=== PATIENT | male | born 1935 | race Caucasian/White ===

== ENCOUNTER 2019-10-22 15:21 | Outpatient (RCR) | payer MEDICARE, SELFPAY | END 2019-10-22 18:00 | disposition home or self-care (01) | LOC: HHLAB 15:21 | PROVIDERS: Referring Provider Nurse Practitioner Primary Care; Visit Provider Nurse Practitioner Primary Care | DX: E87.8 Other disorders of electrolyte and fluid balance, not elsewhere classified (principal) ==

== ENCOUNTER 2019-10-24 15:14 | Outpatient (RCR) | payer MEDICARE, SELFPAY ==
[2019-10-24 16:17] LABS: Anion Gap 12 (5-15); BUN 23 mg/dL (7-18); BUN/Creat Ratio 22.3 RATIO (10-20); Calcium,Total 6.4 mg/dL (8.5-10.1); Chloride 105 mmol/L (98-107); Creatinine, Serum 1.03 mg/dL (0.70-1.30); EST Glomerular Filtration Rate 73 mL/min (>60); Est Glom Filt Rate - Afr Amer 89 mL/min (>60); Glucose 95 mg/dL (74-106); Potassium 3.2 mmol/L (3.5-5.1); Sodium Level 140 mmol/L (136-145)
== END 2019-10-24 18:00 | disposition home or self-care (01) ==
LOC: HHLAB 15:14
PROVIDERS: Referring Provider Nurse Practitioner Primary Care; Visit Provider Nurse Practitioner Primary Care
DX: S22.41XD Multiple fractures of ribs, right side, subsequent encounter for fracture with routine healing (principal); S20.01XD Contusion of right breast, subsequent encounter; I25.10 Atherosclerotic heart disease of native coronary artery without angina pectoris
CPT/HCPCS: 80048

== ENCOUNTER 2021-12-30 14:55 | Inpatient (IN) | payer MEDICARE, OTHER, SELFPAY ==
[2021-12-30 15:20] VITALS: BP 100/65; PULSE 77; RESP 16; TEMP 36.1; O2SAT 99; BMI 19.0
[2021-12-30] MEDS: Pantoprazole Sodium 40 MG Tablet PO (19:19)
[2021-12-30] MEDS: Midodrine HCl 5 MG Tablet PO (19:19)
--- NOTE | 2021-12-30 21:34 | HP.PCM_ITS ---
HPI - General General Date of Admission: 12/30/21 Date of Service: 12/30/21 Chief Complaint: Here for rehabilitation. HPI Narrative 12/26/2021 MAC HARVEY, is a 86 Male who presents to [facility] with weakness. Covid19 3 weeks prior, recent discharge from [facility] TCU 12/18/2021. [facility], [facility]. Device lead positioning cancelled due to illness. Hemoglobin 8.9, Urinalysis negative, BUN 44, Creatinine 2.09, BNP 20,860. Chest X-ray moderate left pleural effusion, adjacent airspace disease, small right pleural effusion. AST 392, ALT 315. PT/OT for debility. 12/27/2021 Bumex 2mg iv twice daily. Chronic cholecystitis, no abdominal pain. 12/28/2021 Fatigue. BUN 30, Creatinine 1.77. Chronic cholecystitis. Hospice considered. 12/29/2021 Creatinine 1.44. AST 244, ALT 423. Bumex 2mg bid for acute on chronic systolic congestive heart failure (EF 22%), 3 liters diuresis. Potassium chloride 40meq for hypokalemia. PT/OT for residential facility placement. Mexiletine 200mg tid for ventricular tachycardia. 12/30/2021 Admit to TCU with debility, here for rehabilitation, strengthening, prior to discharge home with . [facility] Medical History (Updated 12/30/21 @ 21:[address] Momo Blevins MD) Acute kidney injury Acute on chronic systolic congestive heart failure Anemia Atrial fibrillation Coronary artery disease COVID-19 Debility Elevated liver enzymes Hyperlipidemia Hypertension Hypothyroidism Weakness Home Medications L.acidophil,salivari-Bifido bifidum-Strep thermoph 175 mg capsule 1 cap PO DAILY probiotic 12/30/21 [History Last Taken Unknown] aspirin 81 mg tablet,delayed release 81 mg PO DAILY Heart Health 12/30/21 [History Last Taken Unknown] bumetanide 1 mg tablet 2 mg PO DAILY Heart 12/30/21 [History Last Taken Unknown] levothyroxine 25 mcg tablet 25 mcg PO DAILY Thyroid 12/30/21 [History Last Taken Unknown] metoprolol succinate 25 mg tablet,extended release 24 hr 25 mg PO DAILY BP 12/30/21 [History Last Taken Unknown] mexiletine 200 mg capsule 200 mg PO Q12H PRN Heart Rhythm 12/30/21 [History Last Taken Unknown] midodrine 5 mg tablet 5 mg PO TID BP 12/30/21 [History Last Taken Unknown] pantoprazole 40 mg tablet,delayed release 40 mg PO BIDAC GERD 12/30/21 [History Last Taken Unknown] potassium chloride 20 mEq tablet,extended release 20 meq PO DAILY Supplement 12/30/21 [History Last Taken Unknown] Allergy/AdvReac Type Severity Reaction Status Date / Time apixaban [From Eliquis] AdvReac Unknown Bleeding Verified 12/30/21 15:34 Family History (Updated 12/30/21 @ 21:[address] Momo Blevins MD) Father Alzheimer disease Sister Alzheimer disease Sister Breast cancer Brother Cancer Brother Esophageal cancer Surgical History (Updated 12/30/21 @ 21:[address] Momo Blevins MD) H/O rectal polypectomy History of implantable cardiac defibrillator (ICD) History of thoracotomy Hx of tonsillectomy S/P mitral valve clip implantation Social History (Updated 12/30/21 @ 21:[address] Momo Blevins MD) household members: spouse Smoking Status: Never smoker alcohol intake: never substance use type: does not use ROS Constitutional Constitutional: Reports fatigue; Denies chills, fever(s) or weight gain ENT HEENT: Denies headache(s), nasal congestion or nasal discharge Cardiovascular Cardiovascular: Denies chest pain or palpitations Respiratory/Chest Respiratory/Chest: Denies cough, excessive phlegm production or shortness of breath with exertion Gastrointestinal Gastrointestinal: Denies abdominal pain, nausea or vomiting Genitourinary Genitourinary: Denies dysuria Musculoskeletal Musculoskeletal: Denies joint pain or joint swelling Integumentary Integumentary: Denies rash or wounds Neurologic Neurologic: Denies focal weakness, numbness or tingling Psychiatric Psychiatric: Denies anxiety, auditory hallucinations, depression, homicidal ideation or suicidal ideation Vital Signs Vital Signs Vital Signs: 12/30/21 15:20 12/30/21 15:20 Temperature 97 F L Temperature Source Tympanic Pulse Rate 77 77 Pulse Rhythm Regular Pulse Strength Normal (2+) Respiratory Rate 16 Respiratory Effort Short of Breath Labored Respiratory Depth Normal Respiratory Pattern Normal Blood Pressure 100/65 Blood Pressure Mean 76 Blood Pressure Source Monitor Blood Pressure Position Sitting Blood Pressure Location Left Arm Pulse Ox 99 Oxygen Delivery Method Room Air Room Air Weight Weight: 56.699 kg Body Mass Index (BMI) 19.0 Physical Exam Const alert General Appearance: cooperative HEENT normocephalic Eyes PERRL and EOMs intact bilaterally Neck supple, no JVD and no carotid bruits Resp normal respiratory effort, normal air movement and clear to auscultation bilaterally Cardio regular rate and regular rhythm GI normal to inspection, nondistended, normoactive bowel sounds, non-tender and non-distended Extremity normal capillary refill General Extremity: Negative for edema Skin no rashes or lesions noted General Skin Exam: no breakdown Psych affect normal Appearance: appropriate Results Lab / Micro Data Micro: Microbiology 12/30/21 19:25 Nasal Secretion SARS-CoV-2 Antigen (Rapid) - Final Assessment & Plan Assessment/Plan (1) Debility: (2) Weakness: (3) Acute kidney injury: (4) Elevated liver enzymes: (5) Acute on chronic systolic congestive heart failure: (6) Hypertension: (7) Hyperlipidemia: (8) Coronary artery disease: (9) Atrial fibrillation: (10) Anemia: (11) Hypothyroidism: PLAN: Plan 86 year old male with below past medical history hospitalized for weakness secondary to acute on chronic systolic congestive heart failure, complicated by chronic cholecystitis, acute kidney injury, admitted to TCU with debility, here for rehabilitation, strengthening, prior to discharge home with . * Debility - PT/OT. * Pain - Tylenol 1000mg q6h prn pain (1-10). * Bowel - senna/colace 1 tablet bid prn, Dulcolax 10mg daily prn. * Adult immunization - Administer pneumonia vaccine, covid19 vaccine, flu vaccine as appropriate. * DVT prophylaxis - Hold, pending morning labs. * Coronary artery disease - Metoprolol succinate 25mg daily, aspirin 81mg daily. * Chronic systolic congestive heart failure (EF 22%) - Metoprolol succinate 25mg daily, Bumex 1mg bid, consider Entresto but resident hypotensive. * GI prophylaxis - Lactobacillus 1 tablet daily. * Hypothyroidism - Levothyroxine 25mcg daily. * Ventricular tachycardia - Mexiletine 200mg q12h, s/p defibrillator. * Orthostatic hypotension - Midodrine 5mg tidcm. * GERD - Pantoprazole 40mg bidac. * Hypokalemia - KCL 20meq daily.
[2021-12-31 05:31] LABS: Hematocrit 26.3 % (40-54); Hemoglobin 8.7 g/dL (13.0-16.5); Mean Corp Hgb Conc 33.1 g/dL (32-36); Mean Corpuscular Hgb 33.5 pg (27.0-32.0); Mean Corpuscular Volume 101.2 fL (80-94); POSITIVE COUNT YES; POSITIVE MORPHOLOGY YES; Platelet Count 157 K/mm3 (150-450); RBC Distribution Width CV 29.6 % (11.6-14.6)
[2021-12-31] MEDS: Levothyroxine 25 MCG TABLET PO (05:31)
[2021-12-31 05:32] VITALS: BP 110/68; PULSE 78
[2021-12-31 05:32] LABS: RBC Distribution Width SD 104.7 fl (35.1-43.9)
[2021-12-31] MEDS: Metoprolol(XL)Succ 25 MG Tablet PO (05:32)
[2021-12-31 05:33] LABS: Differential Indicated MANUAL DIFF
[2021-12-31] MEDS: Bumetanide 0.5 MG Tablet 1 MG PO ×2 (05:33→17:11)
[2021-12-31 05:54] LABS: Anisocytosis 4+; Macrocytosis 1+
[2021-12-31 06:02] LABS: Absolute Neutrophil Count 4.7 X10^3/uL (2.0-7.7)
[2021-12-31 06:03] LABS: Absolute Lymphocyte Count 1.85 X10^3/uL (0.83-4.51); Atypical Lymphocyte 1+ %; Lymphocyte 23 % (19-41); Monocyte 14 % (0-10); Myelocyte 4 % (0-0); Neutrophil-Segmented 59 % (47-70); Platelet Estimate ADEQUATE (ADEQ); Polychromasia RARE; Total Cells Counted 100 (MANUAL DIFF)
[2021-12-31 06:04] LABS: Hypochromasia 1+; Other RBC Morphology 1+; Target Cells 1+
[2021-12-31 06:07] LABS: AST(SGOT) 65 U/L (15-37); Alanine Aminotransfer ALT/SGPT 202 U/L (16-61); Albumin, Serum 2.8 g/dL (3.2-5.0); Alkaline Phosphatase 136 U/L (45-117); Anion Gap 7 (5-15); BUN 28 mg/dL (7-18); BUN/Creat Ratio 21.9 RATIO (10-20); Bilirubin, Direct 1.05 mg/dL (0.00-0.30); Calcium,Total 8.6 mg/dL (8.5-10.1); Chloride 106 mmol/L (98-107); Creatinine, Serum 1.28 mg/dL (0.70-1.30); EST Glomerular Filtration Rate 57 mL/min (>60); Est Glom Filt Rate - Afr Amer 69 mL/min (>60); Estimated Creatinine Clearance 33.84 ml/min; Globulin 4.2 g/dL (2.2-4.2); Glucose 110 mg/dL (74-106); Potassium 3.6 mmol/L (3.5-5.1); Sodium Level 140 mmol/L (136-145)
[2021-12-31 07:10] VITALS: O2SAT 99
[2021-12-31 07:39] LABS: BNP,B-Type NATRIURETIC PEPTIDE 1430.9 pg/mL (0-100)
[2021-12-31] MEDS: Potassium Chloride Oral Tablet 20 MEQ PO (08:22)
[2021-12-31] MEDS: Aspirin E.C. 81 MG Tablet PO (08:22)
[2021-12-31] MEDS: Pantoprazole Sodium 40 MG Tablet PO ×2 (08:22→17:09)
[2021-12-31] MEDS: Midodrine HCl 5 MG Tablet PO ×3 (08:22→17:10)
[2021-12-31 09:00] VITALS: O2SAT 100
[2021-12-31 09:32] LABS: Pathologist Review Reviewed
[2021-12-31] MEDS: Tuberculin,Purif.prot.deriv. 50 TU/ML Vial 0.1 ML ID (09:46)
[2021-12-31 15:44] VITALS: BP 110/65; PULSE 71; RESP 16; TEMP 36.6; O2SAT 100
[2021-12-31] MEDS: Bisacodyl 5 MG Tablet 10 MG PO (17:09)
[2021-12-31] MEDS: Mexiletine HCl 200 MG Capsule PO (18:36)
[2021-12-31 23:33] VITALS: PULSE 68; RESP 18
[2022-01-01] MEDS: Bumetanide 0.5 MG Tablet 1 MG PO ×2 (05:31→17:44)
[2022-01-01] MEDS: Mexiletine HCl 200 MG Capsule PO ×2 (05:32→17:45)
[2022-01-01] MEDS: Levothyroxine 25 MCG TABLET PO (05:32)
[2022-01-01 05:33] VITALS: PULSE 69
[2022-01-01] MEDS: Metoprolol(XL)Succ 25 MG Tablet PO (05:33)
[2022-01-01] MEDS: Pantoprazole Sodium 40 MG Tablet PO ×2 (05:35→17:44)
[2022-01-01] MEDS: Midodrine HCl 5 MG Tablet PO ×3 (08:35→17:44)
[2022-01-01] MEDS: Potassium Chloride Oral Tablet 20 MEQ PO (08:36)
[2022-01-01] MEDS: Aspirin E.C. 81 MG Tablet PO (08:36)
[2022-01-01] MEDS: Senna/Docusate Sodium 1 Tablet PO ×2 (09:11→17:46)
--- NOTE | 2022-01-01 10:48 | CASEMGMT ---
Social Work Met with patient for initial assessment. Introduced self and role. Verified/updated contacts. Discussed code status and MOLST form. Pt wishes to be DNR-CC. DNR form signed by pt. Nursing aware. MOLST completed, placed in Dr folder. Educated to Medicare benefit. However, unsure pt comprehended the coverage. SW to ensure to explain to family. Pt is on day and encouraged to contact secondary insurance to ensure copay coverage. Pt stated he lives at home with his ; his dtr is secondary contact - does not work, is on disability for Lupus; son works long hours. Pts goal is to return home at prior level of independence, but if he cannot, pt stated the plan is to be LTC at [facility]. SW praised for insight to a safe DC plan. Inquired about financial liability for SNF. Pt stated he thought insurance paid for SNF. Educated to private pay or Medicaid, not insurance. Attempted to get information on fiances as pt stated he manages his own finances, but couldn't provide any details to this worker. Pt provided this worker permission to speak with or dtr about finances and if [facility] is aware of wish to admit. Pt scored 10/15 on BIMS as well. SW entered ST order. requested palliative consult. Order entered and sent referral via email to [facility]. SW to continue to follow for DC planning. Sarai Palma, NATHANIEL BIGGSW
[2022-01-01 15:25] VITALS: BP 120/76; PULSE 89; RESP 14; TEMP 36.8; O2SAT 100
--- NOTE | 2022-01-01 15:30 | PHA.CONS_ITS ---
TCU RX Drug Regimen Review Subjective: TCU Admission. 86 YOM presented to outside ER with weakness. Hospitalized for weakness secondary to acute on chronic systolic congestive heart failure, complicated by chronic cholecystitis and acute kidney injury. Admitted to TCU with debility for strengthening and rehabilitation. Objective: Allergies apixaban [From EliWantster] Adverse Reaction (Unknown, Verified 12/30/21 15:34) Bleeding Excessive Bleeding Current Medications Generic Name Dose Route Start Last Admin Trade Name Freq PRN Reason Stop Dose Admin Acetaminophen 1,000 mg 12/30/21 21:54 Acetaminophen 500 Mg Tablet PO Q6H PRN PRN Pain Score 1-10 Aspirin 81 mg 12/31/21 08:00 01/01/22 08:36 Aspirin E.C. 81 Mg Tablet PO 81 mg DAILYCM HARJINDER Administration Bisacodyl 10 mg 12/30/21 21:54 12/31/21 17:09 Bisacodyl 5 Mg Tablet PO 10 mg DAILY PRN Administration CONSTIPATION Bumetanide 1 mg 12/31/21 06:00 01/01/22 05:31 Bumetanide 0.5 Mg Tablet PO 1 mg BID HARJINDER Administration Lactobacillus Acidophilus 1 tablet 12/31/21 06:00 01/01/22 05:31 Lactobacillus Acidophilus PO 1 tablet DAILY HARJINDER Administration Levothyroxine Sodium 25 mcg 12/31/21 06:00 01/01/22 05:32 Levothyroxine 25 Mcg Tablet PO 25 mcg DAILY HARJINDER Administration Metoprolol Succinate 25 mg 12/31/21 06:00 01/01/22 05:33 Metoprolol(Xl)Succ 25 Mg Tablet PO 25 mg DAILY HARJINDER Administration Mexiletine HCl 200 mg 12/31/21 18:30 01/01/22 05:32 Mexiletine Hcl 200 Mg Capsule PO 200 mg Q12 HARJINDER Administration Midodrine 5 mg 12/30/21 17:45 01/01/22 14:14 Midodrine Hcl 5 Mg Tablet PO 5 mg TIDCM HARJINDER Administration Pantoprazole Sodium 40 mg 12/30/21 16:00 01/01/22 05:35 Pantoprazole Sodium 40 Mg Tablet PO 40 mg BIDAC HARJINDER Administration Potassium Chloride 20 meq 12/31/21 08:00 01/01/22 08:36 Potassium Chloride Oral Tablet 20 Meq PO 20 meq DAILYCM HARJINDER Administration Senna/Docusate Sodium 1 tablet 12/30/21 21:54 Senna/Docusate Sodium 1 Tablet PO BID PRN PRN Constipation Senna/Docusate Sodium 1 tablet 01/01/22 08:00 01/01/22 09:11 Senna/Docusate Sodium 1 Tablet PO 1 tablet BID HARJINDER Administration Sodium Chloride 10 - 40 ml 12/30/21 17:15 0.9% Saline Lock 10 Ml Syringe IV UD PRN SALINE FLUSH Tuberculin PPD 0.1 ml 01/07/22 10:00 Tuberculin,Purif.Prot.Deriv. 50 Tu/Ml Vial ID 01/07/22 10:01 X1 ONE Problem List (Last Updated 12/30/21 @ 21:[address] Momo Blevins MD) Hypothyroidism (Acute) Anemia (Acute) Atrial fibrillation (Acute) Coronary artery disease (Acute) Hyperlipidemia (Acute) Hypertension (Chronic) Acute on chronic systolic congestive heart failure (Chronic) Elevated liver enzymes (Acute) Acute kidney injury (Acute) Weakness (Acute) Debility (Acute) Vital Signs Temp Pulse Resp BP Pulse Ox O2 Del Method 98.2 F 89 14 120/76 100 Room Air 01/01/22 15:25 01/01/22 15:25 01/01/22 15:25 01/01/22 15:25 01/01/22 15:25 01/01/22 15:25 Oxygen Delivery Method Room Air Weight: 56.699 kg Body Mass Index (BMI) 19.0 Sodium 140 mmol/L (136-145) 12/31/21 05:16 Potassium 3.6 mmol/L (3.5-5.1) 12/31/21 05:16 Chloride 106 mmol/L (98-107) 12/31/21 05:16 Carbon Dioxide 27.0 mmol/L (21.0-32.0) 12/31/21 05:16 Anion Gap 7 (5-15) 12/31/21 05:16 BUN 28 mg/dL (7-18) H 12/31/21 05:16 Creatinine 1.28 mg/dL (0.70-1.30) 12/31/21 05:16 Est GFR (MDRD) Af Amer 69 mL/min (>60) 12/31/21 05:16 Est GFR (MDRD) Non-Af 57 mL/min (>60) L 12/31/21 05:16 BUN/Creatinine Ratio 21.9 RATIO (10-20) H 12/31/21 05:16 Glucose 110 mg/dL (74-106) H 12/31/21 05:16 Assessment/Plan: 1. Pain: acetaminophen 1000mg PO Q6H PRN pain 1-10. Please continue to monitor for increased pain and PRN usage. Resident has not used any doses so far. 2. Bowel: senna/docusate 1T PO BID and BID PRN constipation, bisacodyl 10mg PO daily PRN constipation. Please continue to monitor for constipation and PRN usage. Resident has had 1 dose of bisacodyl and 1 bowel movement (12/31). 3. CAD/CHF: metoprolol succinate 25mg PO daily, aspirin 81mg PO DAILYCM and bumetanide 1mg PO BID. Please continue to monitor BP (last 120/76), HR (last 89), hemoglobin (last 8.7g/dL), S/S of bleeding, sodium (last 140mmol/L), potassium (last 6.3mmol/L), swelling and renal function. 4. Hypothyroidism: levothyroxine 25mcg PO daily. Please consider ordering a TSH (none in the chart) if clinically appropriate. Thanks. Please continue to monitor for S/S of hypo/hyperthyroidism. 5. Ventricular tachycardia: mexiletine 200mg PO Q12. Please continue to monitor LFTs (last 12/31/21) and HR. 6. Orthostatic hypotension: midodrine 5mg PO TIDCM. Please continue to monitor BP (last 120/76) and dizziness. 7. GERD: pantoprazole 40mg PO BIDAC. Please continue to monitor for S/S of GERD and diarrhea. 8. Hypokalemia: potassium chloride 20Meq PO DAILYCM. Please continue to monitor potassium levels (last 3.6mmol/L). 9. GI prophylaxis: lactobacillus 1T PO daily. Please continue to monitor. Assessment/Plan for indications treated with psychotropic medications: None Medical chart and medication regimen reviewed. The following medication irregularities or issues were identified: *1. Levothyroxine 25mcg PO daily. Please consider ordering a TSH (none in the chart) if clinically appropriate. Thanks. Date of Note:: 01/01/22
--- NOTE | 2022-01-01 21:21 | NURSING ---
This Nurse received in report that patient was ordered a SSE for no bowel movement since 12/27/2021. Previous nurse reported that patient had a medium and said he felt fine. SSE was not given. This Nurse attempted to give enema, but patient refused. Patient did have an XL BM.
[2022-01-02] VITALS (9 sets, daily range): BP systolic 97–119; BP diastolic 53–66; PULSE 68–87; RESP 16; TEMP 36.2; O2SAT 92–96
[2022-01-02] MEDS: Senna/Docusate Sodium 1 Tablet PO ×2 (05:28→18:47)
[2022-01-02] MEDS: Levothyroxine 25 MCG TABLET PO (05:28)
[2022-01-02] MEDS: Pantoprazole Sodium 40 MG Tablet PO ×2 (05:29→15:50)
[2022-01-02] MEDS: Mexiletine HCl 200 MG Capsule PO ×2 (05:30→18:47)
--- NOTE | 2022-01-02 06:18 | NURSING ---
Patient's blood pressure 97/55 with manual blood pressure cuff. Bumex and Metoprolol held at this time.
[2022-01-02] MEDS: Bumetanide 0.5 MG Tablet 1 MG PO ×2 (06:23→18:46)
[2022-01-02] MEDS: Menthol/Lanolin/Calamine/Znox 113 GM Tube 1 APPLIC TOPICAL ×2 (06:26→18:46)
[2022-01-02] MEDS: Midodrine HCl 5 MG Tablet PO ×3 (07:57→18:45)
[2022-01-02] MEDS: Metoprolol(XL)Succ 25 MG Tablet PO (07:57)
[2022-01-02] MEDS: Aspirin E.C. 81 MG Tablet PO (07:57)
[2022-01-02] MEDS: Potassium Chloride Oral Tablet 20 MEQ PO (07:57)
[2022-01-03] MEDS: Mexiletine HCl 200 MG Capsule PO (04:51)
[2022-01-03] MEDS: Bumetanide 0.5 MG Tablet 1 MG PO (04:52)
[2022-01-03] MEDS: Levothyroxine 25 MCG TABLET PO (04:53)
[2022-01-03] MEDS: Senna/Docusate Sodium 1 Tablet PO (04:53)
[2022-01-03] MEDS: Menthol/Lanolin/Calamine/Znox 113 GM Tube 1 APPLIC TOPICAL (04:54)
--- NOTE | 2022-01-03 06:25 | NURSING ---
Addendum entered by Sydnee Nielsen 01/03/22 07:48: Updated daughter Audra about situation and that patient taken to ER. Addendum entered by Shandra Estrada 01/03/22 07:22: Dr. Blevins notified. Order to send pt to the ED. RN aware. Report called to Birdie in the ED. Original Note: This morning, pt told nurse his defibrillator had activated 4 times throughout the shift. Vital signs assessed and documented. Pt denies any other symptoms other than feeling the defibrillator shock him. Pt has history of the implant not working properly and was scheduled to get it repositioned but developed PNA and Covid and procedure had to be cancelled. Procedure has been rescheduled for 01/11 at 0830. RN aware and note left for Dr. Blevins.
[2022-01-03] MEDS: Pantoprazole Sodium 40 MG Tablet PO (06:57)
--- NOTE | 2022-01-03 11:42 | NURSING ---
SPOKE WITH TR LORENZO ON PHONE. DGTR AWARE PT BEING TX TO [place]. 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 [place], PTS HOME MED, SENT HOME WITH FAMILY. PTS SHOES, GLASSES AND ONE CHANGE OF CLOTHING SENT TO ED FOR PT TO TAKE TO [facility].
--- NOTE | 2022-01-04 07:44 | PCM.DC.SUM ---
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 01/01/22 10:55 Consult: Hospice / Palliative Care Routine Consulting Provider: [facility] Reason for Consult: PALLIATIVE - early Dementia, CHF EMERGENT Consult: No MD Notified: Yes Date Notified: 01/01/22 Time Notified: 10:55 Method of Notification: Verbal Reason For Visit: GENERALIZED WEAKNESS Diagnosis Discharge Diagnosis (1) Debility: Status: Acute Code(s): R53.81 - Other malaise (2) Weakness: Status: Acute Code(s): R53.1 - Weakness (3) Acute kidney injury: Status: Acute Code(s): N17.9 - Acute kidney failure, unspecified (4) Elevated liver enzymes: Status: Acute Code(s): R74.8 - Abnormal levels of other serum enzymes (5) Acute on chronic systolic congestive heart failure: Status: Chronic Code(s): I50.23 - Acute on chronic systolic (congestive) heart failure (6) Hypertension: Status: Chronic Code(s): I10 - Essential (primary) hypertension (7) Hyperlipidemia: Status: Acute Code(s): E78.5 - Hyperlipidemia, unspecified (8) Coronary artery disease: Status: Acute Code(s): I25.10 - Atherosclerotic heart disease of [place] coronary artery without angina pectoris (9) Atrial fibrillation: Status: Acute Code(s): I48.91 - Unspecified atrial fibrillation (10) Anemia: Status: Acute Code(s): D64.9 - Anemia, unspecified (11) Hypothyroidism: Status: Acute Code(s): E03.9 - Hypothyroidism, unspecified Plan 86 year old male with below past medical history hospitalized for weakness secondary to acute on chronic systolic congestive heart failure, complicated by chronic cholecystitis, acute kidney injury, admitted to TCU with debility, here for rehabilitation, strengthening, prior to discharge home with . Debility - PT/OT. Pain - Tylenol 1000mg q6h prn pain (1-10). Bowel - senna/colace 1 tablet bid prn, Dulcolax 10mg daily prn. Adult immunization - Administer pneumonia vaccine, covid19 vaccine, flu vaccine as appropriate. DVT prophylaxis - Hold, pending morning labs. Coronary artery disease - Metoprolol succinate 25mg daily, aspirin 81mg daily. Chronic systolic congestive heart failure (EF 22%) - Metoprolol succinate 25mg daily, Bumex 1mg bid, consider Entresto but resident hypotensive. GI prophylaxis - Lactobacillus 1 tablet daily. Hypothyroidism - Levothyroxine 25mcg daily. Ventricular tachycardia - Mexiletine 200mg q12h, s/p defibrillator. Orthostatic hypotension - Midodrine 5mg tidcm. GERD - Pantoprazole 40mg bidac. Hypokalemia - KCL 20meq daily. Medications at Discharge Home Medications L.acidophil,salivari-Bifido bifidum-Strep thermoph 175 mg capsule 1 cap PO DAILY probiotic 12/30/21 aspirin 81 mg tablet,delayed release 81 mg PO DAILY Heart Health 12/30/21 bumetanide 1 mg tablet 2 mg PO DAILY Heart 12/30/21 levothyroxine 25 mcg tablet 25 mcg PO DAILY Thyroid 12/30/21 metoprolol succinate 25 mg tablet,extended release 24 hr 25 mg PO DAILY BP 12/30/21 mexiletine 200 mg capsule 200 mg PO Q12H PRN Heart Rhythm 12/30/21 midodrine 5 mg tablet 5 mg PO TID BP 12/30/21 pantoprazole 40 mg tablet,delayed release 40 mg PO BIDAC GERD 12/30/21 potassium chloride 20 mEq tablet,extended release 20 meq PO DAILY Supplement 12/30/21 Hospital Course Operations None Procedures None Summary of Care Provided Minutes Spent on Discharge: 30 Hospital Course: 86 year old male with below past medical history hospitalized for weakness secondary to acute on chronic systolic congestive heart failure, complicated by chronic cholecystitis, acute kidney injury, admitted to TCU with debility, here for rehabilitation, strengthening, prior to discharge home with . 01/03/2022 Defibrillator fired 4 times in the night. Discharge to [facility] Emergency Department for evaluation, admission to hospital. Weight / BMI Weight Weight: 56.699 kg Body Mass Index (BMI) 19.0 ABG / Lab / Microbiology Data Result Diagrams: 12/31/21 05:16 12/31/21 05:16 Microbiology: Microbiology 01/03/22 07:00 Nasal Secretion SARS-CoV-2 Antigen (Rapid) - Final 01/01/22 06:12 Nasal Secretion SARS-CoV-2 Antigen (Rapid) - Final 12/30/21 19:25 Nasal Secretion SARS-CoV-2 Antigen (Rapid) - Final D/C Instructions Discharge Diet: No restrictions Discharge Activity: Return to Normal Activity, May Shower and Use Walker Weight Bearing Status: Weight bearing as tolerated Call your doctor if you observe: Fever of 101 or Higher, Inability to urinate, Inability to have a bowel movement, Shortness of breath, Dizziness, Fainting spells, Swelling in the ankles and Chest pain Additional Instructions: Discharge to [facility] Emergency Department for evaluation, admission to hospital. Meaningful Use Info Meaningful Use Diagnoses (Choose all that apply): None applicable Discharge Plan Admission Admit Date/Time: 12/30/21 14:55 Primary Reason for Your Visit: Debility. Attending Provider: Momo Blevins Chi Consulting Providers: Indira Will ; Kelvin Gonzalez ; Kisha Lake ; Suma Schwartz ; Aurora Glynn GLASSWARE VERIFIER Instructions Additional Instructions / Restrictions: Discharge to [facility] Emergency Department for evaluation, admission to hospital. Discharge Orders/Prescriptions Prescriptions: No Action midodrine 5 mg tablet 5 mg PO TID Label Comments: TAKE 1 TABLET BY MOUTH THREE TIMES A DAY aspirin 81 mg tablet,delayed release (DR/EC) 81 mg PO DAILY Label Comments: TAKE 1 TABLET BY MOUTH EVERY DAY WITH A MEAL levothyroxine 25 mcg tablet 25 mcg PO DAILY Label Comments: TAKE 1 TABLET BY MOUTH EVERY DAY AND TAKE 2 TABS (50MCG) ON TUESDAY pantoprazole 40 mg tablet,delayed release (DR/EC) 40 mg PO BIDAC Label Comments: TAKE 1 TABLET BY MOUTH TWICE A DAY BEFORE MEALS bumetanide 1 mg tablet 2 mg PO DAILY Label Comments: TAKE 1 TABLET BY MOUTH TWICE A DAY mexiletine 200 mg capsule 200 mg PO Q12H PRN Label Comments: TAKE 1 CAPSULE BY MOUTH EVERY 8 HOURS metoprolol succinate 25 mg tablet extended release 24 hr 25 mg PO DAILY Label Comments: TAKE 1 TABLET BY MOUTH EVERY DAY Annaacidtricia,saliva-B.bif-S.therm 175 mg capsule 1 cap PO DAILY Label Comments: TAKE 1 CAPSULE BY MOUTH EVERY DAY potassium chloride 20 mEq tablet extended release 20 meq PO DAILY Label Comments: TAKE 1 TABLET BY MOUTH EVERY MORNING Disposition Disposition (needs filled in before D/C Order can be placed): Acute Care Hospital
--- NOTE | 2022-01-12 07:04 | MDS.RN ---
Information for the mds was obtained from review of the clinical record, interview of resident, staff, and direct observation of resident's care. PDPM codes did not generate with completion of MDS assessment, error report sent to [facility] information systems.
== END 2022-01-03 07:15 | disposition short-term general hospital (02) | DRG 292 ==
PROVIDERS: Admitting Provider Family Medicine Geriatric Medicine; Visit Provider Family Medicine Geriatric Medicine
DX: I11.0 Hypertensive heart disease with heart failure (principal); I47.20 Ventricular tachycardia, unspecified; I50.22 Chronic systolic (congestive) heart failure; I48.91 Unspecified atrial fibrillation; L89.152 Pressure ulcer of sacral region, stage 2; E78.5 Hyperlipidemia, unspecified; I25.10 Atherosclerotic heart disease of native coronary artery without angina pectoris; E03.9 Hypothyroidism, unspecified; I95.1 Orthostatic hypotension; K21.9 Gastro-esophageal reflux disease without esophagitis; Z79.82 Long term (current) use of aspirin; Z86.16 Personal history of COVID-19; Z79.899 Other long term (current) drug therapy; Z79.890 Hormone replacement therapy; Z95.810 Presence of automatic (implantable) cardiac defibrillator
CPT/HCPCS: 36415; 80048; 80076; 83880; 85025; 87426; 87811; 92507; 92523; 97110; 97162; 97166; 97530; 97535; 97802

== ENCOUNTER 2022-01-03 07:34 | Emergency (ER) | payer MEDICARE, OTHER, SELFPAY ==
[2022-01-03 07:36] VITALS: BP 106/66; PULSE 70; RESP 15; TEMP 36.5; O2SAT 95
--- NOTE | 2022-01-03 07:41 | EKG12_ITS ---
Test Reason : DEFIB Blood Pressure : / mmHG Vent. Rate : 070 BPM Atrial Rate : 070 BPM P-R Int : 146 ms QRS Dur : 176 ms QT Int : 474 ms P-R-T Axes : 085 203 095 degrees QTc Int : 511 ms AV dual-paced rhythm Biventricular pacemaker detected Abnormal ECG Confirmed by ARACELI SOSA, ASHLEY ([id number]), magazine editor MANGO THOMAS ([id number]) on 01/04/2022 9:34:30 AM Referred By: Confirmed By:ASHLEY CHARLES MD
--- NOTE | 2022-01-03 07:42 | RAD_ITS ---
STUDY: X-RAY CHEST REASON FOR EXAM: Male, 86 years old. CAD needs defibrillator leads replaced. TECHNIQUE: Single frontal view of the chest. COMPARISON: None. FINDINGS: There is a hazy opacity within the left lower lung. There are prominent interstitial markings within the lower lungs. There is cardiomegaly. There is a cardiac pacer device in place. Normal mediastinum and ashwin. Normal visualized pulmonary arteries. There is atherosclerotic calcification of the aortic arch with tortuosity. Normal visualized thoracic spine. Normal visualized ribs, clavicles, and shoulders. There is no demonstrated abnormality of the visualized soft tissue structures of the upper abdomen. RAD/Chest 1 View (Portable) IMPRESSION: Hazy opacity within the left lower lung, may reflect an effusion, cannot exclude left basilar consolidation. Prominent interstitial markings within the lower lungs, a nonspecific finding may be secondary to edema and/or an infectious process. Cardiomegaly. Electronically Signed: Nilsa Francisco MD at 8:51 EDT ,
--- NOTE | 2022-01-03 07:43 | EDS_ITS ---
HPI History of Present Illness Chief Complaint: General Illness Narrative Narrative: History and physical call mildly limited secondary to patient age. Patient presents from the TCU with defibrillator firing all night. He reports that it last fired 3 hours ago, and he may be fired 4 times in the evening. Of note, his technical sales support specialist is Dr. Diaz in [place], and he was recently sent to the TCU 4 days ago because he requires defibrillator lead placement/readjustment but this was reportedly delayed secondary to patient being COVID-positive. He states that he has had this defibrillator for approximately 3 years but it has not gone off for a long time. However, on his admission note to the TCU, his defibrillator had already been firing. He was sent there for generalized weakness and debility. Patient denies any weakness and states that he feels fine. [facility] Medical History Acute kidney injury Acute on chronic systolic congestive heart failure Anemia Atrial fibrillation Coronary artery disease COVID-19 Debility Elevated liver enzymes Hyperlipidemia Hypertension Hypothyroidism Weakness Home Medications L.acidophil,salivari-Bifido bifidum-Strep thermoph 175 mg capsule 1 cap PO DAILY probiotic 12/30/21 [History Last Taken Unknown] aspirin 81 mg tablet,delayed release 81 mg PO DAILY Heart Health 12/30/21 [History Last Taken Unknown] bumetanide 1 mg tablet 2 mg PO DAILY Heart 12/30/21 [History Last Taken Unknown] levothyroxine 25 mcg tablet 25 mcg PO DAILY Thyroid 12/30/21 [History Last Taken Unknown] metoprolol succinate 25 mg tablet,extended release 24 hr 25 mg PO DAILY BP 12/30/21 [History Last Taken Unknown] mexiletine 200 mg capsule 200 mg PO Q12H PRN Heart Rhythm 12/30/21 [History Last Taken Unknown] midodrine 5 mg tablet 5 mg PO TID BP 12/30/21 [History Last Taken Unknown] pantoprazole 40 mg tablet,delayed release 40 mg PO BIDAC GERD 12/30/21 [History Last Taken Unknown] potassium chloride 20 mEq tablet,extended release 20 meq PO DAILY Supplement 12/30/21 [History Last Taken Unknown] Allergy/AdvReac Type Severity Reaction Status Date / Time apixaban [From Eliquis] AdvReac Unknown Bleeding Verified 01/03/22 07:36 Family History Father Alzheimer disease Sister Alzheimer disease Sister Breast cancer Brother Cancer Brother Esophageal cancer Surgical History H/O rectal polypectomy History of implantable cardiac defibrillator (ICD) History of thoracotomy Hx of tonsillectomy S/P mitral valve clip implantation Social History household members: spouse Smoking Status: Never smoker alcohol intake: never substance use type: does not use ROS ROS ED ROS Narrative Constitutional: No fever, no chills. HEENT: No sore throat. No neck pain. No loss of vision. No rhinorrhea. Cardiovascular: No chest pain. No palpitations. No pedal edema. Defibrillator fired 4 times overnight. Respiratory: No cough, no shortness of breath. Abdominal: No abdominal pain. No nausea. No vomiting. Genitourinary: No dysuria. No hematuria. Musculoskeletal: No myalgias. No arthralgias. Neurologic: No headaches. No dizziness. No lightheadedness. Skin: No rash. No change in color. Psychiatric: No depression. No anxiety. EXAM Physical Exam Narrative Exam Narrative: Afebrile. Vital signs noted. HEENT: Normocephalic. Atraumatic. PERRL, EOMI. Neck soft and supple. No point tenderness or step off. Cardiovascular: Regular rate and rhythm. No murmurs, rubs, or gallops appreciated. Respiratory: No tachypnea. Lungs clear to auscultation bilaterally. Gastrointestinal: Abdomen soft, nontender, with normoactive bowel sounds. No rebound or guarding. Neurological: Awake. Alert. Oriented to person. Nonfocal, nonlateralizing. Skin: No rash. Normal color. No pallor. Musculoskeletal: No pedal edema. Full range of motion extremities. Const Vital Signs: 01/03/22 07:36 01/03/22 08:12 01/03/22 08:14 Temperature 97.7 F L Temperature Source Temporal Pulse Rate 70 72 Respiratory Rate 15 15 Respiratory Effort Normal Non-Labored Blood Pressure 106/66 106/66 Blood Pressure Mean 79 79 Pulse Ox 95 96 Oxygen Delivery Method Room Air Room Air MDM MDM MDM Narrative Medical decision making narrative: I will obtain an EKG and a chest x-ray. Patient does not know what type of device he has so interrogation is not possible at this point. He was placed on a cardiac specialist. I will obtain basic laboratory work and a COVID test. EKG obtained and interpreted by myself shows a paced rhythm at [address] changes, no ectopy, no STEMI. CBC shows white count of 9.5 with hemoglobin stable at 8.4. Platelet count of 175. CMP shows a BUN of 25 with a creatinine of 1.25. AST elevated at 40 with an ALT of 81. High-sensitivity troponin 26. Chest x-ray interpreted by myself shows no acute process. Radiology does read possible left lower lobe infiltrate. Patient is not showing any signs of active pneumonia. Given that he reportedly had 4 firings of his pacemaker, although I am unable to interrogate the device, I discussed the patient with [facility], Dr. Buchanan, who has accepted him in transfer. They will interrogate his device and see if they need to readjust his leadless pacemaker. Patient will be transferred in stable condition. Lab Data Attestation: I reviewed the patient's lab results. Labs: Laboratory Results - last 24 hr 01/03/22 01/03/22 08:25 08:25 WBC PLANNING CONSULTANT Corrected WBC 9.5 RBC 2.44 L Hgb 8.4 L Hct 24.9 L MCV 102.0 H MCH 34.4 H MCHC 33.7 RDW Std Deviation 106.7 H RDW Coeff of Charly 30.0 H Plt Count 175 Neut % (Auto) Not Reportable Absolute Neuts (auto) 5.6 Absolute Lymphs (auto) 2.00 Total Counted 100 Neutrophils % (Manual) 59 Lymphocytes % (Manual) 21 Monocytes % (Manual) 11 H Myelocytes % 9 H Nucleated RBCs/100 WBC 10 H Diff Path Review May foll Platelet Estimate ADEQUATE Plt Morphology Comment LARGE Polychromasia 1+ Hypochromasia 1+ Anisocytosis 2+ Microcytosis 1+ Macrocytosis 1+ Target Cells 1+ Acanthocytes (Spur) 1+ Sodium 141 Potassium 3.6 Chloride 105 Carbon Dioxide 28.0 Anion Gap 8 BUN 25 H Creatinine 1.25 Estim Creat Clear Calc 36.61 Est GFR (MDRD) Af Amer 71 Est GFR (MDRD) Non-Af 58 L BUN/Creatinine Ratio 20.0 Glucose 110 H Calcium 8.5 Total Bilirubin 1.10 H AST 40 H ALT 81 H Alkaline Phosphatase 133 H Troponin I High Sens 26 Total Protein 7.0 Albumin 2.7 L Globulin 4.3 H Albumin/Globulin Ratio 0.6 L Radiography Diagnostic Testing: Clinical Impression(s) from Imaging Studies Chest X-Ray 01/03/22 07:42 IMPRESSION: Hazy opacity within the left lower lung, may reflect an effusion, cannot exclude left basilar consolidation. Prominent interstitial markings within the lower lungs, a nonspecific finding may be secondary to edema and/or an infectious process. Cardiomegaly. Electronically Signed: Nilsa Francisco MD at 8:51 EDT , Discharge Plan Triage Chief Complaint: General Illness ED Provider: Darci Miller Dx/Rx/DC Orders Clinical Impression: Defibrillator discharge, Weakness, Anemia Prescriptions: No Action midodrine 5 mg tablet 5 mg PO TID Label Comments: TAKE 1 TABLET BY MOUTH THREE TIMES A DAY aspirin 81 mg tablet,delayed release (DR/EC) 81 mg PO DAILY Label Comments: TAKE 1 TABLET BY MOUTH EVERY DAY WITH A MEAL levothyroxine 25 mcg tablet 25 mcg PO DAILY Label Comments: TAKE 1 TABLET BY MOUTH EVERY DAY AND TAKE 2 TABS (50MCG) ON TUESDAY pantoprazole 40 mg tablet,delayed release (DR/EC) 40 mg PO BIDAC Label Comments: TAKE 1 TABLET BY MOUTH TWICE A DAY BEFORE MEALS bumetanide 1 mg tablet 2 mg PO DAILY Label Comments: TAKE 1 TABLET BY MOUTH TWICE A DAY mexiletine 200 mg capsule 200 mg PO Q12H PRN Label Comments: TAKE 1 CAPSULE BY MOUTH EVERY 8 HOURS metoprolol succinate 25 mg tablet extended release 24 hr 25 mg PO DAILY Label Comments: TAKE 1 TABLET BY MOUTH EVERY DAY L.acidoph,saliva-B.bif-S.therm 175 mg capsule 1 cap PO DAILY Label Comments: TAKE 1 CAPSULE BY MOUTH EVERY DAY potassium chloride 20 mEq tablet extended release 20 meq PO DAILY Label Comments: TAKE 1 TABLET BY MOUTH EVERY MORNING Primary Care Provider: Care Physician,No Primary Referrals: Care Physician,No Primary [Primary Care Provider] - Disposition Disposition: Acute Care Hospital Discharge Location: [facility]
[2022-01-03 08:14] VITALS: BP 106/66; PULSE 72; RESP 15; O2SAT 96
[2022-01-03 08:40] LABS: Hematocrit 24.9 % (40-54); Hemoglobin 8.4 g/dL (13.0-16.5); Mean Corp Hgb Conc 33.7 g/dL (32-36); Mean Corpuscular Hgb 34.4 pg (27.0-32.0); POSITIVE COUNT YES; POSITIVE MORPHOLOGY YES; Platelet Count 175 K/mm3 (150-450); Red Blood Count 2.44 M/mm3 (4.6-6.2)
[2022-01-03 08:41] LABS: RBC Distribution Width SD 106.7 fl (35.1-43.9)
[2022-01-03 08:42] LABS: Differential Indicated MANUAL DIFF
[2022-01-03 08:59] LABS: ALB/GLOB Ratio 0.6 RATIO (0.9-2.4); AST(SGOT) 40 U/L (15-37); Alanine Aminotransfer ALT/SGPT 81 U/L (16-61); Albumin, Serum 2.7 g/dL (3.2-5.0); Alkaline Phosphatase 133 U/L (45-117); Anion Gap 8 (5-15); BUN 25 mg/dL (7-18); Calcium,Total 8.5 mg/dL (8.5-10.1); Chloride 105 mmol/L (98-107); Creatinine, Serum 1.25 mg/dL (0.70-1.30); EST Glomerular Filtration Rate 58 mL/min (>60); Est Glom Filt Rate - Afr Amer 71 mL/min (>60); Estimated Creatinine Clearance 36.61 ml/min; Globulin 4.3 g/dL (2.2-4.2); Glucose 110 mg/dL (74-106); Potassium 3.6 mmol/L (3.5-5.1); Sodium Level 141 mmol/L (136-145); Troponin-I HS 26 pg/mL (3.0-78.0)
[2022-01-03 09:35] LABS: Corrected WBC 9.5 K/mm3 (4.4-11.0); Lymphocyte 21 % (19-41); Monocyte 11 % (0-10); Myelocyte 9 % (0-0); Neutrophil-Segmented 59 % (47-70); Nucleated Red Bld Cells,Manual 10 % (0-5); Platelet Estimate ADEQUATE (ADEQ); Platelet Morphology LARGE; Total Cells Counted 100 (MANUAL DIFF)
[2022-01-03 09:36] LABS: Acanthocytes 1+; Anisocytosis 2+; Hypochromasia 1+; Macrocytosis 1+; Microcytosis 1+; Polychromasia 1+; Target Cells 1+
[2022-01-03 09:39] LABS: Absolute Neutrophil Count 5.6 X10^3/uL (2.0-7.7)
--- NOTE | 2022-01-03 11:54 | ED.RN ---
male heatherck applied.
[2022-01-03 13:39] VITALS: BP 109/66; PULSE 70; RESP 14; O2SAT 95
--- NOTE | 2022-01-03 14:07 | ED.RN ---
called [facility] and was told they do have discharges for today and will be able to receive the pt once a discharge has occurred. they do feel confident it will happen today
[2022-01-03 14:10] LABS: Mucous, Urine 0 SEEN /hpf (<or=2+); Red Blood Cells-Urine 0 SEEN /hpf (0-5); Squamous Epithelial Cells - UA 0 SEEN /hpf (0-5)
[2022-01-03 14:14] LABS: Color, Urine Yellow (Yellow); Glucose, Dipstick Normal (Normal); Ketone-Dipstick Negative (Negative); Leukocyte Esterase-Dipstick 100 /ul (Negative); Nitrite-Dipstick Positive (Negative); Occult Blood-Urine 50 /ul (Negative); Protein-Dipstick 15 mg/dl (Negative); Urine Bilirubin Dipstick Negative (Negative); Urine Clarity Clear (Clear); Urine Urobilinogen 4 mg/dl (Normal)
[2022-01-03 14:29] LABS: Bacteria 2+ /hpf (None Seen); White Blood Cells 5-10 SEEN /hpf (0-5)
[2022-01-03 15:00] VITALS: BP 112/70; PULSE 70; RESP 16; TEMP 36.4; O2SAT 96
[2022-01-03] MEDS: Ceftriaxone 1 GM/50 ML BAG IV (15:29)
[2022-01-04 13:58] LABS: Pathologist Review Reviewed
== END 2022-01-03 16:37 | disposition short-term general hospital (02) ==
PROVIDERS: Emergency Provider Emergency Medicine; Visit Provider Emergency Medicine
DX: T82.9XXA Unspecified complication of cardiac and vascular prosthetic device, implant and graft, initial encounter (principal); I11.0 Hypertensive heart disease with heart failure; I50.22 Chronic systolic (congestive) heart failure; D64.9 Anemia, unspecified; I25.10 Atherosclerotic heart disease of native coronary artery without angina pectoris; E78.5 Hyperlipidemia, unspecified; R53.81 Other malaise; E03.9 Hypothyroidism, unspecified; Z79.899 Other long term (current) drug therapy; Z79.82 Long term (current) use of aspirin; Z20.822 Contact with and (suspected) exposure to COVID-19; Z86.16 Personal history of COVID-19
CPT/HCPCS: 71045; 80053; 81001; 84484; 85025; 87811; 93005; 99285; A4216

== ENCOUNTER 2022-01-18 19:07 | Inpatient (IN) | payer MEDICARE, OTHER, SELFPAY ==
[2022-01-18 19:41] VITALS: BP 145/66; PULSE 69; RESP 16; TEMP 36.3; O2SAT 94; O2SAT 98; BMI 19.1
--- NOTE | 2022-01-18 20:06 | NURSING ---
Patient wishes to be DNRCC. DNR form signed by patient.
--- NOTE | 2022-01-18 20:26 | NURSING ---
Dr. Blevins notified of patient admit and drug conflict warning between spironolactone and k-dur (pharmacy to resolve).
--- NOTE | 2022-01-18 20:57 | HP.PCM_ITS ---
HPI - General General Date of Admission: 01/18/22 Date of Service: 01/19/22 Chief Complaint: Here for rehab. HPI Narrative MAC HARVEY, is a 86 Male who presents with followin01/03/2022 ICD fired 4 times. 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 Transfer to [facility] for potential ablation. 01/10/[address] [facility] CICU. Amiodarone, Lidocaine drips. VT overnight, ICD shock delivery. Off Eliquis secondary to recurrent bleeds. Consult EP to consider ablation. Hospice was considered. 01/12/2022 Left Heart catheterization showed non obstructive coronary artery disease. 01/12/2022 Sustained VT x 2, Shocks x 2. Central line placed, Amiodarone, Lidocaine drips continued. 01/13/2022 Successful VT ablation. 01/14/2022 Extubated. Foul urine, UA consistent with urinary tract infection, treated with Ceftriaxone. Thoracentesis showed transudate. EP recommended loading with Amiodarone 10gm, then 400mg daily. Bumex, low dose Aldactone for acute on chronic systolic congestive heart fa ilure. UTI treated with 5 day course of Ceftriaxone. Munguia removed, patient able to urinate on his own. 01/18/2022 Admit to TCU with debility, here for rehabilitation, strengthening, prior to discharge home with spouse. [facility] Medical History Acute kidney injury Acute on chronic systolic congestive heart failure Anemia Atrial fibrillation Coronary artery disease COVID-19 Debility Elevated liver enzymes Hyperlipidemia Hypertension Hypothyroidism Weakness Home Medications L.acidophil,salivari-Bifido bifidum-Strep thermoph 175 mg capsule 1 cap PO DAILY probiotic 12/30/21 [History Last Taken Unknown] aspirin 81 mg tablet,delayed release 81 mg PO DAILY Heart Health 12/30/21 [History Last Taken Unknown] bumetanide 1 mg tablet 2 mg PO DAILY Heart 12/30/21 [History Last Taken Unknown] levothyroxine 25 mcg tablet 25 mcg PO MOTUWETHFRSA Thyroid 12/30/21 [History Last Taken Unknown] metoprolol succinate 25 mg tablet,extended release 24 hr 25 mg PO DAILY BP 12/30/21 [History Last Taken Unknown] mexiletine 200 mg capsule 200 mg PO Q12H PRN Heart Rhythm 12/30/21 [History Last Taken Unknown] midodrine 5 mg tablet 5 mg PO TID BP 12/30/21 [History Last Taken Unknown] pantoprazole 40 mg tablet,delayed release 40 mg PO BID GERD 12/30/21 [History Last Taken Unknown] potassium chloride 20 mEq tablet,extended release 20 meq PO DAILY Supplement 12/30/21 [History Last Taken Unknown] Allergy/AdvReac Type Severity Reaction Status Date / Time apixaban [From Eliquis] AdvReac Unknown Bleeding Verified 01/03/22 07:36 Family History Father Alzheimer disease Sister Alzheimer disease Sister Breast cancer Brother Cancer Brother Esophageal cancer Surgical History H/O rectal polypectomy History of implantable cardiac defibrillator (ICD) History of thoracotomy Hx of tonsillectomy S/P mitral valve clip implantation Social History (Updated 01/19/22 @ 00:36 by Debbie Rollins) household members: spouse number of children: 2 Smoking Status: Never smoker alcohol intake: never substance use type: does not use ROS Constitutional Constitutional: Denies chills, fever(s) or weight gain ENT HEENT: Denies headache(s), nasal congestion or nasal discharge Cardiovascular Cardiovascular: Denies chest pain or palpitations Respiratory/Chest Respiratory/Chest: Denies cough, excessive phlegm production or shortness of breath with exertion Gastrointestinal Gastrointestinal: Denies abdominal pain, nausea or vomiting Genitourinary Genitourinary: Denies dysuria Musculoskeletal Musculoskeletal: Denies joint pain or joint swelling Integumentary Integumentary: Denies rash or wounds Neurologic Neurologic: Denies focal weakness, numbness or tingling Psychiatric Psychiatric: Denies anxiety, auditory hallucinations, depression, homicidal ideation or suicidal ideation Vital Signs Vital Signs Vital Signs: 01/18/22 19:41 Temperature 97.3 F L Temperature Source Temporal Pulse Rate 69 Respiratory Rate 16 Blood Pressure 145/66 H Blood Pressure Mean 92 Blood Pressure Source Monitor Pulse Ox 94 Oxygen Delivery Method Room Air Weight Weight: 56.869 kg Body Mass Index (BMI) 19.1 Physical Exam Const alert General Appearance: cooperative HEENT normocephalic Eyes PERRL and EOMs intact bilaterally Neck supple, no JVD and no carotid bruits Resp normal respiratory effort, normal air movement and clear to auscultation bilaterally Cardio regular rate and regular rhythm GI normal to inspection, nondistended, normoactive bowel sounds, non-tender and non-distended Extremity normal capillary refill General Extremity: Negative for edema Skin no rashes or lesions noted General Skin Exam: no breakdown Psych affect normal Appearance: appropriate Results Lab / Micro Data Result Diagrams: 01/19/22 05:19 01/19/22 05:19 Assessment & Plan Assessment/Plan (1) Debility: (2) Ventricular tachycardia: (3) Acute on chronic systolic congestive heart failure: (4) Hypertension: (5) Hyperlipidemia: (6) Coronary artery disease: (7) Atrial fibrillation: (8) Hypothyroidism: (9) Anemia: PLAN: Plan 86 year old male with below past medical history hospitalized for defibrillator firing secondary to Ventricular tachycardia, status post VT ablation, admitted to TCU with debility, here for rehabilitation, strengthening, prior to discharge home with . * Debility - PT/OT. * Pain - Tylenol 1000mg q6h prn pain (1-10). * Bowel - Miralax 17gm daily prn. * Adult immunization - Administer pneumonia vaccine, covid19 vaccine, flu vaccine as appropriate. * DVT prophylaxis - Hold, recurrent bleeds. * Atrial fibrillation - Metoprolol succinate 12.5mg daily, Amiodarone 400mg daily, aspirin 81mg daily. * Coronary artery disease - Metoprolol 12.5mg daily, Aspirin 81mg daily. * Hyperlipidemia - Atorvastatin 40mg qhs. * Chronic systolic congestive heart failure - Metoprolol succinate 12.5mg daily, Aldactone 12.5mg daily, Bumex 2mg daily. * Hypothyroidism - Levothyroxine 25mcg 6 days/week, 50mcg 1 day/week. * GERD - Pantoprazole 40mg bid. * Hypokalemia - K 3.2, increase KCL 20meq twice daily, monitor.
[2022-01-18] MEDS: Pantoprazole Sodium 40 MG Tablet PO (22:54)
[2022-01-18] MEDS: Atorvastatin Calcium 40 MG Tablet PO (22:55)
--- NOTE | 2022-01-19 05:46 | NURSING ---
Patient has refused to receive all vaccines offered. (Pneumonia, Flu, COVID)
[2022-01-19 05:51] LABS: Hematocrit 29.7 % (40-54); Hemoglobin 9.8 g/dL (13.0-16.5); Mean Corpuscular Hgb 32.3 pg (27.0-32.0); POSITIVE COUNT YES; POSITIVE MORPHOLOGY YES; Platelet Count 108 K/mm3 (150-450); RBC Distribution Width CV 25.3 % (11.6-14.6); RBC Distribution Width SD 90.2 fl (35.1-43.9); Red Blood Count 3.03 M/mm3 (4.6-6.2); White Blood Count 7.9 K/mm3 (4.4-11.0)
[2022-01-19 05:53] LABS: Differential Indicated MANUAL DIFF
[2022-01-19 06:04] LABS: Anisocytosis 2+; Macrocytosis 1+; Platelet Estimate SLT DEC (ADEQ)
[2022-01-19 06:07] LABS: Absolute Lymphocyte Count 1.27 X10^3/uL (0.83-4.51); Absolute Neutrophil Count 5.5 X10^3/uL (2.0-7.7); Atypical Lymphocyte 2+ %; Lymphocyte 16 % (19-41); Monocyte 13 % (0-10); Myelocyte 2 % (0-0); Neutrophil-Segmented 69 % (47-70); Total Cells Counted 100 (MANUAL DIFF)
[2022-01-19 06:13] LABS: Anion Gap 7 (5-15); BUN 22 mg/dL (7-18); BUN/Creat Ratio 21.8 RATIO (10-20); Calcium,Total 7.8 mg/dL (8.5-10.1); Chloride 102 mmol/L (98-107); Creatinine, Serum 1.01 mg/dL (0.70-1.30); EST Glomerular Filtration Rate 75 mL/min (>60); Est Glom Filt Rate - Afr Amer 90 mL/min (>60); Estimated Creatinine Clearance 43.01 ml/min; Glucose 105 mg/dL (74-106); Potassium 3.2 mmol/L (3.5-5.1); Sodium Level 138 mmol/L (136-145)
[2022-01-19] MEDS: Pantoprazole Sodium 40 MG Tablet PO ×2 (07:04→17:58)
[2022-01-19] MEDS: Levothyroxine 25 MCG TABLET PO (07:04)
--- NOTE | 2022-01-19 07:09 | NURSING ---
Addendum entered by Haley Burnham 01/19/22 07:11: Pts heart rate was also 69 BPM. Original Note: Pts BP this AM was 94/54, this nurse did not administer Bumex 2mg, Amiodarone 400mg, and Toprol XL. Left a note for Dr. Blevins.
--- NOTE | 2022-01-19 07:20 | NURSING ---
Pts BP was 90/50, HR 69 this am. This nurse held Aldactone 12.5 mg, Bumex 2mg, Cordanone 400mg, Toprol XL 12.5 mg. Note left for Dr. Blevins.
[2022-01-19] MEDS: Potassium Chloride Oral Tablet 20 MEQ PO ×2 (08:58→17:57)
[2022-01-19] MEDS: Aspirin E.C. 81 MG Tablet PO (08:59)
[2022-01-19] MEDS: Amiodarone 200 MG Tablet 400 MG PO (09:10)
[2022-01-19 09:11] VITALS: BP 107/57; PULSE 70
[2022-01-19] MEDS: Metoprolol(XL)Succ 25 MG Tablet 12.5 MG PO (09:11)
[2022-01-19 09:19] VITALS: BP 107/57; PULSE 70
[2022-01-19] MEDS: Tuberculin,Purif.prot.deriv. 50 TU/ML Vial 0.1 ML ID (12:38)
--- NOTE | 2022-01-19 13:39 | WOUNDNOTE ---
wound photo: sacrum/buttocks
--- NOTE | 2022-01-19 13:39 | WOUNDNOTE ---
wound photo: right groin
--- NOTE | 2022-01-19 13:40 | WOUNDNOTE ---
wound photo: left heel
--- NOTE | 2022-01-19 13:40 | WOUNDNOTE ---
wound photo: right heel
[2022-01-19 13:53] VITALS: BP 94/59; PULSE 70; RESP 16; TEMP 36.2; O2SAT 97
--- NOTE | 2022-01-19 15:00 | CASEMGMT ---
Addendum entered by Sarai Palma 01/19/22 15:03: Notified [facility] Palliative of admission. Original Note: Social Work Patient readmitted. No changes to initial assessment. No changes to code status or MOLST form. Educated to admitting on day of Medicare benefit, which are copay days. Pts goal is to return home with . Plan B remains [facility]. NATHANIEL HaleW
[2022-01-19 15:16] LABS: Pathologist Review Reviewed
--- NOTE | 2022-01-19 15:49 | NURSING ---
Patients daughter came to nurses station and stated that pt had a DNRCC bracelet on and that is not what he wants. This nurse went and spoke with pt and he stated he wants everything to be done. DNRCC bracelet removed and code status updated.
[2022-01-19] MEDS: Juven (unflavored) Packet 1 PACKET PO (17:56)
[2022-01-19 21:30] VITALS: PULSE 74; RESP 16; O2SAT 96
[2022-01-19] MEDS: Atorvastatin Calcium 40 MG Tablet PO (21:32)
[2022-01-20 05:17] VITALS: BP 91/51; PULSE 70
[2022-01-20 05:28] VITALS: BP 100/53; PULSE 69
[2022-01-20] MEDS: Levothyroxine 25 MCG TABLET PO (05:28)
[2022-01-20] MEDS: Pantoprazole Sodium 40 MG Tablet PO ×2 (05:28→18:00)
[2022-01-20] MEDS: Metoprolol(XL)Succ 25 MG Tablet 12.5 MG PO (05:28)
[2022-01-20] MEDS: Aspirin E.C. 81 MG Tablet PO (08:17)
[2022-01-20] MEDS: Juven (unflavored) Packet 1 PACKET PO ×2 (08:17→17:59)
[2022-01-20] MEDS: Amiodarone 200 MG Tablet 400 MG PO (08:17)
[2022-01-20] MEDS: Nystatin Powder 15gm Bottle 1 APPLIC TOPICAL (08:17)
[2022-01-20] MEDS: Potassium Chloride Oral Tablet 20 MEQ PO ×2 (08:17→18:00)
[2022-01-20 13:35] VITALS: BP 89/61; PULSE 69; RESP 16; TEMP 36.7; O2SAT 95
--- NOTE | 2022-01-20 13:50 | NURSING ---
Cnc Maintenance Mechanic Note; Activity Asst Complete
--- NOTE | 2022-01-20 15:49 | PHA.CONS_ITS ---
TCU RX Drug Regimen Review Subjective: [] Objective: Allergies apixaban [From EliVirool] Adverse Reaction (Unknown, Verified 01/03/22 07:36) Bleeding Excessive Bleeding Current Medications Generic Name Dose Route Start Last Admin Trade Name Freq PRN Reason Stop Dose Admin Acetaminophen 1,000 mg 01/18/22 21:16 Acetaminophen 500 Mg Tablet PO Q6H PRN PRN Pain Score 1-10 Amiodarone HCl 400 mg 01/19/22 08:00 01/20/22 08:17 Amiodarone 200 Mg Tablet PO 400 mg DAILYCM HARJINDER Administration Aspirin 81 mg 01/19/22 08:00 01/20/22 08:17 Aspirin E.C. 81 Mg Tablet PO 81 mg DAILYCM HARJINDER Administration Atorvastatin Calcium 40 mg 01/18/22 22:00 01/19/22 21:32 Atorvastatin Calcium 40 Mg Tablet PO 40 mg QHS HARJINDER Administration L-Arginine/L-Glutamine/Calcium HMB 1 packet 01/19/22 17:00 01/20/22 08:17 Ahmet (Unflavored) Packet PO 1 packet BIDCM [facility] Administration Levothyroxine Sodium 50 mcg 01/24/22 06:00 Levothyroxine 50 Mcg Tablet PO Mckeon@0600 HARJINDER Levothyroxine Sodium 25 mcg 01/19/22 06:00 01/20/22 05:28 Levothyroxine 25 Mcg Tablet PO 25 mcg MoTuWeThFrSa@0600 [facility] Administration Metoprolol Succinate 12.5 mg 01/19/22 06:00 01/20/22 05:28 Metoprolol(Xl)Succ 25 Mg Tablet PO 12.5 mg DAILY [facility] Administration Nystatin 1 applic 01/20/22 10:00 01/20/22 08:17 Nystatin Powder 15gm Bottle TOPICAL 1 applic BID@1000 [facility] Administration Protocol Pantoprazole Sodium 40 mg 01/18/22 22:00 01/20/22 05:28 Pantoprazole Sodium 40 Mg Tablet PO 40 mg BID HARJINDER Administration Polyethylene Glycol 17 gm 01/18/22 20:07 Polyethylene Glycol 3350 17 Gm Packet PO DAILY PRN PRN Constipation Potassium Chloride 20 meq 01/19/22 08:00 01/20/22 08:17 Potassium Chloride Oral Tablet 20 Meq PO 20 meq BIDCM HARJINDER Administration Tuberculin PPD 0.1 ml 01/26/22 10:00 Tuberculin,Purif.Prot.Deriv. 50 Tu/Ml Vial ID 11/01/22 10:01 X1 ONE Problem List (Last Reviewed 01/19/22 @ 00:35 by Debbie Rollins) Anemia (Acute) Hypothyroidism (Acute) Atrial fibrillation (Acute) Coronary artery disease (Acute) Hyperlipidemia (Acute) Hypertension (Chronic) Ventricular tachycardia (Acute) Debility (Acute) Acute on chronic systolic congestive heart failure (Chronic) Vital Signs Temp Pulse Resp BP Pulse Ox O2 Del Method 98.0 F 69 16 89/61 L 95 Room Air 01/20/22 13:35 01/20/22 13:35 01/20/22 13:35 01/20/22 13:35 01/20/22 13:35 01/20/22 13:35 Oxygen Delivery Method Room Air Weight: 57.153 kg Body Mass Index (BMI) 19.1 Sodium 138 mmol/L (136-145) 01/19/22 05:19 Potassium 3.2 mmol/L (3.5-5.1) L 01/19/22 05:19 Chloride 102 mmol/L (98-107) 01/19/22 05:19 Carbon Dioxide 29.0 mmol/L (21.0-32.0) 01/19/22 05:19 Anion Gap 7 (5-15) 01/19/22 05:19 BUN 22 mg/dL (7-18) H 01/19/22 05:19 Creatinine 1.01 mg/dL (0.70-1.30) 01/19/22 05:19 Est GFR (MDRD) Af Amer 90 mL/min (>60) 01/19/22 05:19 Est GFR (MDRD) Non-Af 75 mL/min (>60) 01/19/22 05:19 BUN/Creatinine Ratio 21.8 RATIO (10-20) H 01/19/22 05:19 Glucose 105 mg/dL (74-106) 01/19/22 05:19 Assessment/Plan: 1) Pain: Acetaminophen 1000mg po q6h prn for pain 1-10. Please continue to monitor prn usage and for signs/symptoms of increased pain. --Prn note: There havebeen zero Acetaminophen administrations to date 2) Bowel: Miralax 17gm 1 patch po daily prn for constipation. Please continue to monitor prn usage and for signs/symptoms of diarrhea/constipation. --Prn note: There have been zero Miralax administrations to date 3) Hyperlipidemia: Atorvastatin 40mg po qhs. Pts last recorded LFTs from 01/03/22 are above normal limits at 40 (AST) and 81 (ALT). Please continue to monitor pts LFTs. I could not find a recent Lipid panel in the pts chart. Please consider a yearly lipid panel while the pt is taking a statin. Thanks 4) Hypothyroidism: Levothyroxine 25mcg po on , and Levothyroxine 50mcg po on Sundays. I could not find a recent TSH in the pts chart. Please consider monitoring the pts Thyroid level while the pt is taking Levothyroxine. 5) GERD: Pantoprazole 40mg po bid. Please continue to monitor pt for signs/symptoms of GERD. Proton Pump Inhibitors have the ability to cause hypomagnesemia. I could not find a recent magnesium level in the pts chart. Please consider monitoring pts magnesium while they are taking Pantoprazole. 6) Hypokalemia: Potassium 20meq po bid with food. Pts last recorded K+ on 01/19/22 was below normal limits at 3.2. Please continue to monitor pts K+ --Note: Potassium increased to bid dosing after lab resulted. 7) CAD, Afib: Metoprolol Succinate 12.5mg po daily, Amiodarone 400mg po daily, Aspirin 81mg po daily. Pts average BP over the last 7 readings is 104.7/57.7. Please continue to monitor pts BP. Pts average pulse rate over the last 9 readings is 78. Please continue to monitor pts pulse rate. Pts pulse strength is normal (2+), and pulse rhythm is regular x1 reading and irregular x1 reading. Please continue to monitor pts pulse strength and rhythm. Assessment/Plan for indications treated with psychotropic medications: none Medical chart and medication regimen reviewed. The following medication irregularities or issues were identified: 3) Hyperlipidemia: Atorvastatin 40mg po qhs. Pts last recorded LFTs from 01/03/22 are above normal limits at 40 (AST) and 81 (ALT). Please continue to monitor pts LFTs. I could not find a recent Lipid panel in the pts chart. Please consider a yearly lipid panel while the pt is taking a statin. Thanks 4) Hypothyroidism: Levothyroxine 25mcg po on , and Levothyroxine 50mcg po on Sundays. I could not find a recent TSH in the pts chart. Please consider monitoring the pts Thyroid level while the pt is taking Levothyroxine. 5) GERD: Pantoprazole 40mg po bid. Please continue to monitor pt for signs/symptoms of GERD. Proton Pump Inhibitors have the ability to cause hypomagnesemia. I could not find a recent magnesium level in the pts chart. Please consider monitoring pts magnesium while they are taking Pantoprazole. Date of Note:: 01/20/22
[2022-01-20] MEDS: Atorvastatin Calcium 40 MG Tablet PO (20:15)
[2022-01-20 20:27] VITALS: O2SAT 96
[2022-01-21] MEDS: Pantoprazole Sodium 40 MG Tablet PO ×2 (04:56→17:47)
[2022-01-21] MEDS: Levothyroxine 25 MCG TABLET PO (04:56)
[2022-01-21 04:57] VITALS: BP 108/64; PULSE 69
[2022-01-21] MEDS: Metoprolol(XL)Succ 25 MG Tablet 12.5 MG PO (04:57)
[2022-01-21 06:24] LABS: Anion Gap 5 (5-15); BUN 33 mg/dL (7-18); BUN/Creat Ratio 31.4 RATIO (10-20); Calcium,Total 8.4 mg/dL (8.5-10.1); Chloride 106 mmol/L (98-107); Creatinine, Serum 1.05 mg/dL (0.70-1.30); EST Glomerular Filtration Rate 71 mL/min (>60); Est Glom Filt Rate - Afr Amer 86 mL/min (>60); Estimated Creatinine Clearance 41.58 ml/min; Glucose 116 mg/dL (74-106); Potassium 3.6 mmol/L (3.5-5.1); Sodium Level 139 mmol/L (136-145)
[2022-01-21] MEDS: Amiodarone 200 MG Tablet 400 MG PO (08:33)
[2022-01-21] MEDS: Aspirin E.C. 81 MG Tablet PO (08:33)
[2022-01-21] MEDS: Juven (unflavored) Packet 1 PACKET PO (08:34)
[2022-01-21] MEDS: Potassium Chloride Oral Tablet 20 MEQ PO ×2 (08:35→17:46)
[2022-01-21 08:43] VITALS: BP 102/56; PULSE 70
[2022-01-21] MEDS: Nystatin Powder 15gm Bottle 1 APPLIC TOPICAL (11:23)
--- NOTE | 2022-01-21 14:36 | NURSING ---
PT ASKED THIS NURSE WHEN HE STARTED THE PIPO. THIS NURSE STATED ON THE Dec. PT STATED HE HAS BEEN FEELING NAUSEATED AFTER DRINKING IT. THIS NURSE STATED HE COULD PASS ON IT TOMORROW AND SEE HOW HE FEELS AND GO FROM THERE. PT STATED THAT SOUNDS OK.
[2022-01-21 16:00] VITALS: BP 82/52; PULSE 69; RESP 14; TEMP 36.6; O2SAT 97
[2022-01-21 20:21] VITALS: PULSE 71; RESP 16; O2SAT 97
[2022-01-21] MEDS: Atorvastatin Calcium 40 MG Tablet PO (20:22)
[2022-01-22 06:09] VITALS: BP 103/59; PULSE 70
[2022-01-22] MEDS: Metoprolol(XL)Succ 25 MG Tablet 12.5 MG PO (06:09)
[2022-01-22] MEDS: Levothyroxine 25 MCG TABLET PO (06:09)
[2022-01-22] MEDS: Pantoprazole Sodium 40 MG Tablet PO ×2 (06:09→16:45)
[2022-01-22] MEDS: Aspirin E.C. 81 MG Tablet PO (08:08)
[2022-01-22] MEDS: Amiodarone 200 MG Tablet 400 MG PO (08:08)
[2022-01-22] MEDS: Potassium Chloride Oral Tablet 20 MEQ PO ×2 (08:09→16:44)
[2022-01-22] MEDS: Nystatin Powder 15gm Bottle 1 APPLIC TOPICAL (08:09)
--- NOTE | 2022-01-22 09:55 | NURSING ---
Addendum entered by Kaye Montilla 01/22/22 15:40: dr diaz updated, new order to start bumex 2mg now and daily Addendum entered by Bhavani García 01/22/22 15:35: Kn[facility] B[facility] Dr. Diaz stated that he would like if the house doctor would make the med adjustments as necessary. Original Note: I called and notified cardiology staff of the patient's weight gain. They stated that they would let Dr. Diaz know and would call me back if he had updated orders
[2022-01-22 16:00] VITALS: BP 103/51; PULSE 71; RESP 12; TEMP 36.4; O2SAT 98
[2022-01-22] MEDS: Bumetanide 2 MG Tablet PO (16:44)
[2022-01-22] MEDS: Atorvastatin Calcium 40 MG Tablet PO (19:33)
[2022-01-23] MEDS: Levothyroxine 25 MCG TABLET PO (06:02)
[2022-01-23] MEDS: Pantoprazole Sodium 40 MG Tablet PO ×2 (06:02→17:23)
[2022-01-23 06:10] VITALS: BP 86/44; PULSE 68
[2022-01-23 06:15] VITALS: BP 95/56; PULSE 68
[2022-01-23] MEDS: Aspirin E.C. 81 MG Tablet PO (08:06)
[2022-01-23] MEDS: Amiodarone 200 MG Tablet 400 MG PO (08:07)
[2022-01-23] MEDS: Potassium Chloride Oral Tablet 20 MEQ PO ×2 (08:07→17:23)
[2022-01-23 08:09] VITALS: BP 109/54; PULSE 70
[2022-01-23] MEDS: Metoprolol(XL)Succ 25 MG Tablet 12.5 MG PO (08:09)
[2022-01-23] MEDS: Bumetanide 2 MG Tablet PO (08:09)
[2022-01-23] MEDS: Nystatin Powder 15gm Bottle 1 APPLIC TOPICAL (08:12)
[2022-01-23 14:00] VITALS: BP 97/58; PULSE 70; RESP 16; TEMP 36.5; O2SAT 96
[2022-01-23] MEDS: Atorvastatin Calcium 40 MG Tablet PO (20:09)
[2022-01-24] MEDS: Bumetanide 2 MG Tablet PO (06:02)
[2022-01-24] MEDS: Levothyroxine 50 MCG Tablet PO (06:03)
[2022-01-24] MEDS: Pantoprazole Sodium 40 MG Tablet PO ×2 (06:03→17:40)
[2022-01-24 06:04] VITALS: BP 104/66; PULSE 69
[2022-01-24] MEDS: Metoprolol(XL)Succ 25 MG Tablet 12.5 MG PO (06:04)
--- NOTE | 2022-01-24 06:17 | NURSING ---
Pt complaining of increased incontinency d/t urgency and frequency of urination. Denies burning or discomfort when urinating. Bumex was recently increased. Note left for Dr. Blevins asking for an order for a PrimoFit for HS.
[2022-01-24] MEDS: Potassium Chloride Oral Tablet 20 MEQ PO ×2 (08:06→17:40)
[2022-01-24] MEDS: Nystatin Powder 15gm Bottle 1 APPLIC TOPICAL (08:06)
[2022-01-24] MEDS: Aspirin E.C. 81 MG Tablet PO (08:07)
[2022-01-24] MEDS: Amiodarone 200 MG Tablet 400 MG PO (08:07)
[2022-01-24 15:13] VITALS: BP 98/58; PULSE 70; RESP 14; TEMP 36.8; O2SAT 99
--- NOTE | 2022-01-24 20:03 | NURSING ---
Dtr Audra was concerned about amount of synthyroid pt is receiving on sundays, she states HOST/HOSTESS GROUND Kim from [facility] verbally told family to only take one tab (25mcg) on Sundays after script was written for 2 tabs, Dtr is concerned since pt's hospitalizing medication was not updated to clarify the change of 2 tabs to 1 tab on Sundays as script was written incorrectly. Msg was passed on to next shift to call pts PCP Dr Jose Angel Gomes from [place] to clarify.
[2022-01-24] MEDS: Atorvastatin Calcium 40 MG Tablet PO (20:52)
[2022-01-24 22:00] VITALS: PULSE 69; RESP 18; O2SAT 93
[2022-01-25] MEDS: Pantoprazole Sodium 40 MG Tablet PO ×2 (06:02→17:36)
[2022-01-25] MEDS: Levothyroxine 25 MCG TABLET PO (06:02)
[2022-01-25] MEDS: Bumetanide 2 MG Tablet PO (06:02)
[2022-01-25 06:05] VITALS: BP 129/66; PULSE 71
[2022-01-25] MEDS: Metoprolol(XL)Succ 25 MG Tablet 12.5 MG PO (06:05)
[2022-01-25] MEDS: Potassium Chloride Oral Tablet 20 MEQ PO ×2 (08:35→17:36)
[2022-01-25] MEDS: Aspirin E.C. 81 MG Tablet PO (08:35)
[2022-01-25] MEDS: Amiodarone 200 MG Tablet 400 MG PO (08:35)
[2022-01-25 08:38] VITALS: BP 105/53; PULSE 70
--- NOTE | 2022-01-25 09:25 | NURSING ---
CALLED [facility] ABOUT PT SYNTHROID. TALKED TO A NURSE TO A DR.JOEY MONTES AND N.P. . THE NURSE STATED THEY HAVE NOT SEEN PT SINCE August DUE TO APPOINTMENTS BEING CANCELED AND DID NOT HAVE ANY DOCUMENTATION ON SYNTHROID LEVEL TESTS ETC. ONLY THING THEY HAVE IS PT SEEN A NIKOLE SPAULDING WHO THEY DON'T KNOW WHO SHE IS AND HAD PRESCRIBED SYNTHROID 25 MCG TUE-TUESDAY ON . GOGGLED AND COULD NOT FIND THIS PERSON. RN AWARE, WILL ASK FAMILY.
--- NOTE | 2022-01-25 09:30 | CASEMGMT ---
Social Work BIMS () and PHQ-9 (05/24) completed for MDS assessment. Sarai Palma MSW [employer]INEER SYSTEMS
--- NOTE | 2022-01-25 09:39 | NURSING ---
General Internal Medicine Doctor Note; MDS complete
[2022-01-25 09:45] VITALS: PULSE 69; RESP 18; O2SAT 98
[2022-01-25] MEDS: Nystatin Powder 15gm Bottle 1 APPLIC TOPICAL (09:51)
--- NOTE | 2022-01-25 10:33 | WOUNDNOTE ---
In to reassess the pressure injuries to the sacrum, buttocks and heels. patient states the dressings had just been changed this am. pt is currently sitting up in the chair. will assess wounds in the next couple days since patient does not want the dressing removed at this time. will monitor.
--- NOTE | 2022-01-25 11:13 | NURSING ---
CALLED PT DAUGHTER ABOUT PT MEDS FOR THYROID. DAUGHTER STATED THE PRESCRIPTION WAS WRONG AFTER PT CAME BACK FROM [place] IN [place] AND NEVER GOT CHANGED BACK. DAUGHTER ALSO STATED SHE DID NOT KNOW WHO A NIKOLE SPAULDING WAS. STATED TO DAUGHTER I WOULD LET KNOW. DAUGHTER THANKED THIS NURSE. LEFT NOTE FOR TO HAVE THYROID LEVELS CHECKED. RN AWARE
[2022-01-25 13:44] VITALS: BP 111/56; PULSE 69; RESP 18; TEMP 36.2; O2SAT 99
[2022-01-25 19:20] LABS: Free T3 1.6 pg/mL (2.18-3.98); T4 Free Direct 1.34 ng/dL (0.76-1.46); Thyroid Stim Hormone (TSH) 6.67 uIU/mL (0.358-3.74)
[2022-01-25] MEDS: Atorvastatin Calcium 40 MG Tablet PO (21:22)
[2022-01-26 05:39] LABS: Absolute Lymphocyte Count 1.56 X10^3/uL (0.83-4.51); Absolute Neutrophil Count 2.4 X10^3/uL (2.0-7.7); Basophil# 0.02 X10^3/uL; Basophil% 0.4 % (0-1); Hematocrit 26.2 % (40-54); Hemoglobin 8.7 g/dL (13.0-16.5); Lymphocyte # 1.56 X10^3/ul (0.83-4.51); Lymphocyte % 31.3 % (19-41); Mean Corp Hgb Conc 33.2 g/dL (32-36); Mean Corpuscular Hgb 32.8 pg (27.0-32.0); Mean Corpuscular Volume 98.9 fL (80-94); Monocyte# 0.75 X10^3/uL; NRBC Flagged by Analyzer 0.6 % (0-5); Neutrophil # 2.42 X10^3/uL (2.7-7.7); Neutrophil % 48.5 % (47-70); POSITIVE MORPHOLOGY YES; Platelet Count 142 K/mm3 (150-450); RBC Distribution Width CV 25.1 % (11.6-14.6); RBC Distribution Width SD 86.2 fl (35.1-43.9); Red Blood Count 2.65 M/mm3 (4.6-6.2)
[2022-01-26 06:00] LABS: Differential Indicated SCAN CRITERIA MET
[2022-01-26] MEDS: Pantoprazole Sodium 40 MG Tablet PO ×2 (06:01→18:04)
[2022-01-26] MEDS: Bumetanide 2 MG Tablet PO (06:01)
[2022-01-26 06:09] LABS: Anion Gap 4 (5-15); BUN 31 mg/dL (7-18); BUN/Creat Ratio 27.4 RATIO (10-20); Chloride 109 mmol/L (98-107); Creatinine, Serum 1.13 mg/dL (0.70-1.30); EST Glomerular Filtration Rate 65 mL/min (>60); Est Glom Filt Rate - Afr Amer 79 mL/min (>60); Estimated Creatinine Clearance 41.06 ml/min; Glucose 93 mg/dL (74-106); Sodium Level 141 mmol/L (136-145)
[2022-01-26 06:10] VITALS: BP 104/54; PULSE 67
[2022-01-26] MEDS: Metoprolol(XL)Succ 25 MG Tablet 12.5 MG PO (06:10)
[2022-01-26 06:29] LABS: Anisocytosis 3+; Macrocytosis 1+; Platelet Estimate SLT DEC (ADEQ)
[2022-01-26 06:31] LABS: Ovalocyte RARE; Tear Drop Cell RARE
[2022-01-26 06:32] LABS: Burr Cells RARE; Target Cells RARE
[2022-01-26] MEDS: Aspirin E.C. 81 MG Tablet PO (08:16)
[2022-01-26] MEDS: Amiodarone 200 MG Tablet 400 MG PO (08:16)
[2022-01-26] MEDS: Potassium Chloride Oral Tablet 20 MEQ PO ×2 (08:19→18:03)
[2022-01-26 08:24] VITALS: BP 126/66; PULSE 70
[2022-01-26] MEDS: Tuberculin,Purif.prot.deriv. 50 TU/ML Vial 0.1 ML ID (09:26)
[2022-01-26] MEDS: Nystatin Powder 15gm Bottle 1 APPLIC TOPICAL (09:29)
--- NOTE | 2022-01-26 14:14 | CASEMGMT ---
Social Work IDT met with patient, and dtr for care plan meeting. Discussed patient's progress in PT/OT/SN. Educated to Medicare benefit. Admitted on day . Encouraged to contact secondary insurance to ensure copay coverage. Pts goal is to return home. IDT realistic pt can return home. Pt is becoming more independent with ADLs. Offered therapy training. SW to facilitate order for continued therapy and nursing care and/or DME. Pt to possibly have cardiac rehab after [facility]. SW to continue to follow. Sarai Palma, TRIAGE REGISTER NURSE SPORTS LAWYER
[2022-01-26 15:00] VITALS: BP 94/58; PULSE 68; RESP 20; TEMP 36.7; O2SAT 97
--- NOTE | 2022-01-26 18:54 | NURSING ---
UPDATED FAMILY ON SYNTHROID MED CHANGE.
[2022-01-26] MEDS: Atorvastatin Calcium 40 MG Tablet PO (20:53)
[2022-01-26] MEDS: Menthol/Lanolin/Calamine/Znox 113 GM Tube 1 APPLIC TOPICAL (20:53)
[2022-01-26 21:10] VITALS: BP 108/68; PULSE 69
[2022-01-26 21:12] VITALS: PULSE 69; RESP 18
[2022-01-27 06:18] VITALS: BP 97/63; PULSE 69
[2022-01-27 06:28] VITALS: BP 97/63; PULSE 69
[2022-01-27] MEDS: Pantoprazole Sodium 40 MG Tablet PO ×2 (06:28→17:55)
[2022-01-27] MEDS: Metoprolol(XL)Succ 25 MG Tablet 12.5 MG PO (06:28)
[2022-01-27] MEDS: Bumetanide 2 MG Tablet PO (06:28)
[2022-01-27] MEDS: Levothyroxine 50 MCG Tablet PO (06:29)
[2022-01-27] MEDS: Menthol/Lanolin/Calamine/Znox 113 GM Tube 1 APPLIC TOPICAL ×2 (06:29→17:55)
[2022-01-27] MEDS: Potassium Chloride Oral Tablet 20 MEQ PO ×2 (08:33→17:55)
[2022-01-27] MEDS: Aspirin E.C. 81 MG Tablet PO (08:33)
[2022-01-27] MEDS: Amiodarone 200 MG Tablet 400 MG PO (08:33)
[2022-01-27] MEDS: Nystatin Powder 15gm Bottle 1 APPLIC TOPICAL (08:33)
--- NOTE | 2022-01-27 11:03 | WOUNDNOTE ---
wound photo: sacrum
[2022-01-27 15:31] VITALS: BP 109/55; PULSE 70; RESP 16; TEMP 35.9; O2SAT 99
[2022-01-27] MEDS: Atorvastatin Calcium 40 MG Tablet PO (20:35)
[2022-01-27 22:52] VITALS: O2SAT 96
[2022-01-28 05:40] VITALS: BP 108/60; PULSE 70
[2022-01-28] MEDS: Metoprolol(XL)Succ 25 MG Tablet 12.5 MG PO (05:40)
[2022-01-28] MEDS: Bumetanide 2 MG Tablet PO (05:40)
[2022-01-28] MEDS: Pantoprazole Sodium 40 MG Tablet PO ×2 (05:41→17:46)
[2022-01-28] MEDS: Levothyroxine 50 MCG Tablet PO (05:41)
[2022-01-28] MEDS: Menthol/Lanolin/Calamine/Znox 113 GM Tube 1 APPLIC TOPICAL ×2 (05:42→17:47)
[2022-01-28 05:50] LABS: Hematocrit 25.6 % (40-54); Hemoglobin 8.3 g/dL (13.0-16.5)
[2022-01-28] MEDS: Potassium Chloride Oral Tablet 20 MEQ PO ×2 (08:25→17:46)
[2022-01-28] MEDS: Aspirin E.C. 81 MG Tablet PO (08:25)
[2022-01-28] MEDS: Amiodarone 200 MG Tablet 400 MG PO (08:26)
[2022-01-28] MEDS: Nystatin Powder 15gm Bottle 1 APPLIC TOPICAL (09:51)
[2022-01-28 16:00] VITALS: BP 99/57; PULSE 70; RESP 14; TEMP 36.6; O2SAT 100
[2022-01-28 20:35] VITALS: O2SAT 95
[2022-01-28] MEDS: Atorvastatin Calcium 40 MG Tablet PO (20:57)
[2022-01-29 05:44] VITALS: BP 100/65; PULSE 69
[2022-01-29] MEDS: Metoprolol(XL)Succ 25 MG Tablet 12.5 MG PO (05:44)
[2022-01-29] MEDS: Levothyroxine 50 MCG Tablet PO (05:45)
[2022-01-29] MEDS: Pantoprazole Sodium 40 MG Tablet PO ×2 (05:45→17:58)
[2022-01-29] MEDS: Bumetanide 2 MG Tablet PO (05:45)
[2022-01-29] MEDS: Menthol/Lanolin/Calamine/Znox 113 GM Tube 1 APPLIC TOPICAL ×2 (05:46→17:59)
[2022-01-29] MEDS: Amiodarone 200 MG Tablet 400 MG PO (08:45)
[2022-01-29] MEDS: Nystatin Powder 15gm Bottle 1 APPLIC TOPICAL (08:46)
[2022-01-29] MEDS: Potassium Chloride Oral Tablet 20 MEQ PO ×2 (08:46→17:58)
[2022-01-29] MEDS: Aspirin E.C. 81 MG Tablet PO (08:46)
--- NOTE | 2022-01-29 13:24 | MDS.RN ---
Information for the MDS was obtained from review of the clinical record, interview of resident, staff, and direct observation of resident's care.
[2022-01-29 15:23] VITALS: BP 101/52; PULSE 69; RESP 16; TEMP 36.4; O2SAT 100
[2022-01-29] MEDS: Atorvastatin Calcium 40 MG Tablet PO (21:16)
[2022-01-30 05:37] VITALS: BP 107/58; PULSE 69; RESP 16; TEMP 36.8; O2SAT 95
[2022-01-30 05:41] VITALS: BP 107/58; PULSE 69
[2022-01-30] MEDS: Bumetanide 2 MG Tablet PO (05:41)
[2022-01-30] MEDS: Pantoprazole Sodium 40 MG Tablet PO ×2 (05:41→17:40)
[2022-01-30] MEDS: Metoprolol(XL)Succ 25 MG Tablet 12.5 MG PO (05:41)
[2022-01-30] MEDS: Levothyroxine 50 MCG Tablet PO (05:41)
[2022-01-30 08:00] LABS: Hematocrit 25.2 % (40-54); Hemoglobin 8.2 g/dL (13.0-16.5)
[2022-01-30] MEDS: Menthol/Lanolin/Calamine/Znox 113 GM Tube 1 APPLIC TOPICAL ×2 (08:45→17:45)
[2022-01-30] MEDS: Aspirin E.C. 81 MG Tablet PO (08:46)
[2022-01-30] MEDS: Potassium Chloride Oral Tablet 20 MEQ PO ×2 (08:46→17:40)
[2022-01-30] MEDS: Amiodarone 200 MG Tablet 400 MG PO (08:47)
[2022-01-30 08:50] VITALS: BP 107/56; PULSE 71
[2022-01-30] MEDS: Nystatin Powder 15gm Bottle 1 APPLIC TOPICAL (09:53)
[2022-01-30 14:43] VITALS: BP 94/50; PULSE 68; RESP 18; TEMP 36.9; O2SAT 97
[2022-01-30 17:10] VITALS: BP 119/67; PULSE 68
[2022-01-30] MEDS: Atorvastatin Calcium 40 MG Tablet PO (20:54)
[2022-01-30 21:10] VITALS: O2SAT 96
[2022-01-31] MEDS: Levothyroxine 50 MCG Tablet PO (05:35)
[2022-01-31] MEDS: Pantoprazole Sodium 40 MG Tablet PO ×2 (05:36→17:06)
[2022-01-31] MEDS: Menthol/Lanolin/Calamine/Znox 113 GM Tube 1 APPLIC TOPICAL ×2 (05:36→17:06)
[2022-01-31 05:38] VITALS: BP 92/55; PULSE 69
[2022-01-31] MEDS: Metoprolol(XL)Succ 25 MG Tablet 12.5 MG PO (05:38)
--- NOTE | 2022-01-31 07:51 | NURSING ---
Bumex held during am med pass d/t low blood pressure. Pt is asymptomatic. Informed dayshift nurse. Will continue to monitor.
[2022-01-31] MEDS: Amiodarone 200 MG Tablet 400 MG PO (07:52)
[2022-01-31] MEDS: Aspirin E.C. 81 MG Tablet PO (07:52)
[2022-01-31] MEDS: Potassium Chloride Oral Tablet 20 MEQ PO ×2 (07:52→17:05)
[2022-01-31] MEDS: Bumetanide 2 MG Tablet PO (07:53)
[2022-01-31 07:57] VITALS: BP 98/63; PULSE 72
[2022-01-31 09:00] VITALS: PULSE 70; RESP 18; O2SAT 96
--- NOTE | 2022-01-31 10:34 | NURSING ---
AID CAME TO THIS NURSE AND STATED THAT PT HIT HIS RIGHT ARM ON THE RECLINER ARM AND HAS A SKIN TEAR. THIS NURSE TO ROOM AND ASKED PT WHAT HAPPENED AND PT STATED HE HIT HIS ARM ON THE RECLINER. WOUND CLEANED AND DRESSING APPLIED. RN AWARE
[2022-01-31] MEDS: Nystatin Powder 15gm Bottle 1 APPLIC TOPICAL (14:16)
[2022-01-31 15:12] VITALS: BP 101/53; PULSE 72; RESP 12; TEMP 36.3; O2SAT 99
[2022-01-31] MEDS: Atorvastatin Calcium 40 MG Tablet PO (21:36)
[2022-02-01 05:32] VITALS: BP 92/54; PULSE 70
[2022-02-01] MEDS: Metoprolol(XL)Succ 25 MG Tablet 12.5 MG PO (05:32)
[2022-02-01] MEDS: Bumetanide 2 MG Tablet PO (05:32)
[2022-02-01] MEDS: Levothyroxine 50 MCG Tablet PO (05:32)
[2022-02-01] MEDS: Pantoprazole Sodium 40 MG Tablet PO ×2 (05:32→17:38)
[2022-02-01] MEDS: Menthol/Lanolin/Calamine/Znox 113 GM Tube 1 APPLIC TOPICAL (05:36)
[2022-02-01] MEDS: Potassium Chloride Oral Tablet 20 MEQ PO ×2 (08:33→17:38)
[2022-02-01] MEDS: Nystatin Powder 15gm Bottle 1 APPLIC TOPICAL (08:34)
[2022-02-01] MEDS: Aspirin E.C. 81 MG Tablet PO (08:34)
[2022-02-01] MEDS: Amiodarone 200 MG Tablet 400 MG PO (08:36)
[2022-02-01 14:38] VITALS: BP 104/54; PULSE 71; RESP 16; TEMP 36.6; O2SAT 99
[2022-02-01] MEDS: Atorvastatin Calcium 40 MG Tablet PO (21:09)
[2022-02-01 21:17] VITALS: PULSE 78; RESP 16; O2SAT 97
[2022-02-02 05:33] LABS: Hemoglobin 8.1 g/dL (13.0-16.5); Mean Corp Hgb Conc 32.4 g/dL (32-36); Mean Corpuscular Hgb 31.9 pg (27.0-32.0); Mean Corpuscular Volume 98.4 fL (80-94); POSITIVE COUNT YES; POSITIVE MORPHOLOGY YES; Platelet Count 168 K/mm3 (150-450); RBC Distribution Width CV 25.4 % (11.6-14.6); RBC Distribution Width SD 88.2 fl (35.1-43.9); Red Blood Count 2.54 M/mm3 (4.6-6.2); White Blood Count 6.7 K/mm3 (4.4-11.0)
[2022-02-02 05:35] LABS: Differential Indicated MANUAL DIFF
[2022-02-02 05:45] VITALS: BP 102/58; PULSE 70
[2022-02-02] MEDS: Levothyroxine 50 MCG Tablet PO (05:45)
[2022-02-02] MEDS: Bumetanide 2 MG Tablet PO (05:45)
[2022-02-02] MEDS: Metoprolol(XL)Succ 25 MG Tablet 12.5 MG PO (05:45)
[2022-02-02] MEDS: Pantoprazole Sodium 40 MG Tablet PO ×2 (05:46→17:07)
[2022-02-02 05:48] LABS: Lymphocyte 32 % (19-41); Monocyte 10 % (0-10); Myelocyte 3 % (0-0); Neutrophil-Band 6 % (0-5); Neutrophil-Segmented 49 % (47-70); Nucleated Red Bld Cells,Manual 3 % (0-5); Total Cells Counted 100 (MANUAL DIFF)
[2022-02-02 05:49] LABS: Platelet Estimate ADEQUATE (ADEQ)
[2022-02-02 05:50] LABS: Absolute Neutrophil Count 3.7 X10^3/uL (2.0-7.7); Anisocytosis 2+; Hypochromasia 2+; Lymphocyte # 3.68 X10^3/ul (0.83-4.51); Macrocytosis 2+; Microcytosis RARE
[2022-02-02 05:51] LABS: Absolute Lymphocyte Count 2.14 X10^3/uL (0.83-4.51); Monocyte# 2.14 X10^3/uL
--- NOTE | 2022-02-02 05:54 | NURSING ---
Patient complaining of right wrist pain. Asked this Nurse if he could have sprained it during his sleep. Assessed area. Wrist swollen and red. Patient able to squeeze fingers and make fist, but does cause some pain. Ice applied to area. Note left for Dr. Blevins.
[2022-02-02 05:58] LABS: Anion Gap 8 (5-15); BUN 40 mg/dL (7-18); BUN/Creat Ratio 24.7 RATIO (10-20); Calcium,Total 8.3 mg/dL (8.5-10.1); Chloride 107 mmol/L (98-107); Creatinine, Serum 1.62 mg/dL (0.70-1.30); EST Glomerular Filtration Rate 43 mL/min (>60); Est Glom Filt Rate - Afr Amer 52 mL/min (>60); Estimated Creatinine Clearance 28.89 ml/min; Glucose 106 mg/dL (74-106); Potassium 3.6 mmol/L (3.5-5.1); Sodium Level 142 mmol/L (136-145)
[2022-02-02] MEDS: Potassium Chloride Oral Tablet 20 MEQ PO ×2 (08:03→17:07)
[2022-02-02] MEDS: Aspirin E.C. 81 MG Tablet PO (08:03)
[2022-02-02] MEDS: Amiodarone 200 MG Tablet 400 MG PO (08:03)
[2022-02-02] MEDS: MethylPREDNISolone DosePak 4 MG BOX 8 MG PO ×4 (09:17→21:12)
--- NOTE | 2022-02-02 10:00 | RAD_ITS ---
STUDY: X-RAY - RIGHT WRIST REASON FOR EXAM: Male, 86 years old. Right wrist pain. No known injury. TECHNIQUE: 2 view(s) of the wrist were obtained. COMPARISON: None. FINDINGS: Normal visualized distal radius and ulna. Normal radiocarpal articulation. Normal distal radioulnar articulation. Avulsion fracture of the triquetrum. Normal carpal articulations. Normal carpometacarpal articulation of the thumb. Normal second through fifth carpometacarpal articulations. Normal visualized metacarpal bones. Dorsal soft tissue swelling. RAD/Wrist 2 Views IMPRESSION: Avulsion fracture of the triquetrum. Dorsal soft tissue swelling. Electronically Signed: Devon Cabrera MD at 13:34 EST ,
[2022-02-02] MEDS: Nystatin Powder 15gm Bottle 1 APPLIC TOPICAL (11:52)
[2022-02-02 13:39] LABS: Pathologist Review Reviewed
[2022-02-02 14:33] VITALS: BP 94/54; PULSE 69; RESP 16; TEMP 36.2; O2SAT 99
[2022-02-02] MEDS: Menthol/Lanolin/Calamine/Znox 113 GM Tube 1 APPLIC TOPICAL (17:07)
--- NOTE | 2022-02-02 20:11 | NURSING ---
Addendum entered by Debbie Rollins 02/03/22 01:59: Right wrist spica applied. Patient tolerated well. Addendum entered by Debbie Rollins 02/02/22 20:19: Called ED. Ray will send splint up. Original Note: Dr. Blevins sent message and requested to have wrist splint placed on patient tonight.
[2022-02-02] MEDS: Atorvastatin Calcium 40 MG Tablet PO (21:12)
[2022-02-03 05:40] LABS: Hematocrit 24.8 % (40-54); Hemoglobin 8.1 g/dL (13.0-16.5)
[2022-02-03] MEDS: Levothyroxine 50 MCG Tablet PO (05:49)
[2022-02-03] MEDS: Pantoprazole Sodium 40 MG Tablet PO ×2 (05:49→17:36)
[2022-02-03 05:54] VITALS: BP 91/58; PULSE 69
[2022-02-03] MEDS: Metoprolol(XL)Succ 25 MG Tablet 12.5 MG PO (05:54)
[2022-02-03 06:02] LABS: Anion Gap 7 (5-15); BUN 40 mg/dL (7-18); BUN/Creat Ratio 31.7 RATIO (10-20); Calcium,Total 8.4 mg/dL (8.5-10.1); Chloride 108 mmol/L (98-107); Creatinine, Serum 1.26 mg/dL (0.70-1.30); EST Glomerular Filtration Rate 58 mL/min (>60); Est Glom Filt Rate - Afr Amer 70 mL/min (>60); Estimated Creatinine Clearance 36.94 ml/min; Glucose 116 mg/dL (74-106); Potassium 3.9 mmol/L (3.5-5.1); Sodium Level 141 mmol/L (136-145)
[2022-02-03 08:10] VITALS: BP 96/56; PULSE 70
[2022-02-03] MEDS: Potassium Chloride Oral Tablet 20 MEQ PO ×2 (08:12→17:36)
[2022-02-03] MEDS: Amiodarone 200 MG Tablet 400 MG PO (08:13)
[2022-02-03] MEDS: Aspirin E.C. 81 MG Tablet PO (08:13)
--- NOTE | 2022-02-03 09:58 | NURSING ---
Spoke with resident regarding right wrist. Resident denies any mishandling by staff, fall. States he does remember hitting it on the chair arm and also hitting it on the siderail. Denies pain today. Asked him if he had any concerns regarding his care, he stated no, everyone had been taking good care of him. Showed me gutierrez brought to him by his niece and talked of his continued progress and looking forward to discharging home once his rehab is complete. asked him to please let me know if he had any issues or concerns that arise during his stay. He thanked me for stopping by.
[2022-02-03] MEDS: Ascorbic Acid 500 MG Tablet PO (10:15)
[2022-02-03] MEDS: Iron Polysaccharide Complex 150 MG CAPSULE PO (10:15)
[2022-02-03] MEDS: Nystatin Powder 15gm Bottle 1 APPLIC TOPICAL (10:27)
[2022-02-03 13:41] VITALS: BP 102/56; PULSE 72; RESP 16; TEMP 36.2; O2SAT 99
--- NOTE | 2022-02-03 14:08 | WOUNDNOTE ---
wound photo: sacrum
--- NOTE | 2022-02-03 15:47 | NURSING ---
Called and spoke w/ staff at Dr. Hutson's office, they message him and he returned page to TCU. He looked at xray, recommended seeing patient in the office. Visit scheduled for tomorrow 02/04 @ 1530, patient to be there at 1515. Updated daughter Audra who will transport patient.
[2022-02-03] MEDS: Atorvastatin Calcium 40 MG Tablet PO (21:27)
[2022-02-03 21:30] VITALS: PULSE 70; RESP 16; O2SAT 97
[2022-02-04 04:48] VITALS: BP 113/57; PULSE 68
[2022-02-04] MEDS: Metoprolol(XL)Succ 25 MG Tablet 12.5 MG PO (04:48)
[2022-02-04] MEDS: Levothyroxine 50 MCG Tablet PO (04:48)
[2022-02-04] MEDS: Pantoprazole Sodium 40 MG Tablet PO ×2 (04:50→17:20)
[2022-02-04] MEDS: Potassium Chloride Oral Tablet 20 MEQ PO ×2 (08:24→17:20)
[2022-02-04] MEDS: Aspirin E.C. 81 MG Tablet PO (08:24)
[2022-02-04] MEDS: Amiodarone 200 MG Tablet 400 MG PO (08:24)
[2022-02-04] MEDS: Iron Polysaccharide Complex 150 MG CAPSULE PO (08:24)
[2022-02-04] MEDS: Menthol/Lanolin/Calamine/Znox 113 GM Tube 1 APPLIC TOPICAL ×2 (08:25→19:31)
[2022-02-04] MEDS: Ascorbic Acid 500 MG Tablet PO (08:25)
[2022-02-04] MEDS: Nystatin Powder 15gm Bottle 1 APPLIC TOPICAL (11:08)
[2022-02-04 15:39] VITALS: BP 115/59; PULSE 69; RESP 16; TEMP 36.9; O2SAT 99
[2022-02-04] MEDS: 0.9% Saline Lock 10 ML Syringe IV (17:24)
[2022-02-04] MEDS: Atorvastatin Calcium 40 MG Tablet PO (19:29)
[2022-02-04 22:04] VITALS: O2SAT 94
[2022-02-05 05:29] VITALS: BP 108/65; PULSE 71
[2022-02-05] MEDS: Levothyroxine 50 MCG Tablet PO (05:29)
[2022-02-05] MEDS: Pantoprazole Sodium 40 MG Tablet PO ×2 (05:29→17:19)
[2022-02-05] MEDS: Metoprolol(XL)Succ 25 MG Tablet 12.5 MG PO (05:29)
[2022-02-05] MEDS: Potassium Chloride Oral Tablet 20 MEQ PO ×2 (08:29→17:18)
[2022-02-05] MEDS: Aspirin E.C. 81 MG Tablet PO (08:29)
[2022-02-05] MEDS: Iron Polysaccharide Complex 150 MG CAPSULE PO (08:29)
[2022-02-05] MEDS: Amiodarone 200 MG Tablet 400 MG PO (08:30)
[2022-02-05] MEDS: Ascorbic Acid 500 MG Tablet PO (08:30)
[2022-02-05] MEDS: Nystatin Powder 15gm Bottle 1 APPLIC TOPICAL (08:31)
[2022-02-05] MEDS: Menthol/Lanolin/Calamine/Znox 113 GM Tube 1 APPLIC TOPICAL ×2 (08:32→21:13)
[2022-02-05 08:33] VITALS: BP 111/66; PULSE 71
--- NOTE | 2022-02-05 09:00 | NURSING ---
PT HAS 5 LB WEIGHT GAIN SINCE TUESDAY. BP GOOD, PT ASYSTEMATIC. NOTE LEFT FOR . RN AWARE
[2022-02-05] MEDS: 0.9% Saline Lock 10 ML Syringe IV (09:54)
[2022-02-05 09:55] VITALS: PULSE 92; RESP 18; O2SAT 92
[2022-02-05 14:52] VITALS: BP 109/60; PULSE 71; RESP 14; TEMP 36.6; O2SAT 99
[2022-02-05] MEDS: Bumetanide 2 MG Tablet PO (15:07)
[2022-02-05] MEDS: Atorvastatin Calcium 40 MG Tablet PO (21:12)
[2022-02-06 06:10] VITALS: BP 101/55; PULSE 69
[2022-02-06] MEDS: Metoprolol(XL)Succ 25 MG Tablet 12.5 MG PO (06:10)
[2022-02-06] MEDS: Bumetanide 2 MG Tablet PO (06:10)
[2022-02-06] MEDS: Levothyroxine 50 MCG Tablet PO (06:10)
[2022-02-06] MEDS: Pantoprazole Sodium 40 MG Tablet PO ×2 (06:10→17:18)
[2022-02-06] MEDS: 0.9% Saline Lock 10 ML Syringe IV (06:11)
[2022-02-06] MEDS: Iron Polysaccharide Complex 150 MG CAPSULE PO (08:10)
[2022-02-06] MEDS: Amiodarone 200 MG Tablet 400 MG PO (08:10)
[2022-02-06] MEDS: Aspirin E.C. 81 MG Tablet PO (08:10)
[2022-02-06] MEDS: Potassium Chloride Oral Tablet 20 MEQ PO ×2 (08:11→17:18)
[2022-02-06] MEDS: Ascorbic Acid 500 MG Tablet PO (08:11)
[2022-02-06] MEDS: Menthol/Lanolin/Calamine/Znox 113 GM Tube 1 APPLIC TOPICAL ×2 (10:04→21:37)
[2022-02-06] MEDS: Nystatin Powder 15gm Bottle 1 APPLIC TOPICAL (10:07)
[2022-02-06 14:48] VITALS: BP 110/59; PULSE 71; RESP 14; TEMP 36; O2SAT 100
[2022-02-06 21:21] VITALS: PULSE 70; RESP 16
[2022-02-06] MEDS: Atorvastatin Calcium 40 MG Tablet PO (21:30)
[2022-02-07 06:26] VITALS: BP 106/58; PULSE 69
[2022-02-07] MEDS: Metoprolol(XL)Succ 25 MG Tablet 12.5 MG PO (06:26)
[2022-02-07] MEDS: Pantoprazole Sodium 40 MG Tablet PO ×2 (06:27→16:52)
[2022-02-07] MEDS: Bumetanide 2 MG Tablet PO (06:27)
[2022-02-07] MEDS: Levothyroxine 50 MCG Tablet PO (06:27)
--- NOTE | 2022-02-07 06:35 | NURSING ---
22G IV removed from left wrist, catheter intact. 2x2 placed over area and wrapped with kerlix d/t fragile skin. Patient tolerated well.
[2022-02-07 07:31] LABS: Anion Gap 8 (5-15); BUN 41 mg/dL (7-18); BUN/Creat Ratio 37.3 RATIO (10-20); Calcium,Total 8.3 mg/dL (8.5-10.1); Chloride 109 mmol/L (98-107); EST Glomerular Filtration Rate 68 mL/min (>60); Est Glom Filt Rate - Afr Amer 82 mL/min (>60); Glucose 100 mg/dL (74-106); Potassium 4.1 mmol/L (3.5-5.1); Sodium Level 143 mmol/L (136-145)
[2022-02-07] MEDS: Amiodarone 200 MG Tablet 400 MG PO (08:19)
[2022-02-07] MEDS: Potassium Chloride Oral Tablet 20 MEQ PO ×2 (08:20→16:52)
[2022-02-07] MEDS: Aspirin E.C. 81 MG Tablet PO (08:20)
[2022-02-07] MEDS: Iron Polysaccharide Complex 150 MG CAPSULE PO (08:20)
[2022-02-07] MEDS: Ascorbic Acid 500 MG Tablet PO (08:20)
[2022-02-07] MEDS: Nystatin Powder 15gm Bottle 1 APPLIC TOPICAL (10:19)
[2022-02-07] MEDS: Menthol/Lanolin/Calamine/Znox 113 GM Tube 1 APPLIC TOPICAL ×2 (10:19→21:43)
[2022-02-07 16:00] VITALS: BP 94/57; PULSE 71; RESP 16; TEMP 36.5; O2SAT 99
[2022-02-07] MEDS: Atorvastatin Calcium 40 MG Tablet PO (21:43)
[2022-02-08 06:01] VITALS: BP 109/64; PULSE 68
[2022-02-08] MEDS: Metoprolol(XL)Succ 25 MG Tablet 12.5 MG PO (06:01)
[2022-02-08] MEDS: Bumetanide 2 MG Tablet PO (06:01)
[2022-02-08] MEDS: Levothyroxine 50 MCG Tablet PO (06:01)
[2022-02-08] MEDS: Pantoprazole Sodium 40 MG Tablet PO ×2 (06:01→17:06)
--- NOTE | 2022-02-08 06:04 | NURSING ---
RATE EXAMINER's found dried blood on patient's pillow case. Patient found to have a 2.0 cm x 1.5 cm skin tear noted to right arm. Cleaned with normal saline, applied adaptic, 4x4 folded and secured with kerlix and tape. Patient tolerated well.
[2022-02-08 08:30] VITALS: BP 107/57; PULSE 71
[2022-02-08] MEDS: Ascorbic Acid 500 MG Tablet PO (08:31)
[2022-02-08] MEDS: Iron Polysaccharide Complex 150 MG CAPSULE PO (08:31)
[2022-02-08] MEDS: Potassium Chloride Oral Tablet 20 MEQ PO ×2 (08:31→17:06)
[2022-02-08] MEDS: Aspirin E.C. 81 MG Tablet PO (08:31)
[2022-02-08] MEDS: Amiodarone 200 MG Tablet 400 MG PO (08:31)
[2022-02-08] MEDS: Nystatin Powder 15gm Bottle 1 APPLIC TOPICAL (11:00)
[2022-02-08] MEDS: Menthol/Lanolin/Calamine/Znox 113 GM Tube 1 APPLIC TOPICAL ×2 (11:00→19:55)
--- NOTE | 2022-02-08 11:33 | NURSING ---
SPOKE TO PT DAUGHTER ABOUT PT SEEING DENTIST AND BEING A HEART PT. DAUGHTER STATED THAT THE LAST TIME PT SEEN DENTIST PUT PT ON A ANTIBIOTIC BEFORE PT WENT. THIS NURSE CALLED AND LEFT MESSAGE FOR THEM TO CALL BACK.
[2022-02-08 16:00] VITALS: BP 112/63; PULSE 69; RESP 16; TEMP 36.5; O2SAT 100
[2022-02-08] MEDS: Atorvastatin Calcium 40 MG Tablet PO (19:52)
[2022-02-08 21:00] VITALS: O2SAT 98
[2022-02-09] MEDS: Pantoprazole Sodium 40 MG Tablet PO ×2 (05:14→17:30)
[2022-02-09 05:15] VITALS: BP 107/57; PULSE 61
[2022-02-09] MEDS: Bumetanide 2 MG Tablet PO (05:15)
[2022-02-09] MEDS: Metoprolol(XL)Succ 25 MG Tablet 12.5 MG PO (05:15)
[2022-02-09] MEDS: Levothyroxine 50 MCG Tablet PO (05:15)
[2022-02-09 05:43] LABS: Hematocrit 24.8 % (40-54); Hemoglobin 8.2 g/dL (13.0-16.5); Mean Corp Hgb Conc 33.1 g/dL (32-36); Mean Corpuscular Hgb 33.1 pg (27.0-32.0); POSITIVE COUNT YES; POSITIVE MORPHOLOGY YES; Platelet Count 155 K/mm3 (150-450); RBC Distribution Width CV 26.2 % (11.6-14.6); Red Blood Count 2.48 M/mm3 (4.6-6.2); White Blood Count 5.9 K/mm3 (4.4-11.0)
[2022-02-09 05:48] LABS: Differential Indicated MANUAL DIFF
[2022-02-09 06:05] LABS: Anion Gap 8 (5-15); BUN 43 mg/dL (7-18); BUN/Creat Ratio 40.2 RATIO (10-20); Calcium,Total 8.4 mg/dL (8.5-10.1); Chloride 108 mmol/L (98-107); Creatinine, Serum 1.07 mg/dL (0.70-1.30); EST Glomerular Filtration Rate 70 mL/min (>60); Est Glom Filt Rate - Afr Amer 84 mL/min (>60); Estimated Creatinine Clearance 43.58 ml/min; Glucose 101 mg/dL (74-106); Potassium 4.1 mmol/L (3.5-5.1); Sodium Level 141 mmol/L (136-145)
[2022-02-09 06:12] LABS: Anisocytosis 2+
[2022-02-09 06:15] LABS: Absolute Lymphocyte Count 1.84 X10^3/uL (0.83-4.51)
[2022-02-09 06:16] LABS: Acanthocytes RARE; Atypical Lymphocyte 1+ %; Eosinophil 2 % (0-5); Hypochromasia 1+; Lymphocyte 31 % (19-41); Macrocytosis 1+; Monocyte 9 % (0-10); Myelocyte 4 % (0-0); Neutrophil-Segmented 49 % (47-70); Nucleated Red Bld Cells,Manual 1 % (0-5); Total Cells Counted 101 (MANUAL DIFF)
[2022-02-09 06:17] LABS: Ovalocyte RARE; Platelet Estimate ADEQUATE (ADEQ); Target Cells RARE
[2022-02-09 06:20] LABS: Absolute Neutrophil Count 3.2 X10^3/uL (2.0-7.7); Neutrophil-Band 5 % (0-5)
[2022-02-09] MEDS: Amiodarone 200 MG Tablet 400 MG PO (08:14)
[2022-02-09] MEDS: Potassium Chloride Oral Tablet 20 MEQ PO ×2 (08:15→17:30)
[2022-02-09] MEDS: Aspirin E.C. 81 MG Tablet PO (08:15)
[2022-02-09] MEDS: Ascorbic Acid 500 MG Tablet PO (08:15)
[2022-02-09] MEDS: Iron Polysaccharide Complex 150 MG CAPSULE PO (08:15)
[2022-02-09 08:19] VITALS: BP 102/60; PULSE 70
[2022-02-09] MEDS: Menthol/Lanolin/Calamine/Znox 113 GM Tube 1 APPLIC TOPICAL ×2 (08:41→20:05)
[2022-02-09] MEDS: Nystatin Powder 15gm Bottle 1 APPLIC TOPICAL (08:42)
[2022-02-09 10:20] VITALS: PULSE 70; RESP 18; O2SAT 96
--- NOTE | 2022-02-09 11:44 | NURSING ---
PER THERAPY PT CAN BE AB JENNIFER IN ROOM AFTER ADLS. PT STATED HE MAY NEED HELP ON SOME THINGS OR AT NIGHT. STATED TO PT TO JUST CALL AND STAFF WILL HELP.
--- NOTE | 2022-02-09 13:22 | CASEMGMT ---
Social Work Left voicemail with to discuss setting DC date for pt. Will continue to follow. Sarai Palma, MEDICAL SOCIAL WORKER REFINERY OPERATOR COKING
--- NOTE | 2022-02-09 13:59 | NURSING ---
Addendum entered by Rell Palacio 02/09/22 15:15: PT RETURNED FROM DR. JACKSON. DR. PALAK STATED TO FAMILY THAT FX COULD BE FROM YEARS AGO AND THATS WHY U MAY SEE A LITTLE GAP. Original Note: TOOK PT OUT AT 1350 BY WHEEL CHAIR FOR . DAUGHTER IS TAKING.
[2022-02-09 14:17] VITALS: BP 115/56; PULSE 69; RESP 16; TEMP 35.8; O2SAT 100
[2022-02-09 15:10] LABS: Pathologist Review Reviewed
[2022-02-09] MEDS: Atorvastatin Calcium 40 MG Tablet PO (20:04)
[2022-02-10] MEDS: Pantoprazole Sodium 40 MG Tablet PO ×2 (06:26→21:25)
[2022-02-10] MEDS: Levothyroxine 50 MCG Tablet PO (06:26)
[2022-02-10 06:29] VITALS: BP 109/67; PULSE 70
[2022-02-10] MEDS: Bumetanide 2 MG Tablet PO (06:29)
[2022-02-10] MEDS: Metoprolol(XL)Succ 25 MG Tablet 12.5 MG PO (06:29)
--- NOTE | 2022-02-10 08:43 | NURSING ---
pt got up to get dressed this am and got nose bleed. unable to stop for 15min at sink. staff in and holding nose clipped and head forward. er called for clamps. will monitor. pt only on baby asa. denies any forceful blowing or picking of.
[2022-02-10] MEDS: Potassium Chloride Oral Tablet 20 MEQ PO ×2 (09:38→21:25)
[2022-02-10] MEDS: Menthol/Lanolin/Calamine/Znox 113 GM Tube 1 APPLIC TOPICAL ×2 (09:39→21:26)
[2022-02-10] MEDS: Ascorbic Acid 500 MG Tablet PO (09:39)
[2022-02-10] MEDS: Nystatin Powder 15gm Bottle 1 APPLIC TOPICAL (09:39)
[2022-02-10] MEDS: Iron Polysaccharide Complex 150 MG CAPSULE PO (09:39)
[2022-02-10] MEDS: Amiodarone 200 MG Tablet 400 MG PO (09:44)
--- NOTE | 2022-02-10 13:44 | NURSING ---
1130 pt still wiping at nose some. on rt side. refused lunch at this time and therapy. afraid if get up will bleed more. will monitor.
--- NOTE | 2022-02-10 13:45 | NURSING ---
pt sat up at bedside and rt nares immediately started to drip constantly again. dr. diaz called. nasal clamp applied and pt sent to ed for nose bleed. per pt had to have packing before d/t this happening while was on blood thinner. told me i couldnt be on a blood thinner except for aspirin pt denies nurse to call anyone to let them know that is going to ed to be checked out.
--- NOTE | 2022-02-10 15:00 | WOUNDNOTE ---
Was planning to reassess the sacral wound, but patient was taken down to the ED for a nosebleed. will check in with patient tomorrow.
--- NOTE | 2022-02-10 19:30 | NURSING ---
Patient returned to unit at 19:15. To follow up with Dr. Bassem Mathews in 2-3 days for re-evaluation and packing removal.
[2022-02-10] MEDS: Atorvastatin Calcium 40 MG Tablet PO (21:25)
[2022-02-10 21:27] VITALS: PULSE 54; RESP 16; O2SAT 100
[2022-02-11 05:04] LABS: Hematocrit 22.1 % (40-54); Hemoglobin 6.9 g/dL (13.0-16.5)
--- NOTE | 2022-02-11 05:59 | NURSING ---
Patient's HBG 6.9. Gen Marroquin notified. New order for 2 units of PRBC's with 40 mg IV Lasix in between units. Consent signed by patient. Daughter Audra notified.
[2022-02-11] MEDS: Levothyroxine 50 MCG Tablet PO (06:28)
[2022-02-11] MEDS: Pantoprazole Sodium 40 MG Tablet PO ×2 (06:28→16:59)
[2022-02-11 06:29] VITALS: BP 95/54; PULSE 71
--- NOTE | 2022-02-11 06:29 | NURSING ---
Blood pressure 95/54 at this time. Did not administer Bumex or Lopressor. Will ask oncoming nurse to recheck blood pressure.
--- NOTE | 2022-02-11 08:07 | NURSING ---
HGB 6.9 notified infusion center, they will administer blood tomorrow AM @ 0830.
--- NOTE | 2022-02-11 08:48 | CASEMGMT ---
Addendum entered by Sarai Palma 02/11/22 13:35: Dtr and this worker spoke several more times. After discussions with nursing, dtr and IDT agreeable for pt to remain until 02/17. This will allow time for pt to recover. Dtr appreciative. Updated HHC and IDT. Plan: DC 02/17, [facility] PT/OT/SN Addendum entered by Sarai Palma 02/11/22 09:22: Dtr called back and is requesting [facility] to have continuity of care. SW made referral via [employer]. Original Note: Social Work Contacted again to set DC. requested this worker contact dtr to set DC date. Contacted dtr and spoke about DC plans. Dtr stated pt is getting blood transfusion today and has nose block r/t nose bleed. SW confirmed with IDT that as long as pt responds well to blood transfusion, pt can still DC. Assured dtr that if pt is not stable at time of DC, it can be postponed. Dtr requesting DC 02/14 with either [facility] or [facility]. SW to ask pt his preference. SW to order PT/OT/SN. No DME needs. Dtr to transport. Plan: DC home with 02/14, [facility] PT/OT/SN NATHANIEL Hale
[2022-02-11] MEDS: Nystatin Powder 15gm Bottle 1 APPLIC TOPICAL (08:56)
[2022-02-11] MEDS: Menthol/Lanolin/Calamine/Znox 113 GM Tube 1 APPLIC TOPICAL ×2 (08:56→21:35)
[2022-02-11 09:06] VITALS: BP 106/56; PULSE 69
[2022-02-11] MEDS: Amiodarone 200 MG Tablet 400 MG PO (09:07)
[2022-02-11] MEDS: Potassium Chloride Oral Tablet 20 MEQ PO ×2 (09:07→16:53)
[2022-02-11] MEDS: Iron Polysaccharide Complex 150 MG CAPSULE PO (09:07)
[2022-02-11] MEDS: Bumetanide 2 MG Tablet PO (09:08)
[2022-02-11] MEDS: Ascorbic Acid 500 MG Tablet PO (09:08)
[2022-02-11 09:13] VITALS: BP 106/56; PULSE 69
--- NOTE | 2022-02-11 11:49 | NURSING ---
MADE APPOINTMENT WITH OFFICE FOR RHINOROCKET TO BE REMOVED ON TUESDAY WAS THE NEXT OPENING THEY HAD AND EXPLAINED IT TO THE DAUGHTER. DAUGHTER UPSET STATING HE HAS A DENTIST APPOINTMENT THAT SAME DAY AND SO DOES MY MOM. THIS NURSE STATED WE WERE AWARE OF THAT AND PT WOULD LIKE IT OUT BEFORE DENTIST APPOINTMENT. DAUGHTER STATED WELL HE IS GOING HOME TUESDAY AND WONDERING IF HE COULD STAY LONGER. THIS NURSE STATED SHE NEEDS TO CALL THE SUPERVISOR SEWER SYSTEM AND DISCUSS THAT AND FOR THE DAUGHTER TO THINK ABOUT WHAT SHE WANTS TO DO ABOUT APPOINTMENTS WITH DENTIST AND ENT AND LET US KNOW FELICIANO SO WE CAN CHANGE THEM IF NEEDED OR SHE CAN CHANGE THEM. RN AND SUPERVISOR SEWER SYSTEM AWARE.
--- NOTE | 2022-02-11 13:57 | NURSING ---
DAUGHTER CALLED BACK AND STATED SHE CANCELED THE DENTIST APPOINTMENT FOR 02/15/22 AND HER BROTHER WILL BE COMING TO TAKE PT TO HIS APPOINTMENT AT 1345 ON 02/15/22. RN AWARE
[2022-02-11 14:03] VITALS: BP 98/61; PULSE 71; RESP 16; TEMP 36.5; O2SAT 95
--- NOTE | 2022-02-11 15:03 | WOUNDNOTE ---
wound photo: sacrum
--- NOTE | 2022-02-11 15:04 | WOUNDNOTE ---
wound photo: bilateral heels
--- NOTE | 2022-02-11 15:32 | NURSING ---
PT HAS BEEN SLEEPING MOST OF DAY DUE TO NOT FEELING WELL AND HGB BEING LOW. DID REFUSE THERAPY. HAS BEEN EATING AND DRINKING AND ASKING TO USE BATHROOM. WILL CONTINUE TO MONITOR.
[2022-02-11 16:33] VITALS: BP 114/57; PULSE 69
--- NOTE | 2022-02-11 19:12 | DS.PCM_ITS ---
Providers Date of Admission: 01/18/22 Primary Care Physician: Marlyn Primary Care Phys Consultations 01/19/22 00:38 Consult: Onc/Wound/mix mill tender Routine Comment: Reason for Consult:: Multiple pressure areas Reason For Visit: VENTRICULAR TACHYCARDIA Diagnosis Discharge Diagnosis (1) Debility: Status: Acute Code(s): R53.81 - Other malaise (2) Ventricular tachycardia: Status: Acute Code(s): I47.20 - Ventricular tachycardia, unspecified (3) Acute on chronic systolic congestive heart failure: Status: Chronic Code(s): I50.23 - Acute on chronic systolic (congestive) heart failure (4) Hypertension: Status: Chronic Code(s): I10 - Essential (primary) hypertension (5) Hyperlipidemia: Status: Acute Code(s): E78.5 - Hyperlipidemia, unspecified (6) Coronary artery disease: Status: Acute Code(s): I25.10 - Atherosclerotic heart disease of tribe coronary artery without angina pectoris (7) Atrial fibrillation: Status: Acute Code(s): I48.91 - Unspecified atrial fibrillation (8) Hypothyroidism: Status: Acute Code(s): E03.9 - Hypothyroidism, unspecified (9) Anemia: Status: Acute Code(s): D64.9 - Anemia, unspecified Plan 86 year old male with below past medical history hospitalized for defibrillator firing secondary to Ventricular tachycardia, status post VT ablation, admitted to TCU with debility, here for rehabilitation, strengthening, prior to discharge home with . * Debility - PT/OT. * Pain - Tylenol 1000mg q6h prn pain (1-10). * Bowel - Miralax 17gm daily prn. * Adult immunization - Administer pneumonia vaccine, covid19 vaccine, flu vaccine as appropriate. * DVT prophylaxis - Hold, recurrent bleeds. * Atrial fibrillation - Metoprolol succinate 12.5mg daily, Amiodarone 400mg daily, aspirin 81mg daily. * Coronary artery disease - Metoprolol 12.5mg daily, Aspirin 81mg daily. * Hyperlipidemia - Atorvastatin 40mg qhs. * Chronic systolic congestive heart failure - Metoprolol succinate 12.5mg daily, Aldactone 12.5mg daily, Bumex 2mg daily. * Hypothyroidism - Levothyroxine 25mcg 6 days/week, 50mcg 1 day/week. * GERD - Pantoprazole 40mg bid. * Hypokalemia - K 3.2, increase KCL 20meq twice daily, monitor. Medications at Discharge Home Medications aspirin 81 mg tablet,delayed release 81 mg PO DAILY [facility] 12/30/21 amiodarone 200 mg tablet 400 mg PO DAILYCM 30 days #60 tabs 02/11/22 ascorbic acid (vitamin C) 500 mg tablet 500 mg PO BREAKFAST 30 days #30 tabs 02/11/22 atorvastatin 40 mg tablet 40 mg PO QHS 30 days #30 tabs 02/11/22 bumetanide 2 mg tablet 2 mg PO DAILY 30 days #30 tabs 02/11/22 levothyroxine 50 mcg tablet 50 mcg PO DAILY@0600 30 days #30 tabs 02/11/22 metoprolol succinate 25 mg tablet,extended release 24 hr 12.5 mg PO DAILY 30 days #15 tabs 02/11/22 pantoprazole 40 mg tablet,delayed release 40 mg PO BID 30 days #60 tabs 02/11/22 polysaccharide iron complex 150 mg iron capsule (Ferrex) 150 mg PO BREAKFAST 30 days #30 caps 02/11/22 potassium chloride 20 mEq tablet,extended release(part/cryst) (Klor-Con M) 20 meq PO BIDCM 30 days #60 tabs 02/11/22 Hospital Course Operations None Procedures None Summary of Care Provided Minutes Spent on Discharge: 35 Hospital Course: 86 year old male with below past medical history hospitalized for defibrillator firing secondary to Ventricular tachycardia, status post VT ablation, admitted to TCU with debility, here for rehabilitation, strengthening, prior to discharge home with . 02/10/2022 Epistaxis requiring rhino rocket placement in ED. 02/11/2022 Hemoglobin 6.9. 02/12/2022 Transfuse 2 units PRBC. 02/15/2022 Dr. Mathews appointment for rhino rocket removal. Discharge home with 02/17/2022, [facility] PT/OT/SN. Physical Exam Const alert General Appearance: cooperative HEENT normocephalic Eyes PERRL and EOMs intact bilaterally Neck supple, no JVD and no carotid bruits Resp normal respiratory effort, normal air movement and clear to auscultation bilaterally Cardio regular rate and regular rhythm GI normal to inspection, nondistended, normoactive bowel sounds, non-tender and non-distended Extremity normal capillary refill General Extremity: Negative for edema Skin no rashes or lesions noted General Skin Exam: no breakdown Psych affect normal Appearance: appropriate Medical Records Data Medical Nutrition Assessment Dietitian: Malnutrition Criteria Met Start: 01/19/22 15:20 Freq: Status: Active Protocol: Document 02/10/22 12:18 [facility] (Rec: 02/10/22 12:18 SLA [id number]) Nutrition Malnutrition Evidence of Malnutrition Exists Yes Malnutrition (moderate): Acute Illness/Injury Evidenced By Weight Loss (Moderate), Physical Changes (Moderate) Clinical Problem Acute Disease or Injury Related Malnutrition Etiology moderate, acute malnutrition related to inadequate energy intake d/t acute hospitalizations Signs/Symptoms as evidenced by estimated PO intake meeting <75% of estimated energy needs > 1 month banquet captain; unintentional wt loss of 11.6#/8% <2 months banquet captain ; mild muscle wasting/fat loss evident per physical exam in orbital, temporal, clavicle, and acromion areas Res nutritional status improving since adm to TCU Status Active Problem Recommendation Dietitian Recommendations/Changes continue regular diet as tolerated; will continue 240mL ensure plus high protein w/ lunch (vanilla) and 120 mL w/ breakfast and dinner Weight / BMI Weight Weight: 60.47 kg Body Mass Index (BMI) 19.1 ABG / Lab / Microbiology Data Result Diagrams: 02/11/22 04:00 02/09/22 05:05 Laboratory: Laboratory Results - last 24 hr 02/11/22 04:00: Hgb 6.9 L, Hct 22.1 L 02/11/22 06:45: Blood Type A POSITIVE, Antibody Screen NEGATIVE, Crossmatch See Detail Microbiology: Microbiology 01/18/22 21:53 Nasal Secretion SARS-CoV-2 Antigen (Rapid) - Final D/C Instructions Discharge Diet: No restrictions Discharge Activity: Return to Normal Activity, May Shower and Use Walker Weight Bearing Status: Weight bearing as tolerated Call your doctor if you observe: Fever of 101 or Higher, Inability to urinate, Inability to have a bowel movement, Shortness of breath, Dizziness, Fainting spells, Swelling in the ankles, Chest pain and Uncontrolled pain Additional Instructions: Discharge home with 02/17/2022, [facility] PT/OT/SN. Please Follow Up With: Kofi Diaz MD When: As scheduled. Meaningful Use Info Meaningful Use Diagnoses (Choose all that apply): None applicable Discharge Plan Admission Admit Date/Time: 01/18/22 19:07 Primary Reason for Your Visit: Debility. Attending Provider: Momo Blevins Chi Primary Care Provider: Care Physician,No Primary Instructions Additional Instructions / Restrictions: Discharge home with 02/17/2022, [facility] PT/OT/SN. Discharge Orders/Prescriptions Prescriptions: New atorvastatin 40 mg Tablet 40 mg PO QHS 30 Days Qty: 30 0RF bumetanide 2 mg Tablet 2 mg PO DAILY 30 Days Qty: 30 0RF amiodarone 200 mg Tablet 400 mg PO DAILYCM 30 Days Qty: 60 0RF polysaccharide iron complex [Ferrex 150] 150 mg iron Capsule 150 mg PO BREAKFAST 30 Days Qty: 30 0RF potassium chloride [Klor-Con M20] 20 mEq Tablet,Er Particles/Crystals 20 meq PO BIDCM 30 Days Qty: 60 0RF ascorbic acid (vitamin C) 500 mg Tablet 500 mg PO BREAKFAST 30 Days Qty: 30 0RF levothyroxine 50 mcg Tablet 50 mcg PO DAILY@0600 30 Days Qty: 30 0RF pantoprazole 40 mg Tablet,Delayed Release (Dr/Ec) 40 mg PO BID 30 Days Qty: 60 0RF metoprolol succinate 25 mg Tablet Extended Release 24 Hr 12.5 mg PO DAILY 30 Days Qty: 15 0RF Continued aspirin 81 mg tablet,delayed release (DR/EC) 81 mg PO DAILY Label Comments: TAKE 1 TABLET BY MOUTH EVERY DAY WITH A MEAL Discontinued midodrine 5 mg tablet 5 mg PO TID Label Comments: TAKE 1 TABLET BY MOUTH THREE TIMES A DAY levothyroxine 25 mcg tablet 25 mcg PO MOTUWETHFRSA Label Comments: TAKE 1 TABLET BY MOUTH tuesday through tuesday AND TAKE 2 TABS (50MCG) ON TUESDAY pantoprazole 40 mg tablet,delayed release (DR/EC) 40 mg PO BID Label Comments: TAKE 1 TABLET BY MOUTH TWICE A DAY bumetanide 1 mg tablet 2 mg PO DAILY Label Comments: TAKE 1 TABLET BY MOUTH TWICE A DAY mexiletine 200 mg capsule 200 mg PO Q12H PRN Label Comments: TAKE 1 CAPSULE BY MOUTH EVERY 8 HOURS metoprolol succinate 25 mg tablet extended release 24 hr 25 mg PO DAILY Label Comments: TAKE 1 TABLET BY MOUTH EVERY DAY Shayy,saliva-B.bif-S.therm 175 mg capsule 1 cap PO DAILY Label Comments: TAKE 1 CAPSULE BY MOUTH EVERY DAY potassium chloride 20 mEq tablet extended release 20 meq PO DAILY Label Comments: TAKE 1 TABLET BY MOUTH EVERY MORNING Referrals / Follow Up: Jose Angel Gomes DO [Non-Staff] - (PCP) Disposition Disposition (needs filled in before D/C Order can be placed): Home Health Service
[2022-02-11 20:00] VITALS: PULSE 69; RESP 16; O2SAT 99
[2022-02-11] MEDS: Atorvastatin Calcium 40 MG Tablet PO ×2 (21:34→21:35)
[2022-02-12 05:40] VITALS: BP 109/58; PULSE 71
[2022-02-12] MEDS: Metoprolol(XL)Succ 25 MG Tablet 12.5 MG PO (05:40)
[2022-02-12] MEDS: Bumetanide 2 MG Tablet PO (05:41)
[2022-02-12] MEDS: Levothyroxine 50 MCG Tablet PO (05:41)
[2022-02-12] MEDS: Pantoprazole Sodium 40 MG Tablet PO ×2 (05:41→17:59)
--- NOTE | 2022-02-12 06:02 | NURSING ---
Per Dr. Blevins notified patient that ENT will remove rhino rocket, he has bled enough to require a transfusion, we do not need to cause more problems. Patient understood and stated he was thankful for Dr. Blevins's care.
[2022-02-12] MEDS: Iron Polysaccharide Complex 150 MG CAPSULE PO (08:05)
[2022-02-12] MEDS: Potassium Chloride Oral Tablet 20 MEQ PO ×2 (08:06→17:59)
[2022-02-12] MEDS: Ascorbic Acid 500 MG Tablet PO (08:06)
[2022-02-12] MEDS: Amiodarone 200 MG Tablet 400 MG PO (08:06)
[2022-02-12] MEDS: Menthol/Lanolin/Calamine/Znox 113 GM Tube 1 APPLIC TOPICAL ×2 (08:10→22:05)
[2022-02-12] MEDS: Nystatin Powder 15gm Bottle 1 APPLIC TOPICAL (08:11)
--- NOTE | 2022-02-12 08:53 | CASEMGMT ---
Social Work Send [facility]iative [place] paperwork. Sarai Palma ,PATIENT ACCOUNT LIAISON FREIGHT CONDUCTOR
--- NOTE | 2022-02-12 10:07 | NURSING ---
pt off unit for blood transfusion at 0830
--- NOTE | 2022-02-12 16:15 | NURSING ---
Pt returned from blood transfusion at this time and tolerated it well. VS WNL and infusion center request keep IV in left upper arm for possible future use. Dressing to IV is clean, dry and intact and line is patent.
[2022-02-13 05:27] VITALS: PULSE 72
[2022-02-13] MEDS: Levothyroxine 50 MCG Tablet PO (05:27)
[2022-02-13] MEDS: Bumetanide 2 MG Tablet PO (05:27)
[2022-02-13] MEDS: Metoprolol(XL)Succ 25 MG Tablet 12.5 MG PO (05:27)
[2022-02-13] MEDS: Pantoprazole Sodium 40 MG Tablet PO ×2 (05:27→17:59)
[2022-02-13] MEDS: 0.9% Saline Lock 10 ML Syringe IV (06:13)
[2022-02-13] MEDS: Potassium Chloride Oral Tablet 20 MEQ PO ×2 (07:45→17:25)
[2022-02-13] MEDS: Amiodarone 200 MG Tablet 400 MG PO (07:45)
[2022-02-13] MEDS: Iron Polysaccharide Complex 150 MG CAPSULE PO (07:45)
[2022-02-13] MEDS: Ascorbic Acid 500 MG Tablet PO (07:46)
[2022-02-13] MEDS: Menthol/Lanolin/Calamine/Znox 113 GM Tube 1 APPLIC TOPICAL ×2 (07:47→20:54)
[2022-02-13] MEDS: Nystatin Powder 15gm Bottle 1 APPLIC TOPICAL (07:47)
[2022-02-13 14:19] VITALS: BP 101/54; PULSE 78; RESP 14; TEMP 36.6; O2SAT 98
[2022-02-13 15:00] LABS: Hematocrit 24.4 % (40-54); Hemoglobin 7.9 g/dL (13.0-16.5)
[2022-02-13] MEDS: Atorvastatin Calcium 40 MG Tablet PO (20:52)
[2022-02-13 21:06] VITALS: O2SAT 95
[2022-02-14 05:20] VITALS: BP 100/58; PULSE 68
[2022-02-14] MEDS: Pantoprazole Sodium 40 MG Tablet PO ×2 (05:20→17:32)
[2022-02-14] MEDS: Levothyroxine 50 MCG Tablet PO (05:20)
[2022-02-14] MEDS: Bumetanide 2 MG Tablet PO (05:20)
[2022-02-14] MEDS: Metoprolol(XL)Succ 25 MG Tablet 12.5 MG PO (05:20)
[2022-02-14] MEDS: Ascorbic Acid 500 MG Tablet PO (08:20)
[2022-02-14] MEDS: Potassium Chloride Oral Tablet 20 MEQ PO ×2 (08:20→17:32)
[2022-02-14] MEDS: Nystatin Powder 15gm Bottle 1 APPLIC TOPICAL (08:21)
[2022-02-14] MEDS: Amiodarone 200 MG Tablet 400 MG PO (08:21)
[2022-02-14] MEDS: Menthol/Lanolin/Calamine/Znox 113 GM Tube 1 APPLIC TOPICAL ×2 (08:21→19:43)
[2022-02-14] MEDS: Iron Polysaccharide Complex 150 MG CAPSULE PO (08:21)
[2022-02-14 14:40] VITALS: BP 104/57; PULSE 70; RESP 16; TEMP 36.1; O2SAT 100
[2022-02-14] MEDS: 0.9% Saline Lock 10 ML Syringe IV (18:33)
[2022-02-14] MEDS: Atorvastatin Calcium 40 MG Tablet PO (19:42)
[2022-02-15] MEDS: Pantoprazole Sodium 40 MG Tablet PO ×2 (05:08→17:37)
[2022-02-15 05:09] VITALS: BP 103/57; PULSE 77
[2022-02-15] MEDS: Metoprolol(XL)Succ 25 MG Tablet 12.5 MG PO (05:09)
[2022-02-15] MEDS: Levothyroxine 50 MCG Tablet PO (05:09)
[2022-02-15] MEDS: Bumetanide 2 MG Tablet PO (05:09)
[2022-02-15] MEDS: Potassium Chloride Oral Tablet 20 MEQ PO ×2 (07:54→17:37)
[2022-02-15] MEDS: Amiodarone 200 MG Tablet 400 MG PO (07:54)
[2022-02-15] MEDS: Iron Polysaccharide Complex 150 MG CAPSULE PO (07:54)
[2022-02-15] MEDS: Ascorbic Acid 500 MG Tablet PO (07:54)
[2022-02-15 08:07] VITALS: BP 125/69; PULSE 69
[2022-02-15] MEDS: Nystatin Powder 15gm Bottle 1 APPLIC TOPICAL (11:20)
[2022-02-15] MEDS: Menthol/Lanolin/Calamine/Znox 113 GM Tube 1 APPLIC TOPICAL ×2 (11:20→21:10)
[2022-02-15 13:51] VITALS: BP 96/54; PULSE 71; RESP 14; TEMP 36.4; O2SAT 99
--- NOTE | 2022-02-15 14:29 | NUR.TO.PHY ---
Addendum entered by Rell Palacio 02/15/22 16:26: PT RETURNED FROM APPOINTMENT AT 1545. STATED TO PT AND SON,PER SON, NO BLOWING NOSE FOR A WEEK. NO OTHER ORDERS. Original Note: PT LEFT AT 1330 BY WHEEL CHAIR FOR APPOINTMENT AT [facility]. SON IS TRANSPORTING.
[2022-02-15] MEDS: Atorvastatin Calcium 40 MG Tablet PO (21:09)
[2022-02-15 21:11] VITALS: PULSE 67; RESP 16; O2SAT 98
[2022-02-16] MEDS: Bumetanide 2 MG Tablet PO (05:24)
[2022-02-16] MEDS: Levothyroxine 50 MCG Tablet PO (05:24)
[2022-02-16] MEDS: Pantoprazole Sodium 40 MG Tablet PO ×2 (05:24→16:56)
[2022-02-16 05:25] VITALS: BP 100/58; PULSE 69
[2022-02-16] MEDS: Metoprolol(XL)Succ 25 MG Tablet 12.5 MG PO (05:25)
[2022-02-16 05:57] LABS: Hematocrit 23.6 % (40-54); Hemoglobin 7.6 g/dL (13.0-16.5); Mean Corp Hgb Conc 32.2 g/dL (32-36); Mean Corpuscular Hgb 29.6 pg (27.0-32.0); Mean Corpuscular Volume 91.8 fL (80-94); POSITIVE COUNT YES; POSITIVE MORPHOLOGY YES; Platelet Count 128 K/mm3 (150-450); RBC Distribution Width CV 24.8 % (11.6-14.6); RBC Distribution Width SD 78.2 fl (35.1-43.9); Red Blood Count 2.57 M/mm3 (4.6-6.2); White Blood Count 7.6 K/mm3 (4.4-11.0)
[2022-02-16 06:12] LABS: Differential Indicated MANUAL DIFF; Myelocyte 1 % (0-0); Neutrophil-Band 7 % (0-5); Neutrophil-Segmented 60 % (47-70); Total Cells Counted 100 (MANUAL DIFF)
[2022-02-16 06:13] LABS: Lymphocyte 21 % (19-41); Monocyte 11 % (0-10); Platelet Estimate ADEQUATE (ADEQ)
[2022-02-16 06:14] LABS: Acanthocytes RARE; Anisocytosis 2+; Hypochromasia 2+; Microcytosis 2+
[2022-02-16 06:15] LABS: Absolute Lymphocyte Count 1.59 X10^3/uL (0.83-4.51); Absolute Neutrophil Count 5.1 X10^3/uL (2.0-7.7); Lymphocyte # 1.59 X10^3/ul (0.83-4.51); Neutrophil # 5.07 X10^3/uL (2.7-7.7)
[2022-02-16 06:23] LABS: Anion Gap 5 (5-15); BUN 39 mg/dL (7-18); BUN/Creat Ratio 35.1 RATIO (10-20); Calcium,Total 8.5 mg/dL (8.5-10.1); Chloride 109 mmol/L (98-107); Creatinine, Serum 1.11 mg/dL (0.70-1.30); EST Glomerular Filtration Rate 67 mL/min (>60); Est Glom Filt Rate - Afr Amer 81 mL/min (>60); Estimated Creatinine Clearance 41.98 ml/min; Glucose 101 mg/dL (74-106); Potassium 3.6 mmol/L (3.5-5.1); Sodium Level 141 mmol/L (136-145)
[2022-02-16] MEDS: Iron Polysaccharide Complex 150 MG CAPSULE PO (08:09)
[2022-02-16] MEDS: Amiodarone 200 MG Tablet 400 MG PO (08:09)
[2022-02-16] MEDS: Potassium Chloride Oral Tablet 20 MEQ PO ×2 (08:11→16:57)
[2022-02-16] MEDS: Menthol/Lanolin/Calamine/Znox 113 GM Tube 1 APPLIC TOPICAL ×2 (10:16→20:02)
[2022-02-16] MEDS: Ascorbic Acid 500 MG Tablet PO (10:16)
[2022-02-16] MEDS: Nystatin Powder 15gm Bottle 1 APPLIC TOPICAL (10:17)
--- NOTE | 2022-02-16 11:07 | NURSING ---
pt to get blood transfusion tomorrow 0930 in transfusion center after DC from TCU. dr diaz aware.
[2022-02-16] MEDS: 0.9% Saline Lock 10 ML Syringe IV (13:07)
--- NOTE | 2022-02-16 14:17 | CASEMGMT ---
Social Work Patient receiving blood transfusion 02/17 and DC is postponed. Updated IDT, [facility]. Sarai Palma, 7TH GRADE SOCIAL STUDIES TEACHER RECORD CHANGER TESTER
[2022-02-16 14:55] VITALS: BP 103/56; PULSE 66; RESP 16; TEMP 37.2; O2SAT 96
--- NOTE | 2022-02-16 17:50 | RAD_ITS ---
STUDY: X-RAY CHEST REASON FOR EXAM: Male, 86 years old. Rhonchi/crackles. TECHNIQUE: PA and lateral views of the chest. COMPARISON: January 03, 2022 FINDINGS: There is stable pacemaker device on the left. There are mild interstitial increased opacities of the lungs. There is left lower lung airspace consolidation. There is moderate left pleural effusion. There is moderate cardiac enlargement. Normal mediastinum and ashwin. Normal visualized pulmonary arteries. There is atherosclerotic calcification of the aortic arch with tortuosity. There is demineralization of the osseous structures. There are diffuse degenerative changes of the visualized thoracic spine. Normal visualized ribs, clavicles, and shoulders. There is no demonstrated abnormality of the visualized soft tissue structures of the upper abdomen. RAD/Chest PA and Lateral IMPRESSION: Left lower lung infiltrate or edema and pleural effusion. Electronically Signed: Valentin Goldman MD at 18:23 EST ,
--- NOTE | 2022-02-16 19:38 | NURSING ---
Dr. Blevins updated on chest x-ray results. No new orders. Also clarified Jardiance order. Dr. Blevins okay with new order from Resource Room Special Education Teacher.
[2022-02-16] MEDS: Atorvastatin Calcium 40 MG Tablet PO (20:00)
[2022-02-16] MEDS: Empagliflozin 10 MG Tablet PO (20:00)
--- NOTE | 2022-02-16 20:05 | NURSING ---
Encouraged patient to use incentive spirometer more frequently. Educated on improving lung function, helps the lungs epand so you can take deep, full breaths instead of short, shallow breaths. Patient verbalized understanding.
[2022-02-17 05:22] VITALS: BP 96/52; PULSE 72
[2022-02-17] MEDS: Levothyroxine 50 MCG Tablet PO (05:22)
[2022-02-17] MEDS: Metoprolol(XL)Succ 25 MG Tablet 12.5 MG PO (05:22)
[2022-02-17] MEDS: Bumetanide 2 MG Tablet PO (05:22)
[2022-02-17] MEDS: Pantoprazole Sodium 40 MG Tablet PO ×2 (05:22→17:17)
[2022-02-17 05:28] VITALS: O2SAT 94
[2022-02-17] MEDS: 0.9% Saline Lock 10 ML Syringe IV ×2 (06:06→17:17)
[2022-02-17] MEDS: Aspirin E.C. 81 MG Tablet PO (08:30)
[2022-02-17] MEDS: Ascorbic Acid 500 MG Tablet PO (08:30)
[2022-02-17] MEDS: Iron Polysaccharide Complex 150 MG CAPSULE PO (08:30)
[2022-02-17] MEDS: Potassium Chloride Oral Tablet 20 MEQ PO ×2 (08:30→17:17)
[2022-02-17] MEDS: Empagliflozin 10 MG Tablet PO (08:31)
[2022-02-17] MEDS: Amiodarone 200 MG Tablet 400 MG PO (08:31)
[2022-02-17 09:37] LABS: Pathologist Review Reviewed
--- NOTE | 2022-02-17 11:23 | NURSING ---
0930 PT OFF UNIT FOR BLOOD TX
[2022-02-17 15:03] VITALS: BP 107/59; PULSE 69; RESP 16; TEMP 36.8; O2SAT 97
[2022-02-17 20:54] VITALS: PULSE 71; RESP 16; O2SAT 96
[2022-02-17] MEDS: Atorvastatin Calcium 40 MG Tablet PO (20:56)
[2022-02-17] MEDS: Menthol/Lanolin/Calamine/Znox 113 GM Tube 1 APPLIC TOPICAL (20:56)
[2022-02-18 06:13] LABS: Hematocrit 25.8 % (40-54); Hemoglobin 8.3 g/dL (13.0-16.5)
[2022-02-18 06:26] VITALS: BP 117/56; PULSE 70
[2022-02-18] MEDS: Levothyroxine 50 MCG Tablet PO (06:26)
[2022-02-18] MEDS: Metoprolol(XL)Succ 25 MG Tablet 12.5 MG PO (06:26)
[2022-02-18] MEDS: Bumetanide 2 MG Tablet PO (06:26)
[2022-02-18] MEDS: Pantoprazole Sodium 40 MG Tablet PO ×2 (06:26→17:42)
[2022-02-18] MEDS: 0.9% Saline Lock 10 ML Syringe IV ×3 (06:27→21:29)
[2022-02-18] MEDS: Aspirin E.C. 81 MG Tablet PO (08:11)
[2022-02-18] MEDS: Amiodarone 200 MG Tablet 400 MG PO (08:11)
[2022-02-18] MEDS: Iron Polysaccharide Complex 150 MG CAPSULE PO (08:11)
[2022-02-18] MEDS: Ascorbic Acid 500 MG Tablet PO (08:12)
[2022-02-18] MEDS: Potassium Chloride Oral Tablet 20 MEQ PO ×2 (08:12→17:42)
[2022-02-18 08:14] VITALS: BP 126/68; PULSE 68
[2022-02-18 09:45] VITALS: PULSE 55; RESP 18; O2SAT 96
[2022-02-18] MEDS: Menthol/Lanolin/Calamine/Znox 113 GM Tube 1 APPLIC TOPICAL ×2 (09:46→21:22)
[2022-02-18] MEDS: Nystatin Powder 15gm Bottle 1 APPLIC TOPICAL (09:46)
[2022-02-18] MEDS: Empagliflozin 10 MG Tablet PO (09:48)
--- NOTE | 2022-02-18 14:47 | NURSING ---
FINE CRACKLES TO RIGHT LOWER LUNG. ENCOURAGED I.S. CRACKLES WENT AWAY. RN AWARE
[2022-02-18 15:21] VITALS: BP 94/59; PULSE 70; RESP 16; TEMP 36.5; O2SAT 97
[2022-02-18] MEDS: Atorvastatin Calcium 40 MG Tablet PO (21:22)
[2022-02-19 05:53] VITALS: BP 95/52; PULSE 68
[2022-02-19] MEDS: Pantoprazole Sodium 40 MG Tablet PO (05:53)
[2022-02-19] MEDS: Levothyroxine 50 MCG Tablet PO (05:53)
[2022-02-19] MEDS: Metoprolol(XL)Succ 25 MG Tablet 12.5 MG PO (05:53)
[2022-02-19] MEDS: Bumetanide 2 MG Tablet PO (05:54)
[2022-02-19] MEDS: Potassium Chloride Oral Tablet 20 MEQ PO (08:01)
[2022-02-19] MEDS: Ascorbic Acid 500 MG Tablet PO (08:01)
[2022-02-19] MEDS: Amiodarone 200 MG Tablet 400 MG PO (08:01)
[2022-02-19] MEDS: Iron Polysaccharide Complex 150 MG CAPSULE PO (08:01)
[2022-02-19] MEDS: Aspirin E.C. 81 MG Tablet PO (08:01)
--- NOTE | 2022-02-19 08:41 | CASEMGMT ---
Social Work Spoke with on clearance for DC since blood transfusion. agreeable to DC at any time. BASIL contacted dtr and offered DC at any time. Dtr requesting DC today. IDT agreeable. BASIL notified [facility] and [facility] Palliative of DC. Plan: DC home 02/19 Sarai Palma, DRY PLACER MACHINE OPERATOR BASEBALL GLOVE STUFFER
--- NOTE | 2022-02-19 09:47 | CASEMGMT ---
Social Work BIMS and PHQ-9 completed for MDS assessment. Sarai Palma, GLOBAL MARKETING COORDINATOR CUSTOMER SUPPLY CHAIN ANALYST
[2022-02-19] MEDS: Empagliflozin 10 MG Tablet PO (09:56)
[2022-02-19] MEDS: Nystatin Powder 15gm Bottle 1 APPLIC TOPICAL (09:56)
[2022-02-19] MEDS: Menthol/Lanolin/Calamine/Znox 113 GM Tube 1 APPLIC TOPICAL (09:56)
[2022-02-19 10:00] VITALS: PULSE 66; RESP 16; O2SAT 99
== END 2022-02-19 11:42 | disposition home health service (06) | DRG 949 ==
PROVIDERS: Admitting Provider Family Medicine Geriatric Medicine; Visit Provider Family Medicine Geriatric Medicine
DX: Z48.812 Encounter for surgical aftercare following surgery on the circulatory system (principal); I47.20 Ventricular tachycardia, unspecified; I50.22 Chronic systolic (congestive) heart failure; I11.0 Hypertensive heart disease with heart failure; I48.91 Unspecified atrial fibrillation; E03.9 Hypothyroidism, unspecified; I25.10 Atherosclerotic heart disease of native coronary artery without angina pectoris; E78.5 Hyperlipidemia, unspecified; E87.6 Hypokalemia; Z79.82 Long term (current) use of aspirin; Z95.810 Presence of automatic (implantable) cardiac defibrillator; Z86.16 Personal history of COVID-19; Z79.899 Other long term (current) drug therapy; Z79.890 Hormone replacement therapy
CPT/HCPCS: 36415; 36430; 71046; 73100; 80048; 84439; 84443; 84481; 85014; 85018; 85025; 86850; 86900; 86901; 86920; 86922; 87811; 97110; 97116; 97162; 97166; 97530; 97535; 97802; J7040; P9016; P9040; A4216; J1940

== ENCOUNTER 2022-02-10 13:48 | Emergency (ER) | payer MEDICARE, OTHER, SELFPAY ==
[2022-02-10 13:49] VITALS: BP 106/59; PULSE 71; RESP 18; TEMP 36.6; O2SAT 100; BMI 20.5
--- NOTE | 2022-02-10 15:14 | EX.ED.DYSGE1 ---
HPI History of Present Illness Chief Complaint: Nosebleed Informant: patient Onset/Context/Timing Onset: Today Context: Sudden Onset (bent over) Timing: Intermittent Quality: brisk oozing Location: R side Current Severity: Gone Maximum Severity: Moderate Worsened by: sitting up/getting up Relieved by: lying down, holding pressure Associated Symptoms Associated Symptoms: none Narrative Narrative: Patient had spontaneous nosebleed this morning on TCU, bleeding has been off and on from the right side for the past 4 to 5 hours or more. States it is doing well now that he is resting and holding pressure on his nose with a clamp given to him in triage. He denies taking any anticoagulants. He is on a baby aspirin per day, no other antiplatelet medications. Compliant with his other prescriptions. Blood pressure well controlled today. No recent URI or injury. [facility] Medical History Acute kidney injury Acute on chronic systolic congestive heart failure Anemia Atrial fibrillation Coronary artery disease COVID-19 Debility Elevated liver enzymes Hyperlipidemia Hypertension Hypothyroidism Right wrist pain Weakness Home Medications L.acidophil,salivari-Bifido bifidum-Strep thermoph 175 mg capsule 1 cap PO DAILY probiotic 12/30/21 [History Last Taken Unknown] aspirin 81 mg tablet,delayed release 81 mg PO DAILY Heart Health 12/30/21 [History Last Taken Unknown] bumetanide 1 mg tablet 2 mg PO DAILY Heart 12/30/21 [History Last Taken Unknown] levothyroxine 25 mcg tablet 25 mcg PO MOTUWETHFRSA Thyroid 12/30/21 [History Last Taken Unknown] metoprolol succinate 25 mg tablet,extended release 24 hr 25 mg PO DAILY BP 12/30/21 [History Last Taken Unknown] mexiletine 200 mg capsule 200 mg PO Q12H PRN Heart Rhythm 12/30/21 [History Last Taken Unknown] midodrine 5 mg tablet 5 mg PO TID BP 12/30/21 [History Last Taken Unknown] pantoprazole 40 mg tablet,delayed release 40 mg PO BID GERD 12/30/21 [History Last Taken Unknown] potassium chloride 20 mEq tablet,extended release 20 meq PO DAILY Supplement 12/30/21 [History Last Taken Unknown] Allergy/AdvReac Type Severity Reaction Status Date / Time apixaban [From Eliquis] AdvReac Unknown Bleeding Verified 02/09/22 14:38 Family History Father Alzheimer disease Sister Alzheimer disease Sister Breast cancer Brother Cancer Brother Esophageal cancer Surgical History H/O rectal polypectomy History of implantable cardiac defibrillator (ICD) History of thoracotomy Hx of tonsillectomy S/P mitral valve clip implantation Social History household members: spouse number of children: 2 Smoking Status: Never smoker alcohol intake: never substance use type: does not use ROS ROS ED Constitutional Constitutional ED: Denies chills or fever(s) ENT ENT ED: Reports epistaxis; Denies ear pain, rhinorrhea, sore throat or throat swelling Cardiovascular Cardiovascular: Denies chest pain or palpitations Respiratory/Chest Respiratory/Chest: Denies cough or dyspnea Gastrointestinal Gastrointestinal: Denies nausea or vomiting Genitourinary Genitourinary ED: Denies dysuria or hematuria Musculoskeletal Musculoskeletal: Denies back pain or neck pain Integumentary Denies abscess or rash Neurologic Neurologic: Denies headache(s) or weakness EXAM Physical Exam Const Vital Signs: 02/10/22 13:49 Temperature 97.8 F Temperature Source Temporal Pulse Rate 71 Respiratory Rate 18 Blood Pressure 106/59 L Blood Pressure Mean 74 Pulse Ox 100 Oxygen Delivery Method Room Air Positive well nourished and well developed General Appearance ED: well developed and NAD HEENT Reports moist mucous membranes HEENT Narrative: Blood and clots present both nares, no active bleeding. No posterior oropharyngeal blood/bleeding. Breathing well, speaking normally no stridor. Eyes PERRL and EOMs intact bilaterally Neck no lymphadenopathy and supple Extremity normal to inspection Neuro oriented x3, CN's II-XII intact bilaterally and no sensory deficits noted Sensorium / Orientation: alert Motor Exam: strength 5/5 throughout Psych mental status grossly normal Skin no rashes or lesions noted, no wounds and skin turgor normal MDM MDM MDM Narrative Medical decision making narrative: Patient has normal blood pressure which does not need to be acutely addressed here, and is unlikely the cause of his bleeding, and he is not on any anticoagulants or medications that need to be stopped or reversed. I had the patient evacuate contents of his nose by blowing it with tissues, and subsequently it appears that the source of the bleeding is at the septum on the right but a little further back, may be 3 cm from the naris. I had him inhale some aerosolized Taras mix 2 cc, in addition to a soaked nasal pledget which controlled his bleeding very well. On checking after 20 minutes or so, I remove the pledget, and he has active bleeding from that same area. It is mild. I really soaked a new pledget and placed it as deep as I could within the naris, which controlled the bleeding well, but on recheck again actively bleeding and I removed a large clot. At this time we decided to do an anterior not inflatable rapid Rhino packing. This controls bleeding well and he should follow-up with ENT in 2-3 days for reevaluation and removal. Will discharge back to TCU with appropriate instructions, I would continue the aspirin at this time. Procedures Other Procedures Procedure(s): Epistaxis care with packing placement: See above for details, with regards to the packing a small anterior knot inflatable rapid Rhino was soaked in sterile water for 45 seconds and inserted along the base of the right nose without any difficulty, tolerated well no complications or bleeding. Good hemostasis obtained. Discharge Plan Triage Chief Complaint: Nosebleed ED Provider: Valentin Han Dx/Rx/DC Orders Clinical Impression: Acute anterior epistaxis Instructions: ED Epistaxis (Adult) Prescriptions: No Action midodrine 5 mg tablet 5 mg PO TID Label Comments: TAKE 1 TABLET BY MOUTH THREE TIMES A DAY aspirin 81 mg tablet,delayed release (DR/EC) 81 mg PO DAILY Label Comments: TAKE 1 TABLET BY MOUTH EVERY DAY WITH A MEAL levothyroxine 25 mcg tablet 25 mcg PO MOTUWETHFRSA Label Comments: TAKE 1 TABLET BY MOUTH tuesday through tuesday AND TAKE 2 TABS (50MCG) ON TUESDAY pantoprazole 40 mg tablet,delayed release (DR/EC) 40 mg PO BID Label Comments: TAKE 1 TABLET BY MOUTH TWICE A DAY bumetanide 1 mg tablet 2 mg PO DAILY Label Comments: TAKE 1 TABLET BY MOUTH TWICE A DAY mexiletine 200 mg capsule 200 mg PO Q12H PRN Label Comments: TAKE 1 CAPSULE BY MOUTH EVERY 8 HOURS metoprolol succinate 25 mg tablet extended release 24 hr 25 mg PO DAILY Label Comments: TAKE 1 TABLET BY MOUTH EVERY DAY Shayy,saliva-B.bif-S.therm 175 mg capsule 1 cap PO DAILY Label Comments: TAKE 1 CAPSULE BY MOUTH EVERY DAY potassium chloride 20 mEq tablet extended release 20 meq PO DAILY Label Comments: TAKE 1 TABLET BY MOUTH EVERY MORNING Primary Care Provider: Care Physician,No Primary Referrals: Bassem Mathews MD [Med Staff - Active Staff] - (2-3 days for reevaluation and packing removal - call for appt) Care Physician,No Primary [Primary Care Provider] - Disposition Disposition: Home, Self Care
[2022-02-10] MEDS: Mixture 30 ML Bottle 5 ML TOPICAL (17:21)
[2022-02-10] MEDS: Silver Nitrate (BKC) 1 EACH TOPICAL (18:24)
[2022-02-10 19:05] VITALS: BP 110/78; PULSE 87; RESP 14; O2SAT 96
== END 2022-02-10 19:05 | disposition home or self-care (01) ==
PROVIDERS: Emergency Provider Emergency Medicine; Visit Provider Emergency Medicine
DX: R04.0 Epistaxis (principal); Z79.82 Long term (current) use of aspirin; Z79.02 Long term (current) use of antithrombotics/antiplatelets; E78.5 Hyperlipidemia, unspecified; I10 Essential (primary) hypertension; I25.10 Atherosclerotic heart disease of native coronary artery without angina pectoris; Z86.16 Personal history of COVID-19; E03.9 Hypothyroidism, unspecified
CPT/HCPCS: 30901; 99282

== ENCOUNTER → 2022-02-12 | Outpatient (CLI) | payer MEDICARE, OTHER, SELFPAY ==
[2022-02-12] VITALS (7 sets, daily range): BP systolic 89–109; BP diastolic 48–73; PULSE 67–70; RESP 16; TEMP 36.1–36.5; O2SAT 96–100
[2022-02-12] MEDS: 0.9% NaCl Peripheral Flush Adult/Peds IV ×2 (08:58→16:26)
[2022-02-12] MEDS: Furosemide 40 MG/4 ML Vial IV (12:46)
== END | disposition home or self-care (01) ==
PROVIDERS: Referring Provider Family Medicine Geriatric Medicine; Visit Provider Family Medicine Geriatric Medicine
DX: D64.9 Anemia, unspecified (principal)
CPT/HCPCS: 36430; 86850; 86900; 86901; 86920; 86922; J7040; P9016; A4216; J1940

== ENCOUNTER → 2022-02-17 | Outpatient (CLI) | payer MEDICARE, OTHER, SELFPAY ==
[2022-02-17 09:36] VITALS: RESP 16; TEMP 36.7
[2022-02-17] MEDS: 0.9% NaCl Peripheral Flush Adult/Peds IV (09:42)
[2022-02-17 10:38] VITALS: BP 100/54; PULSE 71; RESP 16; TEMP 36.7; O2SAT 100
[2022-02-17 11:38] VITALS: BP 110/53; PULSE 71; RESP 16; TEMP 36.6; O2SAT 100
[2022-02-17 12:19] VITALS: BP 104/52; PULSE 70; RESP 16; TEMP 36.4; O2SAT 100
[2022-02-17] MEDS: Furosemide 20 MG/2 ML VIAL IV (12:20)
== END | disposition home or self-care (01) ==
LOC: MEDOUTP 09:26
PROVIDERS: Referring Provider Family Medicine Geriatric Medicine; Visit Provider Family Medicine Geriatric Medicine
DX: D62 Acute posthemorrhagic anemia (principal); R04.0 Epistaxis
CPT/HCPCS: 36415; 36430; 86850; 86900; 86901; 86920; 86922; J7040; P9040; A4216; J1940

== ENCOUNTER → 2022-04-12 | Outpatient (CLI) | payer MEDICARE, OTHER, SELFPAY ==
--- NOTE | 2022-04-12 14:50 | RAD_ITS ---
STUDY: X-RAY CHEST REASON FOR EXAM: Male, 87 years old. Pleural Effusion TECHNIQUE: PA and lateral views of the chest. COMPARISON: 02/16/2022 FINDINGS: Left subclavian AICD which is unchanged. Reticular opacities within the lungs consistent with interstitial pulmonary edema. Large left pleural effusion which is unchanged. There is moderate cardiac enlargement. Normal mediastinum and ashwin. There is prominence of the pulmonary hilar arteries and peripheral pulmonary arteries, consistent with congestive heart failure (CHF). Normal visualized aortic arch and descending thoracic aorta. Normal visualized thoracic spine. Normal visualized ribs, clavicles, and shoulders. There is no demonstrated abnormality of the visualized soft tissue structures of the upper abdomen. RAD/Chest PA and Lateral IMPRESSION: Moderate congestive heart failure with no change in the large left pleural effusion. Electronically Signed: Maximo Jara MD at 15:22 EST ,
== END | disposition home or self-care (01) ==
LOC: RAD 14:28
PROVIDERS: Visit Provider Internal Medicine Critical Care Medicine
DX: Z95.810 Presence of automatic (implantable) cardiac defibrillator (principal); I50.9 Heart failure, unspecified; R91.8 Other nonspecific abnormal finding of lung field; J90 Pleural effusion, not elsewhere classified
CPT/HCPCS: 71046

== ENCOUNTER → 2022-04-19 | Outpatient (CLI) | payer MEDICARE, OTHER, SELFPAY ==
[2022-04-19 17:02] LABS: Platelet Count 169 K/mm3 (150-450)
[2022-04-19 17:22] LABS: International Normalized Ratio 1.4; Prothrombin Time (Protime)PT. 16.4 SECONDS (11.7-14.9)
[2022-04-19 17:31] LABS: ALB/GLOB Ratio 0.7 RATIO (0.9-2.4); Globulin 4.8 g/dL (2.2-4.2); LDH 258 U/L (87-241); Protein, Total 8.3 g/dL (6.4-8.2)
== END | disposition home or self-care (01) ==
LOC: LAB 16:04
PROVIDERS: Referring Provider Internal Medicine Critical Care Medicine; Visit Provider Internal Medicine Critical Care Medicine
DX: J90 Pleural effusion, not elsewhere classified (principal); I48.91 Unspecified atrial fibrillation
CPT/HCPCS: 36415; 83615; 84156; 85049; 85610

== ENCOUNTER → 2022-04-22 | Outpatient (CLI) | payer MEDICARE, OTHER, SELFPAY ==
--- NOTE | 2022-04-22 | IMM_PTH ---
PATIENT: MAC HARVEY LOC: U#:[id number] AGE/SX: 87/M ROOM: RE04/22/[address]: Dr. Marcelino Ho DO : 1935 BED: DIS: 04/22/2022 SPEC #: [id number] RECD: 04/26/22 12:13 STATUS: SOULindsey REQ #: [id number] JULIAN: 04/22/22 00:[address]: Marcelino Ho DEPT: IMMUNOHISTOCHEMISTRY RECD BY: Nathalia Smith ENTERED: 04/26/22 12:14 SP TYPE: IMMUNO OTHR DR: Dr. Jose Angel Gomes DO Tissues: THORACIC FLUID Procedures: Jaspreet Ret (add) CK20 (add) CK5-6 (add) CK7 (add) KI-67 (add) MACRO (add) Pankeratin (initial) P40 (add) PHYSICIAN & INSTITUTION [place] [id number] SPECIMEN INFORMATION: Tissue Source: Thoracentesis fluid Clinical Info: Pleural effusion Specimen Number: [id number] CPT code: 41878, 19901 x7 METHODOLOGY: Deparaffinized sections of prefer/formalin-fixed tissue or PAP/DQ stained slides are incubated with monoclonal/polyclonal antibodies/oligonucleotide probes. Localization is made via biotin free immunoperoxidase method. Appropriate controls are performed and reacted as expected. Results on target cell population are indicated in the following table: RESULTS: ANTIBODY / CLONE RESULT AE1-3 (AE1/AE3/PCK26) positive CK7 (OV-TL12/30) positive CK20 (KS20.8) negative Macro (HAM-56) positive CALRET (polyclonal) positive CK5-6 (D5 & 1684) positive P40 (BC28) negative Ki-67 (30-9) negative These tests were developed and their performance characteristics determined by [facility]. They may not have been cleared or approved by the U.S. Food and Drug Administration. The FDA has determined that such clearance or approval is not necessary. The above immunohistochemical/dualISH markers are ordered and reviewed by the Pathologist. INTERPRETATION: Thoracentesis fluid (cell block): No evidence of malignancy. AM:dulce 04/27/2022
--- NOTE | 2022-04-22 12:59 | US_ITS ---
PROCEDURE: ULTRASOUND GUIDED THORACENTESIS. DATE: 04/22/2022. INDICATION: Male, 87 years old. Left pleural effusion PHYSICIAN: Devon Cabrera M.D. PROCEDURE: The risks, benefits, and alternatives to the procedure were explained to the patient. The specific risks of bleeding, infection, and pneumothorax requiring chest tube insertion were discussed and accepted. Written informed consent was obtained. Ultrasonographic evaluation of the left lower pleural space was carried out. An adequate pocket was identified. The patient was placed in the sitting, upright position. The overlying skin was prepped and draped in sterile fashion. 1% lidocaine was administered subcutaneously for local anesthesia. Under ultrasound guidance, a 5 Albanian thoracentesis needle/catheter system was advanced into the left posterior lower pleural fluid collection. Approximately 1450 mL of dark rodolfo fluid was drained. The catheter was removed, and a sterile dressing was applied. A specimen was collected and sent to the laboratory for analysis, as requested by the referring clinician. The patient tolerated the procedure well. A chest x-ray was ordered. US/Thoracentesis W US IMPRESSION: Ultrasound-guided left thoracentesis. Electronically Signed: Devon Cabrera MD at 14:00 EST ,
[2022-04-22 13:25] VITALS: BP 106/62; BP 107/54; BP 109/49; BP 121/62; PULSE 51; PULSE 65; PULSE 68; PULSE 69; RESP 18; TEMP 36.3; O2SAT 100; O2SAT 92; O2SAT 97
[2022-04-22] MEDS: Lidocaine 2% (20 ml mdv) 20 ML Vial INFILT (13:28)
--- NOTE | 2022-04-22 13:30 | FLU_PTH ---
PATIENT: MAC HARVEY LOC: U#:[id number] AGE/SX: 87/M ROOM: RE04/22/[address]: Dr. Marcelino Ho DO : 1935 BED: DIS: 04/22/2022 SPEC #: [id number] RECD: 04/22/22 14:01 STATUS: SOLO APRILGeorge #: [id number] JULIAN: 04/22/22 13:[address]: Marcelino Ho DEPT: CYTOLOGY RECD BY: Jessica Norwood ENTERED: 04/23/22 09:05 SP TYPE: Fluid OTHR DR: Dr. Jose Angel Gomes DO Tissues: Pleural fluid, NOS Procedures: Special Stain Group II Surgery Specimen Level IV Cytospin Fluid HEADER OPERATION: Thoracentesis PRE-OP DIAGNOSIS: Pleural effusion TISSUE SUBMITTED: Thoracentesis fluid for cytology DIAGNOSIS CYTOLOGY Thoracentesis fluid for cytology (cytospin and cell block): Negative for malignant cells. See comment. AM:dulce 04/26/2022 COMMENT Immunohistochemistry ([id number]) supports the above diagnosis. CYTOLOGY STUDY Slides are reviewed. CYTOLOGY GROSS Received is 80 ml of rodolfo cloudy fluid labeled with the patient's name and and designated per the requisition as thoracentesis. Submitted for cytology preparation including cell block. / dulce 04/23/2022 TC:5 CPT: 00302, 67605
--- NOTE | 2022-04-22 13:38 | RAD_ITS ---
STUDY: X-RAY CHEST REASON FOR EXAM: Male, 87 years old. POST THORA TECHNIQUE: AP inspiration and expiration view following left thoracentesis. COMPARISON: Comparison is made with prior study dated 04/12/2022. FINDINGS: Mild residual pleural-parenchymal changes at the left lung base. No evidence of pneumothorax. RAD/Chest Insp/Exp 2 View IMPRESSION: Mild degree of residual pleural parenchymal changes at the left lung base. No evidence of pneumothorax. Electronically Signed: Devon Cabrera MD at 14:01 EST ,
[2022-04-22 14:45] LABS: Body Fluid Mononuclear WBC # 0.589 10^3/uL; Body Fluid Mononuclear WBC % 98.5 %; Body Fluid Polynuclear WBC # 0.009 10^3/uL; Body Fluid Polynuclear WBC % 1.5 %; Body Fluid Total Cells Counted 0.669 10^3/ul; Red Cell Count/Body Fluid 0.008 10^6/ul; White Blood Count/Body Fluid 0.598 10^3/uL
[2022-04-22 15:09] LABS: Glucose, Body Fluid 123 mg/dL (40-70); LDH,Body Fluid 141 Units/l (Not Establ.); Protein, Body Fluid 4.4 g/dL (Not Establ.)
[2022-04-22 15:12] LABS: Appearance/Body Fluid SL CLDY; Auto B Fluid Analyzer BKGD Ct COUNTS W/IN LIMITS (W/IN LIMITS); Color/Body Fluid YELLOW; Source- Body Fluid THORACENTESIS
[2022-04-22 15:13] LABS: Body Fluid QC Type(s) BFQ1
[2022-04-22 15:39] LABS: Lymphocytes 32 %; Macrophages 57 %; Mesothelial Cells 8 %; Monocytes 2 %; Neutrophil (Segs) 1 %
[2022-04-23 15:28] LABS: Pathologist Comment/Body Fluid Reviewed
[2022-04-27 13:27] LABS: Cytology, Body Fluid / CSF SEE PATHOLOGY REPORT
== END | disposition home or self-care (01) ==
LOC: US 12:58
PROVIDERS: PCP Student in an Organized Health Care Education/Training Program; Referring Provider Internal Medicine Critical Care Medicine; Visit Provider Internal Medicine Critical Care Medicine
DX: J90 Pleural effusion, not elsewhere classified (principal)
CPT/HCPCS: 32555; 71046; 82945; 83615; 84157; 87070; 87075; 87205; 88108; 88305; 88313; 88341; 88342; 89050

== ENCOUNTER 2022-09-10 13:20 | Emergency (ER) | payer MEDICARE, OTHER, SELFPAY ==
[2022-09-10 13:22] VITALS: BP 113/68; PULSE 76; RESP 12; TEMP 36.1; O2SAT 97; BMI 20.2
--- NOTE | 2022-09-10 14:04 | EX.ED.UPPERE ---
HPI History of Present Illness Chief Complaint: Wound Narrative Narrative: 87-year-old male past medical history of atrial fibrillation, coronary artery disease, hypertension, takes baby aspirin presents from his pattern room attendant office with continued bleeding from his wound on his left forearm. He and his daughter relate history that yesterday they had a skin cancer removed. The area was sutured shut. He has had continued bleeding from the surgical site in between the sutures. He went and saw his pattern room attendant today and they state that she applied pressure and tried 3 different methods to get the bleeding to stop but could not. He presents for evaluation because she is unsure if he has low platelets, and his daughter is also concerned because Tuesday he had his blood work drawn and his hemoglobin was 9 and in the past he has had issues with needing blood transfusion because his hemoglobin dropped to 7.1 after surgery. He denies any chest pain or shortness of breath, no generalized weakness but just complains that his left forearm surgical site is still bleeding even though it is wrapped in a pressure dressing currently. They present mainly to [place] emergency department because they want to make sure that he has not lost a large amount of blood and to see what his platelet level is, he denies thrombocytopenia in the past. [facility] Medical History Acute kidney injury Acute on chronic systolic congestive heart failure Anemia Atrial fibrillation Coronary artery disease COVID-19 Debility Elevated liver enzymes Hyperlipidemia Hypertension Hypothyroidism Right wrist pain Weakness Home Medications aspirin 81 mg tablet,delayed release 81 mg PO DAILY Heart Health 12/30/21 [History Last Taken Unknown] ascorbic acid (vitamin C) 500 mg tablet 500 mg PO BREAKFAST 30 days #30 tabs 02/11/22 [Rx Last Taken Unknown] atorvastatin 40 mg tablet 40 mg PO QHS 30 days #30 tabs 02/11/22 [Rx Last Taken Unknown] bumetanide 2 mg tablet 2 mg PO DAILY 30 days #30 tabs 02/11/22 [Rx Last Taken Unknown] metoprolol succinate 25 mg tablet,extended release 24 hr 12.5 mg PO DAILY 30 days #15 tabs 02/11/22 [Rx Last Taken Unknown] polysaccharide iron complex 150 mg iron capsule (Ferrex) 150 mg PO BREAKFAST 30 days #30 caps 02/11/22 [Rx Last Taken Unknown] potassium chloride 20 mEq tablet,extended release(part/cryst) (Klor-Con M) 20 meq PO BIDCM 30 days #60 tabs 02/11/22 [Rx Last Taken Unknown] amiodarone 200 mg tablet 200 mg PO DAILYCM 05/13/22 [History Last Taken Unknown] Allergy/AdvReac Type Severity Reaction Status Date / Time apixaban [From Eliquis] AdvReac Unknown Bleeding Verified 09/10/22 13:25 Family History Father Alzheimer disease Sister Alzheimer disease Sister Breast cancer Brother Cancer Brother Esophageal cancer Surgical History H/O rectal polypectomy History of implantable cardiac defibrillator (ICD) History of thoracotomy Hx of tonsillectomy S/P mitral valve clip implantation Social History household members: spouse number of children: 2 Smoking Status: Never smoker alcohol intake: never substance use type: does not use ROS ROS ED ROS Narrative Constitutional: No fever, no chills. HEENT: No sore throat. No neck pain. No loss of vision. No rhinorrhea. Cardiovascular: No chest pain. No palpitations. No pedal edema. Respiratory: No cough, no shortness of breath. Abdominal: No abdominal pain. No nausea. No vomiting. No dark stool. Genitourinary: No dysuria. No hematuria. Musculoskeletal: No myalgias. No arthralgias. Neurologic: No headaches. No dizziness. No lightheadedness. Skin: No rash. No change in color. Positive bleeding from left forearm surgical wound. Denies other bleeding diathesis. Psychiatric: No depression. No anxiety. EXAM Physical Exam Narrative Exam Narrative: Afebrile. Vital signs noted. HEENT: Normocephalic. Atraumatic. PERRL, EOMI. Neck soft and supple. No point tenderness or step off. Cardiovascular: Regular rate and rhythm. No murmurs, rubs, or gallops appreciated. Respiratory: No tachypnea. Lungs clear to auscultation bilaterally. Gastrointestinal: Abdomen soft, nontender, with normoactive bowel sounds. No rebound or guarding. Neurological: Awake. Alert. Nonfocal, nonlateralizing. Skin: No rash. Normal color. No pallor. Left forearm dressed with pressure dressing, no brisk bleeding through bandage currently. Musculoskeletal: No pedal edema. Full range of motion extremities. Const Vital Signs: 09/10/22 13:22 Temperature 97 F L Temperature Source Temporal Pulse Rate 76 Respiratory Rate 12 Blood Pressure 113/68 Blood Pressure Mean 83 Pulse Ox 97 Oxygen Delivery Method Room Air MDM MDM MDM Narrative Medical decision making narrative: I will unwrap his pressure dressing after evaluation with laboratory work. I will obtain a CBC to check his platelet count to make sure that he is not profoundly anemic requiring transfusion. Daughter states the patient is already taken his aspirin today. He had his laboratory work, his hemoglobin is 9.6 today, 0.1 better than his reported value from his daughter. He does have low platelets of 137, but he has had thrombocytopenia in the past. I do not feel that he requires a platelet transfusion. I did unwrap the pressure dressing, but there was no noted blood saturation on the ABD pad. In discussion with his family, I did not want to disturb any clot by removing the dry dressing. There is no active bleeding noted. I lightly rewrapped the dressing to remain in place. I feel he can be discharged safely home to follow-up with hematology, and his pattern room attendant. Return instructions to the emergency department were reviewed. Disposition is discharged home in stable condition. History & Record Review Discussion w/independent historian: Patient and Family Additional record(s) reviewed:: Prior ED visit Lab Data Attestation: I reviewed the patient's lab results. Discharge Plan Triage Chief Complaint: Wound ED Provider: Darci Miller Dx/Rx/DC Orders Clinical Impression: Post-op bleeding, Anemia, Thrombocytopenia Instructions: Thrombocytopenia, ED Anemia, Type Not Specified (Adult), ED Post Op Wound Check, Bleeding Prescriptions: No Action amiodarone 200 mg tablet 200 mg PO DAILYCM aspirin 81 mg tablet,delayed release (DR/EC) 81 mg PO DAILY Label Comments: TAKE 1 TABLET BY MOUTH EVERY DAY WITH A MEAL atorvastatin 40 mg Tablet 40 mg PO QHS 30 Days Qty: 30 0RF bumetanide 2 mg Tablet 2 mg PO DAILY 30 Days Qty: 30 0RF polysaccharide iron complex [Ferrex 150] 150 mg iron Capsule 150 mg PO BREAKFAST 30 Days Qty: 30 0RF potassium chloride [Klor-Con M20] 20 mEq Tablet,Er Particles/Crystals 20 meq PO BIDCM 30 Days Qty: 60 0RF ascorbic acid (vitamin C) 500 mg Tablet 500 mg PO BREAKFAST 30 Days Qty: 30 0RF metoprolol succinate 25 mg Tablet Extended Release 24 Hr 12.5 mg PO DAILY 30 Days Qty: 15 0RF Primary Care Provider: Ray Ceron NP Referrals: Sd Barros MD [Med Staff - Active Staff] - As Needed Jose Angel Gomes DO [Non-Staff] - Disposition Disposition: Home, Self Care
[2022-09-10 14:56] LABS: Absolute Neutrophil Count 5.9 X10^3/uL (2.0-7.7); Basophil# 0.03 X10^3/uL; Basophil% 0.3 % (0-1); Hematocrit 30.6 % (40-54); Hemoglobin 9.6 g/dL (13.0-16.5); Lymphocyte % 12.1 % (19-41); Mean Corp Hgb Conc 31.4 g/dL (32-36); Mean Corpuscular Hgb 31.9 pg (27.0-32.0); Mean Corpuscular Volume 101.7 fL (80-94); Mean Platelet Vol. 12.1 fl (6.2-12.0); Monocyte# 1.84 X10^3/uL; Monocyte% 20.2 % (0-10); NRBC Flagged by Analyzer 0.5 % (0-5); Neutrophil % 64.8 % (47-70); POSITIVE DIFFERENTIAL YES; POSITIVE MORPHOLOGY YES; Platelet Count 137 K/mm3 (150-450); RBC Distribution Width CV 26.8 % (11.6-14.6); RBC Distribution Width SD 98.3 fl (35.1-43.9); Red Blood Count 3.01 M/mm3 (4.6-6.2); White Blood Count 9.1 K/mm3 (4.4-11.0)
[2022-09-10 15:15] LABS: Differential Indicated SCAN CRITERIA MET
[2022-09-10 15:28] LABS: Anisocytosis 1+; Platelet Estimate ADEQUATE (ADEQ); Red Cell Morphology N CHROM NORMAL (NORM C&C)
[2022-09-10 15:29] LABS: Macrocytosis 1+
[2022-09-10 16:08] VITALS: PULSE 70; RESP 16; O2SAT 97
== END 2022-09-10 16:09 | disposition home or self-care (01) ==
PROVIDERS: Emergency Provider Emergency Medicine; PCP Nurse Practitioner Primary Care; Visit Provider Emergency Medicine
DX: L76.21 Postprocedural hemorrhage of skin and subcutaneous tissue following a dermatologic procedure (principal); I48.91 Unspecified atrial fibrillation; D69.6 Thrombocytopenia, unspecified; D64.9 Anemia, unspecified; I25.10 Atherosclerotic heart disease of native coronary artery without angina pectoris; I10 Essential (primary) hypertension; E78.5 Hyperlipidemia, unspecified; Y83.2 Surgical operation with anastomosis, bypass or graft as the cause of abnormal reaction of the patient, or of later complication, without mention of misadventure at the time of the procedure; Y92.531 Health care provider office as the place of occurrence of the external cause; Z79.82 Long term (current) use of aspirin; Z79.899 Other long term (current) drug therapy; Z95.810 Presence of automatic (implantable) cardiac defibrillator
CPT/HCPCS: 36415; 85025; 99282

== ENCOUNTER 2023-05-24 18:33 | Inpatient (IN) | payer MEDICARE, OTHER, SELFPAY ==
[2023-05-24 18:47] VITALS: PULSE 86; RESP 16; O2SAT 97
--- NOTE | 2023-05-24 19:12 | HP.PCM_ITS ---
HPI - General General Date of Admission: 05/24/23 Date of Service: 05/25/23 Chief Complaint: Here for rehabilitation. HPI Narrative MAC HARVEY, is a 88 Male who presents with followin01/05/2022 LBB pacing lead placement post procedure multiple episodes of VT with ICD shocks. [facility] transfer. 01/12/2022 Heart cath showed nonobstructive coronary artery disease. Lidocaine drip, Amiodarone drip. 01/13/2022 Successful ablation of VT, atrial fibrillation, anticoagulation contraindicated, patient declined Watchman procedure. November 2022 Amiodarone stopped due to elevated LFTs. 05/05/2023 [place] funny, shock from ICD. VT required DC cardioversion from VFib, amiodarone drip. Tali HEATHER thought multiple areas of VT, ablation unlikely to be successful. 05/09/2023 Admit to [facility]. Transferred from [facility]. Recurrent VT episodes with ICD discharges. Amiodarone drip. Amiodarone transitioned to Mexiletine. Proximal lower extremity weakness x 2 days, 2/2 amiodarone toxicity. Start B12 for B12 deficiency. 05/20/2023 Plan EMG. EMG to assess myopathy versus neuropathy. MRI C/T spine unable 2/2 abandoned lead. Neurology following bilateral lower extremity weakness. Statin myopathy versus deconditioning. No further workup needed. 05/23/2023 EMG showed severe polyneuropathy, no myopathy. Decrease Atorvastatin to 40mg daily. PT/OT debility. Metoprolol succinate 12.5mg daily, Mexiletine 200mg q8, no ablation for VT. Bumex 2mg bid, Losartan 6.25mg, Metoprolol succinate 12.5mg for HFrEF. Iron for anemia of chronic disease. Right foot cellulitis resolved with IV Ceftriaxone. 05/24/2023 Admit to TCU with debility, here for rehabilitation, strengthening, prior to discharge home with . [facility] Medical History Acute kidney injury Acute on chronic systolic congestive heart failure Anemia Atrial fibrillation Coronary artery disease COVID-19 Debility Elevated liver enzymes Hyperlipidemia Hypertension Hypothyroidism Right wrist pain Weakness Home Medications ascorbic acid (vitamin C) 500 mg tablet 500 mg PO BREAKFAST Supplement 30 days #30 tabs 02/11/22 [Rx Last Taken Unknown] atorvastatin 40 mg tablet 40 mg PO QHS Cholesterol 30 days #30 tabs 02/11/22 [Rx Last Taken Unknown] metoprolol succinate 25 mg tablet,extended release 24 hr 12.5 mg (1/2 x 25 mg) PO DAILY Blood pressure 30 days #15 tabs 02/11/22 [Rx Last Taken Unknown] potassium chloride 20 mEq tablet,extended release(part/cryst) (Klor-Con M) 20 meq PO BIDCM Supplement 30 days #60 tabs 02/11/22 [Rx Last Taken Unknown] bumetanide 2 mg tablet 2 mg PO DAILY Diuretic 09/14/22 [History Last Taken Unknown] losartan 25 mg tablet 12.5 mg PO DAILY Blood pressure 09/29/22 [History Last Taken Unknown] niacinamide 500 mg tablet 500 mg PO BID 10/12/22 [History Last Taken Unknown] polysaccharide iron complex 150 mg iron capsule 150 mg PO DAILY Supplement 10/12/22 [History Last Taken Unknown] aspirin 81 mg chewable tablet 1 tab PO DAILY Heart health 05/24/23 [History Last Taken Unknown] cyanocobalamin (vitamin B-12) 1,000 mcg capsule 1,000 mcg PO DAILY Supplement 05/24/23 [History Last Taken Unknown] guaifenesin 600 mg tablet, extended release 12 hr 600 mg PO BID PRN cough 05/24/23 [History Last Taken Unknown] mexiletine 200 mg capsule 200 mg PO Q8H Arrhythmia 05/24/23 [History Last Taken 05/24/23 06:45] Allergy/AdvReac Type Severity Reaction Status Date / Time apixaban [From Eliquis] AdvReac Unknown Bleeding Verified 01/25/23 14:02 Family History Father Alzheimer disease Sister Alzheimer disease Sister Breast cancer Brother Cancer Brother Esophageal cancer Surgical History H/O rectal polypectomy History of implantable cardiac defibrillator (ICD) History of thoracotomy Hx of tonsillectomy S/P mitral valve clip implantation Status post Mohs surgery for squamous cell carcinoma of skin Social History household members: spouse number of children: 2 Smoking Status: Never smoker alcohol intake: never substance use type: does not use ROS Constitutional Constitutional: Reports weakness; Denies chills, fever(s) or weight gain ENT HEENT: Denies headache(s), nasal congestion or nasal discharge Cardiovascular Cardiovascular: Denies chest pain or palpitations Respiratory/Chest Respiratory/Chest: Denies cough, excessive phlegm production or shortness of breath with exertion Gastrointestinal Gastrointestinal: Denies abdominal pain, nausea or vomiting Genitourinary Genitourinary: Denies dysuria Musculoskeletal Musculoskeletal: Denies joint pain or joint swelling Integumentary Integumentary: Denies rash or wounds Neurologic Neurologic: Denies focal weakness, numbness or tingling Psychiatric Psychiatric: Denies anxiety, auditory hallucinations, depression, homicidal ideation or suicidal ideation Vital Signs Vital Signs Vital Signs: 05/24/23 18:47 Pulse Rate 86 Pulse Strength Normal (2+) Respiratory Rate 16 Respiratory Effort Normal Non-Labored Respiratory Depth Normal Respiratory Pattern Normal Pulse Ox 97 Oxygen Delivery Method Nasal Cannula Oxygen Flow Rate (L/min) 2 Physical Exam Const alert General Appearance: cooperative HEENT normocephalic Eyes PERRL and EOMs intact bilaterally Neck supple, no JVD and no carotid bruits Resp normal respiratory effort, normal air movement and clear to auscultation bilaterally Cardio regular rate and regular rhythm GI normal to inspection, nondistended, normoactive bowel sounds, non-tender and non-distended Extremity normal capillary refill General Extremity: Negative for edema Skin no rashes or lesions noted General Skin Exam: no breakdown Neuro Neuro Narrative: Mild bilateral lower extremity weakness. Psych affect normal Appearance: appropriate Results Lab / Micro Data 05/25/23 06:58 05/25/23 06:58 Assessment & Plan Assessment/Plan (1) Debility: (2) Ventricular tachycardia: (3) Weakness of both legs: (4) Amiodarone toxicity: (5) Polyneuropathy: (6) Heart failure with reduced ejection fraction: (7) Anemia of chronic disease: (8) Cellulitis of right foot: (9) Atrial fibrillation: (10) Coronary artery disease: (11) Hyperlipidemia: (12) Hypothyroidism: (13) GERD (gastroesophageal reflux disease): (14) Hypokalemia: PLAN: Plan 88 year old male with below past medical history hospitalized for VT, bilateral lower extremity weakness, complicated by HFrEF, anemia, right foot cellulitis, admitted to TCU with debility, here for rehabilitation, strengthening, prior to discharge home with . * Debility - PT/OT. * Pain - Tylenol 1000mg q6 prn pain (1-10). * Bowel - senna/colace 1 tablet bid prn, Magnesium citrate 300ml daily prn * Adult immunization - Administer pneumonia vaccine, covid vaccine, flu vaccine as appropriate. * DVT prophylaxis - Hold, anemia. * Coronary artery disease - Metoprolol succinate 12.5mg daily, Losartan 12.5mg daily, Aspirin 81mg daily. * Hyperlipidemia - Atorvastatin 40mg qhs. * HFrEF - Metoprolol succinate 12.5mg daily, Losartan 12.5mg daily, Bumex 2mg bid. * B12 deficiency - B12 1000mcg daily. * VT- Metoprolol succinate 12.5mg daily, Mexiletine 200mg q8. * Hypokalemia - KCL 20meq bid.
[2023-05-24 19:52] VITALS: BP 92/58; PULSE 86; RESP 12; TEMP 35.9; O2SAT 98; BMI 19.3
[2023-05-24] MEDS: Atorvastatin Calcium 40 MG Tablet PO (22:37)
[2023-05-24] MEDS: Mexiletine 150 MG Capsule PO (22:37)
[2023-05-25 07:11] LABS: Hematocrit 30.2 % (40-54); Hemoglobin 9.5 g/dL (13.0-16.5); Mean Corp Hgb Conc 31.5 g/dL (32-36); Mean Corpuscular Hgb 31.1 pg (27.0-32.0); POSITIVE COUNT YES; POSITIVE MORPHOLOGY YES; Platelet Count 117 K/mm3 (150-450); RBC Distribution Width CV 26.7 % (11.6-14.6); RBC Distribution Width SD 96.8 fl (35.1-43.9); Red Blood Count 3.05 M/mm3 (4.6-6.2); White Blood Count 9.8 K/mm3 (4.4-11.0)
[2023-05-25 07:39] LABS: Anion Gap 4 (5-15); BUN 27 mg/dL (7-18); BUN/Creat Ratio 22.9 RATIO (10-20); Calcium,Total 8.5 mg/dL (8.5-10.1); Chloride 106 mmol/L (98-107); Creatinine, Serum 1.18 mg/dL (0.70-1.30); EST Glomerular Filtration Rate 62 mL/min (>60); Est Glom Filt Rate - Afr Amer 75 mL/min (>60); Estimated Creatinine Clearance 36.08 ml/min; Glucose 78 mg/dL (74-106); Potassium 4.2 mmol/L (3.5-5.1); Sodium Level 135 mmol/L (136-145)
[2023-05-25 08:31] LABS: Differential Indicated MANUAL DIFF
[2023-05-25 08:36] LABS: Eosinophil 1 % (0-5); Lymphocyte 32 % (19-41); Monocyte 4 % (0-10); Myelocyte 9 % (0-0); Neutrophil-Band 1 % (0-5); Neutrophil-Segmented 53 % (47-70); Nucleated Red Bld Cells,Manual 1 % (0-5); Total Cells Counted 100 (MANUAL DIFF)
[2023-05-25 08:37] LABS: Acanthocytes 1+; Anisocytosis 2+; Macrocytosis 1+; Microcytosis 1+; Platelet Estimate ADEQUATE (ADEQ)
[2023-05-25 08:38] LABS: Absolute Lymphocyte Count 3.14 X10^3/uL (0.83-4.51); Absolute Neutrophil Count 5.3 X10^3/uL (2.0-7.7)
[2023-05-25] MEDS: Cyanocobalamin 500 MCG Tablet 1000 MCG PO (08:52)
[2023-05-25] MEDS: Ascorbic Acid 500 MG Tablet PO (08:52)
[2023-05-25] MEDS: Aspirin 81 MG TAB.CHEW PO (08:52)
[2023-05-25] MEDS: Potassium Chloride Oral Tablet 20 MEQ PO ×2 (08:52→17:32)
[2023-05-25] MEDS: Losartan Potassium 25 MG Tablet 12.5 MG PO (08:52)
[2023-05-25 08:53] VITALS: BP 123/63; PULSE 78
[2023-05-25] MEDS: Iron Polysaccharide Complex 150 MG CAPSULE PO (08:53)
[2023-05-25] MEDS: Metoprolol(XL)Succ 25 MG Tablet 12.5 MG PO (08:53)
[2023-05-25] MEDS: Bumetanide 2 MG Tablet PO (08:53)
[2023-05-25 09:03] VITALS: BP 123/63; PULSE 78
--- NOTE | 2023-05-25 09:04 | NURSING ---
PT REFUSED FLU VACCINE
--- NOTE | 2023-05-25 09:23 | NURSING ---
Director Market Intelligence Note; Activity Asset: Day Crawfrod prefers to be called Trino. Trino is independent in his choice of daily activities. He has returned to TCU for continued therapy. Family will visit along w/restorationism family and bring him his restorationism newsletters. Trino prefers in room activities over group and will read, watch tv and welcomes visit from information security engineer and therapy dog when available. Staff will remind him of weekly activities and respect his right to say no.
--- NOTE | 2023-05-25 09:47 | PHA.CONS_ITS ---
Documented by User: Daniel Rivera 05/25/23 14:43 TCU RX Drug Regimen Review Subjective/Objective Subjective/Objective: Subjective: TCU ADMISSION - 88 year old male hospitalized for VT, bilateral lower extremity weakness, complicated by HFrEF, anemia, right foot cellulitis, admitted to TCU with debility, here for rehabilitation, strengthening, prior to discharge home with . Objective: Allergies apixaban [From EliquSunlot] Adverse Reaction (Unknown, Verified 01/25/23 14:02) Bleeding Excessive Bleeding Current Medications Generic Name Dose Route Start Last Admin Trade Name Freq PRN Reason Stop Dose Admin Acetaminophen 1,000 mg 05/24/23 19:32 Acetaminophen 500 Mg Tablet PO Q6H PRN PRN Pain Score 1-10 Ascorbic Acid 500 mg 05/25/23 08:00 05/25/23 08:52 Ascorbic Acid 500 Mg Tablet PO 500 mg BREAKFAST HARJINDER Administration Aspirin 81 mg 05/25/23 08:00 05/25/23 08:52 Aspirin 81 Mg Tab.Chew PO 81 mg DAILYCM HARJINDER Administration Atorvastatin Calcium 40 mg 05/24/23 22:00 05/24/23 22:37 Atorvastatin Calcium 40 Mg Tablet PO 40 mg QHS HARJINDER Administration Bumetanide 2 mg 05/25/23 10:00 05/25/23 08:53 Bumetanide 2 Mg Tablet PO 2 mg DAILY HARJINDER Administration Protocol Cyanocobalamin 1,000 mcg 05/25/23 08:00 05/25/23 08:52 Cyanocobalamin 500 Mcg Tablet PO 1,000 mcg DAILYCM HARJINDER Administration Guaifenesin 600 mg 05/24/23 19:57 Guaifenesin 600 Mg Tablet PO BID PRN cough Sodium Chloride 250 mls @ 15 mls/hr 05/24/23 23:21 IV .[id number] PRN Additional IVPB Infusion Sodium Chloride 250 mls @ 15 mls/hr 05/24/23 23:21 IV .[id number] PRN Saline Flush Losartan Potassium 12.5 mg 05/25/23 10:00 05/25/23 08:52 Losartan Potassium 25 Mg Tablet PO 12.5 mg DAILY HARJINDER Administration Protocol Magnesium Citrate 300 ml 05/24/23 19:32 Magnesium Citrate 300 Ml PO DAILY PRN Constipation Metoprolol Succinate 12.5 mg 05/25/23 10:00 05/25/23 08:53 Metoprolol(Xl)Succ 25 Mg Tablet PO 12.5 mg DAILY HARJINDER Administration Protocol Mexiletine HCl 200 mg 05/25/23 06:00 Mexiletine Hcl 200 Mg Capsule PO Q8 HARJINDER Polysaccharide Iron Complex 150 mg 05/25/23 10:00 05/25/23 08:53 Iron Polysaccharide Complex 150 Mg Capsule PO 150 mg DAILY HARJINDER Administration Potassium Chloride 20 meq 05/25/23 08:00 05/25/23 08:52 Potassium Chloride Oral Tablet 20 Meq PO 20 meq BIDCM HARJINDER Administration Senna/Docusate Sodium 1 tablet 05/24/23 19:32 Senna/Docusate Sodium 1 Tablet PO BID PRN Constipation Sodium Chloride 10 - 40 ml 05/24/23 23:21 0.9% Saline Lock 10 Ml Syringe IV UD PRN SALINE FLUSH Tuberculin PPD 0.1 ml 06/01/23 10:00 Tuberculin,Purif.Prot.Deriv. 50 Tu/Ml Vial ID 06/01/23 10:01 X1 ONE Tuberculin PPD 0.1 ml 05/25/23 10:00 Tuberculin,Purif.Prot.Deriv. 50 Tu/Ml Vial ID 05/25/23 10:01 X1 ONE Problem List (Updated 05/24/23 @ 19:[address] Momo Blevins MD) Hypokalemia (Acute) GERD (gastroesophageal reflux disease) (Acute) Cellulitis of right foot (Acute) Anemia of chronic disease (Chronic) Heart failure with reduced ejection fraction (Acute) Polyneuropathy (Acute) Amiodarone toxicity (Acute) Weakness of both legs (Acute) Hypothyroidism (Acute) Atrial fibrillation (Acute) Coronary artery disease (Acute) Hyperlipidemia (Acute) Debility (Acute) Vital Signs Temp Pulse Resp BP Pulse Ox O2 Del Method O2 Flow Rate 96.6 F L 78 12 123/63 H 98 Room Air 2 05/24/23 19:52 05/25/23 09:03 05/24/23 19:52 05/25/23 09:03 05/24/23 19:52 05/24/23 19:52 05/24/23 18:47 Oxygen Flow Rate (L/min) 2 Oxygen Delivery Method Room Air Weight: 57.833 kg Body Mass Index (BMI) 19.3 Sodium 135 mmol/L (136-145) L 05/25/23 06:58 Potassium 4.2 mmol/L (3.5-5.1) 05/25/23 06:58 Chloride 106 mmol/L (98-107) 05/25/23 06:58 Carbon Dioxide 25.0 mmol/L (21.0-32.0) 05/25/23 06:58 Anion Gap 4 (5-15) L 05/25/23 06:58 BUN 27 mg/dL (7-18) H 05/25/23 06:58 Creatinine 1.18 mg/dL (0.70-1.30) 05/25/23 06:58 Est GFR (MDRD) Af Amer 75 mL/min (>60) 05/25/23 06:58 Est GFR (MDRD) Non-Af 62 mL/min (>60) 05/25/23 06:58 BUN/Creatinine Ratio 22.9 RATIO (10-20) H 05/25/23 06:58 Glucose 78 mg/dL (74-106) 05/25/23 06:58 Assessment/Plan: 1) Pain: acetaminophen 1000mg po q6h prn for pain 1-10. Please continue to monitor prn usage and for signs/symptoms of increased pain. There have been zero acetaminophen administrations to date. 2) Bowel: senna/docusate 1 tab po bid prn constipation, magnesium citrate 300ml po daily prn constipation. Please continue to monitor prn usage and for signs/symptoms of diarrhea/constipation. There have been zero administrations to date of these two meds. The patient's last documented bowel movement was yesterday 05/24/23. 3) Hyperlipidemia: atorvastatin 40mg po qhs. The patient's last recorded LFTs from 01/25/23 were AST (13) and ALT (19). Please continue to monitor patient's LFTs. There is no recent lipid panel in the chart. Please consider a yearly lipid panel while the patient is taking a statin. 4) CAD/HFrEF/VT: metoprolol succinate 12.5mg po daily, losartan 12.5mg po daily, aspirin 81mg po daily, bumetanide 2mg po daily, mexiletine 200mg po q8h. Please continue to monitor BP (range 92-123/58-63 since admission yesterday), HR (range 78 to 86), hemoglobin (last 9.5), S/S of bleeding, platelet count (today 117 - Below normal limits), sodium (last 135), potassium (last 4.2), swelling, renal function (SCr 1.18 and Crcl 36). Also continue to monitor for fatigue/dizziness/drowsiness, orthostatic hypotension, LFTs as above, ataxia/tremor, blurred vision, n/v, GI distress. If any s/s of arrhythmia such as heart palpitations, shortness o f breath, chest pain, or dizziness/lightheadedness may want to consider obtaining ECG if clinically indicated. 5) Hypokalemia: KCl 20meq po bid with meals. Please continue to monitor potassium levels (today 4.2). 6) Vitamin B12 deficiency: cyanocobalamin 1000mcg po daily. Please continue to monitor B-12 level if clinically indicated (last was 733 on 09/29/22). 7) Cough: guaifenesin ER 600mg po bid prn cough. The patient has not had any doses this admission to date. Please continue to monitor for cough/chest congestion. 8) Anemia: Ferrex 150mg po daily and ascorbic acid 500mg po daily. Please continue to monitor hemoglobin (today 9.5), dark stools, and constipation. Assessment/Plan for indications treated with psychotropic medications: N/A Medical chart and medication regimen reviewed. The following medication irregularities or issues were identified: atorvastatin 40mg po qhs. There is no recent lipid panel in the chart. Please consider a yearly lipid panel while the patient is taking a statin. Thanks. Date Date of Note:: 05/25/23 Documented by User: Dr. Momo Blevins MD 05/25/23 15:52 TCU RX Drug Regimen Review Provider Comments Provider responsibility Provider Comments to Recommendations by Pharmacy: Agree
[2023-05-25 12:30] VITALS: BP 104/61; PULSE 80; TEMP 36.1; O2SAT 98
--- NOTE | 2023-05-25 13:52 | NURSING ---
THERAPY CAME TO THIS NURSE AND STATED THAT PT HAD A SKIN TEAR TO HIS LEFT HAND IN BETWEEN 3RD AND FORTH FINGER. THIS NURSE ASKED PT WHAT HAPPENED, PT STATED I DONT KNOW. WOUND CLEANED,STERI STRIP AND BANDAID. RN AWARE
[2023-05-25] MEDS: Mexiletine HCl 200 MG Capsule PO ×2 (14:07→20:34)
[2023-05-25] MEDS: Tuberculin,Purif.prot.deriv. 50 TU/ML Vial 0.1 ML ID (14:08)
[2023-05-25] MEDS: Atorvastatin Calcium 40 MG Tablet PO (20:33)
[2023-05-25] MEDS: Pantoprazole Sodium 40 MG Tablet PO (20:34)
[2023-05-25] MEDS: Sucralfate 1 GM Tablet PO (20:34)
[2023-05-26] MEDS: Mexiletine HCl 200 MG Capsule PO ×3 (06:42→21:13)
--- NOTE | 2023-05-26 07:01 | NURSING ---
Addendum entered by Rell Palacio 05/26/23 15:12: IN TO SEE PT Original Note: NOTIFIED ON CONSULT FOR PT.
[2023-05-26 07:09] LABS: Cholesterol 98 mg/dL (200); High Density Lipoprotein 39 mg/dL; Triglycerides 66 mg/dL; Very Low Density Lipoprotein 13 mg/dL (5-40)
[2023-05-26] MEDS: Aspirin 81 MG TAB.CHEW PO (09:21)
[2023-05-26] MEDS: Sucralfate 1 GM Tablet PO ×2 (09:21→21:13)
[2023-05-26] MEDS: Bumetanide 2 MG Tablet PO (09:22)
[2023-05-26] MEDS: Cyanocobalamin 500 MCG Tablet 1000 MCG PO (09:22)
[2023-05-26] MEDS: Potassium Chloride Oral Tablet 20 MEQ PO ×2 (09:22→18:11)
[2023-05-26] MEDS: Ascorbic Acid 500 MG Tablet PO (09:22)
[2023-05-26 09:23] VITALS: BP 99/58; PULSE 79
[2023-05-26] MEDS: Pantoprazole Sodium 40 MG Tablet PO ×2 (09:23→21:13)
[2023-05-26] MEDS: Losartan Potassium 25 MG Tablet 12.5 MG PO (09:23)
[2023-05-26] MEDS: Metoprolol(XL)Succ 25 MG Tablet 12.5 MG PO (09:23)
[2023-05-26 09:29] VITALS: BP 99/58; PULSE 79
[2023-05-26 10:45] VITALS: PULSE 80; RESP 18; O2SAT 95
[2023-05-26] MEDS: guaiFENesin 600 MG Tablet PO (10:47)
[2023-05-26] MEDS: Iron Polysaccharide Complex 150 MG CAPSULE PO (10:47)
--- NOTE | 2023-05-26 15:11 | CASEMGMT ---
Social Work Met with patient to complete initial assessment. Pt known to this worker from previous stay. Verified/updated contacts. Pt requesting to complete new HCPOA to name dtr as primary POA. SW to complete prior to DC. Pt confirmed code status as full code. Educated to Medicare benefit and copay coverage. Pt's goal is to return home at PLOF with . is unable to assist. Children are involved. SW will continue to follow for DC planning. NATHANIEL HaleW
[2023-05-26 15:20] VITALS: BP 92/57; PULSE 80; RESP 14; TEMP 36.2; O2SAT 98
[2023-05-26 18:14] VITALS: BP 100/52; PULSE 80
--- NOTE | 2023-05-26 19:20 | CON.PCM.GI_ITS ---
HPI Consult Data Date of Consult: 05/26/23 HPI Narrative Reason for Consultation: Esophageal dysphagia HPI Narrative: MAC HARVEY, is a 88 M who was recently admitted to TCU. He has a past medical history of cardiac arrhythmia and ischemic cardiomyopathy, atrial fibrillation status post Watchman procedure due to recurrent GI bleeding from anticoagulation who experienced multiple episodes of ventricular tachycardia. He was transferred for cardiac evaluation. He was placed on amnio drip and underwent ablation but it was thought to be unsuccessful. He while was being evaluated had multiple episodes of nausea and vomiting along with some esophageal dysphagia. A lot of history is obtained from the chart and the patient's son at the bedside. Yesterday he had another episode of nausea vomiting. He is mostly on liquid diet due to solid food dysphagia. I was consulted for esophageal dysphagia. [facility] Medical History Acute kidney injury Acute on chronic systolic congestive heart failure Anemia Atrial fibrillation Coronary artery disease COVID-19 Debility Elevated liver enzymes Hyperlipidemia Hypertension Hypothyroidism Right wrist pain Weakness Home Medications ascorbic acid (vitamin C) 500 mg tablet 500 mg PO BREAKFAST Supplement 30 days #30 tabs 02/11/22 [Rx Last Taken Unknown] atorvastatin 40 mg tablet 40 mg PO QHS Cholesterol 30 days #30 tabs 02/11/22 [Rx Last Taken Unknown] metoprolol succinate 25 mg tablet,extended release 24 hr 12.5 mg (1/2 x 25 mg) PO DAILY Blood pressure 30 days #15 tabs 02/11/22 [Rx Last Taken Unknown] potassium chloride 20 mEq tablet,extended release(part/cryst) (Klor-Con M) 20 meq PO BIDCM Supplement 30 days #60 tabs 02/11/22 [Rx Last Taken Unknown] bumetanide 2 mg tablet 2 mg PO DAILY Diuretic 09/14/22 [History Last Taken Unknown] losartan 25 mg tablet 12.5 mg PO DAILY Blood pressure 09/29/22 [History Last Taken Unknown] niacinamide 500 mg tablet 500 mg PO BID 10/12/22 [History Last Taken Unknown] polysaccharide iron complex 150 mg iron capsule 150 mg PO DAILY Supplement 10/12/22 [History Last Taken Unknown] aspirin 81 mg chewable tablet 1 tab PO DAILY Heart health 05/24/23 [History Last Taken Unknown] cyanocobalamin (vitamin B-12) 1,000 mcg capsule 1,000 mcg PO DAILY Supplement 05/24/23 [History Last Taken Unknown] guaifenesin 600 mg tablet, extended release 12 hr 600 mg PO BID PRN cough 05/24/23 [History Last Taken Unknown] mexiletine 200 mg capsule 200 mg PO Q8H Arrhythmia 05/24/23 [History Last Taken 05/24/23 06:45] Allergy/AdvReac Type Severity Reaction Status Date / Time apixaban [From Eliquis] AdvReac Unknown Bleeding Verified 01/25/23 14:02 Family History Father Alzheimer disease Sister Alzheimer disease Sister Breast cancer Brother Cancer Brother Esophageal cancer Surgical History H/O rectal polypectomy History of implantable cardiac defibrillator (ICD) History of thoracotomy Hx of tonsillectomy S/P mitral valve clip implantation Status post Mohs surgery for squamous cell carcinoma of skin Social History household members: spouse number of children: 2 Smoking Status: Never smoker alcohol intake: never substance use type: does not use ROS Constitutional Constitutional: Reports weakness; Denies chills, fever(s) or weight gain ENT HEENT: Denies headache(s), nasal congestion or nasal discharge Cardiovascular Cardiovascular: Denies chest pain or palpitations Respiratory/Chest Respiratory/Chest: Denies cough, excessive phlegm production or shortness of gerardo ath with exertion Gastrointestinal Gastrointestinal: Denies abdominal pain, nausea or vomiting Genitourinary Genitourinary: Denies dysuria Musculoskeletal Musculoskeletal: Denies joint pain or joint swelling Integumentary Integumentary: Denies rash or wounds Neurologic Neurologic: Denies focal weakness, numbness or tingling Psychiatric Psychiatric: Denies anxiety, auditory hallucinations, depression, homicidal ideation or suicidal ideation Physical Exam Const alert General Appearance: cooperative HEENT normocephalic Eyes PERRL and EOMs intact bilaterally Neck supple, no JVD and no carotid bruits Resp normal respiratory effort, normal air movement and clear to auscultation bilaterally Cardio regular rate and regular rhythm GI normal to inspection, nondistended, normoactive bowel sounds, non-tender and non-distended Extremity normal capillary refill General Extremity: Negative for edema Skin no rashes or lesions noted General Skin Exam: no breakdown Neuro Neuro Narrative: Mild bilateral lower extremity weakness. Psych affect normal Appearance: appropriate Lab / Micro Data 05/25/23 06:58 05/25/23 06:58 Labs: Laboratory Results - last 24 hr 05/25/23 06:58: Triglycerides 66, Cholesterol 98, LDL Cholesterol 46, VLDL Cholesterol 13, HDL Cholesterol 39 L Assessment & Plan Assessment/Plan (1) Dysphagia: PLAN: Differential diagnosis for esophageal dysphagia does include esophageal dysmotility disorder such as achalasia, pseudo achalasia secondary to neoplasia, esophageal stricture secondary to hiatal hernia and refractory reflux disease. Also due to patient's age she is at risk for scleroderma and subsequently ineffective esophageal dysmotility disorder. His son and the patient agreed to undergo an upper endoscopy with possible dilation and possible Botox injection into the distal esophagus for laxation of the lower esophageal sphincter. They were explained alternatives, risk, benefits including not withstanding bleeding, infection, sepsis, perforation, need for emergent urgent . He will have an ASA of 3. Charges/Coding Visit Charges Inpatient E&M: 96981 SNF Init L2
[2023-05-26] MEDS: Atorvastatin Calcium 40 MG Tablet PO (21:13)
[2023-05-26] MEDS: Menthol/Lanolin/Calamine/Znox 113 GM Tube 1 APPLIC TOPICAL (21:13)
[2023-05-27 06:03] LABS: Hematocrit 25.6 % (40-54); Hemoglobin 8.1 g/dL (13.0-16.5)
[2023-05-27 10:14] LABS: Pathologist Review Reviewed
[2023-05-27 13:32] VITALS: BP 100/56; PULSE 84; RESP 16; TEMP 36.4; O2SAT 99
[2023-05-27] MEDS: Cyanocobalamin 500 MCG Tablet 1000 MCG PO (14:21)
[2023-05-27] MEDS: Aspirin 81 MG TAB.CHEW PO (14:21)
[2023-05-27] MEDS: Pantoprazole Sodium 40 MG Tablet PO ×2 (14:21→20:47)
[2023-05-27] MEDS: Iron Polysaccharide Complex 150 MG CAPSULE PO (14:21)
[2023-05-27] MEDS: Potassium Chloride Oral Tablet 20 MEQ PO ×2 (14:21→18:14)
[2023-05-27] MEDS: Ascorbic Acid 500 MG Tablet PO (14:21)
[2023-05-27 14:22] VITALS: BP 100/56; PULSE 84
[2023-05-27] MEDS: Mexiletine HCl 200 MG Capsule PO ×2 (14:22→20:47)
[2023-05-27] MEDS: Metoprolol(XL)Succ 25 MG Tablet 12.5 MG PO (14:22)
[2023-05-27] MEDS: Bumetanide 2 MG Tablet PO (14:25)
[2023-05-27] MEDS: Menthol/Lanolin/Calamine/Znox 113 GM Tube 1 APPLIC TOPICAL ×2 (14:31→20:47)
[2023-05-27] MEDS: Metoclopramide 5 MG TABLET PO ×2 (16:44→20:47)
[2023-05-27] MEDS: 0.9% Saline Lock 10 ML Syringe IV (20:47)
[2023-05-27] MEDS: Sucralfate 1 GM Tablet PO (20:47)
[2023-05-27] MEDS: Atorvastatin Calcium 40 MG Tablet PO (20:47)
[2023-05-28] MEDS: Mexiletine HCl 200 MG Capsule PO ×3 (05:51→20:59)
[2023-05-28] MEDS: Metoclopramide 5 MG TABLET PO ×4 (05:51→20:59)
[2023-05-28] MEDS: Sucralfate 1 GM Tablet PO ×2 (05:51→20:58)
[2023-05-28 06:52] LABS: Hematocrit 25.1 % (40-54); Hemoglobin 7.9 g/dL (13.0-16.5)
[2023-05-28] MEDS: Menthol/Lanolin/Calamine/Znox 113 GM Tube 1 APPLIC TOPICAL ×2 (09:12→21:01)
[2023-05-28 09:20] VITALS: BP 90/52; PULSE 79
[2023-05-28] MEDS: Pantoprazole Sodium 40 MG Tablet PO ×2 (09:20→20:58)
[2023-05-28] MEDS: Iron Polysaccharide Complex 150 MG CAPSULE PO (09:20)
[2023-05-28] MEDS: Bumetanide 2 MG Tablet PO (09:20)
[2023-05-28] MEDS: Metoprolol(XL)Succ 25 MG Tablet 12.5 MG PO (09:20)
[2023-05-28] MEDS: Ascorbic Acid 500 MG Tablet PO (09:20)
[2023-05-28] MEDS: Cyanocobalamin 500 MCG Tablet 1000 MCG PO (09:21)
[2023-05-28] MEDS: Aspirin 81 MG TAB.CHEW PO (09:22)
[2023-05-28] MEDS: Potassium Chloride Oral Tablet 20 MEQ PO ×2 (09:22→17:33)
[2023-05-28 09:28] VITALS: BP 90/52; PULSE 79
[2023-05-28] MEDS: 0.9% Saline Lock 10 ML Syringe IV (13:00)
[2023-05-28] MEDS: 0.9% Normal Saline (500mL Bag) 500 ML 999 ML IV (13:04)
[2023-05-28 14:05] VITALS: PULSE 80; RESP 16; O2SAT 97
[2023-05-28 14:23] VITALS: BP 98/55; PULSE 80; RESP 17; TEMP 36.8; O2SAT 98
[2023-05-28 16:18] VITALS: BMI 19.3
[2023-05-28] MEDS: Senna/Docusate Sodium 1 Tablet PO (17:33)
--- NOTE | 2023-05-28 17:35 | NURSING ---
NO BM IN 3 DAYS. PRN SENNA GIVEN.
[2023-05-28] MEDS: Atorvastatin Calcium 40 MG Tablet PO (20:58)
[2023-05-29 05:08] LABS: Hematocrit 23.7 % (40-54); Hemoglobin 7.5 g/dL (13.0-16.5)
[2023-05-29] MEDS: Metoclopramide 5 MG TABLET PO ×4 (05:56→20:59)
[2023-05-29] MEDS: Mexiletine HCl 200 MG Capsule PO ×3 (05:57→20:59)
[2023-05-29] MEDS: Sucralfate 1 GM Tablet PO ×2 (05:57→20:59)
[2023-05-29 06:14] VITALS: BP 101/60
[2023-05-29] MEDS: Senna/Docusate Sodium 1 Tablet PO (08:10)
[2023-05-29] MEDS: Potassium Chloride Oral Tablet 20 MEQ PO ×2 (08:11→17:17)
[2023-05-29] MEDS: Aspirin 81 MG TAB.CHEW PO (08:11)
[2023-05-29] MEDS: Cyanocobalamin 500 MCG Tablet 1000 MCG PO (08:11)
[2023-05-29] MEDS: Ascorbic Acid 500 MG Tablet PO (08:13)
[2023-05-29] MEDS: Iron Polysaccharide Complex 150 MG CAPSULE PO (08:13)
[2023-05-29] MEDS: Pantoprazole Sodium 40 MG Tablet PO ×2 (08:13→20:59)
[2023-05-29 08:14] VITALS: BP 96/53; PULSE 79
[2023-05-29] MEDS: Metoprolol(XL)Succ 25 MG Tablet 12.5 MG PO (08:14)
[2023-05-29] MEDS: 0.9% Saline Lock 10 ML Syringe IV (08:17)
[2023-05-29] MEDS: Menthol/Lanolin/Calamine/Znox 113 GM Tube 1 APPLIC TOPICAL ×2 (08:21→21:01)
[2023-05-29 08:22] VITALS: BP 96/53; PULSE 79
[2023-05-29 10:05] VITALS: BMI 19.5
[2023-05-29 11:00] VITALS: PULSE 78; RESP 18; O2SAT 97
--- NOTE | 2023-05-29 13:50 | NURSING ---
PRN SENNA AND PRUNE JUICE GIVEN DUE TO NO BM IN 4 DAYS. WILL BE NOTIFIED.
[2023-05-29 13:52] VITALS: BP 90/50; PULSE 81; RESP 14; TEMP 36.7; O2SAT 98
[2023-05-29 14:12] VITALS: BP 98/58
[2023-05-29] MEDS: Atorvastatin Calcium 40 MG Tablet PO (20:59)
[2023-05-30] MEDS: Sucralfate 1 GM Tablet PO ×2 (05:46→21:22)
[2023-05-30] MEDS: Mexiletine HCl 200 MG Capsule PO ×3 (05:46→21:22)
[2023-05-30] MEDS: Metoclopramide 5 MG TABLET PO ×4 (05:46→21:22)
[2023-05-30 06:22] LABS: Hematocrit 23.7 % (40-54); Hemoglobin 7.5 g/dL (13.0-16.5)
[2023-05-30 08:37] VITALS: BP 93/54; PULSE 79; RESP 16
[2023-05-30 08:40] VITALS: PULSE 79
[2023-05-30] MEDS: Metoprolol(XL)Succ 25 MG Tablet 12.5 MG PO (08:40)
[2023-05-30] MEDS: Potassium Chloride Oral Tablet 20 MEQ PO ×2 (08:41→18:12)
[2023-05-30] MEDS: Pantoprazole Sodium 40 MG Tablet PO ×2 (08:41→21:22)
[2023-05-30] MEDS: Aspirin 81 MG TAB.CHEW PO (08:41)
[2023-05-30] MEDS: Iron Polysaccharide Complex 150 MG CAPSULE PO (08:41)
[2023-05-30] MEDS: Cyanocobalamin 500 MCG Tablet 1000 MCG PO (08:41)
[2023-05-30] MEDS: Ascorbic Acid 500 MG Tablet PO (08:41)
[2023-05-30] MEDS: Menthol/Lanolin/Calamine/Znox 113 GM Tube 1 APPLIC TOPICAL ×2 (08:45→21:22)
[2023-05-30] MEDS: Magnesium Citrate 300 ML PO (10:23)
[2023-05-30] MEDS: 0.9% Saline Lock 10 ML Syringe IV (10:25)
--- NOTE | 2023-05-30 10:27 | NURSING ---
Pt on day 5 with no bowel movement. HS shift reports soap suds enema given yesterday was ineffective. Bowel sounds hyperactive x4 quadrants. Abdomen soft, non-tender. Pt denies pain and discomfort. Accepted PRN Mag Citrate.
--- NOTE | 2023-05-30 10:45 | NURSING ---
Offered Covid vaccine VIS provided. Patient refuses at this time.
--- NOTE | 2023-05-30 12:06 | NURSING ---
Addendum entered by Meg Ortega 05/30/23 12:45: Called and updated Dr. Blevins on vomiting episode, and day 5 with no bowel movement. Received order for [facility]. Original Note: ST assessing pt, reports that pt began vomiting while eating lunch. Walked into room, pt vomiting onto food tray. Emesis is reddish, appears to be tomato/vegetable soup from lunch tray. Pt denies choking on food, states he does not know what caused episode. Denies nausea. Lung sounds clear to auscultation, no dyspnea at this time.
--- NOTE | 2023-05-30 13:00 | RAD_ITS ---
INDICATION: constipation, vomiting -- day 5 no bowel movement EXAMINATION/TECHNIQUE: X-RAY - XR Abdomen 1 View COMPARISON: No relevant prior comparison study available FINDINGS: BOWEL GAS PATTERN: Residual contrast in the colon and multiple diverticula throughout the colon from previous contrast study. No bowel or stomach distention. FREE AIR: Not assessed on a single supine view. ORGANOMEGALY: Not seen. CALCIFICATIONS: No abnormal calcifications observed. LOWER CHEST: Not entirely excluded on this exam. BONES AND SOFT TISSUES: No acute pathology. RAD/Abdomen Single View IMPRESSION: 1. Residual contrast in the colon from previous contrast study. 2. Diffuse diverticulosis. 3. Nonobstructive gas pattern. Electronically Signed: Tarik Gordon MD at 13:15 EST ,
[2023-05-30 15:55] VITALS: BP 103/60; PULSE 81; RESP 16; TEMP 36.7; O2SAT 97
--- NOTE | 2023-05-30 19:19 | NURSING ---
Pt's Hgb this mornin.5. Dr. Blevins ordered 2 units of blood; scheduled to receive at infusion center tomorrow ~0815. Pt's family present this evening, updated POA daughter, Audra on new orders received today and KUB. Pt and family in agreement with plan of care and thankful for updates.
[2023-05-30] MEDS: Atorvastatin Calcium 40 MG Tablet PO (21:22)
[2023-05-31 06:00] VITALS: BMI 19.5
[2023-05-31] MEDS: 0.9% Saline Lock 10 ML Syringe IV (06:06)
[2023-05-31] MEDS: Mexiletine HCl 200 MG Capsule PO ×3 (06:07→21:58)
[2023-05-31] MEDS: Sucralfate 1 GM Tablet PO ×2 (06:07→21:58)
[2023-05-31] MEDS: Metoclopramide 5 MG TABLET PO ×3 (06:07→21:58)
[2023-05-31] MEDS: Senna/Docusate Sodium 1 Tablet PO (06:11)
[2023-05-31 07:27] LABS: Hematocrit 22.7 % (40-54); Hemoglobin 7.3 g/dL (13.0-16.5)
[2023-05-31] MEDS: Aspirin 81 MG TAB.CHEW PO (07:49)
[2023-05-31] MEDS: Potassium Chloride Oral Tablet 20 MEQ PO ×2 (07:49→16:31)
[2023-05-31] MEDS: Ascorbic Acid 500 MG Tablet PO (07:49)
[2023-05-31] MEDS: Cyanocobalamin 500 MCG Tablet 1000 MCG PO (07:49)
[2023-05-31 07:50] VITALS: PULSE 72
[2023-05-31] MEDS: Pantoprazole Sodium 40 MG Tablet PO ×2 (07:50→21:58)
[2023-05-31] MEDS: Metoprolol(XL)Succ 25 MG Tablet 12.5 MG PO (07:50)
[2023-05-31] MEDS: Iron Polysaccharide Complex 150 MG CAPSULE PO (07:50)
[2023-05-31 12:12] VITALS: BMI 19.7
[2023-05-31 15:39] VITALS: BP 90/53; PULSE 73; RESP 14; TEMP 37; O2SAT 97
[2023-05-31 20:16] VITALS: PULSE 80; RESP 14; O2SAT 97
[2023-05-31] MEDS: Atorvastatin Calcium 40 MG Tablet PO (21:58)
[2023-05-31] MEDS: Menthol/Lanolin/Calamine/Znox 113 GM Tube 1 APPLIC TOPICAL (21:58)
[2023-06-01 05:53] LABS: Absolute Lymphocyte Count 2.11 X10^3/uL (0.83-4.51); Absolute Neutrophil Count 4.4 X10^3/uL (2.0-7.7); Basophil# 0.03 X10^3/uL; Basophil% 0.4 % (0-1); Hematocrit 28.5 % (40-54); Hemoglobin 9.6 g/dL (13.0-16.5); Lymphocyte # 2.11 X10^3/ul (0.83-4.51); Lymphocyte % 26.4 % (19-41); Mean Corp Hgb Conc 33.7 g/dL (32-36); Monocyte% 12.5 % (0-10); NRBC Flagged by Analyzer 0.6 % (0-5); Neutrophil # 4.41 X10^3/uL (2.7-7.7); Neutrophil % 55.1 % (47-70); POSITIVE COUNT YES; POSITIVE MORPHOLOGY YES; Platelet Count 154 K/mm3 (150-450); RBC Distribution Width SD 78.6 fl (35.1-43.9)
[2023-06-01 05:54] LABS: Differential Indicated SCAN CRITERIA MET
[2023-06-01 06:00] VITALS: BMI 19.8
[2023-06-01 06:08] LABS: Anion Gap 5 (5-15); BUN 27 mg/dL (7-18); BUN/Creat Ratio 28.6 RATIO (10-20); Calcium,Total 8.3 mg/dL (8.5-10.1); Chloride 108 mmol/L (98-107); Creatinine, Serum 0.94 mg/dL (0.70-1.30); EST Glomerular Filtration Rate 80 mL/min (>60); Est Glom Filt Rate - Afr Amer 97 mL/min (>60); Estimated Creatinine Clearance 46.25 ml/min; Glucose 85 mg/dL (74-106); Potassium 4.2 mmol/L (3.5-5.1); Sodium Level 138 mmol/L (136-145)
[2023-06-01 06:21] LABS: Differential Comment SCANNED
[2023-06-01] MEDS: Metoclopramide 5 MG TABLET PO ×4 (06:21→22:23)
[2023-06-01] MEDS: Sucralfate 1 GM Tablet PO ×2 (06:21→20:30)
[2023-06-01] MEDS: Mexiletine HCl 200 MG Capsule PO ×3 (06:21→22:23)
[2023-06-01 06:23] LABS: Anisocytosis 2+
[2023-06-01] MEDS: Aspirin 81 MG TAB.CHEW PO (09:17)
[2023-06-01 09:18] VITALS: BP 115/73; PULSE 79
[2023-06-01] MEDS: Metoprolol(XL)Succ 25 MG Tablet 12.5 MG PO (09:18)
[2023-06-01] MEDS: Pantoprazole Sodium 40 MG Tablet PO ×2 (09:18→22:23)
[2023-06-01] MEDS: Ascorbic Acid 500 MG Tablet PO (09:18)
[2023-06-01] MEDS: Cyanocobalamin 500 MCG Tablet 1000 MCG PO (09:18)
[2023-06-01] MEDS: Potassium Chloride Oral Tablet 20 MEQ PO ×2 (09:18→18:20)
[2023-06-01] MEDS: Iron Polysaccharide Complex 150 MG CAPSULE PO (09:18)
[2023-06-01] MEDS: Menthol/Lanolin/Calamine/Znox 113 GM Tube 1 APPLIC TOPICAL ×2 (09:19→22:28)
[2023-06-01] MEDS: 0.9% Saline Lock 10 ML Syringe IV (09:24)
[2023-06-01 09:28] VITALS: BP 115/73; PULSE 79
[2023-06-01 10:47] VITALS: BMI 19.8
--- NOTE | 2023-06-01 11:42 | NURSING ---
Furniture Mechanic Note; MDS for 05/31/2023 Complete
[2023-06-01] MEDS: Tuberculin,Purif.prot.deriv. 50 TU/ML Vial 0.1 ML ID (11:55)
--- NOTE | 2023-06-01 13:13 | CASEMGMT ---
Social Work IDT met with patient, and family members for care plan meeting. Discussed patient's progress in PT/OT/ST/SN. Educated to Medicare benefit and copay coverage. IDT noted pt functional decline this week, but pt did receive blood transfusion yesterday. Pt's goal is to return to PLOF and be safe caring for self and occasionally at home. Discussed options for home with AFTER SCHOOL PROGRAM COORDINATOR or SNF depending on progress. Dtr noted pt has been on the waitlist for two years at [facility]. SW will continue to follow for DC planning. Sarai Palma, ELECTRO TECH STEAM PRESS OPERATOR
--- NOTE | 2023-06-01 13:26 | CASEMGMT ---
Social Work BIMS () and PHQ-2 () completed for MDS assessment. Sarai Palma MSW FOAM MOLDER
[2023-06-01] MEDS: guaiFENesin 600 MG Tablet PO (13:49)
[2023-06-01 13:50] VITALS: PULSE 78; RESP 18; O2SAT 97
--- NOTE | 2023-06-01 14:28 | WOUNDNOTE ---
wound photo: left heel
--- NOTE | 2023-06-01 15:19 | NURSING ---
PT HAS HORSE/RASPY VOICE. ASKED PT IF HE HAD A SORE THROAT,PT STATED NO BUT HAD A STUFFY NOSE AND COUGH. PT COUGH IS MOIST BUT DOES NOT BRING ANY THING UP. LUNGS CLEAR BUT DIMINISHED. PRN MUCINEX GIVEN. WILL CONTINUE TO MONITOR. RN AWARE
[2023-06-01 15:20] VITALS: BP 100/65; PULSE 80; RESP 16; TEMP 36.6; O2SAT 97
[2023-06-01] MEDS: Ensure Clear 120 ML Liquid PO (18:18)
[2023-06-01] MEDS: Atorvastatin Calcium 40 MG Tablet PO (22:23)
[2023-06-02 06:00] VITALS: BMI 19.6
[2023-06-02] MEDS: Mexiletine HCl 200 MG Capsule PO ×3 (06:47→21:18)
[2023-06-02] MEDS: Sucralfate 1 GM Tablet PO ×2 (06:47→21:17)
[2023-06-02] MEDS: Metoclopramide 5 MG TABLET PO ×4 (07:34→21:18)
--- NOTE | 2023-06-02 08:38 | MDS.RN ---
Information for the mds was obtained from review of the clinical record, interview of resident, staff, and direct observation of resident's care.
[2023-06-02 09:17] VITALS: BP 109/66; PULSE 79; RESP 16; O2SAT 96
[2023-06-02] MEDS: Cyanocobalamin 500 MCG Tablet 1000 MCG PO (09:18)
[2023-06-02 09:19] VITALS: PULSE 79
[2023-06-02] MEDS: Ascorbic Acid 500 MG Tablet PO (09:19)
[2023-06-02] MEDS: Aspirin 81 MG TAB.CHEW PO (09:19)
[2023-06-02] MEDS: Iron Polysaccharide Complex 150 MG CAPSULE PO (09:19)
[2023-06-02] MEDS: Metoprolol(XL)Succ 25 MG Tablet 12.5 MG PO (09:19)
[2023-06-02] MEDS: Pantoprazole Sodium 40 MG Tablet PO ×2 (09:19→21:18)
[2023-06-02] MEDS: Menthol/Lanolin/Calamine/Znox 113 GM Tube 1 APPLIC TOPICAL ×2 (09:20→21:25)
[2023-06-02] MEDS: Potassium Chloride Oral Tablet 20 MEQ PO ×2 (09:20→18:05)
[2023-06-02] MEDS: 0.9% Saline Lock 10 ML Syringe IV (09:22)
[2023-06-02 09:56] VITALS: TEMP 36.1
--- NOTE | 2023-06-02 10:20 | NURSING ---
Addendum entered by Meg Ortega 06/02/23 11:37: Pt's daughter, Audra called requesting update. Updated on general condition today and emesis episode, as well as MD instructions. Daughter in pleasant mood and thankful for update. No further comments/concerns at this time. Addendum entered by Kaye Montilla 06/02/23 11:14: dr diaz updated on emesis, continue to monitor at this time. pt on reglan, protonix and carafate. had EGD 05/27/23 Original Note: ST notifies that pt began vomiting while in room. Walked into room, pt vomiting brown, red-tinged mucous emesis; raised HOB. After a couple minutes, episode resolves. Pt states he woke up and began vomiting, denies eating anything recently. Lung sounds clear. Vitals: bp-121/78, p-81, t-97, r-18, sp02-95% on room air. Assisted pt with bed and clothing change, personal hygiene. Denies further nausea at this time. Currently resting with HOB elevated, no complaints. RN notified.
[2023-06-02] MEDS: Ensure Clear 120 ML Liquid PO ×2 (13:16→18:06)
--- NOTE | 2023-06-02 13:24 | NURSING ---
Pt states that he has never had a pneumonia vaccine before, and does not want to receive one. Refuses further info/education.
[2023-06-02] MEDS: Atorvastatin Calcium 40 MG Tablet PO (21:18)
[2023-06-03] MEDS: Sucralfate 1 GM Tablet PO ×2 (05:39→21:27)
[2023-06-03] MEDS: Mexiletine HCl 200 MG Capsule PO ×3 (05:39→21:26)
[2023-06-03] MEDS: Metoclopramide 5 MG TABLET PO ×4 (05:39→21:27)
[2023-06-03 06:00] VITALS: BMI 19.6
[2023-06-03] MEDS: Ensure Clear 120 ML Liquid PO ×2 (08:22→14:00)
[2023-06-03] MEDS: Aspirin 81 MG TAB.CHEW PO (08:23)
[2023-06-03] MEDS: Potassium Chloride Oral Tablet 20 MEQ PO ×2 (08:23→17:53)
[2023-06-03] MEDS: Iron Polysaccharide Complex 150 MG CAPSULE PO (08:24)
[2023-06-03] MEDS: Ascorbic Acid 500 MG Tablet PO (08:24)
[2023-06-03] MEDS: Cyanocobalamin 500 MCG Tablet 1000 MCG PO (08:24)
[2023-06-03 08:25] VITALS: BP 104/57; PULSE 79
[2023-06-03] MEDS: Metoprolol(XL)Succ 25 MG Tablet 12.5 MG PO (08:25)
[2023-06-03] MEDS: Menthol/Lanolin/Calamine/Znox 113 GM Tube 1 APPLIC TOPICAL ×2 (08:26→21:30)
[2023-06-03] MEDS: Pantoprazole Sodium 40 MG Tablet PO ×2 (08:28→21:26)
[2023-06-03 08:34] VITALS: BP 104/57; PULSE 79
[2023-06-03 08:48] LABS: Pathologist Review Reviewed
[2023-06-03] MEDS: 0.9% Saline Lock 10 ML Syringe IV (10:56)
[2023-06-03 15:07] VITALS: BP 99/62; PULSE 80; RESP 14; TEMP 36.1; O2SAT 98
[2023-06-03] MEDS: Atorvastatin Calcium 40 MG Tablet PO (21:26)
[2023-06-04 06:00] VITALS: BMI 19.9
[2023-06-04] MEDS: Metoclopramide 5 MG TABLET PO ×4 (06:02→21:46)
[2023-06-04] MEDS: Mexiletine HCl 200 MG Capsule PO ×3 (06:02→21:46)
[2023-06-04] MEDS: Sucralfate 1 GM Tablet PO ×2 (06:02→21:46)
[2023-06-04] MEDS: Ensure Clear 120 ML Liquid PO ×3 (08:09→17:22)
[2023-06-04] MEDS: Aspirin 81 MG TAB.CHEW PO (08:09)
[2023-06-04] MEDS: Potassium Chloride Oral Tablet 20 MEQ PO ×2 (08:09→17:22)
[2023-06-04] MEDS: Ascorbic Acid 500 MG Tablet PO (08:10)
[2023-06-04] MEDS: Cyanocobalamin 500 MCG Tablet 1000 MCG PO (08:10)
[2023-06-04 08:11] VITALS: BP 100/60; PULSE 79
[2023-06-04] MEDS: Metoprolol(XL)Succ 25 MG Tablet 12.5 MG PO (08:11)
[2023-06-04] MEDS: Pantoprazole Sodium 40 MG Tablet PO ×2 (08:11→21:46)
[2023-06-04] MEDS: Iron Polysaccharide Complex 150 MG CAPSULE PO (08:11)
[2023-06-04] MEDS: Menthol/Lanolin/Calamine/Znox 113 GM Tube 1 APPLIC TOPICAL ×2 (08:13→21:53)
[2023-06-04] MEDS: Magnesium Citrate 300 ML PO (13:33)
[2023-06-04 13:58] VITALS: BP 102/67; PULSE 77; RESP 19; TEMP 36.4; O2SAT 97
--- NOTE | 2023-06-04 16:20 | NURSING ---
Patient last BM 05/31 and is agreeable to drinking magnesium citrate for constipation. Patient completed magnesium citrate but had emesis about 20 mins after starting to drink medicine and emesis was clear and full of phlegm according to aide/family report. Patient denies any nausea after emesis and no further emesis this shift.
[2023-06-04] MEDS: Atorvastatin Calcium 40 MG Tablet PO (21:45)
[2023-06-04 21:55] VITALS: PULSE 79; RESP 16; O2SAT 96
[2023-06-05 06:27] VITALS: BMI 19.9
[2023-06-05] MEDS: Sucralfate 1 GM Tablet PO ×2 (06:35→20:15)
[2023-06-05] MEDS: Mexiletine HCl 200 MG Capsule PO ×3 (06:35→22:04)
[2023-06-05] MEDS: Metoclopramide 5 MG TABLET PO ×4 (06:38→22:04)
[2023-06-05 06:52] VITALS: RESP 16
[2023-06-05 08:30] VITALS: BP 106/67; PULSE 77; RESP 17; TEMP 37.4; O2SAT 95
[2023-06-05] MEDS: Ensure Clear 120 ML Liquid PO (08:34)
[2023-06-05] MEDS: Aspirin 81 MG TAB.CHEW PO (08:35)
[2023-06-05] MEDS: Potassium Chloride Oral Tablet 20 MEQ PO ×2 (08:35→17:04)
[2023-06-05] MEDS: Cyanocobalamin 500 MCG Tablet 1000 MCG PO (08:36)
[2023-06-05] MEDS: Ascorbic Acid 500 MG Tablet PO (08:36)
[2023-06-05] MEDS: Menthol/Lanolin/Calamine/Znox 113 GM Tube 1 APPLIC TOPICAL ×2 (08:36→20:19)
[2023-06-05 08:37] VITALS: PULSE 77
[2023-06-05] MEDS: Metoprolol(XL)Succ 25 MG Tablet 12.5 MG PO (08:37)
[2023-06-05] MEDS: Iron Polysaccharide Complex 150 MG CAPSULE PO (08:37)
[2023-06-05] MEDS: Pantoprazole Sodium 40 MG Tablet PO ×2 (08:37→22:04)
--- NOTE | 2023-06-05 11:58 | NURSING ---
Patient had episode of emesis approx 10-20mins after morning medications were given. Pills noted in emesis bag. Patient denies needs for intervention at this time. Will monitor.
[2023-06-05] MEDS: Atorvastatin Calcium 40 MG Tablet PO (20:15)
--- NOTE | 2023-06-05 23:26 | NURSING ---
Patient had emesis this morning after drinking Ensure Clear. Family feels the Ensure may be causing it, as it has happened previously. New order received to discontinue Ensure clear at this time. Will continue to monitor.
--- NOTE | 2023-06-06 01:21 | EKG12_ITS ---
Test Reason : DYSRHYTHMIA Blood Pressure : / mmHG Vent. Rate : 080 BPM Atrial Rate : 080 BPM P-R Int : 198 ms QRS Dur : 152 ms QT Int : 388 ms P-R-T Axes : 000 036 181 degrees QTc Int : 447 ms AV dual-paced rhythm Abnormal ECG When compared with ECG of 03-JAN-2022 07:45, Vent. rate has increased BY 10 BPM Confirmed by ARACELI SOSA, ASHLEY ([id number]), assistant production editor THOMAS BRYANT ([id number]) on 06/09/2023 9:15:56 AM Referred By: Confirmed By:ASHLEY CHARLES MD
--- NOTE | 2023-06-06 01:40 | NURSING ---
Patient c/o SOB, breathing heavily at times. Denies chest pain, numbness or tingling. Confused, stating he needed to get the [employer] working, but no one would help him. Redirected him several times. He was able to state he was at [facility], but goes back to [employer]. EKG performed due to SOB and patient's history. O2 2L/min placed due to fluctuating SpO2 between high 80's and 90's. Blood pressure WNL. Will continue to monitor.
[2023-06-06] MEDS: Mexiletine HCl 200 MG Capsule PO ×3 (05:39→21:41)
[2023-06-06] MEDS: Sucralfate 1 GM Tablet PO ×2 (05:43→21:41)
[2023-06-06 05:49] LABS: Hematocrit 30.7 % (40-54); Hemoglobin 9.7 g/dL (13.0-16.5)
[2023-06-06 05:51] VITALS: BP 118/82; PULSE 79
[2023-06-06 06:00] VITALS: BMI 19.9
[2023-06-06] MEDS: Potassium Chloride Oral Tablet 20 MEQ PO ×2 (09:20→17:15)
[2023-06-06 09:21] VITALS: BP 109/70; PULSE 80
[2023-06-06] MEDS: Metoprolol(XL)Succ 25 MG Tablet 12.5 MG PO (09:21)
[2023-06-06] MEDS: Ascorbic Acid 500 MG Tablet PO (09:21)
[2023-06-06] MEDS: Cyanocobalamin 500 MCG Tablet 1000 MCG PO (09:22)
[2023-06-06] MEDS: Iron Polysaccharide Complex 150 MG CAPSULE PO (09:22)
[2023-06-06] MEDS: Aspirin 81 MG TAB.CHEW PO (09:22)
[2023-06-06] MEDS: Pantoprazole Sodium 40 MG Tablet PO ×2 (09:22→21:41)
[2023-06-06 09:32] VITALS: BP 109/70; PULSE 80
--- NOTE | 2023-06-06 09:32 | NURSING ---
THIS NURSE REPORTED SWALLOWING ISSUES WITH PILLS TUESDAY. SPEECH THERAPY CAME TO WATCH PT TAKE PILLS. GIVEN NOW WITH APPLESAUCE BUT PT CHEWING PILLS. ASKED PT IF HE WAS CHEWING PILLS PT STATED NO. WILL CONTINUE TO MONITOR.
[2023-06-06 10:00] VITALS: PULSE 62; RESP 18; O2SAT 96
[2023-06-06] MEDS: Menthol/Lanolin/Calamine/Znox 113 GM Tube 1 APPLIC TOPICAL ×2 (11:21→20:13)
[2023-06-06 12:15] VITALS: BP 112/76; PULSE 80; RESP 16; TEMP 36.8; O2SAT 96
[2023-06-06] MEDS: 0.9% Saline Lock 10 ML Syringe IV (14:58)
--- NOTE | 2023-06-06 16:05 | RAD_ITS ---
STUDY: X-RAY CHEST REASON FOR EXAM: Male, 88 years old. SOB. TECHNIQUE: Frontal and lateral views of the chest. COMPARISON: None. FINDINGS: Atelectasis or infiltrate seen in the lower lobe on the left. Small left pleural effusion. Right lung grossly clear. There is mild cardiac enlargement. Pacemaker is seen with leads terminating in the right atrium and coronary sinus and right ventricle. Normal mediastinum and ashwin. Normal visualized pulmonary arteries. Normal visualized aortic arch and descending thoracic aorta. Normal visualized thoracic spine. Normal visualized ribs, clavicles, and shoulders. There is no demonstrated abnormality of the visualized soft tissue structures of the upper abdomen. RAD/Chest PA and Lateral IMPRESSION: Atelectasis or infiltrate in the left lower lobe. Small left pleural effusion. Electronically Signed: Xavier Hall MD at 16:54 EDT ,
--- NOTE | 2023-06-06 16:38 | NURSING ---
Addendum entered by Rell Palacio 06/06/23 18:29: PER NEW ORDER FROM . START LEVAQIN 750 MG/PO DUE TO CHEST XRAY RESULTS OF STARTING OF PNEUMONIA. Original Note: THIS NURSE REPORTED TO PT IS SOB,CONFUSED,WEAK. REPORTS OF BURNING WITH URINATION. NEW ORDERS FOR CHEST XRAY,UA,BLOOD TESTS. WILL CONTINUE TO MONITOR.
[2023-06-06 16:39] LABS: Bacteria 0 SEEN /hpf (None Seen); Mucous, Urine 0 SEEN /hpf (<or=2+)
[2023-06-06 16:40] LABS: Hematocrit 29.2 % (40-54); Hemoglobin 9.3 g/dL (13.0-16.5); Mean Corp Hgb Conc 31.8 g/dL (32-36); Mean Corpuscular Hgb 31.5 pg (27.0-32.0); POSITIVE COUNT YES; POSITIVE MORPHOLOGY YES; Platelet Count 126 K/mm3 (150-450); RBC Distribution Width CV 22.7 % (11.6-14.6); RBC Distribution Width SD 81.5 fl (35.1-43.9); Red Blood Count 2.95 M/mm3 (4.6-6.2); White Blood Count 7.7 K/mm3 (4.4-11.0)
[2023-06-06 16:47] LABS: Color, Urine Yellow (Yellow); Glucose, Dipstick Normal (Normal); Ketone-Dipstick Negative (Negative); Leukocyte Esterase-Dipstick 25 /ul (Negative); Nitrite-Dipstick Negative (Negative); Occult Blood-Urine 10 /ul (Negative); Protein-Dipstick 15 mg/dl (Negative); Urine Bilirubin Dipstick Negative (Negative); Urine Clarity Sl. Cloudy (Clear); Urine Urobilinogen 4 mg/dl (Normal)
[2023-06-06 16:47] LABS: Anion Gap 6 (5-15); BUN 23 mg/dL (7-18); BUN/Creat Ratio 20.4 RATIO (10-20); Calcium,Total 8.2 mg/dL (8.5-10.1); Chloride 108 mmol/L (98-107); Creatinine, Serum 1.13 mg/dL (0.70-1.30); EST Glomerular Filtration Rate 65 mL/min (>60); Est Glom Filt Rate - Afr Amer 79 mL/min (>60); Estimated Creatinine Clearance 38.74 ml/min; Glucose 120 mg/dL (74-106); Potassium 4.9 mmol/L (3.5-5.1); Sodium Level 137 mmol/L (136-145)
[2023-06-06 17:00] LABS: Red Blood Cells-Urine 0-5 SEEN /hpf (0-5); Squamous Epithelial Cells - UA 0-5 SEEN /hpf (0-5); White Blood Cells 0-5 SEEN /hpf (0-5)
[2023-06-06 17:02] LABS: Differential Indicated MANUAL DIFF
[2023-06-06 17:17] LABS: Neutrophil-Band 3 % (0-5); Neutrophil-Segmented 57 % (47-70); Total Cells Counted 100 (MANUAL DIFF)
[2023-06-06 17:18] LABS: Eosinophil 1 % (0-5); Lymphocyte 25 % (19-41); Metamyelocyte 2 % (0-1); Monocyte 4 % (0-10); Myelocyte 8 % (0-0)
[2023-06-06 17:20] LABS: Absolute Neutrophil Count 4.6 X10^3/uL (2.0-7.7)
[2023-06-06 17:21] LABS: Absolute Lymphocyte Count 1.92 X10^3/uL (0.83-4.51); Platelet Estimate SLT DEC (ADEQ); Red Cell Morphology N CHROM NORMAL (NORM C&C)
[2023-06-06 17:22] LABS: Anisocytosis 1+; Macrocytosis 1+
--- NOTE | 2023-06-06 18:38 | NURSING ---
FAMILY UPDATED ON NEW ORDERS FOR PT.
[2023-06-06] MEDS: levoFLOXacin 750 MG Tablet PO (20:10)
--- NOTE | 2023-06-06 20:18 | CASEMGMT ---
Social Work Pt's dtr in room and requested to speak with this worker. Dtr inquired about Medicare coverage since pt has had change/decline in condition. SW educated to criteria and that medical condition is also important along with physical abilities. SW to meet with IDT tomorrow at [facility] and receive updates on pt's overall status. Dtr is requesting referral to [facility] if pt cannot return home. SW placed referral to [facility] via [facility]. Will continue to follow. NATHANIEL HaleW
[2023-06-06] MEDS: Metoclopramide 5 MG TABLET PO (21:41)
[2023-06-06] MEDS: Atorvastatin Calcium 40 MG Tablet PO (21:42)
--- NOTE | 2023-06-07 03:53 | NURSING ---
pt. reports nightmares sometimes, pt. questions if reglan may be cause. Written communication left for Dr. Blevins.
[2023-06-07 03:54] VITALS: PULSE 73; RESP 20; O2SAT 97
[2023-06-07] MEDS: Mexiletine HCl 200 MG Capsule PO ×3 (05:33→21:33)
[2023-06-07] MEDS: Sucralfate 1 GM Tablet PO ×2 (05:34→21:33)
[2023-06-07] MEDS: 0.9% Saline Lock 10 ML Syringe IV ×2 (05:38→09:21)
[2023-06-07 05:41] VITALS: PULSE 80; RESP 18; O2SAT 94
[2023-06-07 06:00] VITALS: BMI 19.9
[2023-06-07 06:27] VITALS: TEMP 36.9
--- NOTE | 2023-06-07 06:31 | NURSING ---
OBJECT ORIENTED PROGRAMMER reports patient abdomen appear more round compared to yesterday. Patient immediately assessed, abdomen appears rounded, soft/non tender, patient denies GI distress, no nausea, no emesis, no diarrhea. Last recorded BM 06/06/23. No distress observed or reported. Patient presents as weak, substantial assist with all care. No adverse effects observed or reported related to ATB tx for PNE. SPO2 WNL on RA. Written communication left for Dr. Blevins regarding above information.
[2023-06-07 08:40] VITALS: BP 111/70; PULSE 82; RESP 24; TEMP 36.7; O2SAT 94
[2023-06-07] MEDS: Aspirin 81 MG TAB.CHEW PO (09:03)
[2023-06-07] MEDS: Potassium Chloride Oral Tablet 20 MEQ PO ×2 (09:03→17:04)
[2023-06-07] MEDS: Ascorbic Acid 500 MG Tablet PO (09:04)
[2023-06-07] MEDS: Menthol/Lanolin/Calamine/Znox 113 GM Tube 1 APPLIC TOPICAL ×2 (09:04→21:34)
[2023-06-07] MEDS: Cyanocobalamin 500 MCG Tablet 1000 MCG PO (09:04)
[2023-06-07] MEDS: Pantoprazole Sodium 40 MG Tablet PO ×2 (09:05→21:33)
[2023-06-07] MEDS: Iron Polysaccharide Complex 150 MG CAPSULE PO (09:05)
[2023-06-07 09:06] VITALS: BP 111/70; PULSE 82
[2023-06-07] MEDS: Metoprolol(XL)Succ 25 MG Tablet 12.5 MG PO (09:06)
[2023-06-07 09:09] VITALS: BMI 19.9
[2023-06-07 09:24] VITALS: PULSE 64; RESP 20
--- NOTE | 2023-06-07 09:50 | RAD_ITS ---
STUDY: X-RAY - ABDOMEN/PELVIS REASON FOR EXAM: Male, 88 years old. Distended. TECHNIQUE: 3 AP supine views of the abdomen and pelvis. COMPARISON: X-ray of the abdomen dated May 30, 2023 FINDINGS: Interval clearance of the contrast previously seen in the rectosigmoid colon. Redemonstration of small amounts of retained contrast or calcium or inspissated material within numerous diverticula throughout the entire colon, this finding is unchanged from the prior study. A moderate amount of stool is present in the colon. There is an unremarkable bowel gas pattern. Redemonstration of right heart pacemaker leads. The heart is moderately enlarged. Chronic pleural reaction and small pleural effusions are also present as well as interstitial fibrosis of the visualized aspects of the lungs. . Normal soft tissue structures. There are diffuse degenerative changes of the visualized lumbar spine. RAD/Abdomen Single View IMPRESSION: 1. Interval clearance of the contrast previously seen in the rectosigmoid colon. Redemonstration of small amounts of retained contrast or calcium or inspissated material within numerous diverticula throughout the entire colon, this finding is unchanged from the prior study. A moderate amount of stool is present in the colon. Electronically Signed: Moreno Jones MD at 12:47 EDT ,
--- NOTE | 2023-06-07 10:21 | NURSING ---
R' DAUGHTER, TIMOTHY CALLED FOR UPDATE. GAVE UPDATE AND NEW ORDERS FROM THIS MORNING. R' BACK FROM [facility], RESTING IN BED. DAUGHTER REQUESTING UPDATE FROM DR ROSE THIS EVENING. ALSO, SHE STATED R' WAS ON BUMETANIDE DAILY PRIOR TO ADMIT. WILL UPDATE DR ROSE.
--- NOTE | 2023-06-07 14:01 | WOUNDNOTE ---
wound photo: left heel
[2023-06-07] MEDS: Metoclopramide 5 MG TABLET PO ×2 (15:31→21:33)
[2023-06-07] MEDS: Bumetanide 0.5 MG Tablet 1 MG PO (18:55)
[2023-06-07] MEDS: Lactulose 20 GM/30 ML UDC PO (18:55)
[2023-06-07] MEDS: Atorvastatin Calcium 40 MG Tablet PO (21:33)
[2023-06-08] MEDS: Metoclopramide 5 MG TABLET PO ×3 (05:08→21:13)
[2023-06-08] MEDS: Mexiletine HCl 200 MG Capsule PO ×3 (05:08→21:13)
[2023-06-08] MEDS: levoFLOXacin 750 MG Tablet PO (05:08)
[2023-06-08] MEDS: Sucralfate 1 GM Tablet PO ×2 (05:52→21:13)
[2023-06-08 06:00] VITALS: BMI 19.9
[2023-06-08 06:23] LABS: Anion Gap 8 (5-15); BUN 27 mg/dL (7-18); BUN/Creat Ratio 22.5 RATIO (10-20); Calcium,Total 8.1 mg/dL (8.5-10.1); Chloride 110 mmol/L (98-107); EST Glomerular Filtration Rate 61 mL/min (>60); Est Glom Filt Rate - Afr Amer 74 mL/min (>60); Estimated Creatinine Clearance 36.53 ml/min; Glucose 96 mg/dL (74-106); Potassium 3.3 mmol/L (3.5-5.1); Sodium Level 139 mmol/L (136-145)
[2023-06-08 06:59] LABS: Hematocrit 27.9 % (40-54); Hemoglobin 9.1 g/dL (13.0-16.5); Mean Corp Hgb Conc 32.6 g/dL (32-36); Mean Corpuscular Hgb 32.2 pg (27.0-32.0); Mean Corpuscular Volume 98.6 fL (80-94); POSITIVE COUNT YES; POSITIVE MORPHOLOGY YES; Platelet Count 105 K/mm3 (150-450); RBC Distribution Width CV 22.3 % (11.6-14.6); RBC Distribution Width SD 79.9 fl (35.1-43.9); Red Blood Count 2.83 M/mm3 (4.6-6.2); White Blood Count 5.9 K/mm3 (4.4-11.0)
[2023-06-08 07:11] LABS: Differential Indicated MANUAL DIFF
[2023-06-08 07:58] VITALS: BP 97/61; PULSE 98; RESP 24; TEMP 36.7; O2SAT 94
[2023-06-08] MEDS: Aspirin 81 MG TAB.CHEW PO (08:15)
[2023-06-08] MEDS: Potassium Chloride Oral Tablet 20 MEQ PO ×2 (08:16→16:42)
[2023-06-08 08:17] LABS: Eosinophil 1 % (0-5); Lymphocyte 16 % (19-41); Monocyte 5 % (0-10); Myelocyte 2 % (0-0); Neutrophil-Band 1 % (0-5); Neutrophil-Segmented 75 % (47-70); Nucleated Red Bld Cells,Manual 1 % (0-5); Total Cells Counted 100 (MANUAL DIFF)
[2023-06-08] MEDS: Cyanocobalamin 500 MCG Tablet 1000 MCG PO (08:17)
[2023-06-08] MEDS: Ascorbic Acid 500 MG Tablet PO (08:17)
[2023-06-08 08:18] LABS: Anisocytosis 2+; Crenated RBC 1+
[2023-06-08 08:19] LABS: Schistocytes 2+
[2023-06-08 08:20] LABS: Absolute Lymphocyte Count 0.94 X10^3/uL (0.83-4.51); Absolute Neutrophil Count 4.5 X10^3/uL (2.0-7.7)
[2023-06-08] MEDS: Potassium Chloride Oral Tablet 20 MEQ 40 MEQ PO (08:33)
[2023-06-08] MEDS: Bumetanide 0.5 MG Tablet 1 MG PO (10:33)
[2023-06-08] MEDS: Menthol/Lanolin/Calamine/Znox 113 GM Tube 1 APPLIC TOPICAL ×2 (10:34→21:14)
[2023-06-08] MEDS: Pantoprazole Sodium 40 MG Tablet PO ×2 (10:35→21:13)
[2023-06-08] MEDS: Iron Polysaccharide Complex 150 MG CAPSULE PO (10:35)
[2023-06-08 10:45] VITALS: BP 100/68; PULSE 98
[2023-06-08] MEDS: Metoprolol(XL)Succ 25 MG Tablet 12.5 MG PO (10:45)
[2023-06-08 10:48] VITALS: BP 100/68
[2023-06-08] MEDS: 0.9% Saline Lock 10 ML Syringe IV (11:13)
[2023-06-08] MEDS: Atorvastatin Calcium 40 MG Tablet PO (21:13)
[2023-06-09 05:37] LABS: Hematocrit 28.4 % (40-54); POSITIVE COUNT YES
[2023-06-09] MEDS: Mexiletine HCl 200 MG Capsule PO ×3 (05:48→21:47)
[2023-06-09] MEDS: Sucralfate 1 GM Tablet PO ×2 (05:48→21:47)
[2023-06-09] MEDS: Metoclopramide 5 MG TABLET PO ×3 (05:48→21:47)
[2023-06-09 05:53] LABS: Anion Gap 9 (5-15); BUN 29 mg/dL (7-18); BUN/Creat Ratio 25.7 RATIO (10-20); Calcium,Total 8.1 mg/dL (8.5-10.1); Chloride 109 mmol/L (98-107); Creatinine, Serum 1.13 mg/dL (0.70-1.30); EST Glomerular Filtration Rate 65 mL/min (>60); Est Glom Filt Rate - Afr Amer 79 mL/min (>60); Estimated Creatinine Clearance 38.77 ml/min; Glucose 90 mg/dL (74-106); Potassium 3.7 mmol/L (3.5-5.1); Sodium Level 140 mmol/L (136-145)
[2023-06-09 06:00] VITALS: BMI 20.1
[2023-06-09] MEDS: Potassium Chloride Oral Tablet 20 MEQ PO ×2 (08:33→16:51)
[2023-06-09] MEDS: Bumetanide 0.5 MG Tablet 1 MG PO (08:33)
[2023-06-09] MEDS: Aspirin 81 MG TAB.CHEW PO (08:33)
[2023-06-09] MEDS: Ascorbic Acid 500 MG Tablet PO (08:34)
[2023-06-09] MEDS: Pantoprazole Sodium 40 MG Tablet PO ×2 (08:34→21:47)
[2023-06-09] MEDS: Iron Polysaccharide Complex 150 MG CAPSULE PO (08:34)
[2023-06-09] MEDS: Cyanocobalamin 500 MCG Tablet 1000 MCG PO (08:34)
[2023-06-09 08:35] VITALS: BP 102/59; PULSE 80
[2023-06-09] MEDS: Metoprolol(XL)Succ 25 MG Tablet 12.5 MG PO (08:35)
[2023-06-09] MEDS: Menthol/Lanolin/Calamine/Znox 113 GM Tube 1 APPLIC TOPICAL ×2 (08:37→21:47)
[2023-06-09 08:48] VITALS: BP 102/59; PULSE 80
[2023-06-09 09:35] LABS: Pathologist Review Reviewed
[2023-06-09] MEDS: 0.9% Saline Lock 10 ML Syringe IV (13:17)
[2023-06-09 16:00] VITALS: BP 100/57; PULSE 80; RESP 18; TEMP 36.7; O2SAT 97
[2023-06-09] MEDS: Atorvastatin Calcium 40 MG Tablet PO (21:47)
[2023-06-10 06:00] VITALS: BMI 19.8
[2023-06-10 06:03] LABS: Hematocrit 25.8 % (40-54); Hemoglobin 8.4 g/dL (13.0-16.5)
[2023-06-10] MEDS: Mexiletine HCl 200 MG Capsule PO ×3 (06:28→21:11)
[2023-06-10] MEDS: Metoclopramide 5 MG TABLET PO ×3 (06:28→21:11)
[2023-06-10] MEDS: Sucralfate 1 GM Tablet PO ×2 (06:28→21:11)
[2023-06-10] MEDS: levoFLOXacin 750 MG Tablet PO (06:28)
[2023-06-10] MEDS: Ascorbic Acid 500 MG Tablet PO (08:35)
[2023-06-10] MEDS: Bumetanide 0.5 MG Tablet 1 MG PO (08:35)
[2023-06-10] MEDS: Aspirin 81 MG TAB.CHEW PO (08:35)
[2023-06-10] MEDS: Cyanocobalamin 500 MCG Tablet 1000 MCG PO (08:35)
[2023-06-10] MEDS: Potassium Chloride Oral Tablet 20 MEQ PO ×2 (08:35→17:22)
[2023-06-10] MEDS: Menthol/Lanolin/Calamine/Znox 113 GM Tube 1 APPLIC TOPICAL ×2 (08:35→21:13)
[2023-06-10 08:36] VITALS: BP 108/66; PULSE 80
[2023-06-10] MEDS: Metoprolol(XL)Succ 25 MG Tablet 12.5 MG PO (08:36)
[2023-06-10] MEDS: Pantoprazole Sodium 40 MG Tablet PO ×2 (08:36→21:11)
[2023-06-10] MEDS: Iron Polysaccharide Complex 150 MG CAPSULE PO (08:36)
[2023-06-10 10:00] VITALS: BP 108/66; PULSE 80
[2023-06-10 12:58] LABS: Pathologist Review Reviewed
[2023-06-10 15:41] VITALS: BP 94/61; PULSE 81; RESP 16; TEMP 36.3; O2SAT 97
[2023-06-10] MEDS: Atorvastatin Calcium 40 MG Tablet PO (21:12)
[2023-06-11] MEDS: Mexiletine HCl 200 MG Capsule PO ×3 (05:49→22:00)
[2023-06-11] MEDS: Sucralfate 1 GM Tablet PO ×2 (05:49→21:58)
[2023-06-11] MEDS: Metoclopramide 5 MG TABLET PO ×3 (05:49→21:59)
[2023-06-11 06:00] VITALS: BMI 19.8
[2023-06-11 06:34] LABS: Hematocrit 26.4 % (40-54); Hemoglobin 8.6 g/dL (13.0-16.5)
[2023-06-11 09:11] VITALS: BP 107/69; PULSE 79; RESP 20; O2SAT 91
[2023-06-11] MEDS: Potassium Chloride Oral Tablet 20 MEQ PO ×2 (09:12→17:38)
[2023-06-11] MEDS: Pantoprazole Sodium 40 MG Tablet PO ×2 (09:12→21:59)
[2023-06-11 09:13] VITALS: PULSE 79
[2023-06-11] MEDS: Iron Polysaccharide Complex 150 MG CAPSULE PO (09:13)
[2023-06-11] MEDS: Bumetanide 0.5 MG Tablet 1 MG PO (09:13)
[2023-06-11] MEDS: Metoprolol(XL)Succ 25 MG Tablet 12.5 MG PO (09:13)
[2023-06-11] MEDS: Ascorbic Acid 500 MG Tablet PO (09:13)
[2023-06-11] MEDS: Cyanocobalamin 500 MCG Tablet 1000 MCG PO (09:14)
[2023-06-11] MEDS: Aspirin 81 MG TAB.CHEW PO (09:14)
[2023-06-11] MEDS: Menthol/Lanolin/Calamine/Znox 113 GM Tube 1 APPLIC TOPICAL ×2 (09:15→22:00)
[2023-06-11 12:48] VITALS: TEMP 36.1
[2023-06-11] MEDS: 0.9% Saline Lock 10 ML Syringe IV (13:03)
[2023-06-11 13:05] VITALS: BP 107/58; PULSE 79; RESP 20
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
[2023-06-11] MEDS: Atorvastatin Calcium 40 MG Tablet PO (22:00)
[2023-06-11 22:15] VITALS: BP 105/67; PULSE 80
[2023-06-12 05:50] VITALS: BP 110/73; PULSE 80
[2023-06-12] MEDS: Mexiletine HCl 200 MG Capsule PO ×3 (05:54→22:19)
[2023-06-12] MEDS: levoFLOXacin 750 MG Tablet PO (05:55)
[2023-06-12] MEDS: Metoclopramide 5 MG TABLET PO ×3 (05:55→22:19)
[2023-06-12 06:00] VITALS: BMI 19.8
[2023-06-12] MEDS: Sucralfate 1 GM Tablet PO ×2 (06:45→22:19)
[2023-06-12 07:58] LABS: Hematocrit 27.4 % (40-54); Hemoglobin 8.7 g/dL (13.0-16.5)
[2023-06-12 08:54] VITALS: BP 112/64; PULSE 82; RESP 20; TEMP 36.6; O2SAT 98
[2023-06-12] MEDS: Bumetanide 0.5 MG Tablet 1 MG PO (08:59)
[2023-06-12] MEDS: Ascorbic Acid 500 MG Tablet PO (08:59)
[2023-06-12] MEDS: Aspirin 81 MG TAB.CHEW PO (08:59)
[2023-06-12] MEDS: Pantoprazole Sodium 40 MG Tablet PO ×2 (08:59→22:19)
[2023-06-12 09:00] VITALS: PULSE 82
[2023-06-12] MEDS: Iron Polysaccharide Complex 150 MG CAPSULE PO (09:00)
[2023-06-12] MEDS: Metoprolol(XL)Succ 25 MG Tablet 12.5 MG PO (09:00)
[2023-06-12] MEDS: Cyanocobalamin 500 MCG Tablet 1000 MCG PO (09:00)
[2023-06-12] MEDS: Menthol/Lanolin/Calamine/Znox 113 GM Tube 1 APPLIC TOPICAL ×2 (09:01→22:19)
[2023-06-12] MEDS: Potassium Chloride Oral Tablet 20 MEQ PO ×2 (09:01→17:36)
[2023-06-12] MEDS: Atorvastatin Calcium 40 MG Tablet PO (22:19)
[2023-06-12] MEDS: 0.9% Saline Lock 10 ML Syringe IV (22:22)
[2023-06-13] MEDS: Mexiletine HCl 200 MG Capsule PO ×3 (05:44→21:40)
[2023-06-13] MEDS: Sucralfate 1 GM Tablet PO ×2 (05:44→21:40)
[2023-06-13] MEDS: Metoclopramide 5 MG TABLET PO ×3 (05:44→21:40)
[2023-06-13 05:46] VITALS: BP 107/66; PULSE 82
[2023-06-13 05:53] LABS: Hematocrit 27.5 % (40-54); Hemoglobin 8.8 g/dL (13.0-16.5)
[2023-06-13 06:00] VITALS: BMI 19.8
[2023-06-13 08:22] VITALS: BP 101/62; PULSE 79; RESP 18; TEMP 36.5; O2SAT 97
[2023-06-13] MEDS: Pantoprazole Sodium 40 MG Tablet PO ×2 (08:23→21:40)
[2023-06-13] MEDS: Bumetanide 0.5 MG Tablet 1 MG PO (08:23)
[2023-06-13] MEDS: Ascorbic Acid 500 MG Tablet PO (08:23)
[2023-06-13] MEDS: Potassium Chloride Oral Tablet 20 MEQ PO ×2 (08:24→17:47)
[2023-06-13] MEDS: Cyanocobalamin 500 MCG Tablet 1000 MCG PO (08:24)
[2023-06-13] MEDS: Aspirin 81 MG TAB.CHEW PO (08:24)
[2023-06-13] MEDS: Iron Polysaccharide Complex 150 MG CAPSULE PO (08:24)
[2023-06-13] MEDS: Menthol/Lanolin/Calamine/Znox 113 GM Tube 1 APPLIC TOPICAL ×2 (08:25→21:43)
[2023-06-13] MEDS: 0.9% Saline Lock 10 ML Syringe IV (08:31)
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
[2023-06-13] MEDS: Atorvastatin Calcium 40 MG Tablet PO (21:40)
[2023-06-14 06:00] VITALS: BMI 19.8
[2023-06-14] MEDS: Sucralfate 1 GM Tablet PO ×2 (06:18→21:10)
[2023-06-14] MEDS: Mexiletine HCl 200 MG Capsule PO ×3 (06:18→21:10)
[2023-06-14] MEDS: Metoclopramide 5 MG TABLET PO ×3 (06:18→21:10)
[2023-06-14 06:20] VITALS: RESP 18; O2SAT 99
[2023-06-14 08:09] VITALS: BP 106/61; PULSE 80
[2023-06-14] MEDS: Pantoprazole Sodium 40 MG Tablet PO ×2 (08:09→21:10)
[2023-06-14] MEDS: Potassium Chloride Oral Tablet 20 MEQ PO ×2 (08:09→16:28)
[2023-06-14] MEDS: Metoprolol(XL)Succ 25 MG Tablet 12.5 MG PO (08:09)
[2023-06-14] MEDS: Cyanocobalamin 500 MCG Tablet 1000 MCG PO (08:09)
[2023-06-14] MEDS: Ascorbic Acid 500 MG Tablet PO (08:09)
[2023-06-14] MEDS: Iron Polysaccharide Complex 150 MG CAPSULE PO (08:09)
[2023-06-14] MEDS: Aspirin 81 MG TAB.CHEW PO (08:09)
[2023-06-14] MEDS: Bumetanide 0.5 MG Tablet 1 MG PO (08:09)
[2023-06-14] MEDS: Menthol/Lanolin/Calamine/Znox 113 GM Tube 1 APPLIC TOPICAL ×2 (08:10→21:14)
[2023-06-14 12:00] VITALS: BMI 19.8
[2023-06-14 13:09] VITALS: BP 97/63; PULSE 78; RESP 16; TEMP 36.8; O2SAT 93
--- NOTE | 2023-06-14 14:47 | CASEMGMT ---
Addendum entered by Sarai Palma 06/14/23 17:13: Received return call from dtr. SW educated to improvement with transfers, no longer needing krishna lift, but pt is still x2 assist and dependent for ADLs. IDT recommending SNF placement at DC. SW explained IDT will see how pt progresses over the next week and will make determination for another week of therapy or to set DC for SNF. Updated dtr that pt already stated he understands he will likely need a SNF and is agreeable;e. [facility] is holding a bed for pt for DC. Dtr appreciative and expressed understanding. SW explained OOP cost for [facility] at DC. Dtr expressed understanding. SW will continue to follow for DC planning. Original Note: Social Work SW phoned dtr to follow up on DC plans. Left VM. Goal is for pt to DC to [facility]. Will await return call. Sarai Palma, NATHANIEL CLOTH CUTTING INSPECTOR
--- NOTE | 2023-06-14 15:13 | WOUNDNOTE ---
wound photo: left heel
[2023-06-14] MEDS: Atorvastatin Calcium 40 MG Tablet PO (21:10)
[2023-06-15] MEDS: Sucralfate 1 GM Tablet PO ×2 (05:44→21:09)
[2023-06-15] MEDS: Metoclopramide 5 MG TABLET PO ×3 (05:44→21:10)
[2023-06-15] MEDS: Mexiletine HCl 200 MG Capsule PO ×3 (05:44→21:09)
[2023-06-15] MEDS: Magnesium Citrate 300 ML PO (05:44)
[2023-06-15 06:05] LABS: Absolute Lymphocyte Count 0.98 X10^3/uL (0.83-4.51); Absolute Neutrophil Count 4.6 X10^3/uL (2.0-7.7); Basophil# 0.03 X10^3/uL; Basophil% 0.4 % (0-1); Hematocrit 28.5 % (40-54); Lymphocyte # 0.98 X10^3/ul (0.83-4.51); Mean Corp Hgb Conc 31.6 g/dL (32-36); Mean Corpuscular Hgb 30.5 pg (27.0-32.0); Mean Corpuscular Volume 96.6 fL (80-94); Monocyte# 0.85 X10^3/uL; Monocyte% 12.2 % (0-10); NRBC Flagged by Analyzer 1.3 % (0-5); Neutrophil # 4.62 X10^3/uL (2.7-7.7); Neutrophil % 66.1 % (47-70); POSITIVE COUNT YES; POSITIVE MORPHOLOGY YES; Platelet Count 138 K/mm3 (150-450); RBC Distribution Width CV 22.8 % (11.6-14.6); RBC Distribution Width SD 78.9 fl (35.1-43.9); Red Blood Count 2.95 M/mm3 (4.6-6.2)
[2023-06-15 06:12] LABS: Differential Indicated SCAN CRITERIA MET
[2023-06-15 06:40] LABS: Anion Gap 5 (5-15); BUN 14 mg/dL (7-18); Calcium,Total 8.4 mg/dL (8.5-10.1); Chloride 107 mmol/L (98-107); Creatinine, Serum 0.93 mg/dL (0.70-1.30); EST Glomerular Filtration Rate 81 mL/min (>60); Est Glom Filt Rate - Afr Amer 98 mL/min (>60); Glucose 94 mg/dL (74-106); Potassium 3.9 mmol/L (3.5-5.1); Sodium Level 138 mmol/L (136-145)
[2023-06-15 06:50] LABS: Anisocytosis 3+; Platelet Estimate ADEQUATE (ADEQ); Polychromasia 3+
[2023-06-15 06:51] LABS: Hypochromasia 2+
[2023-06-15 06:52] LABS: Acanthocytes 1+; Macrocytosis 2+; Microcytosis 1+; Ovalocyte 1+; Target Cells 1+
[2023-06-15 06:53] LABS: Schistocytes 2+
[2023-06-15] MEDS: Ascorbic Acid 500 MG Tablet PO (09:29)
[2023-06-15] MEDS: Cyanocobalamin 500 MCG Tablet 1000 MCG PO (09:29)
[2023-06-15] MEDS: Bumetanide 0.5 MG Tablet 1 MG PO (09:29)
[2023-06-15] MEDS: Aspirin 81 MG TAB.CHEW PO (09:29)
[2023-06-15] MEDS: Potassium Chloride Oral Tablet 20 MEQ PO ×2 (09:29→17:06)
[2023-06-15 09:30] VITALS: BP 121/70; PULSE 80
[2023-06-15] MEDS: Metoprolol(XL)Succ 25 MG Tablet 12.5 MG PO (09:30)
[2023-06-15] MEDS: Pantoprazole Sodium 40 MG Tablet PO ×2 (09:30→21:09)
[2023-06-15] MEDS: Iron Polysaccharide Complex 150 MG CAPSULE PO (09:30)
[2023-06-15] MEDS: Menthol/Lanolin/Calamine/Znox 113 GM Tube 1 APPLIC TOPICAL ×2 (09:30→21:12)
[2023-06-15] MEDS: 0.9% Saline Lock 10 ML Syringe IV (09:37)
[2023-06-15 09:52] VITALS: BP 121/70; PULSE 80; O2SAT 92
--- NOTE | 2023-06-15 14:55 | NURSING ---
NO BM IN 5 DAYS. ICT SUPPORT ENGINEER GAVE PRN MAG CITRATE AT 6 AM. PT WAS NAUSEATED PER REPORT AT BREAKFAST, THIS NURSE DID NOT SEE ANY VOMIT , PT VERY TIRED AND NOT HUNGRY STILL NO BM. WILL GIVE PRN SENNA. WILL CONTINUE TO MONITOR.
[2023-06-15] MEDS: Senna/Docusate Sodium 1 Tablet PO (15:07)
--- NOTE | 2023-06-15 15:14 | NURSING ---
PT GRANDSON JESENIA IN ROOM. STATED TO PT TO CALL IF HE NEEDED ANY THING OR DID NOT FEEL COMFORTABLE. PT STATED OK.
[2023-06-15 16:00] VITALS: BP 95/61; PULSE 80; RESP 18; TEMP 37.1; O2SAT 92
--- NOTE | 2023-06-15 17:49 | NURSING ---
Addendum entered by Rell Palacio 06/15/23 18:32: POSITIVE RESULTS OF A XTRA LARGE FORMED! Original Note: PRUNE JUICE WITH BUTTER GIVEN. PT DRANK ALL. PT EATING SUPPER AND FEELING A BIT BETTER. WILL CONTINUE TO MONITOR.
[2023-06-15] MEDS: Atorvastatin Calcium 40 MG Tablet PO (21:09)
[2023-06-16] MEDS: Sucralfate 1 GM Tablet PO ×2 (05:34→21:56)
[2023-06-16] MEDS: Mexiletine HCl 200 MG Capsule PO ×3 (05:34→21:56)
[2023-06-16] MEDS: Metoclopramide 5 MG TABLET PO ×3 (05:34→21:56)
[2023-06-16 06:00] VITALS: BMI 19.8
[2023-06-16] MEDS: 0.9% Saline Lock 10 ML Syringe IV (09:02)
[2023-06-16] MEDS: Senna/Docusate Sodium 1 Tablet PO (09:02)
[2023-06-16] MEDS: Potassium Chloride Oral Tablet 20 MEQ PO ×2 (09:05→17:37)
[2023-06-16] MEDS: Aspirin 81 MG TAB.CHEW PO (09:05)
[2023-06-16] MEDS: Cyanocobalamin 500 MCG Tablet 1000 MCG PO (09:06)
[2023-06-16 09:07] VITALS: BP 97/61; PULSE 80
[2023-06-16] MEDS: Bumetanide 0.5 MG Tablet 1 MG PO (09:07)
[2023-06-16] MEDS: Ascorbic Acid 500 MG Tablet PO (09:07)
[2023-06-16] MEDS: Metoprolol(XL)Succ 25 MG Tablet 12.5 MG PO (09:07)
[2023-06-16] MEDS: Iron Polysaccharide Complex 150 MG CAPSULE PO (09:07)
[2023-06-16] MEDS: Pantoprazole Sodium 40 MG Tablet PO ×2 (09:07→21:56)
[2023-06-16] MEDS: Menthol/Lanolin/Calamine/Znox 113 GM Tube 1 APPLIC TOPICAL ×2 (09:09→21:56)
[2023-06-16 09:23] VITALS: BP 97/61; PULSE 80
[2023-06-16 09:29] LABS: Pathologist Review Reviewed
[2023-06-16 16:00] VITALS: PULSE 80; RESP 18; TEMP 36.6; O2SAT 100
[2023-06-16 16:30] VITALS: BP 98/62
[2023-06-16] MEDS: Atorvastatin Calcium 40 MG Tablet PO (21:56)
[2023-06-17 06:00] VITALS: BMI 19.8
[2023-06-17] MEDS: Metoclopramide 5 MG TABLET PO ×2 (06:21→21:55)
[2023-06-17] MEDS: Sucralfate 1 GM Tablet PO ×2 (06:21→21:56)
[2023-06-17] MEDS: Mexiletine HCl 200 MG Capsule PO ×2 (06:21→21:56)
[2023-06-17 08:14] VITALS: BP 101/66; PULSE 116
[2023-06-17] MEDS: Cyanocobalamin 500 MCG Tablet 1000 MCG PO (08:14)
[2023-06-17] MEDS: Bumetanide 0.5 MG Tablet 1 MG PO (08:14)
[2023-06-17] MEDS: Iron Polysaccharide Complex 150 MG CAPSULE PO (08:14)
[2023-06-17] MEDS: Metoprolol(XL)Succ 25 MG Tablet 12.5 MG PO (08:14)
[2023-06-17] MEDS: Aspirin 81 MG TAB.CHEW PO (08:14)
[2023-06-17] MEDS: Pantoprazole Sodium 40 MG Tablet PO ×2 (08:14→21:55)
[2023-06-17] MEDS: Potassium Chloride Oral Tablet 20 MEQ PO (08:14)
[2023-06-17] MEDS: Ascorbic Acid 500 MG Tablet PO (08:14)
[2023-06-17] MEDS: Menthol/Lanolin/Calamine/Znox 113 GM Tube 1 APPLIC TOPICAL ×2 (08:14→22:05)
[2023-06-17 10:20] LABS: Hematocrit 28.9 % (40-54); Hemoglobin 9.1 g/dL (13.0-16.5); Mean Corp Hgb Conc 31.5 g/dL (32-36); Mean Corpuscular Hgb 30.4 pg (27.0-32.0); Mean Corpuscular Volume 96.7 fL (80-94); POSITIVE COUNT YES; POSITIVE MORPHOLOGY YES; Platelet Count 151 K/mm3 (150-450); RBC Distribution Width CV 23.6 % (11.6-14.6); Red Blood Count 2.99 M/mm3 (4.6-6.2); White Blood Count 7.8 K/mm3 (4.4-11.0)
[2023-06-17 10:35] VITALS: BP 108/66; PULSE 80; RESP 22; TEMP 36.4; O2SAT 94
--- NOTE | 2023-06-17 10:35 | NURSING ---
Asked to see patient by speech therapy, after having a bite of cookie patient coughing, appears short or breath. Lungs sound diminished, some wheezing right lung. Increased respirations otherwise vitals WNL, 94% on RA. Patient vomited yesterday morning and this morning around breakfast time. Updated Dr. Blevins, order for chest chest xray.
[2023-06-17 10:39] LABS: Differential Indicated MANUAL DIFF
[2023-06-17 11:17] LABS: Eosinophil 1 % (0-5); Lymphocyte 13 % (19-41); Metamyelocyte 2 % (0-1); Monocyte 2 % (0-10); Neutrophil-Band 12 % (0-5); Neutrophil-Segmented 70 % (47-70)
[2023-06-17 11:18] LABS: Absolute Lymphocyte Count 1.01 X10^3/uL (0.83-4.51); Absolute Neutrophil Count 6.4 X10^3/uL (2.0-7.7)
[2023-06-17 11:21] LABS: Hypochromasia RARE; Target Cells 1+
[2023-06-17 11:23] LABS: Ovalocyte RARE
[2023-06-17 11:24] LABS: Acanthocytes 1+
--- NOTE | 2023-06-17 11:30 | RAD_ITS ---
INDICATION: ?aspiration, shortness of breath EXAMINATION/TECHNIQUE: X-RAY - XR Chest 2 Views COMPARISON: Prior study dated: 06/06/2023 FINDINGS: LINES/DEVICES: The dual-chamber left-sided cardiac pacer device in stable position. LUNGS: Persistent left lower lung infiltrate obscuring the left hemidiaphragm. Small bilateral pleural effusions. Mild pulmonary venous congestion. MEDIASTINUM AND CARDIOVASCULAR STRUCTURES: Stable cardiomediastinal silhouette. BONES AND SOFT TISSUES: Unchanged. RAD/Chest PA and Lateral IMPRESSION: 1. Persistent left retrocardiac infiltrate unchanged. 2. Small bilateral pleural effusions larger on the right side. 3. Hazy increase markings/infiltrate in right lower lung. Electronically Signed: Tarik Gordon MD at 12:12 EDT ,
[2023-06-17 12:58] VITALS: BP 108/64; PULSE 80; RESP 18; TEMP 36.3; O2SAT 92
--- NOTE | 2023-06-17 14:20 | RAD_ITS ---
INDICATION: Vomiting. EXAMINATION/TECHNIQUE: X-RAY - XR Abdomen 1 View COMPARISON: Prior study dated: 06/07/2023 FINDINGS: BOWEL GAS PATTERN: Mildly distended stomach. Nonspecific gaseous colon. Residual contrast in multiple diverticula the colon. FREE AIR: Not assessed on a single supine view. ORGANOMEGALY: Not seen. CALCIFICATIONS: No abnormal calcifications observed. LOWER CHEST: Cardiac pacer device is seen. BONES AND SOFT TISSUES: Degenerative changes of the spine. RAD/Abdomen Single View IMPRESSION: Nonspecific gas pattern. Electronically Signed: Tarik Gordon MD at 14:33 EDT ,
--- NOTE | 2023-06-17 14:53 | PCM.TCUNOT ---
Subjective Subjective Resident seen, examined for regulatory visit. Spoke with nursing, therapy staff. Resident has not been doing well with therapy, he continues to be 2 assist, and his progression in therapy is inconsistent, sometimes he can walk 50 feet, then immediately be unable to walk at all. Today, he is vomiting. 05/27/2023 Dr. Edwards EGD: Impressions : - Benign-appearing esophageal stenosis. Dilated. - Z-line irregular, 39 cm from the incisors. Biopsied. - Non-bleeding gastric ulcers with no stigmata of bleeding. Biopsied. - A single gastric polyp. Resected and retrieved. - No gross lesions in the first portion of the duodenum. Recommendations : - Await pathology results. - Use Protonix (pantoprazole) 40 mg PO BID for 12 weeks. - Continue present medications. 06/17/2023 Chest X-ray: IMPRESSION: 1. Persistent left retrocardiac infiltrate unchanged. 2. Small bilateral pleural effusions larger on the right side. 3. Hazy increase markings/infiltrate in right lower lung. Resident could very well be dying, but will treat persistent pneumonia, if no improvement, pursue hospice/comfort care. Objective Data Objective Data Vital Signs: Vital Signs Temp Pulse Resp BP Pulse Ox O2 Del Method O2 Flow Rate 97.4 F L 80 18 108/64 92 Room Air 2 06/17/23 12:58 06/17/23 12:58 06/17/23 12:58 06/17/23 12:58 06/17/23 12:58 06/17/23 12:58 05/24/23 18:47 Oxygen Flow Rate (L/min) 2 Oxygen Delivery Method Room Air Weight: 59.194 kg Body Mass Index (BMI) 19.8 Intake & Output: Intake and Output for Last 24 Hours 06/15/23 06/16/23 06/17/23 23:59 23:59 23:59 Intake Total 120 / 120 820 / 820 340 / 340 Balance 120 / 120 820 / 820 340 / 340 Lab / Micro Data Attestation: I reviewed the patient's lab results. 06/17/23 09:58 06/15/23 05:18 Labs: Laboratory Results - last 24 hr 06/17/23 08:49: WBC Cancelled, Corrected WBC Cancelled, RBC Cancelled, Hgb Cancelled, Hct Cancelled, MCV Cancelled, MCH Cancelled, MCHC Cancelled, RDW Std Deviation Cancelled, RDW Coeff of Charly Cancelled, Plt Count Cancelled, MPV Cancelled, Immature Gran % (Auto) Cancelled, Neut % (Auto) Cancelled, Lymph % (Auto) Cancelled, Lynn % (Auto) Cancelled, Eos % (Auto) Cancelled, Baso % (Auto) Cancelled, Absolute Neuts (auto) Cancelled, Absolute Lymphs (auto) Cancelled, Total Counted Cancelled, Neutrophils % (Manual) Cancelled, Band Neutrophils % Cancelled, Lymphocytes % (Manual) Cancelled, Monocytes % (Manual) Cancelled, Eosinophils % (Manual) Cancelled, Basophils % (Manual) Cancelled, Metamyelocytes % Cancelled, Myelocytes % Cancelled, Promyelocytes % Cancelled, Blast Cells % Cancelled, Plasma Cell % (Manual) Cancelled, Other Cells % Cancelled, Nucleated RBC % Cancelled, Nucleated RBCs/100 WBC Cancelled, Differential Comment Cancelled, Diff Path Review Cancelled, Hypersegmented Neuts Cancelled, Atypical Lymphocytes Cancelled, Reactive Lymphocytes Cancelled, Smudge Cells Cancelled, Toxic Granulation Cancelled, Toxic Vacuolation Cancelled, Dohle Bodies Cancelled, Narcisa Rods Cancelled, Platelet Estimate Cancelled, Plt Morphology Comment Cancelled, RBC Morphology Cancelled 06/17/23 08:49: RBC Morphology Cancelled, Polychromasia Cancelled, Hypochromasia Cancelled, Basophilic Stippling Cancelled, Anisocytosis Cancelled, Microcytosis Cancelled, Macrocytosis Cancelled, Spherocytes Cancelled, Sickle Cells Cancelled, Target Cells Cancelled, Tear Drop Cells Cancelled, Ovalocytes Cancelled, Stomatocytes Cancelled, [place] Bodies Cancelled, Montague Cells Cancelled, Bite Cells Cancelled, Crenated Cell Cancelled, Acanthocytes (Spur) Cancelled, Rouleaux Cancelled, Schistocytes Cancelled 06/17/23 09:58: WBC 7.8, RBC 2.99 L, Hgb 9.1 L, Hct 28.9 L, MCV 96.7 H, MCH 30.4, MCHC 31.5 L, RDW Std Deviation 81.0 H, RDW Coeff of Charly 23.6 H, Plt Count 151, Neut % (Auto) Not Reportable, Absolute Neuts (auto) 6.4, Absolute Lymphs (auto) 1.01, Neutrophils % (Manual) 70, Band Neutrophils % 12 H, Lymphocytes % (Manual) 13 L, Monocytes % (Manual) 2, Eosinophils % (Manual) 1, Metamyelocytes % 2 H, Diff Path Review May foll, Hypochromasia RARE, Target Cells 1+, Ovalocytes RARE, Acanthocytes (Spur) 1+ Micro: Microbiology 06/06/23 16:33 Urine Catheter - Catheter Urine Culture - Final Morganella morganii sp morgani Winkia neuii Enterococcus faecalis 06/01/23 11:10 Stool Stool Occult Blood (KEITH) - Final Radiography Diagnostic Testing: Radiology Impression Chest X-Ray 06/17/23 11:30 IMPRESSION: 1. Persistent left retrocardiac infiltrate unchanged. 2. Small bilateral pleural effusions larger on the right side. 3. Hazy increase markings/infiltrate in right lower lung. Electronically Signed: Tarik Gordon MD at 12:12 EDT , KUB X-Ray 06/17/23 14:20 IMPRESSION: Nonspecific gas pattern. Electronically Signed: Tarik Gordon MD at 14:33 EDT , Physical Exam Const alert General Appearance: cooperative HEENT normocephalic Eyes PERRL and EOMs intact bilaterally Neck supple, no JVD and no carotid bruits Resp normal respiratory effort, normal air movement and clear to auscultation bilaterally Auscultation: rhonchi and wheezes Cardio regular rate and regular rhythm GI normal to inspection, nondistended, normoactive bowel sounds, non-tender and non-distended Extremity normal capillary refill General Extremity: Negative for edema Skin no rashes or lesions noted General Skin Exam: no breakdown Neuro Neuro Narrative: Mild bilateral lower extremity weakness. Psych affect normal Appearance: appropriate Assessment & Plan Assessment/Plan (1) Debility: (2) Ventricular tachycardia: (3) Weakness of both legs: (4) Amiodarone toxicity: (5) Polyneuropathy: (6) Heart failure with reduced ejection fraction: (7) Anemia of chronic disease: (8) Cellulitis of right foot: (9) Atrial fibrillation: (10) Coronary artery disease: (11) Hyperlipidemia: (12) Hypothyroidism: (13) GERD (gastroesophageal reflux disease): (14) Hypokalemia: PLAN: Plan 88 year old male with below past medical history hospitalized for VT, bilateral lower extremity weakness, complicated by HFrEF, anemia, right foot cellulitis, admitted to TCU with debility, here for rehabilitation, strengthening, prior to discharge home with . Now with persistent pneumonia. Debility - PT/OT. Pain - Tylenol 1000mg q6. Bowel - senna/colace 1 tablet bid prn, Magnesium citrate 300ml daily prn Adult immunization - Administer pneumonia vaccine, covid vaccine, flu vaccine as appropriate. DVT prophylaxis - Hold, anemia. Pneumonia (persistent) - Zosyn 4.5gm iv x 1 dose, then 3.375gm iv q8 x 7 days. Coronary artery disease - Metoprolol succinate 12.5mg daily, Losartan 12.5mg daily, Aspirin 81mg daily. Hyperlipidemia - Atorvastatin 40mg qhs. HFrEF - Metoprolol succinate 12.5mg daily, Bumex 1mg. B12 deficiency - B12 1000mcg daily. VT- Metoprolol succinate 12.5mg daily, Mexiletine 200mg q8. Hypokalemia - KCL 20meq bid. Iron deficiency anemia - Ferrex 150mg daily, Vitamin C 500mg daily. Congestion - Mucinex 600mg bid prn. Skin irritation - Calmoseptine topical bid. Gastroparesis - Reglan 5mg tid. Gastric ulcer - Pantoprazole 40mg bid, Sucralfate 1gm bid. Hypokalemia - KCL 20meq bid.
[2023-06-17] MEDS: Piperacil/Tazobactam 4.5 GM in 0.9% Normal Saline (100mL MB+) 100 ML IV (15:33)
[2023-06-17] MEDS: 0.9% Normal Saline (250mL Bag) 250 ML 15 ML IV (15:33)
[2023-06-17 15:44] LABS: Hematocrit 30.8 % (40-54); Hemoglobin 9.7 g/dL (13.0-16.5); Mean Corp Hgb Conc 31.5 g/dL (32-36); Mean Corpuscular Hgb 31.1 pg (27.0-32.0); Mean Corpuscular Volume 98.7 fL (80-94); POSITIVE COUNT YES; POSITIVE DIFFERENTIAL YES; POSITIVE MORPHOLOGY YES; Platelet Count 169 K/mm3 (150-450); RBC Distribution Width CV 24.2 % (11.6-14.6); RBC Distribution Width SD 85.7 fl (35.1-43.9); Red Blood Count 3.12 M/mm3 (4.6-6.2); White Blood Count 13.9 K/mm3 (4.4-11.0)
[2023-06-17 15:46] LABS: Differential Indicated MANUAL DIFF
[2023-06-17 15:56] LABS: ALB/GLOB Ratio 0.7 RATIO (0.9-2.4); AST(SGOT) 20 U/L (15-37); Alanine Aminotransfer ALT/SGPT 15 U/L (16-61); Albumin, Serum 2.9 g/dL (3.2-5.0); Alkaline Phosphatase 98 U/L (45-117); Anion Gap 12 (5-15); BUN 18 mg/dL (7-18); BUN/Creat Ratio 12.2 RATIO (10-20); Calcium,Total 8.5 mg/dL (8.5-10.1); Chloride 103 mmol/L (98-107); Creatinine, Serum 1.47 mg/dL (0.70-1.30); EST Glomerular Filtration Rate 48 mL/min (>60); Est Glom Filt Rate - Afr Amer 58 mL/min (>60); Estimated Creatinine Clearance 29.64 ml/min; Globulin 4.3 g/dL (2.2-4.2); Glucose 166 mg/dL (74-106); Potassium 5.1 mmol/L (3.5-5.1); Protein, Total 7.2 g/dL (6.4-8.2); Sodium Level 135 mmol/L (136-145)
[2023-06-17 16:23] LABS: Eosinophil 1 % (0-5); Lymphocyte 7 % (19-41); Monocyte 2 % (0-10); Neutrophil-Band 11 % (0-5); Neutrophil-Segmented 79 % (47-70); Total Cells Counted 100 (MANUAL DIFF)
[2023-06-17 16:24] LABS: Acanthocytes 1+; Anisocytosis 2+; Hypochromasia 1+
[2023-06-17 16:26] LABS: Target Cells RARE
[2023-06-17 16:28] LABS: Absolute Lymphocyte Count 0.97 X10^3/uL (0.83-4.51); Absolute Neutrophil Count 12.5 X10^3/uL (2.0-7.7)
[2023-06-17 18:10] LABS: Mucous, Urine 0 SEEN /hpf (<or=2+); Red Blood Cells-Urine 0 SEEN /hpf (0-5); Squamous Epithelial Cells - UA 0 SEEN /hpf (0-5)
[2023-06-17 18:11] LABS: Color, Urine Yellow (Yellow); Glucose, Dipstick Normal (Normal); Ketone-Dipstick 5 mg/dl (Negative); Leukocyte Esterase-Dipstick 25 /ul (Negative); Nitrite-Dipstick Negative (Negative); Occult Blood-Urine 10 /ul (Negative); Protein-Dipstick 30 mg/dl (Negative); Urine Bilirubin Dipstick Negative (Negative); Urine Clarity Sl. Cloudy (Clear); Urine Urobilinogen 1 mg/dl (Normal)
[2023-06-17 18:35] LABS: Bacteria 3+ /hpf (None Seen); White Blood Cells 0-5 SEEN /hpf (0-5)
[2023-06-17] MEDS: Ondansetron ODT 4 MG Tablet 8 MG PO (18:52)
[2023-06-17 21:39] VITALS: BP 92/51; PULSE 88; RESP 23; TEMP 37.1; O2SAT 98
[2023-06-17] MEDS: Atorvastatin Calcium 40 MG Tablet PO (21:55)
[2023-06-17] MEDS: Piperacil/Tazobactam 3.375 GM in 0.9% Normal Saline (50mL MB+) 50 ML IV (22:04)
[2023-06-17] MEDS: 0.9% Saline Lock 10 ML Syringe IV (22:05)
--- NOTE | 2023-06-17 22:13 | NURSING ---
Pt was at 84% on room air. Applied 2L via NC and Pt went up to 97%.
[2023-06-18 02:47] VITALS: BP 90/60; PULSE 79; RESP 22; TEMP 36.3; O2SAT 94
--- NOTE | 2023-06-18 02:48 | NURSING ---
Pt hypotensive. RN notified.
[2023-06-18] MEDS: Ondansetron ODT 4 MG Tablet 8 MG PO (02:54)
[2023-06-18] MEDS: Piperacil/Tazobactam 3.375 GM in 0.9% Normal Saline (50mL MB+) 50 ML IV (05:31)
[2023-06-18] MEDS: 0.9% Saline Lock 10 ML Syringe IV (05:31)
[2023-06-18 05:42] VITALS: BP 88/51; PULSE 80; RESP 22; TEMP 36.2; O2SAT 95
--- NOTE | 2023-06-18 06:15 | NURSING ---
Call placed to Dr. Blevins regarding patient's status through the night and hypotension, restlessness and need for O2. New order received to send patient to ED. Report called to ED.
--- NOTE | 2023-06-18 07:20 | NURSING ---
Dr Blevins was notified by RN due to Pt being hypotensive. Pt was send to ER per Dr Lawrence request. Daughter and were called and updated.
--- NOTE | 2023-06-18 11:03 | PCM.DC.SUM ---
Providers Date of Admission: 05/24/23 Primary Care Physician: RUDY Yun Consultations 05/25/23 17:19 Consult: Gastroenterology Routine Consulting Provider: [facility] Reason for Consult: Severe reflux. EMERGENT Consult: No MD Notified: No Date Notified: 05/25/23 Time Notified: 17:19 06/01/23 15:04 Consult: Onc/Wound/rn admit Routine Comment: Reason for Consult:: left heel Reason For Visit: VENTRICULAR TACH Diagnosis Discharge Diagnosis (1) Debility: Status: Acute Code(s): R53.81 - Other malaise (2) Ventricular tachycardia: Status: Resolved Code(s): I47.20 - Ventricular tachycardia, unspecified (3) Weakness of both legs: Status: Acute Code(s): R29.898 - Other symptoms and signs involving the musculoskeletal system (4) Amiodarone toxicity: Status: Acute Code(s): T46.2X1A - Poisoning by other antidysrhythmic drugs, accidental (unintentional), initial encounter (5) Polyneuropathy: Status: Acute Code(s): G62.9 - Polyneuropathy, unspecified (6) Heart failure with reduced ejection fraction: Status: Acute Code(s): I50.20 - Unspecified systolic (congestive) heart failure (7) Anemia of chronic disease: Status: Chronic Code(s): D63.8 - Anemia in other chronic diseases classified elsewhere (8) Cellulitis of right foot: Status: Acute Code(s): L03.115 - Cellulitis of right lower limb (9) Atrial fibrillation: Status: Acute Code(s): I48.91 - Unspecified atrial fibrillation (10) Coronary artery disease: Status: Acute Code(s): I25.10 - Atherosclerotic heart disease of [place] coronary artery without angina pectoris (11) Hyperlipidemia: Status: Acute Code(s): E78.5 - Hyperlipidemia, unspecified (12) Hypothyroidism: Status: Acute Code(s): E03.9 - Hypothyroidism, unspecified (13) GERD (gastroesophageal reflux disease): Status: Acute Code(s): K21.9 - Gastro-esophageal reflux disease without esophagitis (14) Hypokalemia: Status: Acute Code(s): E87.6 - Hypokalemia Plan 88 year old male with below past medical history hospitalized for VT, bilateral lower extremity weakness, complicated by HFrEF, anemia, right foot cellulitis, admitted to TCU with debility, here for rehabilitation, strengthening, prior to discharge home with . Now with persistent pneumonia. Debility - PT/OT. Pain - Tylenol 1000mg q6. Bowel - senna/colace 1 tablet bid prn, Magnesium citrate 300ml daily prn Adult immunization - Administer pneumonia vaccine, covid vaccine, flu vaccine as appropriate. DVT prophylaxis - Hold, anemia. Pneumonia (persistent) - Zosyn 4.5gm iv x 1 dose, then 3.375gm iv q8 x 7 days. Coronary artery disease - Metoprolol succinate 12.5mg daily, Losartan 12.5mg daily, Aspirin 81mg daily. Hyperlipidemia - Atorvastatin 40mg qhs. HFrEF - Metoprolol succinate 12.5mg daily, Bumex 1mg. B12 deficiency - B12 1000mcg daily. VT- Metoprolol succinate 12.5mg daily, Mexiletine 200mg q8. Hypokalemia - KCL 20meq bid. Iron deficiency anemia - Ferrex 150mg daily, Vitamin C 500mg daily. Congestion - Mucinex 600mg bid prn. Skin irritation - Calmoseptine topical bid. Gastroparesis - Reglan 5mg tid. Gastric ulcer - Pantoprazole 40mg bid, Sucralfate 1gm bid. Hypokalemia - KCL 20meq bid. Medications at Discharge Home Medications ascorbic acid (vitamin C) 500 mg tablet 500 mg PO BREAKFAST Supplement 30 days #30 tabs 02/11/22 atorvastatin 40 mg tablet 40 mg PO QHS Cholesterol 30 days #30 tabs 02/11/22 metoprolol succinate 25 mg tablet,extended release 24 hr 12.5 mg (1/2 x 25 mg) PO DAILY Blood pressure 30 days #15 tabs 02/11/22 potassium chloride 20 mEq tablet,extended release(part/cryst) (Klor-Con M) 20 meq PO BIDCM Supplement 30 days #60 tabs 02/11/22 bumetanide 2 mg tablet 0.5 mg PO DAILY Diuretic 09/14/22 losartan 25 mg tablet 12.5 mg PO DAILY Blood pressure 09/29/22 niacinamide 500 mg tablet 500 mg PO BID 10/12/22 polysaccharide iron complex 150 mg iron capsule 150 mg PO DAILY Supplement 10/12/22 aspirin 81 mg chewable tablet 1 tab PO DAILY Heart health 05/24/23 cyanocobalamin (vitamin B-12) 1,000 mcg capsule 1,000 mcg PO DAILY Supplement 05/24/23 guaifenesin 600 mg tablet, extended release 12 hr 600 mg PO BID PRN cough 05/24/23 mexiletine 200 mg capsule 200 mg PO Q8H Arrhythmia 05/24/23 sucralfate 1 gram tablet (Carafate) 1 g PO BID 05/27/23 potassium chloride 20 mEq tablet,extended release 20 meq PO BIDCM 06/18/23 Hospital Course Operations None Procedures EGD Summary of Care Provided Minutes Spent on Discharge: 15 Hospital Course: 88 year old male with below past medical history hospitalized for VT, bilateral lower extremity weakness, complicated by HFrEF, anemia, right foot cellulitis, admitted to TCU with debility, here for rehabilitation, strengthening, prior to discharge home with . 06/18/2023 Resident on Zosyn for pneumonia, worsening hypoxia, hypotension. Discharge to [facility] ED for evaluation, possible admission to [facility]. Overall, resident is actively dying, family not onboard, still full code. Weight / BMI Weight Weight: 59.194 kg Body Mass Index (BMI) 19.8 ABG / Lab / Microbiology Data 06/17/23 15:20 06/17/23 15:20 Laboratory: Laboratory Results - last 24 hr 06/17/23 09:58: Absolute Neuts (auto) 6.4, Absolute Lymphs (auto) 1.01, Neutrophils % (Manual) 70, Band Neutrophils % 12 H, Lymphocytes % (Manual) 13 L, Monocytes % (Manual) 2, Eosinophils % (Manual) 1, Metamyelocytes % 2 H, Diff Path Review May foll, Hypochromasia RARE, Target Cells 1+, Ovalocytes RARE, Acanthocytes (Spur) 1+ 06/17/23 15:10: Urine Color Yellow, Urine Clarity Sl. Cloudy, Urine pH 5.0, Ur Specific [place] 1.010, Urine Protein 30 H, Urine Glucose (UA) Normal, Urine Ketones 5 H, Urine Occult Blood 10 H, Urine Nitrite Negative, Urine Bilirubin Negative, Urine Urobilinogen 1 H, Ur Leukocyte Esterase 25 H, Urine RBC 0 SEEN, Urine WBC 0-5 SEEN, Ur Squamous Epith Cells 0 SEEN, Urine Bacteria 3+, Urine Mucus 0 SEEN 06/17/23 15:20: WBC 13.9 H, RBC 3.12 L, Hgb 9.7 L, Hct 30.8 L, MCV 98.7 H, MCH 31.1, MCHC 31.5 L, RDW Std Deviation 85.7 H, RDW Coeff of Charly 24.2 H, Plt Count 169, MPV TNP, Neut % (Auto) Not Reportable, Absolute Neuts (auto) 12.5 H, Absolute Lymphs (auto) 0.97, Total Counted 100, Neutrophils % (Manual) 79 H, Band Neutrophils % 11 H, Lymphocytes % (Manual) 7 L, Monocytes % (Manual) 2, Eosinophils % (Manual) 1, Diff Path Review May foll, Hypochromasia 1+, Anisocytosis 2+, Target Cells RARE, Acanthocytes (Spur) 1+, Sodium 135 L, Potassium 5.1, Chloride 103, Carbon Dioxide 20.0 L, Anion Gap 12, BUN 18, Creatinine 1.47 H, Estim Creat Clear Calc 29.64, Est GFR (MDRD) Af Amer 58 L, Est GFR (MDRD) Non-Af 48 L, BUN/Creatinine Ratio 12.2, Glucose 166 H, Calcium 8.5, Total Bilirubin 1.50 H, AST 20, ALT 15 L, Alkaline Phosphatase 98, Total Protein 7.2, Albumin 2.9 L, Globulin 4.3 H, Albumin/Globulin Ratio 0.7 L Microbiology: Microbiology 06/06/23 16:33 Urine Catheter - Catheter Urine Culture - Final Morganella morganii sp morgani Winkia neuii Enterococcus faecalis 06/01/23 11:10 Stool Stool Occult Blood (KEITH) - Final Radiography Diagnostic Testing: Radiology Impression Chest X-Ray 06/17/23 11:30 IMPRESSION: 1. Persistent left retrocardiac infiltrate unchanged. 2. Small bilateral pleural effusions larger on the right side. 3. Hazy increase markings/infiltrate in right lower lung. Electronically Signed: Tarik Gordon MD at 12:12 EDT , KUB X-Ray 06/17/23 14:20 IMPRESSION: Nonspecific gas pattern. Electronically Signed: Tarik Gordon MD at 14:33 EDT , D/C Instructions Discharge Diet: No restrictions Discharge Activity: Return to Normal Activity, May Shower and Use Walker Weight Bearing Status: Weight bearing as tolerated Call your doctor if you observe: Fever of 101 or Higher, Inability to urinate, Inability to have a bowel movement, Shortness of breath, Dizziness, Fainting spells, Swelling in the ankles, Chest pain and Uncontrolled pain Additional Instructions: Discharge to [facility] ED for evaluation, possible admission to [facility]. Overall, resident is actively dying, family not onboard, still full code. Please Follow Up With: Kofi Diaz Meaningful Use Info Meaningful Use Diagnoses (Choose all that apply): None applicable Discharge Plan Admission Admit Date/Time: 05/24/23 18:33 Primary Reason for Your Visit: Debility. Attending Provider: Momo Blevins Chi Primary Care Provider: Ray Ceron [employer]ITY ARCHITECT Instructions Additional Instructions / Restrictions: Discharge to [facility] ED for evaluation, possible admission to [facility]. Overall, resident is actively dying, family not onboard, still full code. Home with hospice would be appropriate level of care for resident. Discharge Orders/Prescriptions Prescriptions: No Action bumetanide 2 mg tablet 0.5 mg PO DAILY losartan 25 mg tablet 12.5 mg PO DAILY niacinamide 500 mg tablet 500 mg PO BID Hold Instructions: not on mar in tcu polysaccharide iron complex 150 mg iron capsule 150 mg PO DAILY atorvastatin 40 mg Tablet 40 mg PO QHS 30 Days Qty: 30 0RF potassium chloride [Klor-Con M20] 20 mEq Tablet,Er Particles/Crystals 20 meq PO BIDCM 30 Days Qty: 60 0RF ascorbic acid (vitamin C) 500 mg Tablet 500 mg PO BREAKFAST 30 Days Qty: 30 0RF metoprolol succinate 25 mg Tablet Extended Release 24 Hr 12.5 mg PO DAILY 30 Days Qty: 15 0RF aspirin 81 mg tablet,chewable 1 tab PO DAILY Patient Comments: TAKE 1 TABLET BYCHEWED EVERY DAY cyanocobalamin (vitamin B-12) 1,000 mcg capsule 1,000 mcg PO DAILY guaifenesin 600 mg tablet extended release 12hr 600 mg PO BID PRN (Reason: cough) Hold Instructions: not on MAR in Tcu mexiletine 200 mg capsule 200 mg PO Q8H sucralfate [Carafate] 1 gram tablet 1 g PO BID potassium chloride 20 mEq tablet extended release 20 meq PO BIDCM Referrals / Follow Up: Ray Ceron NETWORK SECURITY ARCHITECT, [employer]WORK SEC[employer]ITY ARCHITECT-C [Primary Care Provider] - Disposition Disposition (needs filled in before D/C Order can be placed): Acute Care [facility]
[2023-06-21 09:28] LABS: Pathologist Review Reviewed
[2023-06-21 09:29] LABS: Pathologist Review Reviewed
== END 2023-06-18 06:30 | disposition short-term general hospital (02) | DRG 194 ==
PROVIDERS: Admitting Provider Family Medicine Geriatric Medicine; PCP Nurse Practitioner Primary Care; Visit Provider Family Medicine Geriatric Medicine
DX: J18.9 Pneumonia, unspecified organism (principal); I47.20 Ventricular tachycardia, unspecified; L03.115 Cellulitis of right lower limb; I50.22 Chronic systolic (congestive) heart failure; D63.8 Anemia in other chronic diseases classified elsewhere; K22.2 Esophageal obstruction; I11.0 Hypertensive heart disease with heart failure; I48.91 Unspecified atrial fibrillation; G62.9 Polyneuropathy, unspecified; E87.6 Hypokalemia; I25.10 Atherosclerotic heart disease of native coronary artery without angina pectoris; E78.5 Hyperlipidemia, unspecified; K21.9 Gastro-esophageal reflux disease without esophagitis; E53.8 Deficiency of other specified B group vitamins; D50.9 Iron deficiency anemia, unspecified; K31.7 Polyp of stomach and duodenum; K25.9 Gastric ulcer, unspecified as acute or chronic, without hemorrhage or perforation; Z86.16 Personal history of COVID-19; Z79.82 Long term (current) use of aspirin; Z95.810 Presence of automatic (implantable) cardiac defibrillator; Z79.899 Other long term (current) drug therapy; R13.10 Dysphagia, unspecified; R09.02 Hypoxemia; T46.2X Poisoning by, adverse effect of and underdosing of other antidysrhythmic drugs
CPT/HCPCS: 36415; 71046; 74018; 80048; 80053; 80061; 81001; 82274; 85014; 85018; 85025; 86850; 86900; 86901; 86920; 86922; 87077; 87086; 87088; 87186; 92507; 92523; 92526; 92610; 93005; 97110; 97116; 97129; 97130; 97150; 97162; 97166; 97530; 97535; 97802; J7040; J7050; A4216

== ENCOUNTER 2023-05-27 10:50 | Day surgery (SDC) | payer MEDICARE, OTHER, SELFPAY ==
--- NOTE | 2023-05-27 10:55 | PCM.HP.BLA ---
History and Physical Date of Admission: 05/27/23 HPI Narrative Reason for Consultation: Esophageal dysphagia HPI Narrative: MAC HARVEY, is a 88 M who was recently admitted to TCU. He has a past medical history of cardiac arrhythmia and ischemic cardiomyopathy, atrial fibrillation status post Watchman procedure due to recurrent GI bleeding from anticoagulation who experienced multiple episodes of ventricular tachycardia. He was transferred for cardiac evaluation. He was placed on amnio drip and underwent ablation but it was thought to be unsuccessful. He while was being evaluated had multiple episodes of nausea and vomiting along with some esophageal dysphagia. A lot of history is obtained from the chart and the patient's son at the bedside. Yesterday he had another episode of nausea vomiting. He is mostly on liquid diet due to solid food dysphagia. I was consulted for esophageal dysphagia. [facility] Medical History Acute kidney injury Acute on chronic systolic congestive heart failure Anemia Atrial fibrillation Coronary artery disease COVID-19 Debility Elevated liver enzymes Hyperlipidemia Hypertension Hypothyroidism Right wrist pain Weakness Home Medications ascorbic acid (vitamin C) 500 mg tablet 500 mg PO BREAKFAST Supplement 30 days #30 tabs 02/11/22 [Rx Last Taken Unknown] atorvastatin 40 mg tablet 40 mg PO QHS Cholesterol 30 days #30 tabs 02/11/22 [Rx Last Taken Unknown] metoprolol succinate 25 mg tablet,extended release 24 hr 12.5 mg (1/2 x 25 mg) PO DAILY Blood pressure 30 days #15 tabs 02/11/22 [Rx Last Taken Unknown] potassium chloride 20 mEq tablet,extended release(part/cryst) (Klor-Con M) 20 meq PO BIDCM Supplement 30 days #60 tabs 02/11/22 [Rx Last Taken Unknown] bumetanide 2 mg tablet 2 mg PO DAILY Diuretic 09/14/22 [History Last Taken Unknown] losartan 25 mg tablet 12.5 mg PO DAILY Blood pressure 09/29/22 [History Last Taken Unknown] niacinamide 500 mg tablet 500 mg PO BID 10/12/22 [History Last Taken Unknown] polysaccharide iron complex 150 mg iron capsule 150 mg PO DAILY Supplement 10/12/22 [History Last Taken Unknown] aspirin 81 mg chewable tablet 1 tab PO DAILY Heart health 05/24/23 [History Last Taken Unknown] cyanocobalamin (vitamin B-12) 1,000 mcg capsule 1,000 mcg PO DAILY Supplement 05/24/23 [History Last Taken Unknown] guaifenesin 600 mg tablet, extended release 12 hr 600 mg PO BID PRN cough 05/24/23 [History Last Taken Unknown] mexiletine 200 mg capsule 200 mg PO Q8H Arrhythmia 05/24/23 [History Last Taken 05/24/23 06:45] Allergy/AdvReac Type Severity Reaction Status Date / Time apixaban [From Eliquis] AdvReac Unknown Bleeding Verified 01/25/23 14:02 Family History Father Alzheimer diseaseSister Alzheimer diseaseSister Breast cancerBrother CancerBrother Esophageal cancer Surgical History H/O rectal polypectomy History of implantable cardiac defibrillator (ICD) History of thoracotomy Hx of tonsillectomy S/P mitral valve clip implantation Status post Mohs surgery for squamous cell carcinoma of skin Social History household members: spouse number of children: 2 Smoking Status: Never smoker alcohol intake: never substance use type: does not use ROS Constitutional Constitutional: Reports weakness; Denies chills, fever(s) or weight gain ENT HEENT: Denies headache(s), nasal congestion or nasal discharge Cardiovascular Cardiovascular: Denies chest pain or palpitations Respiratory/Chest Respiratory/Chest: Denies cough, excessive phlegm production or shortness of breath with exertion Gastrointestinal Gastrointestinal: Denies abdominal pain, nausea or vomiting Genitourinary Genitourinary: Denies dysuria Musculoskeletal Musculoskeletal: Denies joint pain or joint swelling Integumentary Integumentary: Denies rash or wounds Neurologic Neurologic: Denies focal weakness, numbness or tingling Psychiatric Psychiatric: Denies anxiety, auditory hallucinations, depression, homicidal ideation or suicidal ideation Physical Exam Const alert General Appearance: cooperative HEENT normocephalic Eyes PERRL and EOMs intact bilaterally Neck supple, no JVD and no carotid bruits Resp normal respiratory effort, normal air movement and clear to auscultation bilaterally Cardio regular rate and regular rhythm GI normal to inspection, nondistended, normoactive bowel sounds, non-tender and non-distended Extremity normal capillary refill General Extremity: Negative for edema Skin no rashes or lesions noted General Skin Exam: no breakdown Neuro Neuro Narrative: Mild bilateral lower extremity weakness. Psych affect normal Appearance: appropriate Lab / Micro Data 05/25/23 06:58 05/25/23 06:58 Labs: Laboratory Results - last 24 hr 05/25/23 06:58: Triglycerides 66, Cholesterol 98, LDL Cholesterol 46, VLDL Cholesterol 13, HDL Cholesterol 39 L Assessment & Plan Assessment/Plan (1) Dysphagia: PLAN: Differential diagnosis for esophageal dysphagia does include esophageal dysmotility disorder such as achalasia, pseudo achalasia secondary to neoplasia, esophageal stricture secondary to hiatal hernia and refractory reflux disease. Also due to patient's age she is at risk for scleroderma and subsequently ineffective esophageal dysmotility disorder. His son and the patient agreed to undergo an upper endoscopy with possible dilation and possible Botox injection into the distal esophagus for laxation of the lower esophageal sphincter. They were explained alternatives, risk, benefits including not withstanding bleeding, infection, sepsis, perforation, need for emergent urgent . He will have an ASA of 3. I have examined the patient and the H&P has been reviewed. There are no clinical changes since date of exam.
[2023-05-27 11:04] VITALS: BP 103/68; PULSE 80; RESP 18; TEMP 36.4; O2SAT 100; BMI 19.3
[2023-05-27] MEDS: Lactated Ringers 1,000 ML 15 ML IV (11:27)
--- NOTE | 2023-05-27 12:00 | IMM_PTH ---
PATHOLOGY RESULTS PATIENT: MAC HARVEY LOC: EN U#:[id number] AGE/SX: 88/M ROOM: RE05/27/[address]: Dr. Neri Edwards DO : 1935 BED: DIS: 05/27/2023 SPEC #: [id number] RECD: 05/30/23 09:33 STATUS: SOLO REQ #: [id number] JULIAN: 05/27/23 12:[address]: Neri Edwards DEPT: IMMUNOHISTOCHEMISTRY RECD BY: Nathalia Smith ENTERED: 05/30/23 09:34 SP TYPE: IMMUNO OTHR DR: Ray Ceron, JOINT SETTER-C Tissues: Stomach, NOS Procedures: H Pylori (initial) PHYSICIAN & INSTITUTION [place] [id number] SPECIMEN INFORMATION: Tissue Source: A - Antrum polyp Clinical Info: Esophageal dysphagia Specimen Number: [id number] CPT code: 89858 METHODOLOGY: Deparaffinized sections of prefer/formalin-fixed tissue or PAP/DQ stained slides are incubated with monoclonal/polyclonal antibodies/oligonucleotide probes. Localization is made via biotin free immunoperoxidase method. Appropriate controls are performed and reacted as expected. Results on target cell population are indicated in the following table: RESULTS: ANTIBODY / CLONE RESULT Block A H Pylori (polyclonal) negative These tests were developed and their performance characteristics determined by [facility]. They may not have been cleared or approved by the [place]. Food and Drug Administration. The FDA has determined that such clearance or approval is not necessary. The above immunohistochemical/dualISH markers are ordered and reviewed by the Pathologist. INTERPRETATION: A. Antrum polyp, biopsy: Negative for Helicobacter pylori organisms. SJ:dulce 05/31/2023
--- NOTE | 2023-05-27 12:00 | EGD_PTH ---
PATHOLOGY RESULTS PATIENT: MAC HARVEY LOC: EN U#:[id number] AGE/SX: 88/M ROOM: RE05/27/[address]: Dr. Neri Edwards DO : 1935 BED: DIS: 05/27/2023 SPEC #: [id number] RECD: 05/30/23 08:07 STATUS: SOLO OLIVIA #: [id number] JULIAN: 05/27/23 12:[address]: Neri Edwards DEPT: SURGICAL PATHOLOGY RECD BY: Liza Bunch ENTERED: 05/30/23 08:08 SP TYPE: EGD BIOPSY OTHR DR: Ray Ceron, LIVESTOCK FARM MANAGER-C Tissues: Gastric mucous membrane Gastric mucous membrane Esophageal mucous membrane Procedures: Special Stain Group II Surgery Specimen Level IV Alcian Blue/PAS (control) HEADER OPERATION: EGD with biopsy and dilatation PRE-OP DIAGNOSIS: Esophageal dysphagia TISSUE SUBMITTED: A - Antrum polyp biopsy for H. pylori and path, B - Gastric ulcer biopsy, C - Distal esophagus biopsy MICROSCOPIC DIAGNOSIS A. Antrum polyp, biopsy: Fragments of gastric mucosa with acute and chronic inflammation and focal changes suggestive of hyperplastic/inflammatory polyp. See comment. B. Gastric ulcer, biopsy: Fragments of gastric mucosa with moderate chronic inflammation and reactive changes. C. Distal esophagus, biopsy: A fragment of gastric mucosa with chronic inflammation. Intestinal metaplasia (goblet cell metaplasia) not identified. See comment. SJ:rg 05/31/2023 COMMENT A. The results of immunohistochemistry for Helicobacter pylori will be reported separately ([id number]). C. Alcian blue/PAS stain with matched control is used in the evaluation of the specimen. MICROSCOPIC DESCRIPTION Slides are reviewed. GROSS DESCRIPTION A - Received in fixative is one container labeled with the patient's name and designated antrum polyp biopsy. The specimen consists of two irregular fragments of light galvan soft tissue that in aggregate measure 0.8 x 0.2 x 0.1 cm. The specimen is totally submitted in one cassette. B - Received in fixative is one container labeled with the patient's name and designated gastric ulcer biopsy. The specimen consists of multiple irregular fragments of light galvan soft tissue that in aggregate measure 0.8 x 0.4 x 0.1 cm. The specimen is totally submitted in one cassette. C - Received in fixative is one container labeled with the patient's name and designated distal esophagus biopsy. The specimen consists of one irregular fragment of light galvan soft tissue that measures 0.3 x 0.2 x 0.1 cm. The specimen is totally submitted in one cassette. / VAN:dulce 05/30/2023 TC:3 CPT: 95605 x3, 22763
[2023-05-27 12:22] VITALS: BP 103/68; BP 105/69; PULSE 80; RESP 17; TEMP 36.6; O2SAT 100
[2023-05-27 12:25] VITALS: BP 103/68; BP 104/65; PULSE 80; RESP 17; O2SAT 100
--- NOTE | 2023-05-27 12:25 | OP.EGD_ITS ---
Patient Name: Ty Bosch Procedure Date: 05/27/2023 11:55 AM Date of : 1935 Age: 88 Procedure: Upper GI endoscopy Indications: Dysphagia Providers: Neri Edwards DO Medicines: Monitored Anesthesia Care Patient Profile: This is an 88 year old male. Refer to note in patient chart for documentation of history and physical. Patient has symptoms of dysphagia with both liquids and solids. Complications: No immediate complications. Procedure: Pre-Anesthesia Assessment: - Prior to the procedure, a History and Physical was performed, and patient medications and allergies were reviewed. The patient is competent. The risks and benefits of the procedure and the sedation options and risks were discussed with the patient. All questions were answered and informed consent was obtained. Patient identification and proposed procedure were verified by the physician in the pre-procedure area. Mental Status Examination: alert and oriented. Airway Examination: normal oropharyngeal airway and neck mobility. Respiratory Examination: clear to auscultation. CV Examination: normal. Prophylactic Antibiotics: The patient does not require prophylactic antibiotics. Prior Anticoagulants: The patient has taken no anticoagulant or antiplatelet agents. ASA Grade Assessment: III - A patient with severe systemic disease. After reviewing the risks and benefits, the patient was deemed in satisfactory condition to undergo the procedure. The anesthesia plan was to use monitored anesthesia care (MAC). Immediately prior to administration of medications, the patient was re-assessed for adequacy to receive sedatives. The heart rate, respiratory rate, oxygen saturations, blood pressure, adequacy of pulmonary ventilation, and response to care were monitored throughout the procedure. The physical status of the patient was re-assessed after the procedure. After obtaining informed consent, the endoscope was passed under direct vision. Throughout the procedure, the patient's blood pressure, pulse, and oxygen saturations were monitored continuously. The gastroscope was introduced through the mouth, and advanced to the second part of duodenum. The upper GI endoscopy was accomplished without difficulty. The patient tolerated the procedure well. Scope In: 12:08:33 PM Scope Out: 12:17:22 PM Total Procedure Duration Time 0 hours 8 minutes 49 seconds Findings: One benign-appearing, intrinsic moderate stenosis was found 19 to 23 cm from the incisors. This stenosis measured 3 mm (inner diameter) x 3 cm (in length). The stenosis was traversed. A guidewire was placed and the scope was withdrawn. Dilation was performed with a Savary dilator with no resistance at 60 Fr. The dilation site was examined following endoscope reinsertion and showed moderate improvement in luminal narrowing. Estimated blood loss was minimal. The Z-line was irregular and was found 39 cm from the incisors. Biopsies were taken with a cold forceps for histology. Verification of patient identification for the specimen was done. Estimated blood loss was minimal. Two non-bleeding linear gastric ulcers with no stigmata of bleeding were found in the gastric body. The largest lesion was 6 mm in largest dimension. Biopsies were taken with a cold forceps for histology. Verification of patient identification for the specimen was done. Biopsies were taken with a cold forceps for Helicobacter pylori testing. Verification of patient identification for the specimen was done. Estimated blood loss was minimal. A single 5 mm sessile polyp with no stigmata of recent bleeding was found in the gastric antrum. The polyp was removed with a cold snare. Resection and retrieval were complete. No gross lesions were noted in the first portion of the duodenum. Impression: - Benign-appearing esophageal stenosis. Dilated. - Z-line irregular, 39 cm from the incisors. Biopsied. - Non-bleeding gastric ulcers with no stigmata of bleeding. Biopsied. - A single gastric polyp. Resected and retrieved. - No gross lesions in the first portion of the duodenum. Recommendation: - Await pathology results. - Use Protonix (pantoprazole) 40 mg PO BID for 12 weeks. - Continue present medications. Procedure Code(s): --- Professional --- 41349, Esophagogastroduodenoscopy, flexible, transoral; with removal of tumor(s), polyp(s), or other lesion(s) by snare technique 14151, Esophagogastroduodenoscopy, flexible, transoral; with insertion of guide wire followed by passage of dilator(s) through esophagus over guide wire 42488, 59,51, Esophagogastroduodenoscopy, flexible, transoral; with biopsy, single or multiple CPT copyright 2021 [employer]. All rights reserved. The codes documented in this report are preliminary and upon endless steamer tender review may be revised to meet current compliance requirements. Neri Edwards DO 05/27/2023 12:25:18 PM This report has been signed electronically. Number of Addenda: 0 Note Initiated On: 05/27/2023 11:55 AM
--- NOTE | 2023-05-27 12:26 | OP.CCLET_ITS ---
05/27/2023 Abdi Yun Re : Upper GI endoscopy procedure for Ty Bosch Dear Osmany This procedure was performed on Saturday, May 27, 2023. My impressions and recommendations are as follows: Impressions : - Benign-appearing esophageal stenosis. Dilated. - Z-line irregular, 39 cm from the incisors. Biopsied. - Non-bleeding gastric ulcers with no stigmata of bleeding. Biopsied. - A single gastric polyp. Resected and retrieved. - No gross lesions in the first portion of the duodenum. Recommendations : - Await pathology results. - Use Protonix (pantoprazole) 40 mg PO BID for 12 weeks. - Continue present medications. My findings are described in the full procedure note, which is enclosed. If I can be of further assistance, please feel free to contact me at . Sincerely, Neri Edwards, 05/27/2023 12:25:18 PM This report has been signed electronically.
[2023-05-27 12:30] VITALS: BP 103/68; BP 104/65; PULSE 80; RESP 16; O2SAT 100
[2023-05-27 12:35] VITALS: BP 102/73; BP 103/68; PULSE 80; RESP 16; TEMP 36.6; O2SAT 100
== END 2023-05-27 12:50 | disposition home or self-care (01) ==
LOC: EN 10:51 → AC 10:51
PROVIDERS: PCP Nurse Practitioner Primary Care; Referring Provider Nurse Practitioner Primary Care; Visit Provider Internal Medicine Gastroenterology
PROC: 0DJ08ZZ Inspection of Upper Intestinal Tract, Via Natural or Artificial Opening Endoscopic (ICD-10-PCS; CPT 43235; principal; 2023-05-27 11:55)
DX: R13.10 Dysphagia, unspecified (principal); I47.20 Ventricular tachycardia, unspecified; Z80.0 Family history of malignant neoplasm of digestive organs; Z79.82 Long term (current) use of aspirin; I25.5 Ischemic cardiomyopathy; E78.5 Hyperlipidemia, unspecified; I25.10 Atherosclerotic heart disease of native coronary artery without angina pectoris; K22.2 Esophageal obstruction; I10 Essential (primary) hypertension; K25.9 Gastric ulcer, unspecified as acute or chronic, without hemorrhage or perforation; Z79.01 Long term (current) use of anticoagulants; K31.7 Polyp of stomach and duodenum; Z86.16 Personal history of COVID-19; E03.9 Hypothyroidism, unspecified
CPT/HCPCS: 43239; 43251; 43248; 88305; 88313; 88342; J7120; C1769; J2405

== ENCOUNTER 2023-05-31 08:16 | Outpatient (CLI) | payer MEDICARE, OTHER, SELFPAY ==
[2023-05-31 08:25] VITALS: BP 111/63; PULSE 81; RESP 16; TEMP 36; O2SAT 100
[2023-05-31 08:56] VITALS: BP 102/63; PULSE 80; RESP 16; TEMP 36.4; O2SAT 96
[2023-05-31 09:56] VITALS: BP 105/66; PULSE 81; RESP 16; TEMP 35.9
[2023-05-31 10:56] VITALS: BP 107/63; PULSE 80; RESP 16; TEMP 35.9; O2SAT 96
[2023-05-31] MEDS: Furosemide 20 MG/2 ML VIAL IV (11:09)
[2023-05-31 11:40] VITALS: BP 101/62; PULSE 80; RESP 16; TEMP 36.4; O2SAT 99
[2023-05-31 12:38] VITALS: BP 102/70; BP 104/63; PULSE 80; RESP 16; TEMP 36.6; O2SAT 95; O2SAT 97
== END 2023-05-31 08:17 | disposition home or self-care (01) ==
PROVIDERS: PCP Nurse Practitioner Primary Care; Referring Provider Family Medicine Geriatric Medicine; Visit Provider Family Medicine Geriatric Medicine
DX: D50.9 Iron deficiency anemia, unspecified (principal)
CPT/HCPCS: 36415; 36430; 86850; 86900; 86901; 86920; 86922; J7040; P9016; A4216; J1940

== ENCOUNTER 2023-06-18 06:57 | Inpatient (IN) | payer MEDICARE, OTHER, SELFPAY ==
[2023-06-18] VITALS (11 sets, daily range): BP systolic 86–97; BP diastolic 57–86; PULSE 79–81; RESP 15–20; TEMP 36.3–36.8; O2SAT 94–100; BMI 20.7; BMI 18.4
--- NOTE | 2023-06-18 07:17 | EKG12_ITS ---
Test Reason : HYPOTENSION Blood Pressure : / mmHG Vent. Rate : 080 BPM Atrial Rate : 072 BPM P-R Int : 000 ms QRS Dur : 188 ms QT Int : 494 ms P-R-T Axes : 000 034 219 degrees QTc Int : 569 ms Ventricular-paced rhythm Abnormal ECG Confirmed by Felice Ga ([id number]), rewrite editor THOMAS BRYANT ([id number]) on 06/21/2023 8:59:06 AM Referred By: Confirmed By:Felice Ga
--- NOTE | 2023-06-18 07:18 | EX.ED.DYSGE1 ---
HPI History of Present Illness Chief Complaint: Hypotension Narrative Narrative: 88-year-old male presenting from TCU for pneumonia and low blood pressures. Is a poor informant. He is unable to give much history. He is unsure how long he has been at the TCU. He is currently only answering questions with head nods for yes and shaking his head no. Patient states he does not feel ill. Patient does not believe he had a cough. Patient denies any pain. PFSH [facility] Medical History Acute kidney injury Acute on chronic systolic congestive heart failure Anemia Atrial fibrillation Coronary artery disease COVID-19 Debility Elevated liver enzymes Hyperlipidemia Hypertension Hypothyroidism Right wrist pain Weakness Home Medications ascorbic acid (vitamin C) 500 mg tablet 500 mg PO BREAKFAST Supplement 30 days #30 tabs 02/11/22 [Rx Last Taken 05/26/23] atorvastatin 40 mg tablet 40 mg PO QHS Cholesterol 30 days #30 tabs 02/11/22 [Rx Last Taken 05/26/23] metoprolol succinate 25 mg tablet,extended release 24 hr 12.5 mg (1/2 x 25 mg) PO DAILY Blood pressure 30 days #15 tabs 02/11/22 [Rx Last Taken 05/26/23] potassium chloride 20 mEq tablet,extended release(part/cryst) (Klor-Con M) 20 meq PO BIDCM Supplement 30 days #60 tabs 02/11/22 [Rx Last Taken 05/26/23] bumetanide 2 mg tablet 0.5 mg PO DAILY Diuretic 09/14/22 [History Last Taken 05/26/23] losartan 25 mg tablet 12.5 mg PO DAILY Blood pressure 09/29/22 [History Last Taken 05/26/23] niacinamide 500 mg tablet 500 mg PO BID 10/12/22 [History Last Taken Unknown] polysaccharide iron complex 150 mg iron capsule 150 mg PO DAILY Supplement 10/12/22 [History Last Taken 05/26/23] aspirin 81 mg chewable tablet 1 tab PO DAILY Heart health 05/24/23 [History Last Taken 05/26/23] cyanocobalamin (vitamin B-12) 1,000 mcg capsule 1,000 mcg PO DAILY Supplement 05/24/23 [History Last Taken 05/26/23] guaifenesin 600 mg tablet, extended release 12 hr 600 mg PO BID PRN cough 05/24/23 [History Last Taken Unknown] mexiletine 200 mg capsule 200 mg PO Q8H Arrhythmia 05/24/23 [History Last Taken 05/26/23] sucralfate 1 gram tablet (Carafate) 1 g PO BID 05/27/23 [History Last Taken 05/26/23] potassium chloride 20 mEq tablet,extended release 20 meq PO BIDCM 06/18/23 [History Last Taken Unknown] Allergy/AdvReac Type Severity Reaction Status Date / Time apixaban [From Eliquis] AdvReac Unknown Bleeding Verified 01/25/23 14:02 Family History Father Alzheimer disease Sister Alzheimer disease Sister Breast cancer Brother Cancer Brother Esophageal cancer Surgical History H/O rectal polypectomy History of implantable cardiac defibrillator (ICD) History of thoracotomy Hx of tonsillectomy S/P mitral valve clip implantation Status post Mohs surgery for squamous cell carcinoma of skin Social History household members: spouse number of children: 2 Smoking Status: Never smoker alcohol intake: never substance use type: does not use ROS ROS ED Review of Systems ROS Unobtainable: due to mental condition and due to mental status EXAM Physical Exam Const Vital Signs: 06/18/23 06:58 06/18/23 07:03 06/18/23 07:30 Temperature 98.0 F 98.3 F Temperature Source Temporal Temporal Pulse Rate 80 80 Respiratory Rate 18 20 H Respiratory Effort Normal Respiratory Pattern Normal Blood Pressure 88/64 L 97/64 Blood Pressure Mean 72 75 Pulse Ox 100 99 Oxygen Delivery Method Nasal Cannula Oxygen Flow Rate (L/min) 2 06/18/23 08:02 06/18/23 08:02 06/18/23 08:52 Temperature 98.2 F 98.2 F 98.1 F Temperature Source Temporal Oral Oral Pulse Rate 80 80 80 Respiratory Rate 17 19 H 20 H Respiratory Effort Respiratory Pattern Blood Pressure 89/65 L 89/65 L 94/86 H Blood Pressure Mean 73 73 88 Pulse Ox 96 100 98 Oxygen Delivery Method Nasal Cannula Nasal Cannula Oxygen Flow Rate (L/min) 3 2 03/23/24 09:10 Temperature 98.1 F Temperature Source Temporal Pulse Rate 80 Respiratory Rate 18 Respiratory Effort Respiratory Pattern Blood Pressure 90/57 L Blood Pressure Mean 68 Pulse Ox 99 Oxygen Delivery Method Nasal Cannula Oxygen Flow Rate (L/min) 2 Positive well nourished General Appearance ED: Negative for pallor HEENT Reports dry mucous membranes Negative for trauma Mouth ED: Yes dry mucous membranes Mouth: dry mucous membranes Eyes PERRL and EOMs intact bilaterally Neck no lymphadenopathy Resp normal respiratory effort Cardio regular rate and regular rhythm GI normal to inspection, nondistended, normoactive bowel sounds Extremity General Extremety ED: Yes edema General Extremity: edema Neuro Sensorium / Orientation: alert Motor Exam: general weakness Skin General Skin Exam: Negative for jaundice or pallor MDM MDM MDM Narrative Medical decision making narrative: Patient presenting with weakness and blood pressure of 88/64. Review of the medical record shows that his blood pressure is typically in the 90s to 100. At the TCU. Apparently patient was diagnosed with pneumonia and started on Zosyn yesterday. Blood work yesterday shows increased creatinine as well as leukocytosis at 13.9. I was able to log into [employer], and I was able to find pertinent medical records available for review to compare to the patient's current lab/imaging/workup.Patient apparently has an EF of 15 to 20%. Apparently the patient had had some nonsustained V. tach while in the hospital and on the seventh cardiology saw him and stated that he was a candidate for palliative care as his heart may be end-stage. CBC will be obtained to assess white blood cell count, hemoglobin, platelets. CMP to assess liver function and renal function, electrolytes, glucose. High-sensitivity troponin and EKG to assess for ischemia/arrhythmia. BNP to assess for CHF. Chest pain rule out pneumonia or CHF. Patient given 500 cc bolus given his slightly low blood pressure. I did not want to give him more due to his EF. CBC shows white blood cell count of 10.1 which is lower than yesterday. Hemoglobin 8.3 which is near baseline. Patient has a creatinine which is elevated today at 1.62 and again he was given 500 cc of normal saline. LFTs are unremarkable. High-sensitivity troponin is 45. EKG on my interpretation and shows a ventricular paced rhythm at 80 bpm without sign of ischemic change or ectopy. Chest x-ray my interpretation shows no significant interval change from yesterday consistent with bibasilar pneumonia. Patient's blood pressure is near baseline. It is 90/57. Discussed with patient's daughter who agrees this is near baseline. Also discussed at length the patient's CODE STATUS with his son. Impression: 1. Pneumonia 2. Dehydration 3. DUSTIN Lab Data Attestation: I reviewed the patient's lab results. Labs: Laboratory Results - last 24 hr 06/18/23 08:04 WBC 10.1 RBC 2.74 L Hgb 8.3 L Hct 26.8 L MCV 97.8 H MCH 30.3 MCHC 31.0 L RDW Std Deviation 83.1 H RDW Coeff of Charly 23.9 H Plt Count 130 L Immature Gran % (Auto) [employer] Neut % (Auto) [employer] Lymph % (Auto) P[employer]CTION [employer]OLD [employer] [place] % (Auto) P[employer]CTION [employer]ER Eos % (Auto) [employer] Baso % (Auto) [employer] Absolute Neuts (auto) 8.3 H Absolute Lymphs (auto) 1.11 Total Counted 100 Neutrophils % (Manual) 82 H Lymphocytes % (Manual) 11 L Monocytes % (Manual) 4 Myelocytes % 3 H Nucleated RBC % [employer] Nucleated RBCs/100 WBC 2 [address] Review May foll Hypochromasia 1+ Anisocytosis 2+ Microcytosis 1+ Macrocytosis 1+ Target Cells 1+ Sodium 137 Potassium 4.4 Chloride 107 Carbon Dioxide 23.0 Anion Gap 7 BUN 25 H Creatinine 1.62 H Estim Creat Clear Calc 28.04 Est GFR (MDRD) Af Amer 52 L Est GFR (MDRD) Non-Af 43 L BUN/Creatinine Ratio 15.4 Glucose 107 H Calcium 8.1 L Total Bilirubin 1.10 H AST 61 H ALT 30 Alkaline Phosphatase 76 Troponin I High Sens 45 Total Protein 6.0 L Albumin 2.5 L Globulin 3.5 Albumin/Globulin Ratio 0.7 L Radiography Diagnostic Testing: Clinical Impression(s) from Imaging Studies Chest X-Ray 06/18/23 08:19 IMPRESSION: Overall, no significant change since previous exam. Electronically Signed: Tarik Gordon MD at 8:56 EDT , Discharge Plan Triage Chief Complaint: Hypotension ED Provider: Anjum Skelton Dx/Rx/DC Orders Prescriptions: No Action bumetanide 2 mg tablet 0.5 mg PO DAILY losartan 25 mg tablet 12.5 mg PO DAILY niacinamide 500 mg tablet 500 mg PO BID Hold Instructions: not on mar in tcu polysaccharide iron complex 150 mg iron capsule 150 mg PO DAILY atorvastatin 40 mg Tablet 40 mg PO QHS 30 Days Qty: 30 0RF potassium chloride [Klor-Con M20] 20 mEq Tablet,Er Particles/Crystals 20 meq PO BIDCM 30 Days Qty: 60 0RF ascorbic acid (vitamin C) 500 mg Tablet 500 mg PO BREAKFAST 30 Days Qty: 30 0RF metoprolol succinate 25 mg Tablet Extended Release 24 Hr 12.5 mg PO DAILY 30 Days Qty: 15 0RF aspirin 81 mg tablet,chewable 1 tab PO DAILY Patient Comments: TAKE 1 TABLET BYCHEWED EVERY DAY cyanocobalamin (vitamin B-12) 1,000 mcg capsule 1,000 mcg PO DAILY guaifenesin 600 mg tablet extended release 12hr 600 mg PO BID PRN (Reason: cough) Hold Instructions: not on MAR in Tcu mexiletine 200 mg capsule 200 mg PO Q8H sucralfate [Carafate] 1 gram tablet 1 g PO BID potassium chloride 20 mEq tablet extended release 20 meq PO BIDCM Primary Care Provider: Ray Ceron NP Referrals: Ray Ceron NP, [employer]-C [Primary Care Provider] -
[2023-06-18 08:14] LABS: Hematocrit 26.8 % (40-54); Hemoglobin 8.3 g/dL (13.0-16.5); Mean Corpuscular Hgb 30.3 pg (27.0-32.0); Mean Corpuscular Volume 97.8 fL (80-94); POSITIVE COUNT YES; POSITIVE MORPHOLOGY YES; Platelet Count 130 K/mm3 (150-450); RBC Distribution Width CV 23.9 % (11.6-14.6); RBC Distribution Width SD 83.1 fl (35.1-43.9); Red Blood Count 2.74 M/mm3 (4.6-6.2); White Blood Count 10.1 K/mm3 (4.4-11.0)
--- NOTE | 2023-06-18 08:19 | RAD_ITS ---
INDICATION: weakness EXAMINATION/TECHNIQUE: X-RAY - XR Chest 1 View COMPARISON: Prior study dated: 06/17/2023 FINDINGS: LINES/DEVICES: Left-sided cardiac pacer device in stable position. LUNGS: Pulmonary venous congestion and left retrocardiac infiltrate/atelectasis unchanged. Small bilateral pleural effusions. MEDIASTINUM AND CARDIOVASCULAR STRUCTURES: Stable cardiomediastinal silhouette. BONES AND SOFT TISSUES: No demonstrated acute osseous changes. RAD/Chest 1 View (Portable) IMPRESSION: Overall, no significant change since previous exam. Electronically Signed: Tarik Gordon MD at 8:56 EDT ,
[2023-06-18 08:39] LABS: ALB/GLOB Ratio 0.7 RATIO (0.9-2.4); AST(SGOT) 61 U/L (15-37); Alanine Aminotransfer ALT/SGPT 30 U/L (16-61); Albumin, Serum 2.5 g/dL (3.2-5.0); Alkaline Phosphatase 76 U/L (45-117); Anion Gap 7 (5-15); BUN 25 mg/dL (7-18); BUN/Creat Ratio 15.4 RATIO (10-20); Calcium,Total 8.1 mg/dL (8.5-10.1); Chloride 107 mmol/L (98-107); Creatinine, Serum 1.62 mg/dL (0.70-1.30); EST Glomerular Filtration Rate 43 mL/min (>60); Est Glom Filt Rate - Afr Amer 52 mL/min (>60); Estimated Creatinine Clearance 28.04 ml/min; Globulin 3.5 g/dL (2.2-4.2); Glucose 107 mg/dL (74-106); Potassium 4.4 mmol/L (3.5-5.1); Sodium Level 137 mmol/L (136-145); Troponin-I HS 45 pg/mL (3.0-78.0)
[2023-06-18] MEDS: 0.9% Normal Saline (500mL Bag) 500 ML 1000 ML IV (08:49)
[2023-06-18 08:57] LABS: Anisocytosis 2+; Hypochromasia 1+; Lymphocyte 11 % (19-41); Macrocytosis 1+; Microcytosis 1+; Monocyte 4 % (0-10); Myelocyte 3 % (0-0); Neutrophil-Segmented 82 % (47-70); Nucleated Red Bld Cells,Manual 2 % (0-5); Target Cells 1+; Total Cells Counted 100 (MANUAL DIFF)
[2023-06-18 08:58] LABS: Differential Indicated MANUAL DIFF
[2023-06-18 08:59] LABS: Absolute Lymphocyte Count 1.11 X10^3/uL (0.83-4.51); Absolute Neutrophil Count 8.3 X10^3/uL (2.0-7.7)
[2023-06-18] MEDS: Vancomycin HCl 1,500 MG in 0.9% Normal Saline (500mL Bag) 500 ML 250 MG IV (11:07)
--- NOTE | 2023-06-18 13:10 | HP.PCM.HOS_ITS ---
HPI - General General Date of Admission: 06/18/23 HPI Narrative MAC HARVEY, is a 88 M who presents to the hospital from transitional care unit secondary to pneumonia and low blood pressures. Unclear as to the significance of his low blood pressures as his baseline systolics are 90-100 and his maps have been in the mid to upper 60s so I do not think that he is genuinely hypotensive however he did present to the ER with an DUSTIN. Yesterday in the transitional care unit he was diagnosed with pneumonia based on chest x- ray and symptoms and was started on antibiotics. In the ER he was found to have a creatinine of 1.62 with a left-sided infiltrate on the x-ray seen yesterday and then it has remained similar and unchanged today. White count on admission is improved to 10.1 but it was 13.9 yesterday afternoon. He does feel little bit short of breath but denies any productive cough. Will obtain a COVID, flu, RSV PCR given his extended stay at an outside hospital as well as his placement in a SNF. [facility] Medical History (Updated 06/18/23 @ 13:[address] Klaus Momin MD) Acute kidney injury Acute on chronic systolic congestive heart failure Anemia Atrial fibrillation Cancer Coronary artery disease COVID-19 Debility Elevated liver enzymes Hyperlipidemia Hypertension Hypothyroidism Myocardial infarct Pacemaker Right wrist pain Weakness Home Medications ascorbic acid (vitamin C) 500 mg tablet 500 mg PO BREAKFAST Supplement 30 days #30 tabs 02/11/22 [Rx Last Taken 05/26/23] atorvastatin 40 mg tablet 40 mg PO QHS Cholesterol 30 days #30 tabs 02/11/22 [Rx Last Taken 05/26/23] metoprolol succinate 25 mg tablet,extended release 24 hr 12.5 mg (1/2 x 25 mg) PO DAILY Blood pressure 30 days #15 tabs 02/11/22 [Rx Last Taken 05/26/23] potassium chloride 20 mEq tablet,extended release(part/cryst) (Klor-Con M) 20 meq PO BIDCM Supplement 30 days #60 tabs 02/11/22 [Rx Last Taken 05/26/23] bumetanide 2 mg tablet 0.5 mg PO DAILY Diuretic 09/14/22 [History Last Taken 05/26/23] losartan 25 mg tablet 12.5 mg PO DAILY Blood pressure 09/29/22 [History Last Taken 05/26/23] niacinamide 500 mg tablet 500 mg PO BID 10/12/22 [History Last Taken Unknown] polysaccharide iron complex 150 mg iron capsule 150 mg PO DAILY Supplement 10/12/22 [History Last Taken 05/26/23] aspirin 81 mg chewable tablet 1 tab PO DAILY Heart health 05/24/23 [History Last Taken 05/26/23] cyanocobalamin (vitamin B-12) 1,000 mcg capsule 1,000 mcg PO DAILY Supplement 05/24/23 [History Last Taken 05/26/23] guaifenesin 600 mg tablet, extended release 12 hr 600 mg PO BID PRN cough 05/24/23 [History Last Taken Unknown] mexiletine 200 mg capsule 200 mg PO Q8H Arrhythmia 05/24/23 [History Last Taken 05/26/23] sucralfate 1 gram tablet (Carafate) 1 g PO BID 05/27/23 [History Last Taken 05/26/23] potassium chloride 20 mEq tablet,extended release 20 meq PO BIDCM 06/18/23 [History Last Taken Unknown] Allergy/AdvReac Type Severity Reaction Status Date / Time apixaban [From Eliquis] AdvReac Unknown Bleeding Verified 01/25/23 14:02 Family History Father Alzheimer disease Sister Alzheimer disease Sister Breast cancer Brother Cancer Brother Esophageal cancer Surgical History (Updated 06/18/23 @ 12:26 by Anita Nicolas) H/O rectal polypectomy History of appendectomy History of implantable cardiac defibrillator (ICD) History of thoracotomy Hx of tonsillectomy S/P mitral valve clip implantation Status post Mohs surgery for squamous cell carcinoma of skin Social History household members: spouse number of children: 2 Smoking Status: Never smoker alcohol intake: never substance use type: does not use ROS Constitutional Constitutional: Denies chills, fatigue, fever(s) or malaise Eyes Eyes: Denies blurry vision ENT HEENT: Denies headache(s) or nasal discharge Cardiovascular Cardiovascular: Denies chest pain, dyspnea on exertion or syncope Respiratory/Chest Respiratory/Chest: Reports cough and shortness of breath at rest; Denies shortness of breath with exertion Gastrointestinal Gastrointestinal: Denies constipation, diarrhea, nausea or vomiting Genitourinary Genitourinary: Denies dysuria Neurologic Neurologic: Denies focal weakness, numbness or tremor(s) Psychiatric Psychiatric: Denies anxiety or depression Vital Signs Vital Signs Vital Signs: 06/18/23 06:58 06/18/23 07:03 06/18/23 07:30 Temperature 98.0 F 98.3 F Temperature Source Temporal Temporal Pulse Rate 80 80 Respiratory Rate 18 20 H Respiratory Effort Normal Respiratory Pattern Normal Blood Pressure 88/64 L 97/64 Blood Pressure Mean 72 75 Pulse Ox 100 99 Oxygen Delivery Method Nasal Cannula Oxygen Flow Rate (L/min) 2 06/18/23 08:02 06/18/23 08:02 06/18/23 08:52 Temperature 98.2 F 98.2 F 98.1 F Temperature Source Temporal Oral Oral Pulse Rate 80 80 80 Respiratory Rate 17 19 H 20 H Respiratory Effort Respiratory Pattern Blood Pressure 89/65 L 89/65 L 94/86 H Blood Pressure Mean 73 73 88 Pulse Ox 96 100 98 Oxygen Delivery Method Nasal Cannula Nasal Cannula Oxygen Flow Rate (L/min) 3 2 06/18/23 09:10 06/18/23 10:00 06/18/23 10:00 Temperature 98.1 F 98.2 F 98.2 F Temperature Source Temporal Oral Oral Pulse Rate 80 80 80 Respiratory Rate 18 17 15 Respiratory Effort Respiratory Pattern Blood Pressure 90/57 L 94/66 94/66 Blood Pressure Mean 68 75 75 Pulse Ox 99 100 100 Oxygen Delivery Method Nasal Cannula Nasal Cannula Nasal Cannula Oxygen Flow Rate (L/min) 2 2 2 06/18/23 11:00 06/18/23 11:48 Temperature 98.1 F 98.2 F Temperature Source Oral Pulse Rate 80 80 Respiratory Rate 17 18 Respiratory Effort Respiratory Pattern Blood Pressure 90/64 86/58 L Blood Pressure Mean 72 67 Pulse Ox 100 100 Oxygen Delivery Method Nasal Cannula Oxygen Flow Rate (L/min) 2 Weight Weight: 136 lb 0.403 oz Body Mass Index (BMI) 20.7 Physical Exam Narrative General: Alert, Oriented x3, Cooperative, No apparent distress HEENT: Atraumatic, PERRLA, EOMI, Normocephalic Oral: Moist Mucosa Neck: Supple, No JVD Lungs: Diminished, Normal air movement, No rhonchi, No wheeze, No rales Cardiovascular: Regular rate, Regular Rhythm, Normal S1, Normal S2, No murmurs Abdomen: Soft, Non Tender, Non-Distended, No Hepato-splenomegaly Extremities: No edema, Capillary Refill Less than 3 Seconds Skin: No rashes, No breakdown Musculoskeletal: No Tenderness to Palpation of Joints or Extremities Neurological: No focal neurological deficits, Motor Exam 5/5 strength throughout, Sensory exam intact to light touch and pain Psych/Mental Status: Flat Results Lab / Micro Data 06/18/23 08:04 06/18/23 08:04 Labs: Laboratory Results - last 24 hr 06/18/23 08:04: WBC 10.1, RBC 2.74 L, Hgb 8.3 L, Hct 26.8 L, MCV 97.8 H, MCH 30.3, MCHC 31.0 L, RDW Std Deviation 83.1 H, RDW Coeff of Charly 23.9 H, Plt Count 130 L, Immature Gran % (Auto) [employer]ER, Neut % (Auto) [employer], Lymph % (Auto) [employer], [place] % (Auto) [employer]ER, Eos % (Auto) [employer]ER, Baso % (Auto) [employer]ER, Absolute Neuts (auto) 8.3 H, Absolute Lymphs (auto) 1.11, Total Counted 100, Neutrophils % (Manual) 82 H, Lymphocytes % (Manual) 11 L, Monocytes % (Manual) 4, Myelocytes % 3 H, Nucleated RBC % MAR[employer]ER, Nucleated RBCs/100 WBC 2, Diff Path Review May foll, Hypochromasia 1+, Anisocytosis 2+, Microcytosis 1+, Macrocytosis 1+, Target Cells 1+, Sodium 137, Potassium 4.4, Chloride 107, Carbon Dioxide 23.0, Anion Gap 7, BUN 25 H, Creatinine 1.62 H, Estim Creat Clear Calc 28.04, Est GFR (MDRD) Af Amer 52 L, Est GFR (MDRD) Non-Af 43 L, BUN/Creatinine Ratio 15.4, Glucose 107 H, Calcium 8. 1 L, Total Bilirubin 1.10 H, AST 61 H, ALT 30, Alkaline Phosphatase 76, Troponin I High Sens 45, Total Protein 6.0 L, Albumin 2.5 L, Globulin 3.5, Albumin/Globulin Ratio 0.7 L Imaging Radiology Impression Chest X-Ray 06/18/23 08:19 IMPRESSION: Overall, no significant change since previous exam. Electronically Signed: Tarik Gordon MD at 8:56 EDT , Assessment & Plan Assessment/Plan (1) Pneumonia: PLAN: Plan 1. Pneumonia with DUSTIN ? She does have a left-sided left-sided retrocardiac infiltrate ? Continue with Zosyn and vancomycin given his recent stay both in the hospital and currently at SNF ? MRSA screen is pending ? COVID, flu, RSV is pending ? Sputum cultures are pending ? Continue with gentle IV fluids at 75 cc/h for 1 bag 2. Chronic systolic CHF/A-fib/essential HTN/HLD/status post pacemaker placement ? Given his DUSTIN we will hold his losartan and Bumex ? Continue with his metoprolol, mexiletine, niacinamide and Lipitor ? Continue with aspirin 3. Chronic iron deficiency anemia ? Hemoglobin is little bit low at 8.3, will continue to monitor ? Continue with his iron supplement 4. GERD ? Stable ? Continue with Carafate DVT: SCDs 75 minutes was spent on direct patient care, including documentation as well as chart review and collaboration with colleagues Charges/Coding Visit Charges Inpatient E&M: 72789 Init Hosp L3
--- NOTE | 2023-06-18 13:48 | PCM.RX.CS ---
Consult Antibiotic Management Pharmacy has been consulted to manage selected antibiotic: Vancomycin Type of Intervention Type of Consult: New start Suspected Infection Suspected Infection: Pneumonia Prior Doses of Antibiotics Prior Doses of Antibiotics Received/Current Regimen: received vanc 1500mg (25mg/kg) IV x1 in E.R. starting at 11:07 today Labs Labs: Sodium 137 mmol/L (136-145) 06/18/23 08:04 Potassium 4.4 mmol/L (3.5-5.1) 06/18/23 08:04 Chloride 107 mmol/L (98-107) 06/18/23 08:04 Carbon Dioxide 23.0 mmol/L (21.0-32.0) 06/18/23 08:04 Anion Gap 7 (5-15) 06/18/23 08:04 BUN 25 mg/dL (7-18) H 06/18/23 08:04 Creatinine 1.62 mg/dL (0.70-1.30) H 06/18/23 08:04 Est GFR (MDRD) Af Amer 52 mL/min (>60) L 06/18/23 08:04 Est GFR (MDRD) Non-Af 43 mL/min (>60) L 06/18/23 08:04 BUN/Creatinine Ratio 15.4 RATIO (10-20) 06/18/23 08:04 Glucose 107 mg/dL (74-106) H 06/18/23 08:04 Dosing Weight Weight used for dosin.7 kg Estimated Creatinine Clearance Estimated Creatinine Clearance: 28 ml/min Goal Trough Goal Trough: 15-20 mcg/mL Pharmacy Plan for Drug Dosing Pharmacy Plan for Drug Dosing: The patient has unstable renal function at this time so will not schedule a programmed dose yet (SCr was 1.62 today, 1.47 yesterday, and 0.93 three days ago). Will order a vanc random level to be drawn tomorrow 24 hours after the E.R. dose that the patient received today. Will use that result to determine if a dose should be given tomorrow. Pharmacy Service will continue to monitor and adjust dosing as required. Follow-Up Labs Follow-Up Labs: Trough: Vancomycin (random) Date/Time Labs Ordered Labs to be done on [date and time ordered]: 06/19/23 11:00
[2023-06-18] MEDS: Piperacil/Tazobactam 3.375 GM in 0.9% Normal Saline (50mL MB+) 50 ML IV ×2 (14:42→22:33)
[2023-06-18] MEDS: 0.9% Normal Saline (1000mL) 1,000 ML 60 ML IV (14:42)
[2023-06-18] MEDS: Mexiletine HCl 200 MG Capsule PO ×2 (14:54→22:34)
--- NOTE | 2023-06-18 15:06 | NURSING ---
PRIMARY INFUSION @ 60MLS./HR D/T ADDITIONAL FLUIDS VIA LONG INFUSING ATB.
[2023-06-18] MEDS: Potassium Chloride Oral Tablet 20 MEQ PO (17:36)
[2023-06-18] MEDS: Sucralfate 1 GM Tablet PO (22:33)
[2023-06-18] MEDS: Atorvastatin Calcium 40 MG Tablet PO (22:33)
[2023-06-19] MEDS: Sucralfate 1 GM Tablet PO ×2 (05:30→20:20)
[2023-06-19] MEDS: Piperacil/Tazobactam 3.375 GM in 0.9% Normal Saline (50mL MB+) 50 ML IV ×3 (05:30→21:34)
[2023-06-19] MEDS: Mexiletine HCl 200 MG Capsule PO ×3 (05:31→20:20)
[2023-06-19] MEDS: Menthol/Lanolin/Calamine/Znox 113 GM Tube 1 APPLIC TOPICAL ×3 (05:36→20:20)
[2023-06-19 05:45] VITALS: BP 104/66; PULSE 89; RESP 16; TEMP 36.5; O2SAT 95
[2023-06-19 06:51] LABS: Absolute Lymphocyte Count 0.77 X10^3/uL (0.83-4.51); Basophil# 0.03 X10^3/uL; Basophil% 0.4 % (0-1); Hematocrit 24.7 % (40-54); Hemoglobin 7.9 g/dL (13.0-16.5); Lymphocyte # 0.77 X10^3/ul (0.83-4.51); Lymphocyte % 9.2 % (19-41); Mean Corpuscular Volume 96.9 fL (80-94); Monocyte# 0.72 X10^3/uL; Monocyte% 8.6 % (0-10); NRBC Flagged by Analyzer 1.3 % (0-5); Neutrophil # 6.03 X10^3/uL (2.7-7.7); Neutrophil % 72.1 % (47-70); POSITIVE COUNT YES; POSITIVE MORPHOLOGY YES; Platelet Count 127 K/mm3 (150-450); RBC Distribution Width SD 82.3 fl (35.1-43.9); Red Blood Count 2.55 M/mm3 (4.6-6.2); White Blood Count 8.4 K/mm3 (4.4-11.0)
[2023-06-19 06:59] LABS: Differential Indicated SCAN CRITERIA MET
[2023-06-19 07:22] LABS: Anisocytosis 3+; Differential Comment SCANNED
[2023-06-19 07:23] LABS: Anion Gap 6 (5-15); BUN 25 mg/dL (7-18); BUN/Creat Ratio 18.2 RATIO (10-20); Calcium,Total 8.1 mg/dL (8.5-10.1); Chloride 115 mmol/L (98-107); Creatinine, Serum 1.37 mg/dL (0.70-1.30); EST Glomerular Filtration Rate 52 mL/min (>60); Est Glom Filt Rate - Afr Amer 63 mL/min (>60); Estimated Creatinine Clearance 29.57 ml/min; Glucose 91 mg/dL (74-106); Sodium Level 141 mmol/L (136-145)
[2023-06-19 08:01] VITALS: PULSE 84
[2023-06-19] MEDS: Iron Polysaccharide Complex 150 MG CAPSULE PO (08:01)
[2023-06-19] MEDS: Aspirin 81 MG TAB.CHEW PO (08:01)
[2023-06-19] MEDS: Ascorbic Acid 500 MG Tablet PO (08:01)
[2023-06-19] MEDS: Metoprolol(XL)Succ 25 MG Tablet 12.5 MG PO (08:01)
[2023-06-19] MEDS: Potassium Chloride Oral Tablet 20 MEQ PO ×2 (08:01→16:22)
[2023-06-19 09:19] VITALS: BP 110/69; PULSE 82; RESP 16; TEMP 36.6; O2SAT 97
[2023-06-19 11:44] LABS: Vancomycin, Random Level 10.4 ug/mL (0.0-15.0)
[2023-06-19] MEDS: Vancomycin IV 500 MG/100 ML BAG 100 MG IV (13:02)
[2023-06-19] MEDS: Ensure Clear 120 ML Liquid PO ×3 (13:06→20:35)
--- NOTE | 2023-06-19 13:53 | PCM.RX.CS ---
Consult Antibiotic Management Pharmacy has been consulted to manage selected antibiotic: Vancomycin Type of Intervention Type of Consult: Follow-up Suspected Infection Suspected Infection: Pneumonia Prior Doses of Antibiotics Prior Doses of Antibiotics Received/Current Regimen: vanc 1500mg IV x1 was given yesterday at 11:07 Labs Labs: Sodium 141 mmol/L (136-145) 06/19/23 05:34 Potassium 4.0 mmol/L (3.5-5.1) 06/19/23 05:34 Chloride 115 mmol/L (98-107) H 06/19/23 05:34 Carbon Dioxide 20.0 mmol/L (21.0-32.0) L 06/19/23 05:34 Anion Gap 6 (5-15) 06/19/23 05:34 BUN 25 mg/dL (7-18) H 06/19/23 05:34 Creatinine 1.37 mg/dL (0.70-1.30) H 06/19/23 05:34 Est GFR (MDRD) Af Amer 63 mL/min (>60) 06/19/23 05:34 Est GFR (MDRD) Non-Af 52 mL/min (>60) L 06/19/23 05:34 BUN/Creatinine Ratio 18.2 RATIO (10-20) 06/19/23 05:34 Glucose 91 mg/dL (74-106) 06/19/23 05:34 Random Vancomycin 10.4 ug/mL (0.0-15.0) 06/19/23 10:54 Microbiology Microbiology: Microbiology 06/18/23 14:02 Mucosa - Nasopharyngeal SARS-CoV-2, Influenza & RSV (PCR) - Final Dosing Weight Weight used for dosin kg Estimated Creatinine Clearance Estimated Creatinine Clearance: 29.6ml/min Goal Trough Goal Trough: 15-20 mcg/mL Pharmacy Plan for Drug Dosing Pharmacy Plan for Drug Dosing: The vanc random level drawn at 10:54 today (approx 24 hours after the dose was given yesterday) was 10.4. Since it is <20 and since the patient's SCr has improved to 1.37, will now schedule a dose of 500mg IV q24h. Of note, the patient's SCr had gone up to 1.62 yesterday from 0.93 three days before that. Will check a trough level tomorrow as per the standard protocol in getting a trough before the 3rd dose for q24h dosing. Pharmacy Service will continue to monitor and adjust dosing as required. Follow-Up Labs Follow-Up Labs: Trough: Vancomycin Date/Time Labs Ordered Labs to be done on [date and time ordered]: 06/20/23 12:30
[2023-06-19 14:46] VITALS: BP 108/70; PULSE 81; RESP 16; TEMP 36.6; O2SAT 93
[2023-06-19] MEDS: 0.9% Normal Saline (250mL Bag) 250 ML 15 ML IV (16:23)
--- NOTE | 2023-06-19 16:47 | PCM.PN.HOSP ---
Subjective Subjective Doing well, no issues overnight seems little bit better today Objective Data Objective Data Vital Signs: Vital Signs Temp Pulse Resp BP Pulse Ox O2 Del Method O2 Flow Rate 97.9 F 81 16 108/70 93 Room Air 2 06/19/23 14:46 06/19/23 14:46 06/19/23 14:46 06/19/23 14:46 06/19/23 14:46 06/19/23 14:46 06/18/23 11:00 Oxygen Flow Rate (L/min) 2 Oxygen Delivery Method Room Air Weight: 121 lb 5 oz Body Mass Index (BMI) 18.4 Intake & Output: Intake and Output for Last 24 Hours 06/18/23 06/19/23 06/20/23 03:59 03:59 03:59 Intake Total 1180 / 1180 1142 / 1142 Output Total 550 / 550 Balance 630 / 630 1142 / 1142 Lab / Micro Data 06/19/23 05:34 06/19/23 05:34 Labs: Laboratory Results - last 24 hr 06/19/23 05:34: WBC 8.4, RBC 2.55 L, Hgb 7.9 L, Hct 24.7 L, MCV 96.9 H, MCH 31.0, MCHC 32.0, RDW Std Deviation 82.3 H, RDW Coeff of Charly 24.0 H, Plt Count 127 L, Immature Gran % (Auto) 9.700 H, Neut % (Auto) 72.1 H, Lymph % (Auto) 9.2 L, [place] % (Auto) 8.6, Eos % (Auto) 0.0, Baso % (Auto) 0.4, Absolute Neuts (auto) 6.0, Absolute Lymphs (auto) 0.77 L, Nucleated RBC % 1.3, Differential Comment SCANNED, Diff Path Review May foll, Anisocytosis 3+, Sodium 141, Potassium 4.0, Chloride 115 H, Carbon Dioxide 20.0 L, Anion Gap 6, BUN 25 H, Creatinine 1.37 H, Estim Creat Clear Calc 29.57, Est GFR (MDRD) Af Amer 63, Est GFR (MDRD) Non-Af 52 L, BUN/Creatinine Ratio 18.2, Glucose 91, Calcium 8.1 L 06/19/23 10:54: Random Vancomycin 10.4 Micro: Microbiology 06/18/23 14:02 Mucosa - Nasopharyngeal SARS-CoV-2, Influenza & RSV (PCR) - Final Physical Exam Narrative General: Alert, Oriented x3, Cooperative, No apparent distress HEENT: Atraumatic, PERRLA, EOMI, Normocephalic Oral: Moist Mucosa Neck: Supple, No JVD Lungs: Diminished, Normal air movement, No rhonchi, No wheeze, No rales Cardiovascular: Regular rate, Regular Rhythm, Normal S1, Normal S2, No murmurs Abdomen: Soft, Non Tender, Non-Distended, No Hepato-splenomegaly Extremities: No edema, Capillary Refill Less than 3 Seconds Skin: No rashes, No breakdown Musculoskeletal: No Tenderness to Palpation of Joints or Extremities Neurological: No focal neurological deficits, Motor Exam 5/5 strength throughout, Sensory exam intact to light touch and pain Psych/Mental Status: Flat Assessment & Plan Assessment/Plan (1) Pneumonia: PLAN: Plan 1. Pneumonia with DUSTIN and Enterococcus UTI ? He does have a left-sided retrocardiac infiltrate ? Continue with Zosyn and vancomycin given his recent stay both in the hospital and currently at SNF ? COVID, flu, RSV PCR is negative ? Sputum cultures are pending ? Enterococcus is sensitive to vancomycin as well as ampicillin 2. Chronic systolic CHF/A-fib/essential HTN/HLD/status post pacemaker placement ? Given his DUSTIN we will hold his losartan and Bumex ? Continue with his metoprolol, mexiletine, niacinamide and Lipitor ? Continue with aspirin 3. Chronic iron deficiency anemia ? Hemoglobin is little bit low at 8.3, will continue to monitor ? Continue with his iron supplement 4. GERD ? Stable ? Continue with Carafate DVT: SCDs 25-minute advance care planning conversation between myself, the patient, and his daughter on prognosis as well as potential discharge planning options Charges/Coding Visit Charges Inpatient E&M: 62954 Subs Hosp L2 Procedures Hospitalists Procedures: 81378 Advncd Care Plan 30 Min
[2023-06-19] MEDS: Atorvastatin Calcium 40 MG Tablet PO (20:20)
[2023-06-19 21:32] VITALS: BP 99/64; PULSE 84; RESP 18; TEMP 36.5; O2SAT 95
[2023-06-20] VITALS (7 sets, daily range): BP systolic 109–143; BP diastolic 71–82; PULSE 84–88; RESP 18; TEMP 36.5–36.9; O2SAT 95
[2023-06-20] MEDS: Sucralfate 1 GM Tablet PO ×2 (05:06→22:31)
[2023-06-20] MEDS: Mexiletine HCl 200 MG Capsule PO ×3 (05:06→22:31)
[2023-06-20] MEDS: Piperacil/Tazobactam 3.375 GM in 0.9% Normal Saline (50mL MB+) 50 ML IV ×3 (05:06→22:31)
[2023-06-20 06:32] LABS: Absolute Lymphocyte Count 1.16 X10^3/uL (0.83-4.51); Absolute Neutrophil Count 6.5 X10^3/uL (2.0-7.7); Basophil# 0.06 X10^3/uL; Basophil% 0.6 % (0-1); Eosinophil# 0.02 X10^3/uL; Eosinophils% 0.2 % (0-5); Hemoglobin 8.9 g/dL (13.0-16.5); Lymphocyte # 1.16 X10^3/ul (0.83-4.51); Lymphocyte % 11.9 % (19-41); Mean Corp Hgb Conc 30.7 g/dL (32-36); Mean Corpuscular Hgb 30.7 pg (27.0-32.0); Monocyte# 0.86 X10^3/uL; Monocyte% 8.8 % (0-10); NRBC Flagged by Analyzer 2.3 % (0-5); Neutrophil # 6.47 X10^3/uL (2.7-7.7); Neutrophil % 66.5 % (47-70); POSITIVE COUNT YES; POSITIVE MORPHOLOGY YES; Platelet Count 131 K/mm3 (150-450); RBC Distribution Width CV 24.5 % (11.6-14.6); RBC Distribution Width SD 88.1 fl (35.1-43.9); White Blood Count 9.7 K/mm3 (4.4-11.0)
[2023-06-20 06:42] LABS: Differential Indicated SCAN CRITERIA MET
[2023-06-20 07:00] LABS: Anion Gap 7 (5-15); BUN 23 mg/dL (7-18); BUN/Creat Ratio 18.7 RATIO (10-20); Chloride 115 mmol/L (98-107); Creatinine, Serum 1.23 mg/dL (0.70-1.30); EST Glomerular Filtration Rate 59 mL/min (>60); Est Glom Filt Rate - Afr Amer 72 mL/min (>60); Estimated Creatinine Clearance 32.93 ml/min; Glucose 116 mg/dL (74-106); Potassium 3.9 mmol/L (3.5-5.1); Sodium Level 141 mmol/L (136-145)
[2023-06-20 07:22] LABS: Burr Cells 2+
[2023-06-20 07:23] LABS: Acanthocytes 2+; Ovalocyte 2+
[2023-06-20 07:24] LABS: Anisocytosis 2+; Schistocytes 2+; Tear Drop Cell 1+
[2023-06-20] MEDS: Potassium Chloride Oral Tablet 20 MEQ PO ×2 (08:23→17:40)
[2023-06-20] MEDS: Ascorbic Acid 500 MG Tablet PO (08:23)
[2023-06-20] MEDS: Aspirin 81 MG TAB.CHEW PO (08:23)
[2023-06-20] MEDS: Menthol/Lanolin/Calamine/Znox 113 GM Tube 1 APPLIC TOPICAL ×2 (09:55→22:30)
[2023-06-20] MEDS: Ensure Clear 120 ML Liquid PO ×4 (09:55→22:38)
[2023-06-20] MEDS: Iron Polysaccharide Complex 150 MG CAPSULE PO (09:56)
[2023-06-20] MEDS: Metoprolol(XL)Succ 25 MG Tablet 12.5 MG PO (09:56)
--- NOTE | 2023-06-20 11:53 | CASEMGMT ---
Social Work SW spoke w/BASIL Moon from [facility]. Plan was for pt to get to [facility] after pt's stay in TCU. She spoke w/daughter today, daughter was not sure yet if she wanted pt to go to back to TCU or to [facility]. SW spoke w/pt in room, regarding discharge plan. Pt states he is not certain. He is okay w/SW calling daughter Audra in regard to discharge plan. Daughter Audra is POA, updated papers are on the paper chart. SW called daughter Audra in regard to discharge plan. SW explained did speak w/pt, and he was not certain of the plan, agreeable to SW calling daughter. Daughter states she is thinking would rather have pt go to [facility] from here rather than go back to TCU. The plan had been for pt to go to [facility] from [facility], still under his Medicare. Pt normally lives at home w/. He was managing well at home prior to his hospitalization and TCU stay. Pt was at [place] for a week, then [facility] for 3 weeks, and went to [facility] on 05/24/23. Daughter did think that they have a bed for pt at [facility] whenever pt is ready. SW explained to daughter that we will send a referral to [facility] and make sure they can take pt when ready. SW will also check in w/physician to see when pt is ready. SW will let daughter know when she is visiting later. SNF list not needed as the plan has already been started for [facility] from [facility], daughter does not want to change the plan at this time. SW spoke w/physician, pt is likely ready for discharge tomorrow. SW asked d/c community health planning director Yarelis to send referral to [facility]. SW will continue to follow. MARIANNE Andrews
--- NOTE | 2023-06-20 12:04 | CASEMGMT ---
Discharge Planning [facility] Yarelis Spence, Discharge Planning Asst.
--- NOTE | 2023-06-20 13:07 | PCM.PN.HOSP ---
Subjective Subjective Doing well, no issues overnight Objective Data Objective Data Vital Signs: Vital Signs Temp Pulse Resp BP Pulse Ox O2 Del Method O2 Flow Rate 98.5 F 85 18 143/73 H 95 Room Air 2 06/20/23 08:35 06/20/23 09:56 06/20/23 09:00 06/20/23 08:35 06/20/23 08:35 06/20/23 09:00 06/18/23 11:00 Oxygen Flow Rate (L/min) 2 Oxygen Delivery Method Room Air Weight: 121 lb 5 oz Body Mass Index (BMI) 18.4 Intake & Output: Intake and Output for Last 24 Hours 06/19/23 06/20/23 06/21/23 03:59 03:59 03:59 Intake Total 1180 / 1180 1362 / 1362 740.75 / 740.75 Output Total 550 / 550 100 / 100 450 / 450 Balance 630 / 630 1262 / 1262 290.75 / 290.75 Lab / Micro Data 06/20/23 06:10 06/20/23 06:10 Labs: Laboratory Results - last 24 hr 06/20/23 06:10: WBC 9.7, RBC 2.90 L, Hgb 8.9 L, Hct 29.0 L, MCV 100.0 H, MCH 30.7, MCHC 30.7 L, RDW Std Deviation 88.1 H, RDW Coeff of Charly 24.5 H, Plt Count 131 L, Immature Gran % (Auto) 12.000 H, Neut % (Auto) 66.5, Lymph % (Auto) 11.9 L, [place] % (Auto) 8.8, Eos % (Auto) 0.2, Baso % (Auto) 0.6, Absolute Neuts (auto) 6.5, Absolute Lymphs (auto) 1.16, Nucleated RBC % 2.3, Diff Path Review May foll, Anisocytosis 2+, Tear Drop Cells 1+, Ovalocytes 2+, Carmine Cells 2+, Acanthocytes (Spur) 2+, Schistocytes 2+ H, Sodium 141, Potassium 3.9, Chloride 115 H, Carbon Dioxide 19.0 L, Anion Gap 7, BUN 23 H, Creatinine 1.23, Estim Creat Clear Calc 32.93, Est GFR (MDRD) Af Amer 72, Est GFR (MDRD) Non-Af 59 L, BUN/Creatinine Ratio 18.7, Glucose 116 H, Calcium 8.0 L 06/20/23 12:10: Vancomycin Trough 7.0 Micro: Microbiology 06/18/23 14:02 Mucosa - Nasopharyngeal SARS-CoV-2, Influenza & RSV (PCR) - Final Physical Exam Narrative General: Alert, Oriented x3, Cooperative, No apparent distress HEENT: Atraumatic, PERRLA, EOMI, Normocephalic Oral: Moist Mucosa Neck: Supple, No JVD Lungs: Diminished, Normal air movement, No rhonchi, No wheeze, No rales Cardiovascular: Regular rate, Regular Rhythm, Normal S1, Normal S2, No murmurs Abdomen: Soft, Non Tender, Non-Distended, No Hepato-splenomegaly Extremities: No edema, Capillary Refill Less than 3 Seconds Skin: No rashes, No breakdown Musculoskeletal: No Tenderness to Palpation of Joints or Extremities Neurological: No focal neurological deficits, Motor Exam 5/5 strength throughout, Sensory exam intact to light touch and pain Psych/Mental Status: Flat Assessment & Plan Assessment/Plan (1) Pneumonia: PLAN: Plan 1. Pneumonia with DUSTIN and Enterococcus UTI ? He does have a left-sided retrocardiac infiltrate ? Continue with Zosyn and vancomycin given his recent stay both in the hospital and currently at SNF ? COVID, flu, RSV PCR is negative ? Sputum cultures are pending ? Enterococcus is sensitive to vancomycin as well as ampicillin if MRSA is negative could likely transition to Augmentin to complete both UTI treatment as well as pneumonia treatment 2. Chronic systolic CHF/A-fib/essential HTN/HLD/status post pacemaker placement ? Given his DUSTIN we will hold his losartan and Bumex ? Continue with his metoprolol, mexiletine, niacinamide and Lipitor ? Continue with aspirin 3. Chronic iron deficiency anemia ? Hemoglobin is little bit low at 8.3, will continue to monitor ? Continue with his iron supplement 4. GERD ? Stable ? Continue with Carafate DVT: SCDs Charges/Coding Visit Charges Inpatient E&M: 62513 Subs Hosp L2
[2023-06-20 13:45] LABS: M R Staph aureus DNA By PCR Negative (Negative); Probe Check PASS; Specimen Processing Control PASS; Staph aureus DNA By PCR POSITIVE (Negative)
[2023-06-20] MEDS: Vancomycin HCl 750 MG in 0.9% Normal Saline (250mL Bag) 250 ML 250 MG IV (14:00)
[2023-06-20] MEDS: Vancomycin IV 500 MG/100 ML BAG 250 MG IV (14:00)
[2023-06-20] MEDS: Vancomycin Trough/Random Due 1 LAB MC (14:00)
--- NOTE | 2023-06-20 15:15 | CASEMGMT ---
Addendum entered by Aida Goodman 06/20/23 16:25: Social Work BASIL called Sarai in [facility] for clarification on bed at [facility], explained that [facility] said that they no longer have a bed. [facility] had told Sarai they had a bed available when pt was ready. As per Sarai, pt can return back to TCU in the interim. BASIL called Letha at [facility] for clarification. She states they had been holding on to the bed for pt for a while, and that they could not hold onto it any longer. She states they think they will have a bed available in a week or so. BASIL asked Letha to please let us know if it changes tomorrow, as pt will be here in the hospital until tomorrow and we could still move pt straight there tomorrow. Otherwise, pt will go to TCU and to please let Sarai know as soon as they have a bed, and we will get pt moved. Letha states understanding. BASIL spoke w/daughter Audra, son Clark and son in law outside of room. SW reiterated what had told Clark earlier. SW again explained the SNF Medicare benefit, and that pt would go back to TCU under his Medicare benefit and then will go to [facility] once a bed is available. BASIL explained to family that as per Letha at [facility], there should be a bed next week. [facility], but are okay w/pt going to TCU until the bed is available. Family spoke about pt's recent decline, SW offered support. BASIL will continue to follow, plan will be for pt to go to TCU on Tuesday. MARIANNE Andrews Original Note: Social Work Yarelis, d/c policy and planning manager, let SW know that [facility] now does not have a bed. SW spoke w/pt's son just outside the room, that [facility] does not have a bed now, but pt can still go back to TCU. BASIL explained the senior living Medicare benefit to pt's son, son states understanding. Pt's daughter Audra is to be here soon, SW will speak w/her also when she arrives. MARIANNE Andrews
--- NOTE | 2023-06-20 16:01 | W.PC.EDHO ---
Primary Language: Preferred Language: Active Medications Generic Name Dose Route Start Last Admin Trade Name Freq PRN Reason Stop Dose Admin Ascorbic Acid 500 mg 06/19/23 08:00 06/20/23 08:23 Ascorbic Acid 500 Mg Tablet PO 500 mg BREAKFAST HARJINDER Administration Aspirin 81 mg 06/19/23 08:00 06/20/23 08:23 Aspirin 81 Mg Tab.Chew PO 81 mg DAILYCM HARJINDER Administration Atorvastatin Calcium 40 mg 06/18/23 22:00 06/19/23 20:20 Atorvastatin Calcium 40 Mg Tablet PO 40 mg QHS HARJINDER Administration Calamine/Phenol 1 applic 06/19/23 10:00 06/20/23 09:55 Menthol/Lanolin/Calamine/Znox 113 Gm Tube TOPICAL 1 applic BID HARJINDER Administration Protocol Piperacillin Sod/Tazobactam 50 mls @ 12.5 mls/hr 06/18/23 14:00 06/20/23 15:07 Sod 3.375 gm/ Sodium Chloride IV 12.5 mls/hr Q8 HARJINDER Administration Vancomycin IV-PHARMACY TO DOSE 500 mls @ 250 mls/hr 06/18/23 11:25 1 each/ Sodium Chloride IV X1 PRN Rx to Dose Protocol Sodium Chloride 250 mls @ 15 mls/hr 06/18/23 12:26 06/20/23 05:06 IV 0 mls/hr .[id number] PRN Infusion Additional IVPB Infusion Sodium Chloride 250 mls @ 15 mls/hr 06/18/23 12:26 IV .[id number] PRN Saline Flush Vancomycin HCl 750 mg/ Sodium 265 mls @ 250 mls/hr 06/20/23 14:00 06/20/23 15:05 Chloride IV Infused Q24H HARJINDER Infusion Metoprolol Succinate 12.5 mg 06/19/23 10:00 06/20/23 09:56 Metoprolol(Xl)Succ 25 Mg Tablet PO 12.5 mg DAILY HARJINDER Administration Protocol Mexiletine HCl 200 mg 06/18/23 14:00 06/20/23 15:08 Mexiletine Hcl 200 Mg Capsule PO 200 mg Q8H HARJINDER Administration Nutritional Formula (Lactose Free) 120 ml 06/19/23 10:00 06/20/23 15:07 Ensure Clear 120 Ml Liquid PO 120 ml 4X/DAY HARJINDER Administration Polysaccharide Iron Complex 150 mg 06/19/23 10:00 06/20/23 09:56 Iron Polysaccharide Complex 150 Mg Capsule PO 150 mg DAILY HARJINDER Administration Potassium Chloride 20 meq 06/18/23 17:00 06/20/23 08:23 Potassium Chloride Oral Tablet 20 Meq PO 20 meq BIDCM HARJINDER Administration Sodium Chloride 10 - 40 ml 06/18/23 12:26 0.9% Saline Lock 10 Ml Syringe IV UD PRN SALINE FLUSH Sucralfate 1 gm 06/18/23 22:00 06/20/23 05:06 Sucralfate 1 Gm Tablet PO 1 gm BID@0700,2200 HARJINDER Administration Vancomycin Protocol 1 lab 06/22/23 11:30 Vancomycin Trough/Random Due 06/22/23 15:30 DAILY HARJINDER IV Insertion/Site IV Catheter Gauge [Left Wrist] 18 Oxygen Administration Pulse Ox 95 Pulse Ox 95 Pulse Ox 95 Pulse Ox 95 Pulse Ox 93 Pulse Ox 97 Pulse Ox 95 Pulse Ox 94 Pulse Ox 99 Pulse Ox 100 Pulse Ox 100 Pulse Ox 100 Pulse Ox 100 Pulse Ox 100 Pulse Ox 99 Pulse Ox 98 Pulse Ox 100 Pulse Ox 96 Pulse Ox 99 Pulse Ox 100 Oxygen Flow Rate (L/min) 2 Oxygen Flow Rate (L/min) 2 Oxygen Flow Rate (L/min) 2 Oxygen Flow Rate (L/min) 2 Oxygen Flow Rate (L/min) 2 Oxygen Flow Rate (L/min) 3 Oxygen Flow Rate (L/min) 2
--- NOTE | 2023-06-20 16:18 | PCM.RX.CS ---
Consult Antibiotic Management Pharmacy has been consulted to manage selected antibiotic: Vancomycin Type of Intervention Type of Consult: Follow-up Suspected Infection Suspected Infection: Pneumonia Labs Labs: Sodium 141 mmol/L (136-145) 06/20/23 06:10 Potassium 3.9 mmol/L (3.5-5.1) 06/20/23 06:10 Chloride 115 mmol/L (98-107) H 06/20/23 06:10 Carbon Dioxide 19.0 mmol/L (21.0-32.0) L 06/20/23 06:10 Anion Gap 7 (5-15) 06/20/23 06:10 BUN 23 mg/dL (7-18) H 06/20/23 06:10 Creatinine 1.23 mg/dL (0.70-1.30) 06/20/23 06:10 Est GFR (MDRD) Af Amer 72 mL/min (>60) 06/20/23 06:10 Est GFR (MDRD) Non-Af 59 mL/min (>60) L 06/20/23 06:10 BUN/Creatinine Ratio 18.7 RATIO (10-20) 06/20/23 06:10 Glucose 116 mg/dL (74-106) H 06/20/23 06:10 Vancomycin Trough 7.0 ug/mL (5.0-15.0) 06/20/23 12:10 Random Vancomycin 10.4 ug/mL (0.0-15.0) 06/19/23 10:54 Microbiology Microbiology: Microbiology 06/18/23 14:02 Mucosa - Nasopharyngeal SARS-CoV-2, Influenza & RSV (PCR) - Final Goal Trough Goal Trough: 15-20 mcg/mL Pharmacy Plan for Drug Dosing Pharmacy Plan for Drug Dosing: VANCOMYCIN LEVEL RECEIVED Current Vancomycin Dose: 500mg q24h (at 1300) Number of Doses Received: x1 of current dose Vancomycin Level: 7.0 Hours Since Last Dose: 23 hours since last dose Renal Function: SrCr 1.23 Renal Function Trend: SrCr currently improving (was 1.47 on 06/16 and 1.62 on 06/17 and 1.37 on 06/18) Lab/Micro: Vancomycin Plan/Comments: resulted trough of 7 is below the ordered goal trough range of 15-20. recommend increasing dose to 750mg q24h and checking a trough prior to the 4th dose Pending Level: 06/22/23 at 1330 Pharmacy Service will continue to monitor and adjust dosing as required. Follow-Up Labs Follow-Up Labs: Trough: Vancomycin (06/22/23 at 1330)
[2023-06-20] MEDS: Atorvastatin Calcium 40 MG Tablet PO (22:31)
[2023-06-21] MEDS: Mexiletine HCl 200 MG Capsule PO ×2 (05:22→13:29)
[2023-06-21] MEDS: Piperacil/Tazobactam 3.375 GM in 0.9% Normal Saline (50mL MB+) 50 ML IV (05:22)
[2023-06-21] MEDS: Sucralfate 1 GM Tablet PO (05:22)
[2023-06-21] MEDS: 0.9% Normal Saline (250mL Bag) 250 ML 15 ML IV (05:35)
[2023-06-21 05:37] VITALS: BP 122/85; PULSE 87; RESP 16; TEMP 36.9; O2SAT 96
[2023-06-21 07:21] LABS: Hematocrit 26.7 % (40-54); Hemoglobin 8.5 g/dL (13.0-16.5); Mean Corp Hgb Conc 31.8 g/dL (32-36); Mean Corpuscular Volume 97.4 fL (80-94); POSITIVE COUNT YES; POSITIVE MORPHOLOGY YES; Platelet Count 145 K/mm3 (150-450); RBC Distribution Width CV 23.9 % (11.6-14.6); RBC Distribution Width SD 83.7 fl (35.1-43.9); Red Blood Count 2.74 M/mm3 (4.6-6.2); White Blood Count 10.8 K/mm3 (4.4-11.0)
[2023-06-21 07:46] LABS: Anion Gap 11 (5-15); BUN 17 mg/dL (7-18); BUN/Creat Ratio 17.3 RATIO (10-20); Calcium,Total 7.9 mg/dL (8.5-10.1); Chloride 114 mmol/L (98-107); Creatinine, Serum 0.98 mg/dL (0.70-1.30); EST Glomerular Filtration Rate 77 mL/min (>60); Est Glom Filt Rate - Afr Amer 93 mL/min (>60); Estimated Creatinine Clearance 41.33 ml/min; Glucose 107 mg/dL (74-106); Potassium 4.2 mmol/L (3.5-5.1); Sodium Level 145 mmol/L (136-145)
[2023-06-21 07:53] LABS: Differential Indicated MANUAL DIFF
[2023-06-21 08:30] VITALS: PULSE 87
[2023-06-21] MEDS: Aspirin 81 MG TAB.CHEW PO (08:30)
[2023-06-21] MEDS: Metoprolol(XL)Succ 25 MG Tablet 12.5 MG PO (08:30)
[2023-06-21] MEDS: Ascorbic Acid 500 MG Tablet PO (08:30)
[2023-06-21] MEDS: Potassium Chloride Oral Tablet 20 MEQ PO (08:30)
[2023-06-21] MEDS: Iron Polysaccharide Complex 150 MG CAPSULE PO (08:30)
[2023-06-21] MEDS: Menthol/Lanolin/Calamine/Znox 113 GM Tube 1 APPLIC TOPICAL (08:31)
[2023-06-21] MEDS: Ensure Clear 120 ML Liquid PO ×2 (08:31→13:28)
[2023-06-21 08:44] LABS: Pathologist Review Reviewed
[2023-06-21 08:46] LABS: Pathologist Review Reviewed
[2023-06-21 08:53] LABS: Pathologist Review Reviewed
[2023-06-21 10:05] VITALS: BP 122/82; PULSE 98; RESP 14; TEMP 37; O2SAT 95
[2023-06-21 10:32] LABS: Anisocytosis 2+; Lymphocyte 13 % (19-41); Macrocytosis 1+; Metamyelocyte 3 % (0-1); Microcytosis 1+; Monocyte 9 % (0-10); Myelocyte 14 % (0-0); Neutrophil-Band 3 % (0-5); Neutrophil-Segmented 58 % (47-70); Total Cells Counted 100 (MANUAL DIFF)
[2023-06-21 10:33] LABS: Absolute Neutrophil Count 6.6 X10^3/uL (2.0-7.7)
--- NOTE | 2023-06-21 10:54 | TREXTCAR_ITS ---
Diet Diet Order/Speech Therapy: 06/18/23 11:25 Diet: Cardiac - Heart Healthy Food consistency:: Regular Liquid Consistency:: Regular/Thin Dietary Modifications:: Cardiac / Heart Healthy Type of Dietary Supplement:: Magic Cup Dessert Diet Comments: LOW SODIUM Routine Orders/Code Status Routine Lab Work: CBC and BMP Code Status: Full Code Wound(s) LT HEEL: Wound Type: Pressure Injury GERALD: Wound Type: Skin Tear EMMA: Wound Type: Skin Tear LT ELBOW: Wound Type: Skin Tear LT HAND: Wound Type: SCAB LT ANKLE: Wound Type: SCAB Therapies Occupational Therapy: Eval and Treat Speech Therapy: Eval and Treat Problem/Diagnosis (1) Pneumonia: Status: Acute Code(s): J18.9 - Pneumonia, unspecified organism Plan 1. Pneumonia with DUSTIN and Enterococcus UTI ? He does have a left-sided retrocardiac infiltrate ? Continue with Zosyn and vancomycin given his recent stay both in the hospital and currently at SNF ? COVID, flu, RSV PCR is negative ? Sputum cultures are pending ? Enterococcus is sensitive to vancomycin as well as ampicillin if MRSA is negative could likely transition to Augmentin to complete both UTI treatment as well as pneumonia treatment 2. Chronic systolic CHF/A-fib/essential HTN/HLD/status post pacemaker placement ? Given his DUSTIN we will hold his losartan and Bumex ? Continue with his metoprolol, mexiletine, niacinamide and Lipitor ? Continue with aspirin 3. Chronic iron deficiency anemia ? Hemoglobin is little bit low at 8.3, will continue to monitor ? Continue with his iron supplement 4. GERD ? Stable ? Continue with Carafate DVT: SCDs Allergies/Procedures Done in Hospital Allergies apixaban [From Eliquis] Adverse Reaction (Unknown, Verified 01/25/23 14:02) Bleeding Excessive Bleeding Procedures: None Type of Care/Length of Stay Estimated LOS: Convalescent Care Less Than 30 days Type of Care Needed: Skilled Rehab Potential: Fair Prognosis: Fair Additional Orders/Day of Discharge Day of Discharge: 06/21/23 Dietary and Speech Recommendations Dietitian Recommendations/Changes: Continue Cardiac, Sodium restricted diet with 120mL Ensure Clear 4x and Magic cup supplements BID Discharge Plan Admission Admit Date/Time: 06/18/23 11:04 Attending Provider: Klaus Momin Primary Care Provider: Ray Ceron DECONTAMINATION TECHNICIAN Discharge Orders/Prescriptions Prescriptions: New amoxicillin-pot clavulanate 875-125 mg tablet 1 tab PO BID 4 Days Qty: 8 0RF Continued bumetanide 2 mg tablet 0.5 mg PO DAILY losartan 25 mg tablet 12.5 mg PO DAILY Hold Instructions: NOT ON CURRENT MED LIST FROM TCU niacinamide 500 mg tablet 500 mg PO BID Hold Instructions: NOT ON TCUS CURRENT MED LIST polysaccharide iron complex 150 mg iron capsule 150 mg PO DAILY atorvastatin 40 mg Tablet 40 mg PO QHS 30 Days Qty: 30 0RF potassium chloride [Klor-Con M20] 20 mEq Tablet,Er Particles/Crystals 20 meq PO BIDCM 30 Days Qty: 60 0RF ascorbic acid (vitamin C) 500 mg Tablet 500 mg PO BREAKFAST 30 Days Qty: 30 0RF metoprolol succinate 25 mg Tablet Extended Release 24 Hr 12.5 mg PO DAILY 30 Days Qty: 15 0RF aspirin 81 mg tablet,chewable 1 tab PO DAILY Patient Comments: TAKE 1 TABLET BYCHEWED EVERY DAY cyanocobalamin (vitamin B-12) 1,000 mcg capsule 1,000 mcg PO DAILY guaifenesin 600 mg tablet extended release 12hr 600 mg PO BID PRN (Reason: cough) Hold Instructions: not on MAR in Tcu mexiletine 200 mg capsule 200 mg PO Q8H sucralfate [Carafate] 1 gram tablet 1 g PO BID potassium chloride 20 mEq tablet extended release 20 meq PO BIDCM pantoprazole [Protonix] 40 mg tablet,delayed release (DR/EC) 40 mg PO BID menthol-zinc oxide [Calmoseptine] 0.44-20.6 % ointment 1 applic topical BID metoclopramide HCl [Reglan] 5 mg tablet 5 mg PO TID ondansetron 4 mg tablet,disintegrating 8 mg PO Q8H Rx Instructions: 1st dose 1-2 hr before radiation Referrals / Follow Up: Ray Ceron DECONTAMINATION TECHNICIAN, DECONTAMINATION TECHNICIAN-C [Primary Care Provider] - Disposition Disposition (needs filled in before D/C Order can be placed): [facility]
--- NOTE | 2023-06-21 11:28 | PHA.DC_ITS ---
Pharmacy [facility] Reconciliation Pharmacy Service has performed discharge medication reconciliation for this patient. The patient's discharge medication list was reviewed for discrepancies and discrepancies were resolved. Medications at Discharge Home Medications ascorbic acid (vitamin C) 500 mg tablet 500 mg PO BREAKFAST Supplement 30 days #30 tabs 02/11/22 atorvastatin 40 mg tablet 40 mg PO QHS Cholesterol 30 days #30 tabs 02/11/22 metoprolol succinate 25 mg tablet,extended release 24 hr 12.5 mg (1/2 x 25 mg) PO DAILY Blood pressure 30 days #15 tabs 02/11/22 bumetanide 2 mg tablet 0.5 mg PO DAILY Diuretic 09/14/22 losartan 25 mg tablet 12.5 mg PO DAILY Blood pressure 09/29/22 niacinamide 500 mg tablet 500 mg PO BID SUPPLEMENT 10/12/22 polysaccharide iron complex 150 mg iron capsule 150 mg PO DAILY Supplement 10/12/22 aspirin 81 mg chewable tablet 1 tab PO DAILY Heart health 05/24/23 cyanocobalamin (vitamin B-12) 1,000 mcg capsule 1,000 mcg PO DAILY Supplement 05/24/23 guaifenesin 600 mg tablet, extended release 12 hr 600 mg PO BID PRN cough 05/24/23 mexiletine 200 mg capsule 200 mg PO Q8H Arrhythmia 05/24/23 sucralfate 1 gram tablet (Carafate) 1 g PO BID 05/27/23 menthol 0.44 %-zinc oxide 20.6 % topical ointment (Calmoseptine) 1 applic topical BID COCCYX 06/18/23 metoclopramide HCl 5 mg tablet (Reglan) 5 mg PO TID STOMACH 06/18/23 ondansetron 4 mg disintegrating tablet 8 mg PO Q8H NAUSEA 06/18/23 pantoprazole 40 mg tablet,delayed release (Protonix) 40 mg PO BID ACID REFLUX 06/18/23 potassium chloride 20 mEq tablet,extended release 20 meq PO BIDCM 06/18/23 amoxicillin 875 mg-potassium clavulanate 125 mg tablet 1 tab PO BID 4 days #8 tabs 06/21/23
--- NOTE | 2023-06-21 11:51 | CASEMGMT ---
Social Work Pt is ready for discharge back to TCU today. BASIL faxed over all discharge instructions, let bedside RN know. Pt to TCU today to continue his skilled stay. SW called daughter to let her know pt going to TCU today. We spoke about the watermaster plan, daughter still wants pt to go to [facility] when a bed is available. We spoke about pt's code status, she asked if she can change his code status as she is POA. SW encouraged daughter to speak w/pt about it, as pt does seem to be alert and oriented, though does seem forgetful--based on this SW's interaction w/pt on Tuesday. SW reminded daughter that she can make decision for pt if he is not able to make them for himself, and he does seem alert enough that he should be involved with the decisions. BASIL then spoke with daughter about possible hospice, she is wondering if pt is ready for hospice yet, SW explained the physician should communicate that to her when pt is hospice appropriate. Daughter states understanding. SW also explained to daughter that hospice would be able to come in to [facility] should that be warranted. BASIL called Letha again from [facility], let her know that pt is going to TCU today and asked her to call [facility] as soon as there is a bed available. She states she will, apologized about the bed situation. She states for certain there will be a bed on June 30 and possibly before that. No further needs, pt to TCU skilled today. MARIANNE Andrews
[2023-06-21] MEDS: Vancomycin HCl 750 MG in 0.9% Normal Saline (250mL Bag) 250 ML 250 MG IV (13:27)
[2023-06-21 13:39] VITALS: PULSE 80
--- NOTE | 2023-06-21 14:26 | PCM.DC.SUM ---
Providers Date of Admission: 06/18/23 Primary Care Physician: MAX YunC Reason For Visit: PNEUMONIA Diagnosis Discharge Diagnosis (1) Pneumonia: Status: Acute Code(s): J18.9 - Pneumonia, unspecified organism Medications at Discharge Home Medications ascorbic acid (vitamin C) 500 mg tablet 500 mg PO BREAKFAST Supplement 30 days #30 tabs 02/11/22 atorvastatin 40 mg tablet 40 mg PO QHS Cholesterol 30 days #30 tabs 02/11/22 metoprolol succinate 25 mg tablet,extended release 24 hr 12.5 mg (1/2 x 25 mg) PO DAILY Blood pressure 30 days #15 tabs 02/11/22 bumetanide 2 mg tablet 0.5 mg PO DAILY Diuretic 09/14/22 losartan 25 mg tablet 12.5 mg PO DAILY Blood pressure 09/29/22 niacinamide 500 mg tablet 500 mg PO BID SUPPLEMENT 10/12/22 polysaccharide iron complex 150 mg iron capsule 150 mg PO DAILY Supplement 10/12/22 aspirin 81 mg chewable tablet 1 tab PO DAILY Heart health 05/24/23 cyanocobalamin (vitamin B-12) 1,000 mcg capsule 1,000 mcg PO DAILY Supplement 05/24/23 guaifenesin 600 mg tablet, extended release 12 hr 600 mg PO BID PRN cough 05/24/23 mexiletine 200 mg capsule 200 mg PO Q8H Arrhythmia 05/24/23 sucralfate 1 gram tablet (Carafate) 1 g PO BID 05/27/23 menthol 0.44 %-zinc oxide 20.6 % topical ointment (Calmoseptine) 1 applic topical BID COCCYX 06/18/23 metoclopramide HCl 5 mg tablet (Reglan) 5 mg PO TID STOMACH 06/18/23 ondansetron 4 mg disintegrating tablet 8 mg PO Q8H NAUSEA 06/18/23 pantoprazole 40 mg tablet,delayed release (Protonix) 40 mg PO BID ACID REFLUX 06/18/23 potassium chloride 20 mEq tablet,extended release 20 meq PO BIDCM 06/18/23 amoxicillin 875 mg-potassium clavulanate 125 mg tablet 1 tab PO BID 4 days #8 tabs 06/21/23 Hospital Course Operations None Procedures None Summary of Care Provided Minutes Spent on Discharge: 37 Hospital Course: Per HPI: MAC HARVEY, is a 88 M who presents to the hospital from transitional care unit secondary to pneumonia and low blood pressures. Unclear as to the significance of his low blood pressures as his baseline systolics are 90-100 and his maps have been in the mid to upper 60s so I do not think that he is genuinely hypotensive however he did present to the ER with an DUSTIN. Yesterday in the transitional care unit he was diagnosed with pneumonia based on chest x-ray and symptoms and was started on antibiotics. In the ER he was found to have a creatinine of 1.62 with a left-sided infiltrate on the x-ray seen yesterday and then it has remained similar and unchanged today. White count on admission is improved to 10.1 but it was 13.9 yesterday afternoon. He does feel little bit short of breath but denies any productive cough. Will obtain a COVID, flu, RSV PCR given his extended stay at an outside hospital as well as his placement in a SNF. Hospital Course: 1. Pneumonia with DUSTIN and Enterococcus UTI?88-year-old male presented from the transitional care unit with borderline blood pressures and was found to have a possible UTI with pneumonia. He was started on vancomycin and Zosyn given the fact that he was in a healthcare setting. He was unable to give us a sputum culture but his urine culture did grow Enterococcus faecalis that was sensitive to ampicillin. He completed 3 days of vancomycin and Zosyn and was transitioned to oral Augmentin to complete treatment for 4 more days. He did have a viral panel that was negative for COVID, flu, RSV. I discussed with him the plan for discharge back to the transitional care unit and he expressed understanding of the risk benefits of going back to the custodial and would like to go today. Of note on admission his creatinine was 1.62 and his baseline is around 0.9 and on the day of discharge she was 0.98. 2. Chronic systolic CHF, atrial fibrillation, essential hypertension, hyperlipidemia, status post pacemaker placement, chronic iron deficiency anemia, GERD are all chronic medical conditions which complicate his care. His home medications were continued where appropriate Physical Exam Narrative General: Alert, Oriented x3, Cooperative, No apparent distress HEENT: Atraumatic, PERRLA, EOMI, Normocephalic Oral: Moist Mucosa Neck: Supple, No JVD Lungs: Diminished, Normal air movement, No rhonchi, No wheeze, No rales Cardiovascular: Regular rate, Regular Rhythm, Normal S1, Normal S2, No murmurs Abdomen: Soft, Non Tender, Non-Distended, No Hepato-splenomegaly Extremities: No edema, Capillary Refill Less than 3 Seconds Skin: No rashes, No breakdown Musculoskeletal: No Tenderness to Palpation of Joints or Extremities Neurological: No focal neurological deficits, Motor Exam 5/5 strength throughout, Sensory exam intact to light touch and pain Psych/Mental Status: Flat Weight / BMI Weight Weight: 121 lb 5 oz Body Mass Index (BMI) 18.4 ABG / Lab / Microbiology Data 06/21/23 06:27 06/21/23 06:27 Laboratory: Laboratory Results - last 24 hr 06/18/23 08:04: Diff Path Review Reviewed 06/19/23 05:34: Diff Path Review Reviewed 06/20/23 06:10: Diff Path Review Reviewed 06/21/23 06:27: WBC 10.8, RBC 2.74 L, Hgb 8.5 L, Hct 26.7 L, MCV 97.4 H, MCH 31.0, MCHC 31.8 L, RDW Std Deviation 83.7 H, RDW Coeff of Charly 23.9 H, Plt Count 145 L, Immature Gran % (Auto) [employer], Neut % (Auto) [employer], Lymph % (Auto) [employer], Pitkin % (Auto) [employer], Eos % (Auto) [employer], Baso % (Auto) [employer], Absolute Neuts (auto) 6.6, Absolute Lymphs (auto) 1.40, Total Counted 100, Neutrophils % (Manual) 58, Band Neutrophils % 3, Lymphocytes % (Manual) 13 L, Monocytes % (Manual) 9, Metamyelocytes % 3 H, Myelocytes % 14 H, Nucleated RBC % [employer], Diff Path Review May foll, Anisocytosis 2+, Microcytosis 1+, Macrocytosis 1+, Sodium 145, Potassium 4.2, Chloride 114 H, Carbon Dioxide 20.0 L, Anion Gap 11, BUN 17, Creatinine 0.98, Estim Creat Clear Calc 41.33, Est GFR (MDRD) Af Amer 93, Est GFR (MDRD) Non-Af 77, BUN/Creatinine Ratio 17.3, Glucose 107 H, Calcium 7.9 L Microbiology: Microbiology 06/18/23 14:02 Mucosa - Nasopharyngeal SARS-CoV-2, Influenza & RSV (PCR) - Final Meaningful Use Info Meaningful Use Diagnoses (Choose all that apply): None applicable Discharge Plan Admission Admit Date/Time: 06/18/23 11:04 Attending Provider: Klaus Momin Primary Care Provider: Ray Ceron NP Discharge Orders/Prescriptions Prescriptions: New amoxicillin-pot clavulanate 875-125 mg tablet 1 tab PO BID 4 Days Qty: 8 0RF Continued bumetanide 2 mg tablet 0.5 mg PO DAILY losartan 25 mg tablet 12.5 mg PO DAILY Hold Instructions: NOT ON CURRENT MED LIST FROM TCU niacinamide 500 mg tablet 500 mg PO BID Hold Instructions: NOT ON TCUS CURRENT MED LIST polysaccharide iron complex 150 mg iron capsule 150 mg PO DAILY atorvastatin 40 mg Tablet 40 mg PO QHS 30 Days Qty: 30 0RF ascorbic acid (vitamin C) 500 mg Tablet 500 mg PO BREAKFAST 30 Days Qty: 30 0RF metoprolol succinate 25 mg Tablet Extended Release 24 Hr 12.5 mg PO DAILY 30 Days Qty: 15 0RF aspirin 81 mg tablet,chewable 1 tab PO DAILY Patient Comments: TAKE 1 TABLET BYCHEWED EVERY DAY cyanocobalamin (vitamin B-12) 1,000 mcg capsule 1,000 mcg PO DAILY guaifenesin 600 mg tablet extended release 12hr 600 mg PO BID PRN (Reason: cough) Hold Instructions: not on MAR in Tcu mexiletine 200 mg capsule 200 mg PO Q8H sucralfate [Carafate] 1 gram tablet 1 g PO BID potassium chloride 20 mEq tablet extended release 20 meq PO BIDCM pantoprazole [Protonix] 40 mg tablet,delayed release (DR/EC) 40 mg PO BID menthol-zinc oxide [Calmoseptine] 0.44-20.6 % ointment 1 applic topical BID metoclopramide HCl [Reglan] 5 mg tablet 5 mg PO TID ondansetron 4 mg tablet,disintegrating 8 mg PO Q8H Rx Instructions: 1st dose 1-2 hr before radiation Referrals / Follow Up: Ray Ceron NP, SAFIA-C [Primary Care Provider] - Disposition Disposition (needs filled in before D/C Order can be placed): [facility] Charges/Coding Visit Charges Inpatient E&M: 01727 Disch Hosp >30min
--- NOTE | 2023-06-21 15:02 | NURSING ---
Report called to Kaye BOUDREAUX in TCU.
[2023-06-21] MEDS: 0.9% Saline Lock 10 ML Syringe IV (15:10)
[2023-06-22 16:22] LABS: Pathologist Review Reviewed
== END 2023-06-21 15:25 | disposition skilled nursing facility (03) | DRG 194 ==
LOC: ED 10:11 → MS3 12:03
PROVIDERS: Admitting Provider Family Medicine; Emergency Provider Student in an Organized Health Care Education/Training Program; PCP Nurse Practitioner Primary Care; Visit Provider Family Medicine
DX: J18.9 Pneumonia, unspecified organism (principal); N17.9 Acute kidney failure, unspecified; I50.22 Chronic systolic (congestive) heart failure; N39.0 Urinary tract infection, site not specified; I48.91 Unspecified atrial fibrillation; D50.9 Iron deficiency anemia, unspecified; E86.0 Dehydration; B95.2 Enterococcus as the cause of diseases classified elsewhere; I11.0 Hypertensive heart disease with heart failure; E03.9 Hypothyroidism, unspecified; I25.10 Atherosclerotic heart disease of native coronary artery without angina pectoris; K21.9 Gastro-esophageal reflux disease without esophagitis; E78.5 Hyperlipidemia, unspecified; Z79.01 Long term (current) use of anticoagulants; Z80.0 Family history of malignant neoplasm of digestive organs; Z79.82 Long term (current) use of aspirin; Z86.16 Personal history of COVID-19; Z90.5 Acquired absence of kidney
CPT/HCPCS: 36415; 71045; 80048; 80053; 80202; 84484; 85025; 87631; 87640; 93005; 97162; 97166; 97530; 97535; 99285; J7030; J7040; J7050; A4216

== ENCOUNTER 2023-06-21 15:34 | Inpatient (IN) | payer MEDICARE, OTHER, SELFPAY ==
[2023-06-21 15:51] VITALS: BP 109/70; PULSE 83; RESP 18; TEMP 36.4; O2SAT 96; BMI 21.7
[2023-06-21 16:37] VITALS: PULSE 83; RESP 20; O2SAT 96
[2023-06-21] MEDS: Ensure Clear 120 ML Liquid PO ×2 (18:23→21:32)
[2023-06-21] MEDS: Potassium Chloride Oral Tablet 20 MEQ PO (18:24)
--- NOTE | 2023-06-21 20:00 | HP.PCM_ITS ---
HPI - General General Date of Admission: 06/21/23 Date of Service: 06/21/23 Chief Complaint: Here for rehabilitation. HPI Narrative MAC HARVEY, is a 88 Male who presents with followin06/18/2023 [facility] ED TCU resident with pneumonia, hypotension. Pneumonia, dehydration, DUSTIN. 06/18/2023 Admit to [facility]. Zosyn, Vancomycin for pneumonia. Gentle IV fluids for DUSTIN. Hold Losartan, Hold Bumex for DUSTIN. 06/19/2023 Doing better Zosyn, Vancomycin for pneumonia/UTI. covid/flu/rsv negative. 06/17/2023 Urine culture growing > 100,000 Enterococcus sensitive to Vancomycin, Ampicillin. 06/20/2023 Doing well If MRSA negative, change Zosyn/Vancomycin to Augmentin to complete treatment of UTI/Pneumonia. 06/01/2023 Admit to TCU with debility, here for rehabilitation, strengthening, prior to discharge to [facility]. [facility] Medical History (Updated 06/21/23 @ 20:[address] Momo Blevins MD) Acute kidney injury Acute on chronic systolic congestive heart failure Anemia Atrial fibrillation Cancer Coronary artery disease COVID-19 Debility Elevated liver enzymes Hyperlipidemia Hypertension Hypothyroidism Myocardial infarct Pacemaker Right wrist pain Weakness Home Medications ascorbic acid (vitamin C) 500 mg tablet 500 mg PO BREAKFAST Supplement 30 days #30 tabs 02/11/22 [Rx Last Taken 05/26/23] atorvastatin 40 mg tablet 40 mg PO QHS Cholesterol 30 days #30 tabs 02/11/22 [Rx Last Taken 05/26/23] metoprolol succinate 25 mg tablet,extended release 24 hr 12.5 mg (1/2 x 25 mg) PO DAILY Blood pressure 30 days #15 tabs 02/11/22 [Rx Last Taken 05/26/23] bumetanide 2 mg tablet 0.5 mg PO DAILY Diuretic 09/14/22 [History Last Taken 05/26/23] losartan 25 mg tablet 12.5 mg PO DAILY Blood pressure 09/29/22 [History Last Taken 05/26/23] niacinamide 500 mg tablet 500 mg PO BID SUPPLEMENT 10/12/22 [History Last Taken Unknown] polysaccharide iron complex 150 mg iron capsule 150 mg PO DAILY Supplement 10/12/22 [History Last Taken 05/26/23] aspirin 81 mg chewable tablet 1 tab PO DAILY Heart health 05/24/23 [History Last Taken 05/26/23] cyanocobalamin (vitamin B-12) 1,000 mcg capsule 1,000 mcg PO DAILY Supplement 05/24/23 [History Last Taken 05/26/23] guaifenesin 600 mg tablet, extended release 12 hr 600 mg PO BID PRN cough 05/24/23 [History Last Taken Unknown] mexiletine 200 mg capsule 200 mg PO Q8H Arrhythmia 05/24/23 [History Last Taken 05/26/23] sucralfate 1 gram tablet (Carafate) 1 g PO BID prevent ulcers 05/27/23 [History Last Taken 05/26/23] menthol 0.44 %-zinc oxide 20.6 % topical ointment (Calmoseptine) 1 applic t opical BID COCCYX 06/18/23 [History Last Taken Unknown] metoclopramide HCl 5 mg tablet (Reglan) 5 mg PO TID STOMACH 06/18/23 [History Last Taken Unknown] ondansetron 4 mg disintegrating tablet 8 mg PO Q8H NAUSEA 06/18/23 [History Last Taken 06/17/23] pantoprazole 40 mg tablet,delayed release (Protonix) 40 mg PO BID ACID REFLUX 06/18/23 [History Last Taken 06/17/23] potassium chloride 20 mEq tablet,extended release 20 meq PO BIDCM supplement 06/18/23 [History Last Taken Unknown] amoxicillin 875 mg-potassium clavulanate 125 mg tablet 1 tab PO BID antibiotic 4 days #8 tabs 06/21/23 [Rx Last Taken Unknown] Allergy/AdvReac Type Severity Reaction Status Date / Time apixaban [From Eliquis] AdvReac Unknown Bleeding Verified 01/25/23 14:02 Family History Father Alzheimer disease Sister Alzheimer disease Sister Breast cancer Brother Cancer Brother Esophageal cancer Surgical History H/O rectal polypectomy History of appendectomy History of implantable cardiac defibrillator (ICD) History of thoracotomy Hx of tonsillectomy S/P mitral valve clip implantation Status post Mohs surgery for squamous cell carcinoma of skin Social History household members: spouse number of children: 2 Smoking Status: Never smoker alcohol intake: never substance use type: does not use ROS Constitutional Constitutional: Denies chills, fever(s) or weight gain ENT HEENT: Denies headache(s), nasal congestion or nasal discharge Cardiovascular Cardiovascular: Denies chest pain or palpitations Respiratory/Chest Respiratory/Chest: Denies cough, excessive phlegm production or shortness of br eath with exertion Gastrointestinal Gastrointestinal: Denies abdominal pain, nausea or vomiting Genitourinary Genitourinary: Denies dysuria Musculoskeletal Musculoskeletal: Denies joint pain or joint swelling Integumentary Integumentary: Denies rash or wounds Neurologic Neurologic: Denies focal weakness, numbness or tingling Psychiatric Psychiatric: Denies anxiety, auditory hallucinations, depression, homicidal ideation or suicidal ideation Vital Signs Vital Signs Vital Signs: 06/21/23 15:51 06/21/23 16:37 Temperature 97.6 F L Temperature Source Temporal Pulse Rate 83 83 Pulse Rhythm Regular Pulse Strength Normal (2+) Respiratory Rate 18 20 H Respiratory Effort Normal Labored Accessory Muscle Use Respiratory Depth Deep Respiratory Pattern Tachypnea Blood Pressure 109/70 Blood Pressure Mean 83 Blood Pressure Source Monitor Blood Pressure Position Supine Blood Pressure Location Right Arm Pulse Ox 96 96 Oxygen Delivery Method Nasal Cannula Nasal Cannula Oxygen Flow Rate (L/min) 3 3 Weight Weight: 64.637 kg Body Mass Index (BMI) 21.7 Physical Exam Const alert General Appearance: cooperative HEENT normocephalic Eyes PERRL and EOMs intact bilaterally Neck supple, no JVD and no carotid bruits Resp normal respiratory effort, normal air movement and clear to auscultation bilaterally Cardio regular rate and regular rhythm GI normal to inspection, nondistended, normoactive bowel sounds, non-tender and non-distended Extremity normal capillary refill General Extremity: Negative for edema Skin no rashes or lesions noted General Skin Exam: no breakdown Psych affect normal Appearance: appropriate Assessment & Plan Assessment/Plan (1) Debility: (2) Pneumonia: (3) UTI (urinary tract infection): (4) Dehydration: (5) Acute kidney injury: (6) End stage heart failure: (7) Heart failure with reduced ejection fraction: (8) Coronary artery disease: (9) Hyperlipidemia: (10) B12 deficiency: (11) Ventricular tachycardia: (12) Hypokalemia: PLAN: Plan 88 year old male with below past medical history hospitalized for pneumonia, urinary tract infection, dehydration, acute kidney injury, admitted to TCU with debility, here for rehabilitation, strengthening, prior to discharge to [facility]. * Debility - PT/OT. * Pain - Tylenol 1000mg q6 prn pain (1-10). * Bowel - senna/colace 1 tablet bid prn. * Adult immunization - Administer pneumonia vaccine, covid vaccine, flu vaccine as appropriate. * DVT prophylaxis - Hold, anemia. * Pneumonia/UTI - Augmentin 875mg bid thru 06/25/2023. * Iron deficiency anemia - Ferrex 150mg daily, Vitamin C 500mg daily. * Coronary artery disease - Metoprolol 12.5mg daily, Losartan 12.5mg daily, Aspirin 81mg daily. * Hyperlipidemia - Atorvastatin 40mg qhs. * HFrEF - Metoprolol 12.5mg daily, Losartan 12.5mg daily, Bumex 0.5mg daily. * Vitamin B12 deficiency - B12 1000mcg daily.. * Nutrition - Ensure Clear 120ml 4x/day. * Skin irritation - Calmoseptine topical bid. * Gastroparesis - Reglan 5mg tid. * VTach - Metoprolol 12.5mg daily, Mexiledtine 200mg q8. * Gastric ulcer - Pantoprazole 40mg bid, Sucralfate 1gm tid. * Hypokalemia - KCL ER 20meq bid.
[2023-06-21] MEDS: Menthol/Lanolin/Calamine/Znox 113 GM Tube 1 APPLIC TOPICAL (21:34)
[2023-06-21] MEDS: Amox/Clavulanate 875 MG Tablet PO (21:34)
[2023-06-21] MEDS: Atorvastatin Calcium 40 MG Tablet PO (21:34)
[2023-06-21] MEDS: Metoclopramide 5 MG TABLET PO (21:35)
[2023-06-21] MEDS: Mexiletine HCl 200 MG Capsule PO (21:35)
[2023-06-21] MEDS: Pantoprazole Sodium 40 MG Tablet PO (21:35)
[2023-06-21] MEDS: 0.9% Saline Lock 10 ML Syringe IV (21:50)
[2023-06-22 05:35] VITALS: BMI 21.7
[2023-06-22 05:53] LABS: Hematocrit 28.7 % (40-54); Hemoglobin 8.7 g/dL (13.0-16.5); Mean Corp Hgb Conc 30.3 g/dL (32-36); Mean Corpuscular Hgb 30.6 pg (27.0-32.0); Mean Corpuscular Volume 101.1 fL (80-94); POSITIVE COUNT YES; POSITIVE DIFFERENTIAL YES; POSITIVE MORPHOLOGY YES; Platelet Count 159 K/mm3 (150-450); RBC Distribution Width CV 25.2 % (11.6-14.6); Red Blood Count 2.84 M/mm3 (4.6-6.2)
[2023-06-22 06:01] LABS: Differential Indicated MANUAL DIFF
[2023-06-22] MEDS: Ensure Clear 120 ML Liquid PO ×4 (06:13→20:23)
[2023-06-22] MEDS: Mexiletine HCl 200 MG Capsule PO ×3 (06:13→20:24)
[2023-06-22] MEDS: Metoclopramide 5 MG TABLET PO ×3 (06:13→20:24)
[2023-06-22] MEDS: Sucralfate 1 GM Tablet PO ×2 (06:13→16:45)
[2023-06-22 07:12] LABS: Corrected WBC 12.9 K/mm3 (4.4-11.0); Lymphocyte 30 % (19-41); Metamyelocyte 3 % (0-1); Monocyte 1 % (0-10); Myelocyte 1 % (0-0); Neutrophil-Band 2 % (0-5); Neutrophil-Segmented 63 % (47-70); Nucleated Red Bld Cells,Manual 8 % (0-5); Total Cells Counted 100 (MANUAL DIFF)
[2023-06-22 07:13] LABS: Anisocytosis 2+; Crenated RBC 2+
[2023-06-22 07:14] LABS: Schistocytes 2+
[2023-06-22 07:15] LABS: Polychromasia 1+
[2023-06-22 07:16] LABS: Basophilic Stippling RARE; Platelet Estimate ADEQUATE (ADEQ)
[2023-06-22 07:17] LABS: Absolute Lymphocyte Count 3.87 X10^3/uL (0.83-4.51); Absolute Neutrophil Count 8.3 X10^3/uL (2.0-7.7)
[2023-06-22 08:36] LABS: Anion Gap 7 (5-15); BUN 19 mg/dL (7-18); BUN/Creat Ratio 17.8 RATIO (10-20); Calcium,Total 8.2 mg/dL (8.5-10.1); Chloride 115 mmol/L (98-107); Creatinine, Serum 1.07 mg/dL (0.70-1.30); EST Glomerular Filtration Rate 69 mL/min (>60); Est Glom Filt Rate - Afr Amer 84 mL/min (>60); Estimated Creatinine Clearance 44.69 ml/min; Glucose 125 mg/dL (74-106); Potassium 4.6 mmol/L (3.5-5.1); Sodium Level 140 mmol/L (136-145)
[2023-06-22] MEDS: Aspirin 81 MG TAB.CHEW PO (09:00)
[2023-06-22] MEDS: Potassium Chloride Oral Tablet 20 MEQ PO ×2 (09:00→18:17)
[2023-06-22] MEDS: Ascorbic Acid 500 MG Tablet PO (09:00)
[2023-06-22] MEDS: Amox/Clavulanate 875 MG Tablet PO ×2 (09:01→20:23)
[2023-06-22] MEDS: Bumetanide 0.5 MG Tablet PO (09:01)
[2023-06-22 09:02] VITALS: BP 116/83; PULSE 83
[2023-06-22] MEDS: Iron Polysaccharide Complex 150 MG CAPSULE PO (09:02)
[2023-06-22] MEDS: Losartan Potassium 25 MG Tablet 12.5 MG PO (09:02)
[2023-06-22] MEDS: Metoprolol(XL)Succ 25 MG Tablet 12.5 MG PO (09:02)
[2023-06-22] MEDS: Pantoprazole Sodium 40 MG Tablet PO ×2 (09:02→20:24)
[2023-06-22] MEDS: Cyanocobalamin 500 MCG Tablet 1000 MCG PO (09:03)
[2023-06-22] MEDS: Menthol/Lanolin/Calamine/Znox 113 GM Tube 1 APPLIC TOPICAL ×2 (09:11→20:23)
--- NOTE | 2023-06-22 09:23 | NURSING ---
Saw Operator Note; Activity Asset: Complete
--- NOTE | 2023-06-22 11:14 | PHA.CONS_ITS ---
Documented by User: Kerrie Jaffe 06/22/23 11:48 TCU RX Drug Regimen Review Subjective/Objective Subjective/Objective: Subjective: TCU Admission. 88 YOM presented to the ER from TCU with pneumonia/hypotension. Hospitalized for pneumonia, urinary tract infection, dehydration, acute kidney injury. Admitted to TCU with debility for strengthening and rehabilitation. Objective: Allergies apixaban [From [employer]] Adverse Reaction (Unknown, Verified 01/25/23 14:02) Bleeding Excessive Bleeding Current Medications Generic Name Dose Route Start Last Admin Trade Name Freq PRN Reason Stop Dose Admin Acetaminophen 1,000 mg 06/21/23 20:20 Acetaminophen 500 Mg Tablet PO Q6H PRN PRN Pain Score 1-10 Amoxicillin/Clavulanate Potassium 875 mg 06/21/23 22:00 06/22/23 09:01 Amox/Clavulanate 875 Mg Tablet PO 06/25/23 10:01 875 mg BID HARJINDER Administration Ascorbic Acid 500 mg 06/22/23 08:00 06/22/23 09:00 Ascorbic Acid 500 Mg Tablet PO 500 mg BREAKFAST HARJINDER Administration Aspirin 81 mg 06/22/23 08:00 06/22/23 09:00 Aspirin 81 Mg Tab.Chew PO 81 mg DAILYCM HARJINDER Administration Atorvastatin Calcium 40 mg 06/21/23 22:00 06/21/23 21:34 Atorvastatin Calcium 40 Mg Tablet PO 40 mg QHS HARJINDER Administration Bumetanide 0.5 mg 06/22/23 10:00 06/22/23 09:01 Bumetanide 0.5 Mg Tablet PO 0.5 mg DAILY HARJINDER Administration Protocol Calamine/Phenol 1 applic 06/21/23 18:00 06/22/23 09:11 Menthol/Lanolin/Calamine/Znox 113 Gm Tube TOPICAL 1 applic BID HARJINDER Administration Protocol Cyanocobalamin 1,000 mcg 06/22/23 10:00 06/22/23 09:03 Cyanocobalamin 500 Mcg Tablet PO 1,000 mcg DAILY HARJINDER Administration Losartan Potassium 12.5 mg 06/22/23 10:00 06/22/23 09:02 Losartan Potassium 25 Mg Tablet PO 12.5 mg DAILY HARJINDER Administration Protocol Metoclopramide HCl 5 mg 06/21/23 22:00 06/22/23 06:13 Metoclopramide 5 Mg Tablet PO 5 mg TID HARJINDER Administration Metoprolol Succinate 12.5 mg 06/22/23 10:00 06/22/23 09:02 Metoprolol(Xl)Succ 25 Mg Tablet PO 12.5 mg DAILY HARJINDER Administration Protocol Mexiletine HCl 200 mg 06/21/23 22:00 06/22/23 06:13 Mexiletine Hcl 200 Mg Capsule PO 200 mg Q8 HARJINDER Administration Nutritional Formula (Lactose Free) 120 ml 06/21/23 17:00 06/22/23 06:13 Ensure Clear 120 Ml Liquid PO 120 ml 4X/DAY HARJINDER Administration Pantoprazole Sodium 40 mg 06/21/23 22:00 06/22/23 09:02 Pantoprazole Sodium 40 Mg Tablet PO 40 mg BID HARJINDER Administration Polysaccharide Iron Complex 150 mg 06/22/23 10:00 06/22/23 09:02 Iron Polysaccharide Complex 150 Mg Capsule PO 150 mg DAILY HARJINDER Administration Potassium Chloride 20 meq 06/21/23 17:00 06/22/23 09:00 Potassium Chloride Oral Tablet 20 Meq PO 20 meq BIDCM HARJINDER Administration Senna/Docusate Sodium 1 tablet 06/21/23 20:20 Senna/Docusate Sodium 1 Tablet PO BID PRN Constipation Sodium Chloride 10 - 40 ml 06/21/23 16:11 06/21/23 21:50 0.9% Saline Lock 10 Ml Syringe IV 10 ml UD PRN Administration Midline Flush Sodium Chloride 10 - 40 ml 06/21/23 16:11 0.9 % Nacl (Sterile) Posiflush 10 Ml IV UD PRN Port access or dressing change Sucralfate 1 gm 06/22/23 07:00 06/22/23 06:13 Sucralfate 1 Gm Tablet PO 1 gm BID@0700,1600 HARJINDER Administration Tuberculin PPD 0.1 ml 06/29/23 10:00 Tuberculin,Purif.Prot.Deriv. 50 Tu/Ml Vial ID 06/29/23 10:01 X1 ONE Problem List (Updated 06/21/23 @ 20:[address] Momo Blevins MD) B12 deficiency (Acute) End stage heart failure (Acute) Acute kidney injury (Acute) Dehydration (Acute) Pneumonia (Acute) Hypokalemia (Acute) Heart failure with reduced ejection fraction (Acute) Coronary artery disease (Acute) Hyperlipidemia (Acute) Debility (Acute) Vital Signs Temp Pulse Resp BP Pulse Ox O2 Del Method O2 Flow Rate 97.6 F L 83 20 H 116/83 H 96 Nasal Cannula 2 06/21/23 15:51 06/22/23 09:02 06/21/23 16:37 06/22/23 09:02 06/21/23 16:37 06/21/23 16:37 06/22/23 10:55 Oxygen Flow Rate (L/min) 2 Oxygen Delivery Method Nasal Cannula Weight: 64.954 kg Body Mass Index (BMI) 21.7 Sodium 140 mmol/L (136-145) 06/22/23 05:28 Potassium 4.6 mmol/L (3.5-5.1) 06/22/23 05:28 Chloride 115 mmol/L (98-107) H 06/22/23 05:28 Carbon Dioxide 18.0 mmol/L (21.0-32.0) L 06/22/23 05:28 Anion Gap 7 (5-15) 06/22/23 05:28 BUN 19 mg/dL (7-18) H 06/22/23 05:28 Creatinine 1.07 mg/dL (0.70-1.30) 06/22/23 05:28 Est GFR (MDRD) Af Amer 84 mL/min (>60) 06/22/23 05:28 Est GFR (MDRD) Non-Af 69 mL/min (>60) 06/22/23 05:28 BUN/Creatinine Ratio 17.8 RATIO (10-20) 06/22/23 05:28 Glucose 125 mg/dL (74-106) H 06/22/23 05:28 Assessment/Plan: 1. Pain: acetaminophen 1000mg PO Q6H PRN pain 1-10. Resident has not had any PRN doses at this time. Please continue to monitor for increased pain and PRN usage. 2. Bowel: senna/docusate 1T PO BID PRN constipation. Please continue to monitor for constipation and PRN usage. No PRN doses have been given. Last documented bowel movement was 06/20. 3. Pneumonia/UTI (enterococcus faecalis): amoxicillin/clavulanate 875mg PO BID thru 06/25/23. Please continue to monitor for S/S of infection, renal function (CrCl 44 mL/min) and diarrhea. 4. CAD/VTach/HFrEF: metoprolol succinate 12.5mg PO daily, losartan 12.5mg PO daily, aspirin 81mg PO DAILYCM, bumetanide 0.5mg PO daily and mexiletine 200mg PO Q8. Please continue to monitor BP (last 116/83), HR (last 83), renal function (SCr 1.07mg/dL), potassium (last 4.6mmo/L), sodium (last 140mmol/L), S/S of bleeding, hemoglobin (last 8.7g/dL), swelling, LFTs (last 06/18/23), QTc (last 569ms 06/18/23, 447 ms 06/06/23). Also continue to monitor for fatigue/dizziness/drowsiness, ataxia/tremor, blurred vision, GI distress. If any s/s of arrhythmia such as heart palpitations, shortness of breath, chest pain, or dizziness/lightheadedness may want to consider obtaining ECG if clinically indicated as the last QTc was >500ms. Thanks. 5. Iron deficiency anemia: Ferrex 150mg PO daily and ascorbic acid 500mg PO daily. Please continue to monitor hemoglobin (last 8.7g/dL), iron studies (last 01/25/23), dark stools and constipation. 6. Hyperlipidemia: atorvastatin 40mg PO QHS. Please continue to monitor lipid panel (last 05/25/23), LFTs and muscle pain. 7. Gastroparesis: metoclopramide 5mg PO TID. Please continue to monitor for d yskinesia (BEERs medication), renal function and GI side effects. 8. Gastric ulcer: pantoprazole 40mg PO BID and sucralfate 1gm PO TID. Please continue to monitor for S/S of GI discomfort, diarrhea (BEERs medication) and gas. 9. Hypokalemia: potassium chloride 20mEq PO BIDCM. Please continue to monitor potassium levels (lat 4.6mmol/L). 10. Vitamin B12 deficiency: cyanocobalamin 1000mcg PO daily. Please continue to monitor B12 levels (last WNL 09/29/22). Assessment/Plan for indications treated with psychotropic medications: None Medical chart and medication regimen reviewed. The following medication irregularities or issues were identified: 1. Mexiletine 200mg PO Q8. If any s/s of arrhythmia such as heart palpitations, shortness of breath, chest pain, or dizziness/lightheadedness may want to consider obtaining ECG if clinically indicated as the last QTc was >500ms. Thanks. Date Date of Note:: 06/22/23 Documented by User: Dr. Momo Blevins MD 06/22/23 13:04 TCU RX Drug Regimen Review Provider Comments Provider responsibility Provider Comments to Recommendations by Pharmacy: Agree
--- NOTE | 2023-06-22 13:14 | CASEMGMT ---
Social Work Met with patient to complete initial assessment. Introduced self and role. Verified contacts. Verified code status as full code. Advanced directives are on file. Educated to Medicare benefit and copay coverage. Let patient know he admitted to TCU on day 26. Discussion held re: discharge plans. Patient stated he would like to return home with but knows plans are in place for admission to [facility]. SW will continue to follow for DC planning.
--- NOTE | 2023-06-22 14:03 | NURSING ---
Daughter Audra contacted and given update on patient today. Daughter requests to speak with Dr. Blevins as well about plan for patient care. Dr. Blevins made aware to see patient and family tonight if possible.
[2023-06-22 16:00] VITALS: BP 98/63; PULSE 80; RESP 14; TEMP 36.6; O2SAT 98
[2023-06-22 16:27] LABS: Pathologist Review Reviewed
--- NOTE | 2023-06-22 19:17 | NURSING ---
99% on 3L this AM. Placed on 2L and continues at 98%. Will continue to wean as tolerated.
[2023-06-22 20:10] VITALS: PULSE 86; RESP 18; O2SAT 99
[2023-06-22] MEDS: Atorvastatin Calcium 40 MG Tablet PO (20:24)
[2023-06-23] MEDS: 0.9% Saline Lock 10 ML Syringe IV ×2 (00:01→22:53)
[2023-06-23 05:30] VITALS: BMI 22.0
[2023-06-23] MEDS: Mexiletine HCl 200 MG Capsule PO ×3 (06:13→22:50)
[2023-06-23] MEDS: Metoclopramide 5 MG TABLET PO ×3 (06:13→22:50)
[2023-06-23] MEDS: Sucralfate 1 GM Tablet PO ×2 (06:14→16:35)
[2023-06-23] MEDS: Potassium Chloride Oral Tablet 20 MEQ PO ×2 (08:43→18:11)
[2023-06-23] MEDS: Ascorbic Acid 500 MG Tablet PO (08:43)
[2023-06-23] MEDS: Aspirin 81 MG TAB.CHEW PO (08:43)
[2023-06-23] MEDS: Amox/Clavulanate 875 MG Tablet PO ×2 (08:44→22:51)
[2023-06-23] MEDS: Bumetanide 0.5 MG Tablet PO (08:44)
[2023-06-23] MEDS: Losartan Potassium 25 MG Tablet 12.5 MG PO (08:44)
[2023-06-23 08:45] VITALS: BP 144/70; PULSE 79
[2023-06-23] MEDS: Metoprolol(XL)Succ 25 MG Tablet 12.5 MG PO (08:45)
[2023-06-23] MEDS: Pantoprazole Sodium 40 MG Tablet PO ×2 (08:45→22:50)
[2023-06-23] MEDS: Cyanocobalamin 500 MCG Tablet 1000 MCG PO (08:46)
[2023-06-23] MEDS: Iron Polysaccharide Complex 150 MG CAPSULE PO (08:47)
[2023-06-23] MEDS: Menthol/Lanolin/Calamine/Znox 113 GM Tube 1 APPLIC TOPICAL ×2 (08:52→22:51)
--- NOTE | 2023-06-23 09:38 | CASEMGMT ---
Social Work BASIL received a call from patient's daughter informing BASIL that the patient had discussions with the physician regarding goals of care/ end of life. Per patient's daughter, the patient has elected to discharge home with hospice. The patient's daughter was inquiring about process for home hospice and personal care for 24/hr supervision. BASIL discussed hospice options. The patient's daughter informed BASIL that she may be interested in [facility], but she is agreeable to obtaining patient choice list to review other hospice agencies. BASIL discussed private duty care and financial responsibility of the family. Patient's daughter requested that Sarai GRACIA be consulted to discuss care plans. BASIL will discuss plan of care with Sarai and follow up with family to provide resources. YORDY Reece
[2023-06-23] MEDS: Ensure Clear 120 ML Liquid PO ×3 (12:50→22:49)
[2023-06-23 14:55] VITALS: BP 118/69; PULSE 80; RESP 14; TEMP 36.6; O2SAT 97
--- NOTE | 2023-06-23 16:16 | CASEMGMT ---
Social Work SW phoned dtr to follow up on discussion with Dr. Blevins and hospice recommendations. Answered dtrs questions and explained the referral process for hospice. Offered to provide list of hospice agencies. Dtr denied stating she is familiar with [facility]. SW educated to nonskilled TECHNICAL TRAINING SPECIALIST list to provide for dtr to secure additional assistance for pt at home. Dtr to visit pt this evening and requested list be left in pt's room. Dtr appreciative. SW left TECHNICAL TRAINING SPECIALIST list at pt's bedside. Emailed referral to [facility] to follow up with dtr to schedule. Plan: DC home with [facility]. Date TBD. Sarai Palma, NATHANIEL KENNEDY
[2023-06-23 22:45] VITALS: BP 124/72; PULSE 83; O2SAT 93
[2023-06-23] MEDS: Atorvastatin Calcium 40 MG Tablet PO (22:49)
[2023-06-24 06:00] VITALS: BMI 21.1
[2023-06-24] MEDS: Sucralfate 1 GM Tablet PO ×2 (06:36→16:34)
[2023-06-24] MEDS: Metoclopramide 5 MG TABLET PO ×3 (06:37→22:16)
[2023-06-24] MEDS: Mexiletine HCl 200 MG Capsule PO ×3 (06:37→22:16)
[2023-06-24] MEDS: Ensure Clear 120 ML Liquid PO ×4 (06:40→22:24)
[2023-06-24 06:58] VITALS: BP 136/79; PULSE 83
[2023-06-24 07:05] VITALS: O2SAT 94
[2023-06-24 08:41] VITALS: BP 117/83; PULSE 80
[2023-06-24] MEDS: Metoprolol(XL)Succ 25 MG Tablet 12.5 MG PO (08:41)
[2023-06-24] MEDS: Pantoprazole Sodium 40 MG Tablet PO ×2 (08:42→22:16)
[2023-06-24] MEDS: Bumetanide 0.5 MG Tablet PO (08:42)
[2023-06-24] MEDS: Potassium Chloride Oral Tablet 20 MEQ PO ×2 (08:43→17:29)
[2023-06-24] MEDS: Aspirin 81 MG TAB.CHEW PO (08:43)
[2023-06-24] MEDS: Ascorbic Acid 500 MG Tablet PO (08:43)
[2023-06-24] MEDS: Amox/Clav 400mg/5ml Susp 880 MG PO ×2 (08:44→22:30)
[2023-06-24] MEDS: Losartan Potassium 25 MG Tablet 12.5 MG PO (08:44)
[2023-06-24] MEDS: Cyanocobalamin 500 MCG Tablet 1000 MCG PO (08:45)
[2023-06-24] MEDS: Iron Polysaccharide Complex 150 MG CAPSULE PO (08:45)
[2023-06-24] MEDS: Menthol/Lanolin/Calamine/Znox 113 GM Tube 1 APPLIC TOPICAL ×2 (08:46→22:29)
--- NOTE | 2023-06-24 11:44 | CASEMGMT ---
Social Work SW attempted to follow up with Anita Meyer, [facility]; no answer. SW left a HIPPA compliant voicemail requesting a return call regarding referral for hospice. [phone] spoke with Anita Meyer who confirmed receipt of referral. Anita informed BASIL that she has not contacted family at this time, but will be reviewing referral and contacting family to schedule an appointment. BASIL contacted the patient's daughter, Meka to notify of aforementioned. Patient anticipates discharge home with hospice pending arrangements. YORDY Reece
[2023-06-24 14:14] VITALS: BP 136/87; PULSE 80; RESP 20; TEMP 36.4; O2SAT 98
[2023-06-24] MEDS: Senna/Docusate Sodium 1 Tablet PO (17:32)
[2023-06-24] MEDS: Atorvastatin Calcium 40 MG Tablet PO (22:16)
[2023-06-25 06:00] VITALS: BMI 21.5
[2023-06-25] MEDS: Mexiletine HCl 200 MG Capsule PO ×2 (06:10→14:21)
[2023-06-25] MEDS: Metoclopramide 5 MG TABLET PO ×2 (06:10→14:21)
[2023-06-25] MEDS: Sucralfate 1 GM Tablet PO ×2 (06:10→16:32)
[2023-06-25] MEDS: Ensure Clear 120 ML Liquid PO ×2 (06:14→16:34)
[2023-06-25] MEDS: 0.9% Saline Lock 10 ML Syringe IV ×2 (06:23→17:17)
[2023-06-25 09:20] VITALS: BP 114/70; PULSE 84
[2023-06-25] MEDS: Aspirin 81 MG TAB.CHEW PO (09:20)
[2023-06-25] MEDS: Potassium Chloride Oral Tablet 20 MEQ PO ×2 (09:20→16:32)
[2023-06-25] MEDS: Ascorbic Acid 500 MG Tablet PO (09:20)
[2023-06-25] MEDS: Losartan Potassium 25 MG Tablet 12.5 MG PO (09:20)
[2023-06-25] MEDS: Metoprolol(XL)Succ 25 MG Tablet 12.5 MG PO (09:20)
[2023-06-25] MEDS: Cyanocobalamin 500 MCG Tablet 1000 MCG PO (09:20)
[2023-06-25] MEDS: Bumetanide 0.5 MG Tablet PO (09:22)
[2023-06-25] MEDS: Amox/Clav 400mg/5ml Susp 880 MG PO (09:33)
[2023-06-25] MEDS: Menthol/Lanolin/Calamine/Znox 113 GM Tube 1 APPLIC TOPICAL (09:36)
--- NOTE | 2023-06-25 12:17 | NURSING ---
Pt refused lunch at this time. Able to arouse pt but falls right back asleep. Bp 114/71 Pules 85 SpO2 99% 2L NC.
--- NOTE | 2023-06-25 12:30 | NURSING ---
Hospice called to verify appt with family tomorrow and see if they are able to see pt today. Per hospice unable to see pt today. Daughter Updated on pt being more lethargic today. Pt understood and reassured pt we would keep pt comfortable. Pt at this time resting comfortably in bed. Per Daughter she talked with [facility] and they may have a bed by Tuesday for pt to go there instead of home with hospice. Dr. Blevins called to update on pts condition and N.O. received for Morphine 10mg SL q1hr for pain 1-10, Atropine 4 drops q3hrs for rattle and Lorazapam Q1hr PRN for Increased restlessness and Anxiety. Orders Read back.
--- NOTE | 2023-06-25 13:42 | NURSING ---
Pt refusing to wear Oxygen stated its a pain in the butt. Pt on 3 L NC SpO2 98%. Removed O2 per pt's request and rechecked pt SpO2 98% on RA. Pt resting comfortably in bed. Call light within reach.
[2023-06-25 13:58] VITALS: BP 116/70; PULSE 84; RESP 14; TEMP 36.4; O2SAT 98
[2023-06-25] MEDS: Senna/Docusate Sodium 1 Tablet PO (17:13)
[2023-06-25 20:00] VITALS: PULSE 87; RESP 20; O2SAT 96
--- NOTE | 2023-06-25 20:00 | NURSING ---
Patient's family approached nurse regarding patient's ICD. Daughter, who is POA, discussed with family and they are in agreement to deactivate device. Call placed to Dr. Blevins, order received to deactivate. Notified supervisor engine assembly, who came up with ED nurse. Magnet placed in position on patient's chest for deactivation of device. Family remains in room to visit, courtesy cart in place. Patient appears comfortable. Will continue to monitor.
[2023-06-26] MEDS: Ensure Clear 120 ML Liquid PO ×4 (05:53→20:13)
[2023-06-26] MEDS: Mexiletine HCl 200 MG Capsule PO ×3 (05:54→20:06)
[2023-06-26] MEDS: Metoclopramide 5 MG TABLET PO ×3 (05:54→20:06)
[2023-06-26 06:00] VITALS: BMI 21.7
[2023-06-26] MEDS: Sucralfate 1 GM Tablet PO ×2 (06:00→17:11)
[2023-06-26 07:45] VITALS: PULSE 92; RESP 18; O2SAT 92
--- NOTE | 2023-06-26 08:00 | NURSING ---
Updated family of patient's status. Patient had uneventful night. Daughter appreciative of update.
[2023-06-26 09:00] VITALS: BP 111/73; PULSE 88; RESP 16; TEMP 36.6; O2SAT 96
[2023-06-26 09:05] VITALS: PULSE 88
[2023-06-26] MEDS: Lansoprazole 15 MG Capsule.DR 30 MG PO ×2 (09:05→20:06)
[2023-06-26] MEDS: Bumetanide 0.5 MG Tablet PO (09:05)
[2023-06-26] MEDS: Metoprolol(XL)Succ 25 MG Tablet 12.5 MG PO (09:05)
[2023-06-26] MEDS: Losartan Potassium 25 MG Tablet 12.5 MG PO (09:06)
[2023-06-26] MEDS: Potassium Chloride Oral Tablet 20 MEQ PO ×2 (09:06→17:11)
[2023-06-26] MEDS: Aspirin 81 MG TAB.CHEW PO (09:06)
[2023-06-26] MEDS: Cyanocobalamin 500 MCG Tablet 1000 MCG PO (09:07)
[2023-06-26] MEDS: Menthol/Lanolin/Calamine/Znox 113 GM Tube 1 APPLIC TOPICAL ×2 (09:07→20:22)
[2023-06-26] MEDS: Ascorbic Acid 500 MG Tablet PO (09:07)
--- NOTE | 2023-06-26 11:04 | NURSING ---
pt alert and oriented to self, place, but reoriented to month/day. pt pleasant, able to follow all commands and answered questions appropriately. took AM medications w/out difficulty. HOB elevated. call light in reach. repositioned by staff.
[2023-06-26] MEDS: 0.9% Saline Lock 10 ML Syringe IV (15:00)
--- NOTE | 2023-06-26 15:15 | NURSING ---
Hospice here discussing pt wishes at this time
--- NOTE | 2023-06-26 16:25 | NURSING ---
pt & family signed with hospice to [facility]. message Left with ASSEMBLER MUSICAL [employer]QUIPMENT.
[2023-06-26] MEDS: Atorvastatin Calcium 40 MG Tablet PO (20:06)
[2023-06-27 05:43] VITALS: BMI 21.9
[2023-06-27] MEDS: Sucralfate 1 GM Tablet PO (06:41)
[2023-06-27] MEDS: Mexiletine HCl 200 MG Capsule PO (06:41)
[2023-06-27] MEDS: Metoclopramide 5 MG TABLET PO (06:41)
[2023-06-27] MEDS: Ensure Clear 120 ML Liquid PO (06:41)
[2023-06-27 07:59] VITALS: BP 132/77; PULSE 92; RESP 18; TEMP 36.9; O2SAT 98
--- NOTE | 2023-06-27 08:00 | NURSING ---
pt had emesis of undigested food, pink in color with white specks possibly medication. pt sitting up 90 degrees in bed, eating scrambled eggs. states I am going to eat pt states he is hungry, denies nausea. just came on quick. will continue to monitor. see vitals, all stable. afebrile. pt alert & oriented this AM.
--- NOTE | 2023-06-27 08:38 | NURSING ---
pt had another approx 200cc partially digested emesis just after finishing brkfst. HOB elevated 90 degrees. will continue to monitor
[2023-06-27] MEDS: Menthol/Lanolin/Calamine/Znox 113 GM Tube 1 APPLIC TOPICAL (10:00)
[2023-06-27] MEDS: Aspirin 81 MG TAB.CHEW PO (10:00)
--- NOTE | 2023-06-27 10:02 | CASEMGMT ---
Social Work BASIL [facility] a [facility] who informed BASIL that the patient's family has agreed to sign into hospice upon discharge. The patient's family would like to have patient transition to [facility] with hospice instead of transitioning home with hospice. [facility] to order home O2 when plan of care if confirmed for placement. Tatiana GRACIA contacted patient's daughter to confirm transition of care plans. YORDY Reece
--- NOTE | 2023-06-27 10:32 | CASEMGMT ---
Addendum entered by Tatiana Medley 06/27/23 17:26: [facility] returned call and stated they can accept patient tomorrow. This worker telephoned hospice and gave them DC date. Hospice confirmed they can provide transportation. SW talked with daughter and updated her on DC plans. Daughter in agreement. SW presented Notice of Medicare Non-Coverage to patient's daughter/POA. Waiting on quill picking machine operator time from [facility]. MARCIA Dukes Addendum entered by Tatiana Medley 06/27/23 11:33: Party Planner Letha from [facility] called and stated they can take patient tomorrow morning. This worker telephoned [facility] to update them on discharge date and asked if they can transport patient. They will call us back to confirm. Tatiana Medley Original Note: Social Work This worker telephoned patient's daughter, Meka. Daughter did state she had reached out to [facility] and talked to Letha in admissions who stated they might have a bed available 06/26 or 06/27. Daughter stated they would like for patient to discharge there this week on hospice services. Daughter did state her has alot of medical things going on and has appointments and therapy today and Tuesday and she herself has an onocology appt tomorrow at 1:45. She would like to work around these appointments. This worker did call [facility] and left a voicemail for Letha in admissions to call us back to discuss placement. MARCIA Dukes
[2023-06-27 10:38] VITALS: PULSE 92
[2023-06-27] MEDS: 0.9% Saline Lock 10 ML Syringe IV ×3 (11:21→22:04)
[2023-06-27 11:22] VITALS: PULSE 90; RESP 18; O2SAT 95
--- NOTE | 2023-06-27 11:59 | NURSING ---
attempted to turn and reposition, pt incont urine, changed and then placed on bedpan. HUMAN RESOURCES REPRESENTATIVE went to sit pt up to eat lunch and pt began vomiting thick clear/yellowish mucus. will update dr diaz. pt never took a bite of food, denies nausea.
--- NOTE | 2023-06-27 12:19 | NURSING ---
dr diaz notified, new order for compazine IV 10mg PRN
[2023-06-27] MEDS: proCHLORPERazine 10 MG/2 ML Vial IV (12:26)
--- NOTE | 2023-06-27 17:09 | DS.PCM_ITS ---
Providers Date of Admission: 06/21/23 Primary Care Physician: RUDY Yun Consultations 06/23/23 16:13 Consult: Hospice / Palliative Care Routine Consulting Provider: [facility] Reason for Consult: HOSPICE- Dx:End Stage Heart Failure and Pnuemonia EMERGENT Consult: No MD Notified: Yes Date Notified: 06/23/23 Time Notified: 16:13 Method of Notification: Text Reason For Visit: PNEUMONIA Diagnosis Discharge Diagnosis (1) Debility: Status: Acute Code(s): R53.81 - Other malaise (2) Pneumonia: Status: Acute Code(s): J18.9 - Pneumonia, unspecified organism (3) UTI (urinary tract infection): Status: Inactive Code(s): N39.0 - Urinary tract infection, site not specified (4) Dehydration: Status: Acute Code(s): E86.0 - Dehydration (5) Acute kidney injury: Status: Acute Code(s): N17.9 - Acute kidney failure, unspecified (6) End stage heart failure: Status: Acute Code(s): I50.84 - End stage heart failure (7) Heart failure with reduced ejection fraction: Status: Acute Code(s): I50.20 - Unspecified systolic (congestive) heart failure (8) Coronary artery disease: Status: Acute Code(s): I25.10 - Atherosclerotic heart disease of [place] coronary artery without angina pectoris (9) Hyperlipidemia: Status: Acute Code(s): E78.5 - Hyperlipidemia, unspecified (10) B12 deficiency: Status: Acute Code(s): E53.8 - Deficiency of other specified B group vitamins (11) Ventricular tachycardia: Status: Resolved Code(s): I47.20 - Ventricular tachycardia, unspecified (12) Hypokalemia: Status: Acute Code(s): E87.6 - Hypokalemia Plan 88 year old male with below past medical history hospitalized for pneumonia, urinary tract infection, dehydration, acute kidney injury, admitted to TCU with debility, here for rehabilitation, strengthening, prior to discharge to [facility]. * Debility - PT/OT. * Pain - Tylenol 1000mg q6 prn pain (1-10). * Bowel - senna/colace 1 tablet bid prn. * Adult immunization - Administer pneumonia vaccine, covid vaccine, flu vaccine as appropriate. * DVT prophylaxis - Hold, anemia. * Pneumonia/UTI - Augmentin 875mg bid thru 06/25/2023. * Iron deficiency anemia - Ferrex 150mg daily, Vitamin C 500mg daily. * Coronary artery disease - Metoprolol 12.5mg daily, Losartan 12.5mg daily, Aspirin 81mg daily. * Hyperlipidemia - Atorvastatin 40mg qhs. * HFrEF - Metoprolol 12.5mg daily, Losartan 12.5mg daily, Bumex 0.5mg daily. * Vitamin B12 deficiency - B12 1000mcg daily.. * Nutrition - Ensure Clear 120ml 4x/day. * Skin irritation - Calmoseptine topical bid. * Gastroparesis - Reglan 5mg tid. * VTach - Metoprolol 12.5mg daily, Mexiledtine 200mg q8. * Gastric ulcer - Pantoprazole 40mg bid, Sucralfate 1gm tid. * Hypokalemia - KCL ER 20meq bid. Hospital Course Operations None Procedures None Summary of Care Provided Minutes Spent on Discharge: 35 Hospital Course: 88 year old male with below past medical history hospitalized for pneumonia, urinary tract infection, dehydration, acute kidney injury, admitted to TCU with debility, here for rehabilitation, strengthening, prior to discharge to [facility]. Resident dying. Discharge to [facility] 06/28/2023, [facility]. Physical Exam Const alert General Appearance: cooperative HEENT normocephalic Eyes PERRL and EOMs intact bilaterally Neck supple, no JVD and no carotid bruits Resp normal respiratory effort, normal air movement and clear to auscultation bilater ally Cardio regular rate and regular rhythm GI normal to inspection, nondistended, normoactive bowel sounds, non-tender and non-distended Extremity normal capillary refill General Extremity: Negative for edema Skin no rashes or lesions noted General Skin Exam: no breakdown Psych affect normal Appearance: appropriate Weight / BMI Weight Weight: 65.816 kg Body Mass Index (BMI) 21.9 ABG / Lab / Microbiology Data 06/22/23 05:28 06/22/23 05:28 D/C Instructions Discharge Diet: No restrictions Discharge Activity: Return to Normal Activity Weight Bearing Status: Weight bearing as tolerated Additional Instructions: Discharge to [facility] 06/28/2023, [facility]. Meaningful Use Info Meaningful Use Diagnoses (Choose all that apply): None applicable Discharge Plan Admission Admit Date/Time: 06/21/23 15:34 Primary Reason for Your Visit: Debility. Attending Provider: Momo Blevins Chi Primary Care Provider: Ray Ceron NP Consulting Providers: Kelvin Gonzalez; Kisha Lake; Suma Schwartz; Aurora Glynn FEED WEIGHER Instructions Additional Instructions / Restrictions: Discharge to [facility] 06/28/2023, [facility]. Discharge Orders/Prescriptions Prescriptions: Discontinued bumetanide 2 mg tablet 0.5 mg PO DAILY losartan 25 mg tablet 12.5 mg PO DAILY Hold Instructions: NOT ON CURRENT MED LIST FROM U niacinamide 500 mg tablet 500 mg PO BID Hold Instructions: NOT ON TCUS CURRENT MED LIST polysaccharide iron complex 150 mg iron capsule 150 mg PO DAILY atorvastatin 40 mg Tablet 40 mg PO QHS 30 Days Qty: 30 0RF ascorbic acid (vitamin C) 500 mg Tablet 500 mg PO BREAKFAST 30 Days Qty: 30 0RF metoprolol succinate 25 mg Tablet Extended Release 24 Hr 12.5 mg PO DAILY 30 Days Qty: 15 0RF aspirin 81 mg tablet,chewable 1 tab PO DAILY Patient Comments: TAKE 1 TABLET BYCHEWED EVERY DAY cyanocobalamin (vitamin B-12) 1,000 mcg capsule 1,000 mcg PO DAILY guaifenesin 600 mg tablet extended release 12hr 600 mg PO BID PRN (Reason: cough) Hold Instructions: not on MAR in Tcu mexiletine 200 mg capsule 200 mg PO Q8H sucralfate [Carafate] 1 gram tablet 1 g PO BID potassium chloride 20 mEq tablet extended release 20 meq PO BIDCM pantoprazole [Protonix] 40 mg tablet,delayed release (DR/EC) 40 mg PO BID menthol-zinc oxide [Calmoseptine] 0.44-20.6 % ointment 1 applic topical BID metoclopramide HCl [Reglan] 5 mg tablet 5 mg PO TID ondansetron 4 mg tablet,disintegrating 8 mg PO Q8H Rx Instructions: 1st dose 1-2 hr before radiation amoxicillin-pot clavulanate 875-125 mg tablet 1 tab PO BID 4 Days Qty: 8 0RF Referrals / Follow Up: Ray Ceron FEED WEIGHER, FEED WEIGHER-C [Primary Care Provider] - Disposition Disposition (needs filled in before D/C Order can be placed): Hospice in Medical Facility
[2023-06-27 17:12] VITALS: BP 110/68; PULSE 80
--- NOTE | 2023-06-27 17:17 | TREXTCAR_ITS ---
Diet Diet Order/Speech Therapy: 06/22/23 12:32 Diet: Regular - General Dietary Modifications:: Sodium Restricted Type of Dietary Supplement:: Magic Cup Dessert Is pt able to select menu?: Yes Diet Comments: Magic cup BID Routine Orders/Code Status Code Status: DNRCC Wound(s) coccyx: Wound Type: shearing Dressing Change: Triad ointment or lalita lt heel: Wound Type: Pressure Injury mid back: Wound Type: Pressure Injury Dressing Change: mepilex 06/27/23 Therapies Weight Bearing: Weight bearing as tolerated Extremity Affected:: Bilateral Lower Problem/Diagnosis (1) Debility: Status: Acute Code(s): R53.81 - Other malaise (2) Pneumonia: Status: Acute Code(s): J18.9 - Pneumonia, unspecified organism (3) UTI (urinary tract infection): Status: Inactive Code(s): N39.0 - Urinary tract infection, site not specified (4) Dehydration: Status: Acute Code(s): E86.0 - Dehydration (5) Acute kidney injury: Status: Acute Code(s): N17.9 - Acute kidney failure, unspecified (6) End stage heart failure: Status: Acute Code(s): I50.84 - End stage heart failure (7) Heart failure with reduced ejection fraction: Status: Acute Code(s): I50.20 - Unspecified systolic (congestive) heart failure (8) Coronary artery disease: Status: Acute Code(s): I25.10 - Atherosclerotic heart disease of [place] coronary artery without angina pectoris (9) Hyperlipidemia: Status: Acute Code(s): E78.5 - Hyperlipidemia, unspecified (10) B12 deficiency: Status: Acute Code(s): E53.8 - Deficiency of other specified B group vitamins (11) Ventricular tachycardia: Status: Resolved Code(s): I47.20 - Ventricular tachycardia, unspecified (12) Hypokalemia: Status: Acute Code(s): E87.6 - Hypokalemia Plan 88 year old male with below past medical history hospitalized for pneumonia, urinary tract infection, dehydration, acute kidney injury, admitted to TCU with debility, here for rehabilitation, strengthening, prior to discharge to [facility]. * Debility - PT/OT. * Pain - Tylenol 1000mg q6 prn pain (1-10). * Bowel - senna/colace 1 tablet bid prn. * Adult immunization - Administer pneumonia vaccine, covid vaccine, flu vaccine as appropriate. * DVT prophylaxis - Hold, anemia. * Pneumonia/UTI - Augmentin 875mg bid thru 06/25/2023. * Iron deficiency anemia - Ferrex 150mg daily, Vitamin C 500mg daily. * Coronary artery disease - Metoprolol 12.5mg daily, Losartan 12.5mg daily, Aspirin 81mg daily. * Hyperlipidemia - Atorvastatin 40mg qhs. * HFrEF - Metoprolol 12.5mg daily, Losartan 12.5mg daily, Bumex 0.5mg daily. * Vitamin B12 deficiency - B12 1000mcg daily.. * Nutrition - Ensure Clear 120ml 4x/day. * Skin irritation - Calmoseptine topical bid. * Gastroparesis - Reglan 5mg tid. * VTach - Metoprolol 12.5mg daily, Mexiledtine 200mg q8. * Gastric ulcer - Pantoprazole 40mg bid, Sucralfate 1gm tid. * Hypokalemia - KCL ER 20meq bid. Allergies/Procedures Done in Hospital Allergies apixaban [From Eliquis] Adverse Reaction (Unknown, Verified 01/25/23 14:02) Bleeding Excessive Bleeding Procedures: None Type of Care/Length of Stay Estimated LOS: More Than 30 Days Type of Care Needed: Intermediate Rehab Potential: None Prognosis: Poor Additional Orders/Day of Discharge Day of Discharge: 06/28/23 Dietary and Speech Recommendations Dietitian Recommendations/Changes: Will liberalize diet to Regular Sodium Restricted w/ magic cup bid Continue Ensure Clear 4x/day w/ medpass Consider appetite stimulant to help encourage increased po intake of meals Discharge Plan Admission Admit Date/Time: 06/21/23 15:34 Primary Reason for Your Visit: Debility. Attending Provider: Momo Blevins Chi Primary Care Provider: Ray Ceron NP Consulting Providers: Kelvin Gonzalez; Kisha Lake; Suma Schwartz; Maci Glynn CERTIFIED OPHTHALMIC ASSISTANT Instructions Additional Instructions / Restrictions: Discharge to [facility] 06/28/2023, [facility]. Discharge Orders/Prescriptions Prescriptions: Discontinued bumetanide 2 mg tablet 0.5 mg PO DAILY losartan 25 mg tablet 12.5 mg PO DAILY Hold Instructions: NOT ON CURRENT MED LIST FROM TCU niacinamide 500 mg tablet 500 mg PO BID Hold Instructions: NOT ON TCUS CURRENT MED LIST polysaccharide iron complex 150 mg iron capsule 150 mg PO DAILY atorvastatin 40 mg Tablet 40 mg PO QHS 30 Days Qty: 30 0RF ascorbic acid (vitamin C) 500 mg Tablet 500 mg PO BREAKFAST 30 Days Qty: 30 0RF metoprolol succinate 25 mg Tablet Extended Release 24 Hr 12.5 mg PO DAILY 30 Days Qty: 15 0RF aspirin 81 mg tablet,chewable 1 tab PO DAILY Patient Comments: TAKE 1 TABLET BYCHEWED EVERY DAY cyanocobalamin (vitamin B-12) 1,000 mcg capsule 1,000 mcg PO DAILY guaifenesin 600 mg tablet extended release 12hr 600 mg PO BID PRN (Reason: cough) Hold Instructions: not on MAR in Tcu mexiletine 200 mg capsule 200 mg PO Q8H sucralfate [Carafate] 1 gram tablet 1 g PO BID potassium chloride 20 mEq tablet extended release 20 meq PO BIDCM pantoprazole [Protonix] 40 mg tablet,delayed release (DR/EC) 40 mg PO BID menthol-zinc oxide [Calmoseptine] 0.44-20.6 % ointment 1 applic topical BID metoclopramide HCl [Reglan] 5 mg tablet 5 mg PO TID ondansetron 4 mg tablet,disintegrating 8 mg PO Q8H Rx Instructions: 1st dose 1-2 hr before radiation amoxicillin-pot clavulanate 875-125 mg tablet 1 tab PO BID 4 Days Qty: 8 0RF Referrals / Follow Up: Ray Ceron CERTIFIED OPHTHALMIC ASSISTANT, CERTIFIED OPHTHALMIC ASSISTANT-C [Primary Care Provider] - Disposition Disposition (needs filled in before D/C Order can be placed): Hospice in Medical Facility
--- NOTE | 2023-06-27 19:53 | NURSING ---
Received phone call from Aida at [facility] noting transportation is scheduled through their organization for worm picker between [phone] to the [facility] and notes all DME has been delivered.
[2023-06-28 04:35] VITALS: RESP 19
[2023-06-28 04:53] VITALS: BMI 22.1
--- NOTE | 2023-06-28 07:34 | NURSING ---
Spoke with family via telephone, family aware of DC time and plan to transport. Family verbalized understanding.
[2023-06-28 09:10] VITALS: BP 117/70; PULSE 58; RESP 16; TEMP 36.6; O2SAT 97
--- NOTE | 2023-06-28 09:51 | CASEMGMT ---
[id number] Social Work SW had missed call from [facility] from 06/27/2023 at 1900. SW contacted [facility] to follow up with transportation arrangements for the patient to transition to [facility]. [facility] [employer] Consultant, Anita informed SW that she spoke with RN on TCU to notify bead picker has been arranged for 06/28/23 between [phone]. Patient's family has been notified of discharge plans. Discharge: Patient to transition [facility] with [facility] at 0900. Family was notified of transition of care plans. YORDY Reece
[2023-06-28 10:25] VITALS: BMI 22.1
--- NOTE | 2023-07-01 14:25 | MDS.RN ---
Information for the mds was obtained from review of the clinical record, interview of resident, staff, and direct observation of resident's care.
== END 2023-06-28 09:06 | disposition hospice, inpatient (51) | DRG 689 ==
PROVIDERS: Admitting Provider Family Medicine Geriatric Medicine; PCP Nurse Practitioner Primary Care; Visit Provider Family Medicine Geriatric Medicine
DX: N39.0 Urinary tract infection, site not specified (principal); J18.9 Pneumonia, unspecified organism; I47.20 Ventricular tachycardia, unspecified; I50.22 Chronic systolic (congestive) heart failure; I50.84 End stage heart failure; I11.0 Hypertensive heart disease with heart failure; D50.9 Iron deficiency anemia, unspecified; E78.5 Hyperlipidemia, unspecified; I25.10 Atherosclerotic heart disease of native coronary artery without angina pectoris; E53.8 Deficiency of other specified B group vitamins; E87.6 Hypokalemia; K31.84 Gastroparesis; K25.9 Gastric ulcer, unspecified as acute or chronic, without hemorrhage or perforation; Z79.82 Long term (current) use of aspirin; Z79.899 Other long term (current) drug therapy; B95.2 Enterococcus as the cause of diseases classified elsewhere; Z95.810 Presence of automatic (implantable) cardiac defibrillator
CPT/HCPCS: 80048; 85025; 87811; 92507; 92523; 92526; 92610; 97162; 97166; 97530; 97535; 97802; A4216